=== PATIENT | male | born 1955 | race Caucasian/White ===

== ENCOUNTER 2016-07-27 08:20 | Inpatient (IN) | payer SELFPAY ==
[2016-07-27] MEDS ORDERED: ONDANSETRON HCL INJ/PF 4 MG/2 ML SDV IV ONE (08:57)
--- NOTE | 2016-07-27 08:57 | ER Document Report ---
ED Dizziness/Weakness - General Mode of Arrival: Medic Information source: Patient TRAVEL OUTSIDE OF THE [place] IN LAST 30 DAYS: No - HPI Patient complains to provider of: Dizziness Associated symptoms: Other - See above <KAMRON ROSSI - Last Filed: 07/27/16 10:46> <ANGELA BECKWITH - Last Filed: 07/27/16 12:46> - General Chief Complaint: Dizziness Stated Complaint: Dizziness Notes: Patient is a 61 year old male, with a past medical history including diabetes and CHF, who presents to the emergency department complaining of dizziness onset this morning. Patient reports the dizziness is exacerbated by turning his head to the side quickly. Patient also complains of blurred vision, nausea, and vomiting. Patient was seen at this facility last October for similar complaints and was diagnosed with vertigo which was successfully treated. PCP: [facility] (KAMRON ROSSI) This 61-year-old male patient comes emergent room complaining of onset this morning of dizziness and blurred vision. He reports it is similar to his previous episodes of vertigo. He is some nauseousness. The symptoms are made worse with head movement. On exam, he is an ill looking obese male. His heart rate is in the 140 range and irregular. His pulse is thready at the wrist. He doesn't appear to be a little tachypneic. His lungs sound reasonably clear. He was diagnosed with new -onset atrial fibrillation on 05/12/2016 on an admission here for a CHF exacerbation and uncontrolled high blood pressure. At this time his blood pressure is in the 110 systolic range. The patient had been here admitted here on 05/12/2016 with new onset A. fib with RVR, and was actually here for cellulitis of the time. He was post to be discharged on lisinopril, metformin, furosemide, hydralazine, metoprolol among others. He does not recall ever taking metoprolol. He states he ran out of his Lasix a week or more ago, and doesn't remember when he ran out of his hydralazine. He was seen here on 07/13/2016 on 2 separate occasions with some fluid overload, was treated but was not discharged with any prescriptions for Lasix at that time. He has had vertigo several times in the past and this is not a new or different problem. (ANGELA BECKWITH) - Related Data Allergies/Adverse Reactions: diltiazem [From Cardizem] Allergy (Verified 05/31/16 08:20) Past Medical History - General Information source: Patient - Social History Smoking Status: Unknown if Ever Smoked Family History: Reviewed & Not Pertinent - Past Medical History Cardiac Medical History: Reports: Hx Atrial Fibrillation, Hx Congestive Heart Failure, Hx Coronary Artery Disease, Hx Heart Attack - pt unsure of this, Hx Hypertension Pulmonary Medical History: Reports: Hx Asthma - childhood Endocrine Medical History: Reports: Hx Diabetes Mellitus Type 2 Musculoskeltal Medical History: Reports Hx Arthritis - RA, Reports Hx Fibromyalgia Psychiatric Medical History: Reports: Hx Anxiety Infectious Medical History: Reports: Hx C-Diff Past Surgical History: Reports: Hx Appendectomy, Hx Orthopedic Surgery - L hand , Hx Tonsillectomy - Immunizations Hx Diphtheria, Pertussis, Tetanus Vaccination: Yes <KAMRON ROSSI - Last Filed: 07/27/16 10:46> Review of Systems - Review of Systems Constitutional: No symptoms reported EENT: See HPI, Blurred vision Cardiovascular: See HPI, Dizziness Respiratory: No symptoms reported Gastrointestinal: No symptoms reported Genitourinary: No symptoms reported Male Genitourinary: No symptoms reported Musculoskeletal: No symptoms reported Skin: No symptoms reported Hematologic/Lymphatic: No symptoms reported Neurological/Psychological: No symptoms reported -: Yes All other systems reviewed and negative <KAMRON ROSSI - Last Filed: 07/27/16 10:46> Physical Exam - Vital signs Interpretation: Tachycardic, Tachypneic - mild - General General appearance: Alert - HEENT Head: Normocephalic, Atraumatic Eyes: Other - Some lateral gaze stagnation Neck: No: Carotid bruit - Respiratory Respiratory status: No respiratory distress, Tachypnea - mild Chest status: Nontender Breath sounds: Normal Chest palpation: Normal - Cardiovascular Rhythm: Tachycardia Heart sounds: Normal auscultation Murmur: No Pulses: Decreased: Radial - Abdominal Inspection: Obese - Extremities General upper extremity: Normal inspection General lower extremity: Edema - mild - Neurological Neuro grossly intact: Yes Cognition: Normal Orientation: AAOx4 [place] Coma Scale Eye Opening: Spontaneous [place] Coma Scale Verbal: Oriented Joan Coma Scale Motor: Obeys Commands Joan Coma Scale Total: 15 Speech: Normal - Psychological Associated symptoms: Normal affect, Normal mood - Skin Skin Temperature: Warm Skin Moisture: Dry Skin Color: Normal <KAMRON ROSSI - Last Filed: 07/27/16 10:46> Course - Laboratory Result Diagrams: 07/27/16 09:49 07/27/16 09:49 <KAMRON ROSSI - Last Filed: 07/27/16 10:46> - Laboratory Result Diagrams: 07/27/16 09:49 07/27/16 09:49 - Diagnostic Test Radiology reviewed: Image reviewed, Reports reviewed - Chest x-ray does not show any acute process, specifically no congestive heart failure. - EKG Interpretation by Me EKG shows normal: Curlew, QRS Complexes, ST-T Waves. abnormal: Intervals - Prolonged QT interval Rate: Tachycardia - 149 Rhythm: A.Fib [place]/QRS: LAHB/LAFB When compared to previous EKG there are: Changes noted - Only significant change since 07/13/2016 is the tachycardia. - Consults Dr. Monet Time consulted: 12:40 Consulted provider: will come to ER <ANGELA BECKWITH - Last Filed: 07/27/16 12:46> - Re-evaluation Re-evalutation: 07/27/16 12:11 After 1 L of IV fluid, metoprolol, Ativan and Antivert the patient is feeling much better. His room air pulse ox is 97%. His atrial fibrillation RVR is slowed to the 1:15 range. His blood pressure has gone up to the 135 range. He is able to turn his head from side to side with only minimal dizzy sensation at this time. He is actually smiling and states he feels considerably better. 07/27/16 12:13 The patient's hemoglobin A1c was only 5.2, when asked about all the sores on his extremities and the prior cellulitis, he states he picks at his skin. It is obviously not due to diabetes. When asked why he does that he states "just stupid I guess". (ANGELA BECKWITH) - Vital Signs Vital signs: Temp Pulse Resp BP Pulse Ox 15 102/59 L 97 07/27/16 09:01 07/27/16 09:01 07/27/16 09:01 (ANGELA BECKWITH) - Laboratory Laboratory results interpreted by me: 07/27/16 07/27/16 07/27/16 09:49 09:49 09:49 WBC 3.7 L RBC 2.87 L Hgb 9.5 L Hct 27.8 L RDW 17.1 H Plt Count 88 L Sodium 145.9 H Chloride 110 H Carbon Dioxide 19 L BUN 26 H Creatinine 1.48 H Est GFR ( Amer) 58 L Est GFR (Non-Af Amer) 48 L AST 72 H Creatine Kinase 535 H NT-Pro-B Natriuret Pep 1590 H Albumin 2.7 L Critical Care Note - Critical Care Note Total time excluding time spent on procedures (mins): 35 <ANGELA BECKWITH - Last Filed: 07/27/16 12:46> Discharge <KAMRON ROSSI - Last Filed: 07/27/16 10:46> - Discharge Admitting Provider: Hospitalist Unit Admitted: Telemetry <ANGELA BECKWITH - Last Filed: 07/27/16 12:46> - Discharge Clinical Impression: Atrial fibrillation with rapid ventricular response, Vertigo Hypotension Qualifiers: Hypotension type: unspecified hypotension type Qualified Code(s): I95.9 - Hypotension, unspecified Condition: Stable Disposition: ADMITTED INPATIENT Scribe Attestation: 07/27/16 12:46 I personally performed the services described in the documentation, reviewed and edited the documentation which was dictated to the scribe in my presence, and it accurately records my words and actions. (ANGELA BECKWITH) Scribe Documentation <KAMRON ROSSI - Last Filed: 07/27/16 10:46> <ANGELA BECKWITH - Last Filed: 07/27/16 12:46> - Scribe Written by Scribe:: ANGELA BECKWITH MD, SCRIBE 07/27/16 0939 Acting as scribe for: Dr. Beckwith (KAMRON ROSSI) (ANGELA BECKWITH)
[2016-07-27] MEDS ORDERED: MECLIZINE HCL 25 MG TABLET PO ONE (08:58)
[2016-07-27] MEDS ORDERED: NORMAL SALINE 1000 ML 1,000 ML IV ONE (09:19)
[2016-07-27] MEDS ORDERED: LORAZEPAM INJ 2 MG/1 ML VIAL IV ONE (10:16)
[2016-07-27] MEDS ORDERED: METOPROLOL TARTRATE PF/INJ 5 MG/5 ML SDV IV ONE ×2 (10:16→22:48)
[2016-07-27 10:28] LABS: ABSOLUTE BASOPHILS # (AUTO) 0.1 10^3/uL (0.0-0.2); ABSOLUTE LYMPHOCYTES (AUTO) 0.7 10^3/uL (0.5-4.7); ABSOLUTE MONOCYTES (AUTO) 0.3 10^3/uL (0.1-1.4); ABSOLUTE NEUT (AUTO) 2.6 10^3/uL (1.7-8.2); BASOPHILS % (AUTO) 1.5 % (0-2); EOSINOPHILS % (AUTO) 0.9 % (0-6); HEMATOCRIT 27.8 % (37.9-51.0); HEMOGLOBIN 9.5 g/dL (13.5-17.0); HGB HCT DIFFERENCE 0.7; LYMPHOCYTES % (AUTO) 18.5 % (13-45); MEAN CORPUSCULAR HEMOGLOBIN 33.1 pg (27.0-33.4); MEAN CORPUSCULAR HGB CONC 34.1 g/dL (32.0-36.0); MEAN CORPUSCULAR VOLUME 97 fl (80-97); RED BLOOD COUNT 2.87 10^6/uL (4.35-5.55); RED CELL DISTRIBUTION WIDTH 17.1 % (11.5-14.0); SEGMENTED NEUTROPHILS % (AUTO) 70.1 % (42-78); WHITE BLOOD COUNT 3.7 10^3/uL (4.0-10.5)
[2016-07-27 10:42] LABS: ALANINE AMINOTRANSFERASE 25 U/L (21-72); ALBUMIN 2.7 g/dL (3.5-5.0); ALKALINE PHOSPHATASE 105 U/L (38-126); ANION GAP 17 (5-19); ASPARTATE AMINO TRANSFERASE 72 U/L (17-59); BLOOD UREA NITROGEN 26 mg/dL (7-20); CALCIUM 8.5 mg/dL (8.4-10.2); CARBON DIOXIDE 19 mmol/L (22-30); CHLORIDE 110 mmol/L (98-107); CREATINE KINASE 535 U/L (55-170); CREATININE RESULT 1.48 mg/dL (0.52-1.25); GLUCOSE 86 mg/dL (75-110); POTASSIUM 4.6 mmol/L (3.6-5.0); SODIUM 145.9 mmol/L (137-145)
[2016-07-27 10:53] LABS: CREATINE KINASE MB 4.03 ng/mL (<4.55); TROPONIN I 0.017 ng/mL
[2016-07-27 13:07] LABS: APPEARANCE,URINE SLIGHTLY-CLOUDY; BILIRUBIN,URINE NEGATIVE (NEGATIVE); GLUCOSE, URINE NEGATIVE (NEGATIVE); KETONES,URINE NEGATIVE (NEGATIVE); LEUKOCYTE ESTERASE,URINE NEGATIVE (NEGATIVE); NITRITE,URINE NEGATIVE (NEGATIVE); PROTEIN,URINE 100 mg/dL (NEGATIVE); URINE SPECIFIC GRAVITY 1.018; UROBILINOGEN,URINE NEGATIVE mg/dL (<2.0)
[2016-07-27] MEDS ORDERED: ONDANSETRON HCL INJ/PF 4 MG/2 ML SDV IV PRN (14:13)
[2016-07-27] MEDS ORDERED: ACETAMINOPHEN 325 MG TABLET PO PRN (14:13)
[2016-07-27] MEDS ORDERED: INSULIN LISPRO 100 UNIT/ML 3 ML VIAL SUBCUT PRN (14:17)
[2016-07-27] MEDS ORDERED: DEXTROSE 40% GEL 15 GM TUBE PO PRN ×2 (14:17)
[2016-07-27] MEDS ORDERED: DEXTROSE 50%-WATER 25 GM/50 ML DISP.SYRIN IV PRN ×2 (14:17)
[2016-07-27] MEDS ORDERED: GLUCAGON,HUMAN RECOMB 1 MG INJ IM PRN (14:17)
[2016-07-27] MEDS ORDERED: DIGOXIN INJ 0.5 MG/2 ML AMPULE IV ONE (14:20)
--- NOTE | 2016-07-27 15:07 | EKG REPORT ---
SEVERITY:- ABNORMAL ECG - ATRIAL FIBRILLATION, V-RATE 109-179 LEFT ANTERIOR FASCICULAR BLOCK PROLONGED QT INTERVAL : Confirmed by: Magen Dubose 27-Jul-2016 15:06:04
--- NOTE | 2016-07-27 17:07 | PDOC H&P ---
History of Present Illness Admission Date/PCP: 07/27/16 14:13 [facility] Patient complains of: Shortness of breath History of Present Illness: DEBORAH WHARTON is a 61 year old male with fairly sudden onset this morning at 6 AM of heart racing, shortness of breath, generalized weakness. Patient has a history of congestive heart failure secondary to diastolic dysfunction and admits to being off of his Lasix for the past week. In review of pharmacy records it doesn't look like patient has picked up his prescriptions in the past couple months. Patient is also noted bilateral lower extremity edema, dyspnea on exertion, orthopnea. He states that he can no longer walk short distances without becoming excessively short of breath. He denies chest pain. He does have a history of chronic atrial fibrillation and has declined Coumadin therapy in the past. Past Medical History Cardiac Medical History: Reports: Atrial Fibrillation, Congestive Heart Failure - Left ventricular diastolic dysfunction, Coronary Artery Disease, Myocardial Infarction - pt unsure of this, Hypertension Pulmonary Medical History: Reports: Asthma - childhood Endocrine Medical History: Reports: Diabetes Mellitus Type 2 Musculoskeltal Medical History: Reports: Arthritis - RA, Fibromyalgia Hematology: Reports: Anemia Infectious Medical History: Reports: Clostridium Difficile Past Surgical History Past Surgical History: Reports: Appendectomy, Orthopedic Surgery - L hand, Tonsillectomy Social History Information Source: Patient Occupation: Works in [employer] service. Smoking Status: Former Smoker Frequency of Alcohol Use: Occasional Hx Recreational Drug Use: No Drugs: None Hx Prescription Drug Abuse: No - Advance Directive Resuscitation Status: Full Code Family History Family History: Reviewed & Not Pertinent - Adopted Parental Family History Reviewed: Yes Children Family History Reviewed: Yes Sibling(s) Family History Reviewed.: Yes Medication/Allergy Home Medications: Lisinopril 20 mg PO BID 09/07/14 Metformin HCl [Glucophage] 500 mg PO BID #0 tablet 09/10/14 Aspirin [Ecotrin 81 mg EC Tablet] 81 mg PO DAILY tabec 05/13/16 Metoprolol Succinate [Toprol Xl 50 mg Tab.sr] 100 mg PO DAILY #30 tab.sr.24h Furosemide [Lasix 40 mg Tablet] 40 mg PO BID 05/31/16 Hydralazine HCl 50 mg PO DAILY 05/31/16 Magnesium Oxide 400 mg PO DAILY 05/31/16 Allergies/Adverse Reactions: diltiazem [From Cardizem] Allergy (Verified 05/31/16 08:20) Review of Systems Constitutional: ABSENT: chills, fever(s), headache(s), weight gain, weight loss Eyes: ABSENT: visual disturbances Ears: ABSENT: hearing changes Cardiovascular: PRESENT: chest pain, dyspnea on exertion, edema, orthropnea, palpitations Respiratory: ABSENT: cough, hemoptysis Gastrointestinal: ABSENT: abdominal pain, constipation, diarrhea, hematemesis, hematochezia, nausea, vomiting Genitourinary: ABSENT: dysuria, hematuria Musculoskeletal: ABSENT: joint swelling Integumentary: ABSENT: rash, wounds Neurological: ABSENT: abnormal gait, abnormal speech, confusion, dizziness, focal weakness, syncope Psychiatric: ABSENT: anxiety, depression, homidical ideation, suicidal ideation Endocrine: ABSENT: cold intolerance, heat intolerance, polydipsia, polyuria Hematologic/Lymphatic: ABSENT: easy bleeding, easy bruising Physical Exam Vital Signs: Temp Pulse Resp BP Pulse Ox 98.4 F 19 166/112 H 95 07/27/16 16:01 07/27/16 16:01 07/27/16 16:01 07/27/16 13:01 PHYSICAL EXAM: GENERAL: Appears well, no acute distress, obese HEENT: Normocephalic, no scleral icterus, conjunctiva clear, EOEM intact, PERRLA , moist mucous membranes NECK: trachea midline, no thyromegally RESPIRATORY: Clear to auscultation, no wheezes/rhonchi CARDIAC: Irregularly irregular ABDOMEN: Soft, no distension, no tenderness, no guarding, normal bowel sounds, negative Dumont sign RECTAL: deferred : deferred EXTREMITIES: BLE edema, cyanosis, clubbing MUSCULOSKELETAL: No joint swelling or deformity VASCULAR: normal peripheral pulses NEUROLOGIC: Alert, oriented to person/place/time, normal speech, cranial nerves grossly intact, 5/5 strength in all extremities, tactile sensation intact in all extremities SKIN: No rash, no wounds, no worrisome skin lesions PSYCHIATRIC: Normal mood, normal affect Results Laboratory Results: Labs- All tests 24 hr 07/27/16 07/27/16 07/27/16 09:49 09:49 09:49 WBC 3.7 L RBC 2.87 L Hgb 9.5 L Hct 27.8 L MCV 97 MCH 33.1 MCHC 34.1 RDW 17.1 H Plt Count 88 L Seg Neutrophils % 70.1 Lymphocytes % 18.5 Monocytes % 9.0 Eosinophils % 0.9 Basophils % 1.5 Absolute Neutrophils 2.6 Absolute Lymphocytes 0.7 Absolute Monocytes 0.3 Absolute Eosinophils 0.0 Absolute Basophils 0.1 D-Dimer Sodium 145.9 H Potassium 4.6 Chloride 110 H Carbon Dioxide 19 L Anion Gap 17 BUN 26 H Creatinine 1.48 H Est GFR ( Amer) 58 L Est GFR (Non-Af Amer) 48 L Glucose 86 Hemoglobin A1c % 5.2 Calcium 8.5 Total Bilirubin 1.0 Direct Bilirubin 0.0 AST 72 H ALT 25 Alkaline Phosphatase 105 Creatine Kinase 535 H CK-MB (CK-2) Troponin I NT-Pro-B Natriuret Pep Total Protein 7.0 Albumin 2.7 L Urine Color Urine Appearance Urine pH Ur Specific [place] Urine Protein Urine Glucose (UA) Urine Ketones Urine Blood Urine Nitrite Urine Bilirubin Urine Urobilinogen Ur Leukocyte Esterase Urine WBC (Auto) Urine RBC (Auto) U Hyaline Cast (Auto) Squamous Epi Cells Auto Granular Casts (Auto) Urine Mucus (Auto) Urine Ascorbic Acid 07/27/16 07/27/16 07/27/16 09:49 09:49 12:40 WBC RBC Hgb Hct MCV MCH MCHC RDW Plt Count Seg Neutrophils % Lymphocytes % Monocytes % Eosinophils % Basophils % Absolute Neutrophils Absolute Lymphocytes Absolute Monocytes Absolute Eosinophils Absolute Basophils D-Dimer 5.99 H Sodium Potassium Chloride Carbon Dioxide Anion Gap BUN Creatinine Est GFR ( Amer) Est GFR (Non-Af Amer) Glucose Hemoglobin A1c % Calcium Total Bilirubin Direct Bilirubin AST ALT Alkaline Phosphatase Creatine Kinase CK-MB (CK-2) 4.03 Troponin I 0.017 NT-Pro-B Natriuret Pep 1590 H Total Protein Albumin Urine Color YELLOW Urine Appearance SLIGHTLY-CLOUDY Urine pH 5.0 Ur Specific [place] 1.018 Urine Protein 100 H Urine Glucose (UA) NEGATIVE Urine Ketones NEGATIVE Urine Blood MODERATE H Urine Nitrite NEGATIVE Urine Bilirubin NEGATIVE Urine Urobilinogen NEGATIVE Ur Leukocyte Esterase NEGATIVE Urine WBC (Auto) 3 Urine RBC (Auto) 12 U Hyaline Cast (Auto) 11 Squamous Epi Cells Auto <1 Granular Casts (Auto) 2 Urine Mucus (Auto) RARE Urine Ascorbic Acid NEGATIVE Impressions: Lung Scan-VQ NM 07/27/16 00:00 IMPRESSION: Low probability for pulmonary embolus. Chest X-Ray 07/27/16 09:19 IMPRESSION: NO ACUTE RADIOGRAPHIC FINDING IN THE CHEST. Assessment & Plan - Diagnosis (1) Atrial fibrillation with rapid ventricular response Is this a current diagnosis for this admission?: YesPlan: Patient will be started on Toprol-XL 50 mg twice daily. I will order when necessary IV Lopressor for heart rate greater than 120. Monitor on telemetry. VQ scan negative for pulmonary embolism. Check thyroid function studies. Check serial cardiac enzymes. Hemoccults stool and if Hemoccult is negative I will readdress anticoagulation with patient. He has historically declined anticoagulation. Consult Dr. Dubose of cardiology. (2) Acute diastolic CHF (congestive heart failure) Is this a current diagnosis for this admission?: YesPlan: Start IV Lasix 20 mg every 12 hours. Patient has been noncompliant with outpatient medications to include Lasix, and lisinopril. I will start Toprol- XL. Monitor I/O, daily weight. Cardiac diet. Check echocardiogram. (3) Anemia Is this a current diagnosis for this admission?: YesPlan: Check iron, B-12, folic acid, TIBC, ferritin. Check Hemoccult of stool. (4) Thrombocytopenia Is this a current diagnosis for this admission?: YesPlan: Avoid heparin products. (5) Chronic kidney disease, stage III (moderate) Is this a current diagnosis for this admission?: YesPlan: Monitor renal function with diuresis. (6) Diabetes Qualifiers: Diabetes mellitus type: type 2 Diabetes mellitus complication status: with kidney complications Diabetes mellitus complication detail: with chronic kidney disease Diabetes mellitus intermediate teacher insulin use: without intermediate teacher use Chronic kidney disease stage: stage 3 (moderate) Qualified Code(s): E11.22 - Type 2 diabetes mellitus with diabetic chronic kidney disease; N18.3 - Chronic kidney disease, stage 3 (moderate) Is this a current diagnosis for this admission?: YesPlan: SSI (7) CAD (coronary artery disease) Qualifiers: Coronary Disease-Associated Artery/Lesion type: [place] artery [place] vs. transplanted heart: [place] heart Associated angina: without angina Qualified Code(s): I25.10 - Atherosclerotic heart disease of [place] coronary artery without angina pectoris Is this a current diagnosis for this admission?: YesPlan: Start ASA and Toprol XL. Check lipids. (8) Hypertension Qualifiers: Hypertension type: essential hypertension Qualified Code(s): I10 - Essential (primary) hypertension Is this a current diagnosis for this admission?: Yes (9) Noncompliance with medication regimen Is this a current diagnosis for this admission?: Yes - Time Time Spent: Greater than 70 Minutes
[2016-07-27] MEDS: METOPROLOL SUCCINATE 50 MG TAB.SR.24H PO SCH (18:05)
[2016-07-27] MEDS: METOPROLOL TARTRATE PF/INJ 5 MG/5 ML SDV IV PRN (18:21)
[2016-07-27 19:52] LABS: CREATINE KINASE MB 4.35 ng/mL (<4.55)
--- NOTE | 2016-07-27 19:55 | XCELERA REPORT ---
[address] [address] Transthoracic Echocardiogram Report Name: DEBORAH WHARTON Age: 61 yrs Gender: Male : 1955 Patient Status: Emergency Patient Location: \S\ED16\S\A Study Date: 07/27/2016 03:36 PM Height: 74 in Weight: 250 lb BSA: 2.4 m2 Procedure: A complete two-dimensional transthoracic echocardiogram was performed (2D, M-mode, spectral and color flow Doppler). The study was technically difficult with many images being suboptimal in quality. Reason For Study: afib, dyspnea Ordering Physician: CLAUDETTE FULLER Performed By: Patito Hernandez Interpretation Summary The study was technically difficult with many images being suboptimal in quality. The left ventricular ejection fraction is normal. There is mild concentric left ventricular hypertrophy. The left ventricle is grossly normal size. Doppler measurements suggest pseudonormalized left ventricular relaxation, which is associated with grade II/IV or mild to moderate diastolic dysfunction Wall motion cannot be accurately commented on, but no definite regional wall motion abnormalities noted. The right ventricle is mild to moderately dilated. Interarterial septum not well visualized and not well dopplered. Cannot comment on ASD/PFO presence. The right atrium is mildly dilated. There is a mild amount of mitral regurgitation There is no mitral valve stenosis. There is a trace to mild amount of aortic regurgitation There is no aortic valve stenosis There is a mild amount of tricuspid regurgitation Right ventricular systolic pressure is estimated to be elevated at 50- 60mmHg. There is moderate pulmonary hypertension by echo There is no pericardial effusion. MMode/2D Measurements \T\ Calculations RVDd: 3.9 cm LVIDd: 5.6 cm FS: 36.3 % Ao root diam: 4.3 cm IVSd: 1.4 cm LVIDs: 3.6 cm EDV(Teich): 152.1 ml LVPWd: 1.2 cm ESV(Teich): 52.7 ml Ao root area: 14.3 cm2 EF(Teich): 65.4 % LA dimension: 5.1 cm Doppler Measurements \T\ Calculations MV E max manpreet: MV P1/2t max manpreet: Ao V2 max: AI max manpreet: 116.5 cm/sec 116.0 cm/sec 162.9 cm/sec 376.4 cm/sec MV A max manpreet: MV P1/2t: 51.4 msec Ao max PG: AI max P.5 cm/sec 10.6 mmHg 56.7 mmHg MV E/A: 2.8 MVA(P1/2t): 4.3 cm2 AI dec slope: MV dec slope: 660.9 cm/sec2 210.3 cm/sec2 MV dec time: AI P1/2t: 0.18 sec 524.4 msec LV V1 max PG: PI end-d manpreet: TR max manpreet: 6.2 mmHg 100.7 cm/sec 339.3 cm/sec LV V1 max: TR max P.4 cm/sec 46.1 mmHg Left Ventricle The left ventricle is grossly normal size. There is mild concentric left ventricular hypertrophy. The left ventricular ejection fraction is normal. Doppler measurements suggest pseudonormalized left ventricular relaxation, which is associated with grade II/IV or mild to moderate diastolic dysfunction. Wall motion cannot be accurately commented on, but no definite regional wall motion abnormalities noted. Right Ventricle The right ventricle is mild to moderately dilated. The right ventricle appears to be hypertrophied. The right ventricular systolic function is normal. Atria The right atrium is mildly dilated. The left atrium is severely dilated. Interarterial septum not well visualized and not well dopplered. Cannot comment on ASD/PFO presence. Mitral Valve There is mild mitral leaflet calcification. There is no mitral valve stenosis. There is a mild amount of mitral regurgitation. Aortic Valve The aortic valve is mildly calcified. There is no aortic valve stenosis. There is a trace to mild amount of aortic regurgitation. Tricuspid Valve The tricuspid valve is not well visualized, but is grossly normal. There is no tricuspid stenosis. There is a mild amount of tricuspid regurgitation. Right ventricular systolic pressure is estimated to be elevated at 50- 60mmHg. There is moderate pulmonary hypertension by echo. Pulmonic Valve The pulmonic valve is not well visualized. Great Vessels The aortic root is not well visualized but is probably normal size. The inferior vena cava was not well visualized. Effusions There is no pericardial effusion. : CLAUDETTE FULLER Shyamal
[2016-07-27 19:58] LABS: TROPONIN I 0.046 ng/mL
--- NOTE | 2016-07-27 20:31 | PDOC CONSULTATION ---
Consultation Consult Date: 07/27/16 Attending physician:: Dr. Torres Consult reason:: Atrial fibrillation and respiratory distress History of Present Illness Admission Date/PCP: 07/27/16 14:13 Patient complains of: Shortness of breath and palpitations History of Present Illness: DEBORAH WHARTON is a 61 year old male with fairly sudden onset this morning at 6 AM of heart racing, shortness of breath, generalized weakness. Patient has a history of congestive heart failure secondary to diastolic dysfunction and admits to being off of his Lasix for the past week. In review of pharmacy records it doesn't look like patient has picked up his prescriptions in the past couple months. Patient is also noted bilateral lower extremity edema, dyspnea on exertion, orthopnea. He states that he can no longer walk short distances without becoming excessively short of breath. He denies chest pain. He does have a history of chronic atrial fibrillation and has declined Coumadin therapy in the past. Patient claims he is followed at the [facility]. He denied any recent syncope, near syncope. He has noted increasing pedal edema, abdominal bloating and distention as well as significant weight gain. Past Medical History Cardiac Medical History: Reports: Atrial Fibrillation, Congestive Heart Failure , Coronary Artery Disease, Myocardial Infarction - pt unsure of this, Hypertension Pulmonary Medical History: Reports: Asthma - childhood Endocrine Medical History: Reports: Diabetes Mellitus Type 2 Musculoskeltal Medical History: Reports: Arthritis - RA, Fibromyalgia Infectious Medical History: Reports: Clostridium Difficile Past Surgical History Past Surgical History: Reports: Appendectomy, Orthopedic Surgery - L hand, Tonsillectomy Social History Information Source: Patient Smoking Status: Unknown if Ever Smoked Frequency of Alcohol Use: Occasional Hx Recreational Drug Use: No Drugs: None Hx Prescription Drug Abuse: No Family History Family History: Reviewed & Not Pertinent Parental Family History Reviewed: Yes Children Family History Reviewed: Yes Sibling(s) Family History Reviewed.: Yes - Negative for premature coronary artery disease or sudden cardiac in the family amongst first degree relatives. Medication/Allergy Home Medications: Furosemide [Lasix 40 mg Tablet] 40 mg PO BID 07/27/16 Hydralazine HCl 50 mg PO BID 07/27/16 Lisinopril [Prinivil] 20 mg PO BID 07/27/16 Magnesium Oxide [Mag-Ox 400 mg Tablet] 400 mg PO BID 07/27/16 Metoprolol Succinate [Toprol Xl 50 mg Tab.sr] 100 mg PO DAILY 07/27/16 Allergies/Adverse Reactions: diltiazem [From Cardizem] Allergy (Verified 05/31/16 08:20) Review of Systems Review of Systems: Please see history of present illness and past medical history as wall. Constitutional: No fever or chills reported. Head : No recent chronic headaches, recent head injury. Eyes: No recent eye pain, diplopia, redness, discharge, acute visual changes. Ears: No recent chronic ear pain, acute hearing loss, ear discharge. Oral cavity: No recent ulcerations, bleeding, oral cavity discomfort. Neck: No recent acute neck pain reported. Hematologic: No recent easy bruising or bleeding or hematologic malignancy reported. Lymphatic: No recent lymphatic malignancy, chronic lymphadenopathy reported yet Cardiovascular system review: See history of present illness. Respiratory system review: No recent chronic cough, hemoptysis, blood clots in the lungs reported. Mild Shortness of breath on exertion Gastrointestinal system review: Negative for any recent acute or chronic abdominal pain, hematemesis, melena, recent change in bowel habits. Patient has noted abdominal bloating. Genitourinary system review: No recent acute or chronic hematuria, flank pain, UTI etc. reported. Skin system review: Negative for any recent abnormal bruising, no rash, no pruritus reported. Neurologic: No prior history of strokes, mini strokes, seizure disorder. Psychologic: No history of major psychosis or depression reported. Musculoskeletal: Minor aches and pains reported. No acute joint swelling reported. Endocrine: No recent polyuria, polydipsia, recent heat or cold intolerance. Physical Exam Vital Signs: Temp Pulse Resp BP Pulse Ox 99.4 F 19 154/102 H 95 07/27/16 12:00 07/27/16 14:01 07/27/16 14:01 07/27/16 13:01 Exam: GENERAL: well-nourished and in no acute distress. Alert and oriented x3 HEAD: Atraumatic, normocephalic. EYES: Pupils equal round and reactive to light, extraocular movements intact, sclera anicteric, conjunctiva are normal. ENT: TMs normal, nares patent, oropharynx clear without exudates. Moist mucous membranes. No oral ulcerations or bleeding gums noted NECK: supple without lymphadenopathy. Trachea is central. No cervical or axillary lymphadenopathy noted. Carotids are 2+, JVD 10-12 CM LUNGS: Respiration seems nonlabored, no significant accessory muscle action noted. Bilateral fine crackles noted. No wheezes rales or rhonchi. No significant dullness noted on percussion. CHEST: Palpation of the chest wall shows no significant chest wall tenderness or abnormalities. 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 ABDOMEN: Soft, no significant tenderness appreciated, normoactive bowel sounds. No guarding, no rebound. No rigidity noted . No masses appreciated. EXTREMITIES: Pedal pulses are 1-2+, no calf tenderness noted. No clubbing or cyanosis.2 + pedal edema noted NEUROLOGICAL: Focused neurological exam showed no significant neurologic deficit. Normal speech, no focal weakness appreciated. PSYCH: Normal mood, normal affect. Judgment and insight within normal limits. SKIN: No significant ecchymosis, rash, ulcerations or signs of pruritus noted. MUSCULOSKELETAL EXAM: No significant joint swelling noted. Results EKG Comments: Atrial fibrillation with rapid ventricular response. Minor nonspecific ST segment changes are noted. Impressions: Lung Scan-VQ NM 07/27/16 00:00 IMPRESSION: Low probability for pulmonary embolus. Chest X-Ray 07/27/16 09:19 IMPRESSION: NO ACUTE RADIOGRAPHIC FINDING IN THE CHEST. Assessment & Plan - Diagnosis (2) Acute diastolic CHF (congestive heart failure) Is this a current diagnosis for this admission?: Yes (3) Atrial fibrillation with rapid ventricular response Is this a current diagnosis for this admission?: Yes (4) CAD (coronary artery disease) Qualifiers: Coronary Disease-Associated Artery/Lesion type: [place] artery [place] vs. transplanted heart: [place] heart Associated angina: without angina Qualified Code(s): I25.10 - Atherosclerotic heart disease of [place] coronary artery without angina pectoris Is this a current diagnosis for this admission?: Yes (5) Chronic kidney disease, stage III (moderate) Is this a current diagnosis for this admission?: Yes (6) Diabetes Qualifiers: Diabetes mellitus type: type 2 Diabetes mellitus complication status: with kidney complications Diabetes mellitus complication detail: with chronic kidney disease Diabetes mellitus intermediate insulin use: without long lines operator use Chronic kidney disease stage: stage 3 (moderate) Qualified Code(s): E11.22 - Type 2 diabetes mellitus with diabetic chronic kidney disease; N18.1 - Chronic kidney disease, stage 1; Z79.4 - halfway ( current) use of insulin Is this a current diagnosis for this admission?: Yes (7) Hypertension Qualifiers: Hypertension type: essential hypertension Qualified Code(s): I10 - Essential (primary) hypertension Is this a current diagnosis for this admission?: Yes - Notes Notes: Atrial fibrillation with rapid ventricular response: Recommend rate control with Cardizem drip, IV beta viv etc. as needed. It seems atrial fibrillation is chronic. 2-D echo shows significantly enlarged left atrium. Right ventricle is also enlarged. Would recommend aggressive diuresis. Congestive heart failure: This is predominantly from diastolic heart failure with contribution from right heart failure. Continue IV diuretics. May consider digoxin. Recommend rate control, salt and fluid restriction. Coronary artery disease: Currently symptomatically stable. Recommend statins. Recommend beta viv. Consider glenda inhibitors/ARB. Diabetes: Currently stable being managed by hospitalist. Hypertension: Severe, recommend aggressive control of blood pressure. - Time Time Spent: 30 to 50 Minutes - CODE STATUS was discussed, patient remains full code. Surrogate decision-maker patient's son by the LALA Burgess. Multiple medical problems were addressed.More than 50% of the time spent coordinating care, discussing management plans with involved caregivers. Management plans discussed with involved personnels. Medical decision making was of moderate complexity. Medications reviewed and adjusted accordingly: Yes
[2016-07-27 20:46] LABS: FOLATE 6.21 ng/mL (>2.76)
[2016-07-27] MEDS: FUROSEMIDE INJ/PF 20 MG/2 ML SDV IV SCH (21:06)
[2016-07-27] MEDS ORDERED: HEPARIN SOD (PORCINE) 5,000 UNIT/ML 1 ML SYRINGE SUBCUT SCH (22:00)
[2016-07-27 23:11] LABS: URINE BARBITURATES SCREEN NEGATIVE; URINE METHADONE SCREEN NEGATIVE; URINE PHENCYCLIDINE SCREEN NEGATIVE
[2016-07-27] MEDS ORDERED: NITROGLYCERIN 2% OINTMENT 1 GM PACKET TP ONE (23:14)
[2016-07-28 01:50] LABS: CREATINE KINASE MB 4.46 ng/mL (<4.55); TROPONIN I 0.042 ng/mL
[2016-07-28] MEDS: METOPROLOL TARTRATE PF/INJ 5 MG/5 ML SDV IV PRN ×2 (02:50→13:10)
[2016-07-28] MEDS: METOPROLOL SUCCINATE 50 MG TAB.SR.24H PO SCH ×2 (05:27→18:09)
[2016-07-28 07:27] LABS: ANION GAP 9 (5-19); BLOOD UREA NITROGEN 30 mg/dL (7-20); CALCIUM 8.8 mg/dL (8.4-10.2); CARBON DIOXIDE 25 mmol/L (22-30); CHLORIDE 109 mmol/L (98-107); CHOLESTEROL 199.72 mg/dL (0-200); CREATINE KINASE 929 U/L (55-170); CREATININE RESULT 1.55 mg/dL (0.52-1.25); Direct HDL 66 mg/dL (>40); GLUCOSE 108 mg/dL (75-110); POTASSIUM 4.9 mmol/L (3.6-5.0); SODIUM 143.2 mmol/L (137-145); TRIGLYCERIDES 136 mg/dL (<150)
[2016-07-28 07:28] LABS: ABSOLUTE LYMPHOCYTES (AUTO) 0.9 10^3/uL (0.5-4.7); ABSOLUTE MONOCYTES (AUTO) 0.4 10^3/uL (0.1-1.4); ABSOLUTE NEUT (AUTO) 3.2 10^3/uL (1.7-8.2); BASOPHILS % (AUTO) 0.5 % (0-2); EOSINOPHILS % (AUTO) 0.6 % (0-6); HEMATOCRIT 26.6 % (37.9-51.0); HEMOGLOBIN 8.7 g/dL (13.5-17.0); HGB HCT DIFFERENCE -0.5; LYMPHOCYTES % (AUTO) 20.5 % (13-45); MEAN CORPUSCULAR HEMOGLOBIN 32.8 pg (27.0-33.4); MEAN CORPUSCULAR HGB CONC 32.7 g/dL (32.0-36.0); MEAN CORPUSCULAR VOLUME 100 fl (80-97); MONOCYTES % (AUTO) 8.3 % (3-13); RED BLOOD COUNT 2.65 10^6/uL (4.35-5.55); RED CELL DISTRIBUTION WIDTH 16.9 % (11.5-14.0); SEGMENTED NEUTROPHILS % (AUTO) 70.1 % (42-78); WHITE BLOOD COUNT 4.6 10^3/uL (4.0-10.5)
[2016-07-28 07:37] LABS: DIRECT LDL 70 mg/dL (<100)
[2016-07-28 07:38] LABS: CREATINE KINASE MB 4.79 ng/mL (<4.55); TROPONIN I 0.037 ng/mL
[2016-07-28] MEDS ORDERED: FONDAPARINUX SODIUM INJ 2.5 MG/0.5 ML DISP.SYRIN SUBCUT SCH (08:00)
--- NOTE | 2016-07-28 11:22 | PDOC PROGRESS REPORT ---
Subjective Progress Note for:: 07/28/16 Subjective:: Patient seems to be doing better with gradual improvement. Pt is denying any chest arm or neck discomfort. Patient denying any PND, orthopnea. Patient denied any sustained palpitations, dizziness, syncope, near syncope. Patient denying any fever chills. Patient denying any other significant discomfort. Patient is maintaining atrial fibrillation but rate better controlled. Review of systems: Rest review of systems negative. Medications: Medications have been reviewed. Physical Exam Vital Signs: Temp Pulse Resp BP Pulse Ox 97.2 F 91 20 180/118 H 100 07/28/16 08:37 07/28/16 08:37 07/28/16 08:37 07/28/16 10:24 07/28/16 08:37 Intake & Output 07/27/16 07/28/16 07/29/16 06:59 06:59 06:59 Intake Total 240 Output Total 400 Balance -160 Weight 113 kg Exam: GENERAL: well-nourished and in no acute distress. Alert and oriented x3 HEAD: Atraumatic, normocephalic. EYES: Pupils equal round and reactive to light, extraocular movements intact, sclera anicteric, conjunctiva are normal. ENT: TMs normal, nares patent, oropharynx clear without exudates. Moist mucous membranes. No oral ulcerations or bleeding gums noted NECK: supple without lymphadenopathy. Trachea is central. No cervical or axillary lymphadenopathy noted. Carotids are 2+, JVD 8-10 CM LUNGS: Respiration seems nonlabored, no significant accessory muscle action noted. Breath sounds clear to auscultation bilaterally and equal. No wheezes rales or rhonchi. No significant dullness noted on percussion. CHEST: Palpation of the chest wall shows no significant chest wall tenderness or abnormalities. 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 ABDOMEN: Soft, no significant tenderness appreciated, normoactive bowel sounds. No guarding, no rebound. No rigidity noted . No masses appreciated. EXTREMITIES: Pedal pulses are 1-2+, no calf tenderness noted. No clubbing or cyanosis.2 + pedal edema noted with minor superficial healing ulcerations. NEUROLOGICAL: Focused neurological exam showed no significant neurologic deficit. Normal speech, no focal weakness appreciated. PSYCH: Normal mood, normal affect. Judgment and insight within normal limits. SKIN: No significant ecchymosis, rash, signs of pruritus noted. MUSCULOSKELETAL EXAM: No significant joint swelling noted. Results Laboratory Results: 07/28/16 06:17 07/28/16 06:17 07/27/16 07/27/16 07/28/16 18:30 18:30 06:17 WBC 4.6 RBC 2.65 L Hgb 8.7 L Hct 26.6 L MCV 100 H MCH 32.8 MCHC 32.7 RDW 16.9 H Plt Count 84 L Seg Neutrophils % 70.1 Lymphocytes % 20.5 Monocytes % 8.3 Eosinophils % 0.6 Basophils % 0.5 Absolute Neutrophils 3.2 Absolute Lymphocytes 0.9 Absolute Monocytes 0.4 Absolute Eosinophils 0.0 Absolute Basophils 0.0 Retic Count (auto) 2.42 Absolute Retic 0.069 Sodium Potassium Chloride Carbon Dioxide Anion Gap BUN Creatinine Est GFR ( Amer) Est GFR (Non-Af Amer) Glucose Calcium Iron 112 TIBC 248 L % Saturation 45 Ferritin 83.50 Triglycerides Cholesterol LDL Cholesterol Direct VLDL Cholesterol HDL Cholesterol Vitamin B12 744.0 Folate 6.21 TSH 07/28/16 07/28/16 06:17 06:17 WBC RBC Hgb Hct MCV MCH MCHC RDW Plt Count Seg Neutrophils % Lymphocytes % Monocytes % Eosinophils % Basophils % Absolute Neutrophils Absolute Lymphocytes Absolute Monocytes Absolute Eosinophils Absolute Basophils Retic Count (auto) Absolute Retic Sodium 143.2 Potassium 4.9 Chloride 109 H Carbon Dioxide 25 Anion Gap 9 BUN 30 H Creatinine 1.55 H Est GFR ( Amer) 55 L Est GFR (Non-Af Amer) 46 L Glucose 108 Calcium 8.8 Iron TIBC % Saturation Ferritin Triglycerides 136 Cholesterol 199.72 LDL Cholesterol Direct 70 VLDL Cholesterol 27.0 HDL Cholesterol 66 Vitamin B12 Folate TSH 1.37 07/27/16 07/27/16 07/28/16 18:30 18:30 00:59 Creatine Kinase 584 H 740 H CK-MB (CK-2) 4.35 Troponin I 0.046 07/28/16 07/28/16 07/28/16 00:59 06:17 06:17 Creatine Kinase 929 H CK-MB (CK-2) 4.46 4.79 H Troponin I 0.042 0.037 Impressions: Lung Scan-VQ NM 07/27/16 00:00 IMPRESSION: Low probability for pulmonary embolus. Chest X-Ray 07/27/16 09:19 IMPRESSION: NO ACUTE RADIOGRAPHIC FINDING IN THE CHEST. Assessment & Plan - Diagnosis (2) Acute diastolic CHF (congestive heart failure) Is this a current diagnosis for this admission?: Yes (3) Atrial fibrillation with rapid ventricular response Is this a current diagnosis for this admission?: Yes (4) CAD (coronary artery disease) Qualifiers: Coronary Disease-Associated Artery/Lesion type: [place] artery [place] vs. transplanted heart: [place] heart Associated angina: without angina Qualified Code(s): I25.10 - Atherosclerotic heart disease of [place] coronary artery without angina pectoris Is this a current diagnosis for this admission?: Yes (5) Chronic kidney disease, stage III (moderate) Is this a current diagnosis for this admission?: Yes (6) Diabetes Qualifiers: Diabetes mellitus type: type 2 Diabetes mellitus complication status: with kidney complications Diabetes mellitus complication detail: with chronic kidney disease Diabetes mellitus senior living insulin use: without senior living use Chronic kidney disease stage: stage 3 (moderate) Qualified Code(s): E11.22 - Type 2 diabetes mellitus with diabetic chronic kidney disease; N18.1 - Chronic kidney disease, stage 1; Z79.4 - emt intermediate ( current) use of insulin Is this a current diagnosis for this admission?: Yes (7) Hypertension Qualifiers: Hypertension type: essential hypertension Qualified Code(s): I10 - Essential (primary) hypertension Is this a current diagnosis for this admission?: Yes - Notes Notes: Atrial fibrillation with rapid ventricular response: Heart rate is under better control. It seems atrial fibrillation is chronic. 2-D echo shows significantly enlarged left atrium. Recommend rate control and chronic anticoagulation. Congestive heart failure: This is predominantly from diastolic heart failure with contribution from right heart failure. Right ventricle is also enlarged. Would recommend aggressive diuresis. Continue IV diuretics. May consider digoxin. Recommend rate control, salt and fluid restriction. Coronary artery disease: Currently symptomatically stable. Recommend statins. Recommend beta viv. Consider prasanth inhibitors/ARB. Diabetes: Currently stable being managed by hospitalist. Hypertension: This is coming under better control, recommend aggressive control of blood pressure. Blood pressure goal in this patient is 135/85 or less. This was discussed with the patient. Currently blood pressure under reasonable control. Better medication for this patient are PRASANTH inhibitor/ARB/beta viv etc. discussed side effects of uncontrolled hypertension and also severe hypotension. - Time Time with patient: 15-25 minutes - CODE STATUS was discussed, patient remains full code. Surrogate decision-maker patient's son. Multiple medical problems were addressed.More than 50% of the time spent coordinating care, discussing management plans with involved caregivers. Management plans discussed with involved personnels. Medical decision making was of moderate complexity.
[2016-07-28] MEDS: FUROSEMIDE INJ/PF 20 MG/2 ML SDV IV SCH (13:00)
[2016-07-28] MEDS: ASPIRIN 81 MG TABLET, ENT COATED PO SCH (13:00)
[2016-07-28] MEDS ORDERED: HYDRALAZINE HCL INJ/PF 20 MG/1 ML SDV IV PRN (13:58)
[2016-07-28] MEDS: HYDRALAZINE HCL 50 MG TABLET PO SCH ×2 (14:32→21:36)
[2016-07-28] MEDS ORDERED: LORAZEPAM 1 MG TABLET PO PRN (16:31)
--- NOTE | 2016-07-28 16:32 | PDOC PROGRESS REPORT ---
Subjective Progress Note for:: 07/28/16 Subjective:: Patient has been hypertensive today. He states that he feels generally better today and much less short of breath. He has been up to ambulate to the bathroom and had very little dyspnea on exertion. Patient denies fever, chills , headache, new focal weakness, chest pain, abdominal pain, nausea, vomiting, diarrhea, constipation. Physical Exam Vital Signs: Temp Pulse Resp BP Pulse Ox 97.5 F 96 16 183/112 H 100 07/28/16 12:51 07/28/16 12:51 07/28/16 12:51 07/28/16 12:51 07/28/16 12:51 Intake & Output 07/27/16 07/28/16 07/29/16 06:59 06:59 06:59 Intake Total 240 Output Total 400 Balance -160 Weight 113 kg GENERAL: No acute distress HEENT: Conjunctiva clear, nonicteric, moist mucous membranes, no JVD, midline trachea RESPIRATORY: Clear to auscultation bilaterally, no wheezes, no rhonchi CARDIAC: Irregularly irregular ABDOMEN: Soft, nondistended, nontender, positive bowel sounds, no rebound, no guarding EXTREMETIES: 1+ Bilateral lower extremity edema NEUROLOGIC: Alert, oriented to person/place/time, CN's grossly intact, no focal deficits SKIN: No rash, wounds PSYCH: Normal mood, normal affect Results Laboratory Results: 07/28/16 06:17 07/28/16 06:17 07/27/16 07/27/16 07/28/16 18:30 18:30 06:17 WBC 4.6 RBC 2.65 L Hgb 8.7 L Hct 26.6 L MCV 100 H MCH 32.8 MCHC 32.7 RDW 16.9 H Plt Count 84 L Seg Neutrophils % 70.1 Lymphocytes % 20.5 Monocytes % 8.3 Eosinophils % 0.6 Basophils % 0.5 Absolute Neutrophils 3.2 Absolute Lymphocytes 0.9 Absolute Monocytes 0.4 Absolute Eosinophils 0.0 Absolute Basophils 0.0 Retic Count (auto) 2.42 Absolute Retic 0.069 Sodium Potassium Chloride Carbon Dioxide Anion Gap BUN Creatinine Est GFR ( Amer) Est GFR (Non-Af Amer) Glucose Calcium Iron 112 TIBC 248 L % Saturation 45 Ferritin 83.50 Triglycerides Cholesterol LDL Cholesterol Direct VLDL Cholesterol HDL Cholesterol Vitamin B12 744.0 Folate 6.21 TSH 07/28/16 07/28/16 06:17 06:17 WBC RBC Hgb Hct MCV MCH MCHC RDW Plt Count Seg Neutrophils % Lymphocytes % Monocytes % Eosinophils % Basophils % Absolute Neutrophils Absolute Lymphocytes Absolute Monocytes Absolute Eosinophils Absolute Basophils Retic Count (auto) Absolute Retic Sodium 143.2 Potassium 4.9 Chloride 109 H Carbon Dioxide 25 Anion Gap 9 BUN 30 H Creatinine 1.55 H Est GFR ( Amer) 55 L Est GFR (Non-Af Amer) 46 L Glucose 108 Calcium 8.8 Iron TIBC % Saturation Ferritin Triglycerides 136 Cholesterol 199.72 LDL Cholesterol Direct 70 VLDL Cholesterol 27.0 HDL Cholesterol 66 Vitamin B12 Folate TSH 1.37 07/27/16 07/27/16 07/28/16 18:30 18:30 00:59 Creatine Kinase 584 H 740 H CK-MB (CK-2) 4.35 Troponin I 0.046 07/28/16 07/28/16 07/28/16 00:59 06:17 06:17 Creatine Kinase 929 H CK-MB (CK-2) 4.46 4.79 H Troponin I 0.042 0.037 Impressions: Lung Scan-VQ NM 07/27/16 00:00 IMPRESSION: Low probability for pulmonary embolus. Chest X-Ray 07/27/16 09:19 IMPRESSION: NO ACUTE RADIOGRAPHIC FINDING IN THE CHEST. Assessment & Plan - Diagnosis (1) Atrial fibrillation with rapid ventricular response Is this a current diagnosis for this admission?: YesPlan: Heart rate has been stable over the past 24 hours. Continue Toprol-XL 50 mg twice daily. I will order when necessary IV Lopressor for heart rate greater than 120. Monitor on telemetry. VQ scan negative for pulmonary embolism. Thyroid function studies normal. Serial cardiac enzymes negative for GA. Hemoccults stool and if Hemoccult is negative I will readdress anticoagulation with patient. He has historically declined anticoagulation. Continue aspirin for now. I'm reluctant to start full anticoagulation given significant anemia. Consult Dr. Dubose of cardiology. (2) Acute diastolic CHF (congestive heart failure) Is this a current diagnosis for this admission?: YesPlan: Discontinue IV Lasix. Start Lasix 20 mg by mouth every 12 hours. Patient has been noncompliant with outpatient medications to include Lasix, and lisinopril. Continue Toprol-XL. Monitor I/O, daily weight. Cardiac diet. Echocardiogram with normal EF, grade 2/4 diastolic dysfunction, moderate pulmonary hypertension. Patient is being followed by Dr. Dubose of cardiology. (3) Anemia Qualifiers: Anemia type: other cause Other causes of anemia: chronic disease, other Qualified Code(s): D63.8 - Anemia in other chronic diseases classified elsewhere Is this a current diagnosis for this admission?: YesPlan: Patient has anemia of chronic disease. Possibly related to history of rheumatoid arthritis. He has had a precipitous drop in hemoglobin. Iron level is normal, B-12 level is normal, folic acid levels normal. Hemoccult of the stool is pending. Discontinue Arixtra. Monitor H&H for stability. (4) Thrombocytopenia Is this a current diagnosis for this admission?: YesPlan: Avoid heparin products. Platelet count is low but stable. Discontinue Arixtra. (5) Chronic kidney disease, stage III (moderate) Is this a current diagnosis for this admission?: YesPlan: Monitor renal function with diuresis. 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 (7) CAD (coronary artery disease) Qualifiers: Coronary Disease-Associated Artery/Lesion type: [place] artery [place] vs. transplanted heart: [place] heart Associated angina: without angina Qualified Code(s): I25.10 - Atherosclerotic heart disease of [place] coronary artery without angina pectoris Is this a current diagnosis for this admission?: YesPlan: Continue ASA and Toprol XL. Lipid panel does not warrant statin therapy. (8) Hypertension Qualifiers: Hypertension type: essential hypertension Qualified Code(s): I10 - Essential (primary) hypertension Is this a current diagnosis for this admission?: YesPlan: Continue metoprolol. Start hydralazine 50 mg every 8 hours. Continue when necessary IV hydralazine and when necessary IV Lopressor. (9) Noncompliance with medication regimen Is this a current diagnosis for this admission?: Yes - Time Time Spent with patient: 35 or more minutes
[2016-07-28] MEDS ORDERED: MAGNESIUM OXIDE 400 MG TABLET PO SCH (18:00)
[2016-07-28] MEDS: FUROSEMIDE 40 MG TABLET PO SCH (18:10)
[2016-07-29 00:26] LABS: ABSOLUTE BASOPHILS # (AUTO) 0.1 10^3/uL (0.0-0.2); ABSOLUTE EOSINOPHILS # (AUTO) 0.1 10^3/uL (0.0-0.6); ABSOLUTE LYMPHOCYTES (AUTO) 1.2 10^3/uL (0.5-4.7); ABSOLUTE MONOCYTES (AUTO) 0.5 10^3/uL (0.1-1.4); ABSOLUTE NEUT (AUTO) 2.9 10^3/uL (1.7-8.2); BASOPHILS % (AUTO) 1.1 % (0-2); EOSINOPHILS % (AUTO) 2.3 % (0-6); HEMATOCRIT 26.2 % (37.9-51.0); HEMOGLOBIN 8.6 g/dL (13.5-17.0); HGB HCT DIFFERENCE -0.4; LYMPHOCYTES % (AUTO) 25.2 % (13-45); MEAN CORPUSCULAR HEMOGLOBIN 32.3 pg (27.0-33.4); MEAN CORPUSCULAR HGB CONC 32.7 g/dL (32.0-36.0); MEAN CORPUSCULAR VOLUME 99 fl (80-97); MONOCYTES % (AUTO) 10.1 % (3-13); RED BLOOD COUNT 2.66 10^6/uL (4.35-5.55); RED CELL DISTRIBUTION WIDTH 16.8 % (11.5-14.0); SEGMENTED NEUTROPHILS % (AUTO) 61.3 % (42-78); WHITE BLOOD COUNT 4.8 10^3/uL (4.0-10.5)
[2016-07-29 00:44] LABS: ANION GAP 12 (5-19); BLOOD UREA NITROGEN 33 mg/dL (7-20); CALCIUM 8.7 mg/dL (8.4-10.2); CARBON DIOXIDE 23 mmol/L (22-30); CHLORIDE 106 mmol/L (98-107); CREATINE KINASE 900 U/L (55-170); GLUCOSE 113 mg/dL (75-110); POTASSIUM 4.4 mmol/L (3.6-5.0); SODIUM 140.6 mmol/L (137-145)
[2016-07-29 00:56] LABS: CREATINE KINASE MB 4.77 ng/mL (<4.55); TROPONIN I 0.029 ng/mL
[2016-07-29 02:59] LABS: ADD ON TESTING BLD IN LAB ACKNOWLEDGE
[2016-07-29 03:18] LABS: MAGNESIUM 1.1 mg/dL (1.6-2.3)
[2016-07-29] MEDS: MAGNESIUM SULFATE/D5W 100 ML IV SCH ×3 (04:07→06:14)
[2016-07-29] MEDS: HYDRALAZINE HCL 50 MG TABLET PO SCH ×3 (05:12→22:28)
[2016-07-29] MEDS: METOPROLOL SUCCINATE 50 MG TAB.SR.24H PO SCH ×2 (05:12→17:35)
[2016-07-29 07:15] LABS: ABSOLUTE BASOPHILS # (AUTO) 0.1 10^3/uL (0.0-0.2); ABSOLUTE EOSINOPHILS # (AUTO) 0.1 10^3/uL (0.0-0.6); ABSOLUTE LYMPHOCYTES (AUTO) 1.2 10^3/uL (0.5-4.7); ABSOLUTE MONOCYTES (AUTO) 0.5 10^3/uL (0.1-1.4); ABSOLUTE NEUT (AUTO) 2.7 10^3/uL (1.7-8.2); BASOPHILS % (AUTO) 1.3 % (0-2); EOSINOPHILS % (AUTO) 2.9 % (0-6); HEMATOCRIT 26.9 % (37.9-51.0); HEMOGLOBIN 8.8 g/dL (13.5-17.0); HGB HCT DIFFERENCE -0.5; LYMPHOCYTES % (AUTO) 26.1 % (13-45); MEAN CORPUSCULAR HEMOGLOBIN 32.6 pg (27.0-33.4); MEAN CORPUSCULAR HGB CONC 32.6 g/dL (32.0-36.0); MEAN CORPUSCULAR VOLUME 100 fl (80-97); MONOCYTES % (AUTO) 10.3 % (3-13); RED BLOOD COUNT 2.69 10^6/uL (4.35-5.55); RED CELL DISTRIBUTION WIDTH 17.1 % (11.5-14.0); SEGMENTED NEUTROPHILS % (AUTO) 59.4 % (42-78); WHITE BLOOD COUNT 4.5 10^3/uL (4.0-10.5)
[2016-07-29 07:16] LABS: ANION GAP 9 (5-19); BLOOD UREA NITROGEN 37 mg/dL (7-20); CALCIUM 8.6 mg/dL (8.4-10.2); CARBON DIOXIDE 25 mmol/L (22-30); CHLORIDE 106 mmol/L (98-107); CREATININE RESULT 1.65 mg/dL (0.52-1.25); GLUCOSE 127 mg/dL (75-110); POTASSIUM 4.4 mmol/L (3.6-5.0); SODIUM 140.4 mmol/L (137-145)
--- NOTE | 2016-07-29 10:16 | EKG REPORT ---
SEVERITY:- ABNORMAL ECG - ATRIAL FIBRILLATION LEFT ANTERIOR FASCICULAR BLOCK PROLONGED QT INTERVAL : Confirmed by: Kami Cabello MD 29-Jul-2016 10:15:43
[2016-07-29] MEDS: FUROSEMIDE 40 MG TABLET PO SCH ×2 (10:23→17:35)
[2016-07-29] MEDS: ASPIRIN 81 MG TABLET, ENT COATED PO SCH (10:24)
--- NOTE | 2016-07-29 10:32 | PDOC PROGRESS REPORT ---
Subjective Progress Note for:: 07/29/16 Subjective:: Patient with continued swelling. He also has multiple symptoms of obstructive sleep apnea but has never been tested. Overnight physician reports the patient had brief run of nonsustained ventricular tachycardia overnight. Patient denies fever, chills, headache, new focal weakness, chest pain, abdominal pain, nausea , vomiting, diarrhea, constipation. Physical Exam Vital Signs: Temp Pulse Resp BP Pulse Ox 97.4 F 90 22 H 170/91 H 97 07/29/16 03:26 07/29/16 03:26 07/29/16 03:26 07/29/16 03:26 07/29/16 03:26 Intake & Output 07/28/16 07/29/16 07/30/16 06:59 06:59 06:59 Intake Total 240 1667 Output Total 400 Balance -160 1667 Weight 113 kg 130.9 kg GENERAL: No acute distress HEENT: Conjunctiva clear, nonicteric, moist mucous membranes, no JVD, midline trachea RESPIRATORY: Clear to auscultation bilaterally, no wheezes, no rhonchi CARDIAC: Irregularly irregular ABDOMEN: Soft, nondistended, nontender, positive bowel sounds, no rebound, no guarding EXTREMETIES: 1+ Bilateral lower extremity edema NEUROLOGIC: Alert, oriented to person/place/time, CN's grossly intact, no focal deficits SKIN: Multiple picked skin lesions on her lower extremities PSYCH: Normal mood, normal affect Results Laboratory Results: 07/29/16 06:41 07/29/16 06:41 07/29/16 07/29/16 07/29/16 00:14 00:14 00:14 WBC 4.8 RBC 2.66 L Hgb 8.6 L Hct 26.2 L MCV 99 H MCH 32.3 MCHC 32.7 RDW 16.8 H Plt Count 84 L Seg Neutrophils % 61.3 Lymphocytes % 25.2 Monocytes % 10.1 Eosinophils % 2.3 Basophils % 1.1 Absolute Neutrophils 2.9 Absolute Lymphocytes 1.2 Absolute Monocytes 0.5 Absolute Eosinophils 0.1 Absolute Basophils 0.1 Sodium 140.6 Potassium 4.4 Chloride 106 Carbon Dioxide 23 Anion Gap 12 BUN 33 H Creatinine 1.50 H Est GFR ( Amer) 58 L Est GFR (Non-Af Amer) 48 L Glucose 113 H Calcium 8.7 Magnesium 1.1 L* 07/29/16 07/29/16 06:41 06:41 WBC 4.5 RBC 2.69 L Hgb 8.8 L Hct 26.9 L MCV 100 H MCH 32.6 MCHC 32.6 RDW 17.1 H Plt Count 82 L Seg Neutrophils % 59.4 Lymphocytes % 26.1 Monocytes % 10.3 Eosinophils % 2.9 Basophils % 1.3 Absolute Neutrophils 2.7 Absolute Lymphocytes 1.2 Absolute Monocytes 0.5 Absolute Eosinophils 0.1 Absolute Basophils 0.1 Sodium 140.4 Potassium 4.4 Chloride 106 Carbon Dioxide 25 Anion Gap 9 BUN 37 H Creatinine 1.65 H Est GFR ( Amer) 52 L Est GFR (Non-Af Amer) 43 L Glucose 127 H Calcium 8.6 Magnesium 07/27/16 07/27/16 07/28/16 18:30 18:30 00:59 Creatine Kinase 584 H 740 H CK-MB (CK-2) 4.35 Troponin I 0.046 07/28/16 07/28/16 07/28/16 00:59 06:17 06:17 Creatine Kinase 929 H CK-MB (CK-2) 4.46 4.79 H Troponin I 0.042 0.037 07/29/16 07/29/16 00:14 00:14 Creatine Kinase 900 H CK-MB (CK-2) 4.77 H Troponin I 0.029 Impressions: Lung Scan-VQ NM 07/27/16 00:00 IMPRESSION: Low probability for pulmonary embolus. Chest X-Ray 07/27/16 09:19 IMPRESSION: NO ACUTE RADIOGRAPHIC FINDING IN THE CHEST. Assessment & Plan - Diagnosis (1) NSVT (nonsustained ventricular tachycardia) Is this a current diagnosis for this admission?: YesPlan: Increase Toprol-XL to [address] Dubose of cardiology following. Incidentally patient likely has obstructive sleep apnea and will need to have sleep study after discharge as this can contribute to dysrhythmia/CHF issues. (2) Atrial fibrillation with rapid ventricular response Is this a current diagnosis for this admission?: YesPlan: Increase Toprol-XL to 75 mg twice daily. Monitor on telemetry. VQ scan negative for pulmonary embolism. Thyroid function studies normal. Serial cardiac enzymes negative for [place]. Hemoccults stool and if Hemoccult is negative I will readdress anticoagulation with patient. He has historically declined anticoagulation. Continue aspirin for now. I'm reluctant to start full anticoagulation given significant anemia. Consult Dr. Dubose of cardiology. (3) Acute diastolic CHF (congestive heart failure) Is this a current diagnosis for this admission?: YesPlan: Acutely decompensated and secondary to diastolic dysfunction. Continue Lasix 40 mg by mouth every 12 hours. Patient has been noncompliant with outpatient medications to include Lasix, and lisinopril. Continue Toprol-XL. Continue to hold Lasix secondary to chronic kidney disease. Monitor I/O, daily weight. Cardiac diet. Echocardiogram with normal EF, grade 2/4 diastolic dysfunction, moderate pulmonary hypertension. Patient is being followed by Dr. Dubose of cardiology. (4) Anemia Qualifiers: Anemia type: other cause Other causes of anemia: chronic disease, other Qualified Code(s): D63.8 - Anemia in other chronic diseases classified elsewhere Is this a current diagnosis for this admission?: YesPlan: Patient has anemia of chronic disease. Possibly related to history of rheumatoid arthritis. He has had a precipitous drop in hemoglobin. Iron level is normal, B-12 level is normal, folic acid levels normal. Hemoccult of the stool is pending. H&H low but stable. Alcohol abuse likely contributing. Discontinued Arixtra. Monitor H&H for stability. (5) Thrombocytopenia Is this a current diagnosis for this admission?: YesPlan: Avoid heparin products. Platelet count is low but stable. Discontinued Arixtra. Alcohol use likely contributing. (6) Chronic kidney disease, stage III (moderate) Is this a current diagnosis for this admission?: YesPlan: Monitor renal function with diuresis. 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 Blood glucose is stable throughout hospitalization. Continue sliding scale insulin coverage as needed. (8) CAD (coronary artery disease) Qualifiers: Coronary Disease-Associated Artery/Lesion type: [place] artery [place] vs. transplanted heart: [place] heart Associated angina: without angina Qualified Code(s): I25.10 - Atherosclerotic heart disease of [place] coronary artery without angina pectoris Is this a current diagnosis for this admission?: YesPlan: Continue ASA and Toprol XL. Lipid panel does not warrant statin therapy. (9) Hypertension Qualifiers: Hypertension type: essential hypertension Qualified Code(s): I10 - Essential (primary) hypertension Is this a current diagnosis for this admission?: YesPlan: Increase Toprol-XL to 75 mg twice daily. Continue hydralazine 50 mg every 8 hours. Continue when necessary IV hydralazine and when necessary IV Lopressor. (10) Noncompliance with medication regimen Is this a current diagnosis for this admission?: Yes (11) Alcohol use Is this a current diagnosis for this admission?: YesPlan: Patient counseled on alcohol cessation given CHF and atrial fibrillation. - Time Time Spent with patient: 35 or more minutes Anticipated discharge: Home Within: within 72 hours
[2016-07-29] MEDS: MAGNESIUM SULFATE/D5W 1 GM/100 ML RTUPB IV SCH ×2 (11:36→12:55)
[2016-07-29] MEDS ORDERED: MAGNESIUM OXIDE 400 MG TABLET PO ONE (12:00)
[2016-07-29] MEDS ORDERED: METOPROLOL SUCCINATE 50 MG TAB.SR.24H PO ONE (12:00)
--- NOTE | 2016-07-29 15:19 | PDOC PROGRESS REPORT ---
Subjective Progress Note for:: 07/29/16 Subjective:: Patient seems to be doing better with gradual improvement. Pt is denying any chest arm or neck discomfort. Patient denying any PND, orthopnea. Patient denied any sustained palpitations, dizziness, syncope, near syncope. Patient denying any fever chills. Patient denying any other significant discomfort. Patient has noted some nausea today. Patient is maintaining atrial fibrillation but rate better controlled. Rhythm strips reviewed. Strips level as nonsustained ventricular tachycardia is felt to be actually artifactual. Review of systems: Rest review of systems negative. Medications: Medications have been reviewed. Physical Exam Vital Signs: Temp Pulse Resp BP Pulse Ox 97.5 F 84 20 154/89 H 100 07/29/16 11:50 07/29/16 14:00 07/29/16 11:50 07/29/16 11:50 07/29/16 11:50 Intake & Output 07/28/16 07/29/16 07/30/16 06:59 06:59 06:59 Intake Total 240 1667 Output Total 400 Balance -160 1667 Weight 113 kg 130.9 kg Exam: GENERAL: well-nourished and in no acute distress. Alert and oriented x3 HEAD: Atraumatic, normocephalic. EYES: Pupils equal round and reactive to light, extraocular movements intact, sclera anicteric, conjunctiva are normal. ENT: TMs normal, nares patent, oropharynx clear without exudates. Moist mucous membranes. No oral ulcerations or bleeding gums noted NECK: supple without lymphadenopathy. Trachea is central. No cervical or axillary lymphadenopathy noted. Carotids are 2+, JVD WNL LUNGS: Respiration seems nonlabored, no significant accessory muscle action noted. Breath sounds clear to auscultation bilaterally and equal. No wheezes rales or rhonchi. No significant dullness noted on percussion. CHEST: Palpation of the chest wall shows no significant chest wall tenderness or abnormalities. 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 ABDOMEN: Soft, no significant tenderness appreciated, normoactive bowel sounds. No guarding, no rebound. No rigidity noted . No masses appreciated. EXTREMITIES: Pedal pulses are 1-2+, no calf tenderness noted. No clubbing or cyanosis.2 + pedal edema noted. NEUROLOGICAL: Focused neurological exam showed no significant neurologic deficit. Normal speech, no focal weakness appreciated. PSYCH: Normal mood, normal affect. Judgment and insight within normal limits. SKIN: No significant ecchymosis, rash, ulcerations or signs of pruritus noted. MUSCULOSKELETAL EXAM: No significant joint swelling noted. Results Laboratory Results: 07/29/16 06:41 07/29/16 06:41 07/29/16 07/29/16 07/29/16 00:14 00:14 00:14 WBC 4.8 RBC 2.66 L Hgb 8.6 L Hct 26.2 L MCV 99 H MCH 32.3 MCHC 32.7 RDW 16.8 H Plt Count 84 L Seg Neutrophils % 61.3 Lymphocytes % 25.2 Monocytes % 10.1 Eosinophils % 2.3 Basophils % 1.1 Absolute Neutrophils 2.9 Absolute Lymphocytes 1.2 Absolute Monocytes 0.5 Absolute Eosinophils 0.1 Absolute Basophils 0.1 Sodium 140.6 Potassium 4.4 Chloride 106 Carbon Dioxide 23 Anion Gap 12 BUN 33 H Creatinine 1.50 H Est GFR ( Amer) 58 L Est GFR (Non-Af Amer) 48 L Glucose 113 H Calcium 8.7 Magnesium 1.1 L* 07/29/16 07/29/16 06:41 06:41 WBC 4.5 RBC 2.69 L Hgb 8.8 L Hct 26.9 L MCV 100 H MCH 32.6 MCHC 32.6 RDW 17.1 H Plt Count 82 L Seg Neutrophils % 59.4 Lymphocytes % 26.1 Monocytes % 10.3 Eosinophils % 2.9 Basophils % 1.3 Absolute Neutrophils 2.7 Absolute Lymphocytes 1.2 Absolute Monocytes 0.5 Absolute Eosinophils 0.1 Absolute Basophils 0.1 Sodium 140.4 Potassium 4.4 Chloride 106 Carbon Dioxide 25 Anion Gap 9 BUN 37 H Creatinine 1.65 H Est GFR ( Amer) 52 L Est GFR (Non-Af Amer) 43 L Glucose 127 H Calcium 8.6 Magnesium 07/27/16 07/27/16 07/28/16 18:30 18:30 00:59 Creatine Kinase 584 H 740 H CK-MB (CK-2) 4.35 Troponin I 0.046 07/28/16 07/28/16 07/28/16 00:59 06:17 06:17 Creatine Kinase 929 H CK-MB (CK-2) 4.46 4.79 H Troponin I 0.042 0.037 07/29/16 07/29/16 00:14 00:14 Creatine Kinase 900 H CK-MB (CK-2) 4.77 H Troponin I 0.029 Impressions: Lung Scan-VQ NM 07/27/16 00:00 IMPRESSION: Low probability for pulmonary embolus. Chest X-Ray 07/27/16 09:19 IMPRESSION: NO ACUTE RADIOGRAPHIC FINDING IN THE CHEST. Assessment & Plan - Diagnosis (2) Acute diastolic CHF (congestive heart failure) Is this a current diagnosis for this admission?: Yes (3) Atrial fibrillation with rapid ventricular response Is this a current diagnosis for this admission?: Yes (4) CAD (coronary artery disease) Qualifiers: Coronary Disease-Associated Artery/Lesion type: [place] artery [place] vs. transplanted heart: [place] heart Associated angina: without angina Qualified Code(s): I25.10 - Atherosclerotic heart disease of [place] coronary artery without angina pectoris Is this a current diagnosis for this admission?: Yes (5) Chronic kidney disease, stage III (moderate) Is this a current diagnosis for this admission?: Yes (6) Diabetes Qualifiers: Diabetes mellitus type: type 2 Diabetes mellitus complication status: with kidney complications Diabetes mellitus complication detail: with chronic kidney disease Diabetes mellitus group home insulin use: without group home use Chronic kidney disease stage: stage 3 (moderate) Qualified Code(s): E11.22 - Type 2 diabetes mellitus with diabetic chronic kidney disease; N18.1 - Chronic kidney disease, stage 1; 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 Acute diastolic CHF: Currently improving. Atrial fibrillation with rapid ventricular response: Heart rate coming under control. Will discuss anticoagulation issue with hospitalist. Patient is somewhat reluctant to pursue this. Discussed increased risk of stroke in view of elevated chads score Coronary artery disease: Currently stable. Chronic kidney failure, stage III: Continue to monitor. Diabetes: Currently stable. Patient to be scheduled for a nuclear stress test for risk stratification. Hypomagnesemia: Have ordered one dose of IV magnesium. - Time Time with patient: Greater than 35 minutes - CODE STATUS was discussed, patient remains full code. Surrogate decision-maker unchanged. Multiple medical problems were addressed.More than 50% of the time spent coordinating care, discussing management plans with involved caregivers. Management plans discussed with involved personnels. Medical decision making was of moderate complexity.
[2016-07-29] MEDS ORDERED: MAGNESIUM SULFATE/D5W 1 GM/100 ML RTUPB IV ONE (16:30)
[2016-07-29] MEDS: MAGNESIUM OXIDE 400 MG TABLET PO SCH (17:34)
[2016-07-30 05:14] LABS: ABSOLUTE BASOPHILS # (AUTO) 0.1 10^3/uL (0.0-0.2); ABSOLUTE EOSINOPHILS # (AUTO) 0.2 10^3/uL (0.0-0.6); ABSOLUTE LYMPHOCYTES (AUTO) 1.2 10^3/uL (0.5-4.7); ABSOLUTE MONOCYTES (AUTO) 0.5 10^3/uL (0.1-1.4); ABSOLUTE NEUT (AUTO) 2.5 10^3/uL (1.7-8.2); BASOPHILS % (AUTO) 1.6 % (0-2); EOSINOPHILS % (AUTO) 3.5 % (0-6); HEMATOCRIT 26.6 % (37.9-51.0); HEMOGLOBIN 8.5 g/dL (13.5-17.0); HGB HCT DIFFERENCE -1.1; MEAN CORPUSCULAR HEMOGLOBIN 31.9 pg (27.0-33.4); MEAN CORPUSCULAR HGB CONC 31.9 g/dL (32.0-36.0); MEAN CORPUSCULAR VOLUME 100 fl (80-97); RED BLOOD COUNT 2.66 10^6/uL (4.35-5.55); RED CELL DISTRIBUTION WIDTH 16.8 % (11.5-14.0); SEGMENTED NEUTROPHILS % (AUTO) 56.9 % (42-78); WHITE BLOOD COUNT 4.5 10^3/uL (4.0-10.5)
[2016-07-30 05:35] LABS: ANION GAP 9 (5-19); BLOOD UREA NITROGEN 41 mg/dL (7-20); CALCIUM 8.6 mg/dL (8.4-10.2); CARBON DIOXIDE 25 mmol/L (22-30); CHLORIDE 104 mmol/L (98-107); CREATININE RESULT 1.72 mg/dL (0.52-1.25); GLUCOSE 101 mg/dL (75-110); MAGNESIUM 1.8 mg/dL (1.6-2.3); POTASSIUM 4.5 mmol/L (3.6-5.0); SODIUM 138.4 mmol/L (137-145)
[2016-07-30] MEDS: METOPROLOL SUCCINATE 50 MG TAB.SR.24H PO SCH (05:39)
[2016-07-30] MEDS: HYDRALAZINE HCL 50 MG TABLET PO SCH (05:40)
[2016-07-30] MEDS ORDERED: FERUMOXYTOL (NON-ESRD) 510 MG/NS 100 ML IV ONE ×2 (11:00)
[2016-07-30] MEDS: ASPIRIN 81 MG TABLET, ENT COATED PO SCH (12:18)
[2016-07-30] MEDS: MAGNESIUM OXIDE 400 MG TABLET PO SCH (12:18)
[2016-07-30] MEDS: FUROSEMIDE 40 MG TABLET PO SCH (12:19)
--- NOTE | 2016-07-30 13:47 | DRAGON STRESS TEST REPORT ---
INTRAVENOUS LEXISCAN CARDIOLITE STRESS TEST USING SINGLE PHOTON EMMISION COMPUTERIZED TOMOGRAPHIC. DATE OF PROCEDURE: 07/30/2016 INDICATION : Atrial fibrillation, dyspnea CARDIAC RISK FACTORS: Diabetes, hypertension RESTING EKG: Atrial fibrillation, no Baseline ST segment changes noted. STRESS EKG: No significant changes noted with LexiScan bolus REASON FOR TERMINATION: Protocol. PROCEDURE REPORT: Baseline heart rate 69 beats per minute with blood pressure of 137/73. Patient had no significant complaints. Heart rate at 2 minutes post bolus 84 with a blood pressure of 128/67. 3 minutes post bolus heart rate 76 with blood pressure of 128/67. No significant EKG changes were noted. Patient had no significant complaints during the procedure or postprocedure. CONCLUSIONS: Normal EKG and hemodynamic response to IV LexiScan. NUCLEAR DATA: At rest the patient was given 15.44 millicuries of technetium 99 sestamibi injected intravenously. As per protocol rest gated SPECT images were obtained. Subsequently the patient was given intravenous LexiScan at a dose of 0.4 mg in 5 mL intravenously, followed by flush with normal saline. Subsequently the stress dose of 37.6 millicuries of technetium 99 sestamibi was injected intravenously. As per protocol stress gated images were obtained. NUCLEAR INTERPRETATION: Both raw and processed data were used for interpretation. Visual, qualitative, computer-generated quantitative data was used. There was good myocardial uptake of technetium compound. Motion artifact and soft tissue attenuations were noted. Increased visceral uptake was noted. No definitive areas of transient perfusion defect noted. No definitive areas of fixed perfusion defect or scars noted. EKG gated imaging showed LV EF at 51 %, rest and stress gated EF similar visually. T. I D. ratio was 1.20. Lung heart ratio noted to be within normal limits 0.34. No significant extracardiac and abnormal radiotracer activities were noted. RV free wall uptake was noted to be WNL. IMPRESSION: Also refer to comments under nuclear interpretation. Also test results needs to be interpreted in the context of pretest probability. 1. There is no definitive scintigraphic evidence of LexiScan induced myocardial ischemia. 2. There is no definitive scintigraphic evidence of myocardial infarction/scar. 3. EKG gated imaging shows left ejection fraction of approximately 51 %. 4. Clinical correlation requested as occasionally single vessel disease or balanced ischemia could be missed. In approximately 10% of the cases Lexiscan may not cause adequate vasodilatory stress. RECOMMENDATIONS: Aggressive risk factor modification, medical therapy. Clinical correlation with echocardiogram derived ejection fraction. Inability to exercise by itself can lead to increased cardiovascular event risks. Consider cardiology consultation if clinically indicated. I AM AVAILABLE FOR CARDIOLOGY CONSULTATION AND FOLLOWUP IF REQUESTED BY PMD Magen Dubose M.D., MRCP [employer] water pollution control inspector, Board certified in cardiovascular diseases, Nuclear cardiology, Echocardiography Cardiac CT and cardiac MRI Ph. [phone] [facility]
[2016-07-30] MEDS ORDERED: AMINOPHYLLINE INJ/PF 250 MG/10 ML SDV IV ONE (14:25)
[2016-07-30] MEDS ORDERED: REGADENOSON INJ 0.4 MG/5 ML DISP.SYRIN IV ONE (14:25)
[2016-07-30 15:54] VITALS: BP 180/118
--- NOTE | 2016-07-30 17:02 | PDOC DISCHARGE SUMMARY ---
General - Admit/Disc Date/PCP Admission Date/Primary Care Provider: 07/27/16 14:[address] [facility] Discharge Date: 07/30/16 - Discharge Diagnosis (1) Atrial fibrillation with rapid ventricular response Is this a current diagnosis for this admission?: Yes (2) Acute diastolic CHF (congestive heart failure) Is this a current diagnosis for this admission?: Yes (3) NSVT (nonsustained ventricular tachycardia) Is this a current diagnosis for this admission?: Yes (4) Anemia Is this a current diagnosis for this admission?: Yes (5) Thrombocytopenia Is this a current diagnosis for this admission?: Yes (6) Chronic kidney disease, stage III (moderate) Is this a current diagnosis for this admission?: Yes (7) Diabetes Is this a current diagnosis for this admission?: Yes (8) CAD (coronary artery disease) Is this a current diagnosis for this admission?: Yes (9) Hypertension Is this a current diagnosis for this admission?: Yes (10) Noncompliance with medication regimen Is this a current diagnosis for this admission?: Yes (11) Alcohol use Is this a current diagnosis for this admission?: Yes - Additional Information Resuscitation Status: Full Code Discharge Diet: Cardiac, Diabetic Discharge Activity: Activity As Tolerated, Balance Activity w/Rest Home Medications: Aspirin [Ecotrin 81 mg EC Tablet] 81 mg PO DAILY #30 tabec 07/30/16 Furosemide [Lasix 40 mg Tablet] 40 mg PO DAILY #30 tablet 07/30/16 Hydralazine HCl [Apresoline 50 mg Tablet] 50 mg PO Q8 #90 tablet 07/30/16 Magnesium Oxide [Mag-Ox 400 mg Tablet] 400 mg PO BID #60 tablet 07/30/16 Metoprolol Succinate [Toprol Xl 50 mg Tab.sr] 75 mg PO Q12A #90 tab.sr.24h 07/30 History of Present Illness Patient complains of: Shortness of breath History of Present Illness: DEBORAH WHARTON is a 61 year old male with fairly sudden onset this morning at 6 AM of heart racing, shortness of breath, generalized weakness. Patient has a history of congestive heart failure secondary to diastolic dysfunction and admits to being off of his Lasix for the past week. In review of pharmacy records it doesn't look like patient has picked up his prescriptions in the past couple months. Patient is also noted bilateral lower extremity edema, dyspnea on exertion, orthopnea. He states that he can no longer walk short distances without becoming excessively short of breath. He denies chest pain. He does have a history of chronic atrial fibrillation and has declined Coumadin therapy in the past. Hospital Course Hospital Course: Patient was admitted for atrial fibrillation with rapid ventricular response and acutely decompensated congestive heart failure secondary to left ventricular diastolic dysfunction. He admits to not taking his routine cardiac medications for 12 days prior to presentation. He also admits to heavy alcohol intake prior to presentation. He states that he was not able to afford his cardiac medications, but I reminded him that he was spending enough money on alcohol to pay for his prescriptions. He was diuresed with IV Lasix and eventually converted to oral regimen. Echocardiogram showed left ventricular diastolic dysfunction. Dr. Dubose of cardiology was consulted. Patient had negative Cardiolite stress test. VQ scan showed low probability for pulmonary embolism. Patient is discharged home in stable condition and advised to take all medications as prescribed and discontinue drinking alcohol. Patient was noted to have anemia and thrombocytopenia likely related to alcohol abuse. Case was discussed with hematology and they recommended iron infusion and discontinuation of alcohol. Patient will need to have follow-up blood work done at primary care provider office. Patient had brief run of nonsustained V. tach during hospitalization. He was profoundly hypomagnesemic at that time. Hypomagnesemia was corrected and patient's Toprol-XL was increased. Physical Exam Vital Signs: Temp Pulse Resp BP Pulse Ox 97.8 F 80 15 180/118 H 100 07/30/16 15:49 07/30/16 15:49 07/30/16 15:49 07/30/16 15:49 07/30/16 15:49 Intake & Output 07/29/16 07/30/16 07/31/16 06:59 06:59 06:59 Intake Total 1667 870 560 Balance 1667 870 560 Weight 130.9 kg 130.9 kg GENERAL: No acute distress HEENT: Conjunctiva clear, nonicteric, moist mucous membranes, no JVD, midline trachea RESPIRATORY: Clear to auscultation bilaterally, no wheezes, no rhonchi CARDIAC: Irregularly irregular, no murmurs/gallops/rubs ABDOMEN: Soft, nondistended, nontender, positive bowel sounds, no rebound, no guarding EXTREMETIES: Trace bilateral lower extremity edema NEUROLOGIC: Alert, oriented to person/place/time, CN's grossly intact, no focal deficits SKIN: Multiple excoriated skin lesions on legs PSYCH: Normal mood, normal affect Results Laboratory Results: 07/30/16 04:30 07/30/16 04:30 07/27/16 07/30/16 07/30/16 18:30 04:30 04:30 WBC 4.5 RBC 2.66 L Hgb 8.5 L Hct 26.6 L MCV 100 H MCH 31.9 MCHC 31.9 L RDW 16.8 H Plt Count 81 L Seg Neutrophils % 56.9 Lymphocytes % 26.0 Monocytes % 12.0 Eosinophils % 3.5 Basophils % 1.6 Absolute Neutrophils 2.5 Absolute Lymphocytes 1.2 Absolute Monocytes 0.5 Absolute Eosinophils 0.2 Absolute Basophils 0.1 Sodium 138.4 Potassium 4.5 Chloride 104 Carbon Dioxide 25 Anion Gap 9 BUN 41 H Creatinine 1.72 H Est GFR ( Amer) 49 L Est GFR (Non-Af Amer) 41 L Glucose 101 Calcium 8.6 Magnesium 1.8 Transferrin 179 L 07/27/16 07/27/16 07/28/16 18:30 18:30 00:59 Creatine Kinase 584 H 740 H CK-MB (CK-2) 4.35 Troponin I 0.046 07/28/16 07/28/16 07/28/16 00:59 06:17 06:17 Creatine Kinase 929 H CK-MB (CK-2) 4.46 4.79 H Troponin I 0.042 0.037 07/29/16 07/29/16 00:14 00:14 Creatine Kinase 900 H CK-MB (CK-2) 4.77 H Troponin I 0.029 Impressions: Lung Scan-VQ NM 07/27/16 00:00 IMPRESSION: Low probability for pulmonary embolus. Chest X-Ray 07/27/16 09:19 IMPRESSION: NO ACUTE RADIOGRAPHIC FINDING IN THE CHEST. Cardiolite stress test: No evidence of ischemia. Normal EF. Echocardiogram: Normal EF, grade 2/4 diastolic dysfunction Qualifiers PATEINT BEING DISCHARGED WITH ANY OF THE FOLLOWING DIAGNOSIS?: No Plan Time Spent: Less than 30 Minutes
--- NOTE | 2016-07-30 19:39 | PDOC PROGRESS REPORT ---
Subjective Progress Note for:: 07/30/16 Subjective:: Patient seems to be doing better with gradual improvement. Pt is denying any chest arm or neck discomfort. Patient denying any PND, orthopnea. Patient denied any sustained palpitations, dizziness, syncope, near syncope. Patient denying any fever chills. Patient denying any other significant discomfort. Patient has noted some nausea today. Patient did complete nuclear stress test. These results were reviewed with the patient. Patient is maintaining atrial fibrillation but rate better controlled. Rhythm strips reviewed. Strips level as nonsustained ventricular tachycardia is felt to be actually artifactual. Review of systems: Rest review of systems negative. Medications: Medications have been reviewed. Nuclear stress test procedure was explained to the patient in detail. Risks benefits were discussed and informed consent was obtained. Alternatives were discussed. Patient informed that based on risk factors, physical exam, lab data findings and symptoms there is at least intermediate probability of underlying CAD. Nuclear stress test procedure was therefore scheduled. Physical Exam Vital Signs: Temp Pulse Resp BP Pulse Ox 97.8 F 80 15 180/118 H 100 07/30/16 15:49 07/30/16 15:49 07/30/16 15:49 07/30/16 15:49 07/30/16 15:49 Intake & Output 07/29/16 07/30/16 07/31/16 06:59 06:59 06:59 Intake Total 1667 870 560 Balance 1667 870 560 Weight 130.9 kg 130.9 kg Exam: GENERAL: well-nourished and in no acute distress. Alert and oriented x3 HEAD: Atraumatic, normocephalic. EYES: Pupils equal round and reactive to light, extraocular movements intact, sclera anicteric, conjunctiva are normal. ENT: TMs normal, nares patent, oropharynx clear without exudates. Moist mucous membranes. No oral ulcerations or bleeding gums noted NECK: supple without lymphadenopathy. Trachea is central. No cervical or axillary lymphadenopathy noted. Carotids are 2+, JVD WNL LUNGS: Respiration seems nonlabored, no significant accessory muscle action noted. Breath sounds clear to auscultation bilaterally and equal. No wheezes rales or rhonchi. No significant dullness noted on percussion. CHEST: Palpation of the chest wall shows no significant chest wall tenderness or abnormalities. HEART: Cost KLYSTROM TUBE TESTER, No PSH, 1/6 JEREMY aortic area, 1/6 llanos systolic murmur mitral area, no rubs, no gallops. ABDOMEN: Soft, no significant tenderness appreciated, normoactive bowel sounds. No guarding, no rebound. No rigidity noted . No masses appreciated. EXTREMITIES: Pedal pulses are 1-2+, no calf tenderness noted. No clubbing or cyanosis.1-2 + pedal edema noted, minor superficial healed excoriation noted. NEUROLOGICAL: Focused neurological exam showed no significant neurologic deficit. Normal speech, no focal weakness appreciated. PSYCH: Normal mood, normal affect. Judgment and insight within normal limits. SKIN: No significant ecchymosis, rash, ulcerations or signs of pruritus noted. MUSCULOSKELETAL EXAM: No significant joint swelling noted. Results Laboratory Results: 07/30/16 04:30 07/30/16 04:30 07/27/16 07/30/16 07/30/16 18:30 04:30 04:30 WBC 4.5 RBC 2.66 L Hgb 8.5 L Hct 26.6 L MCV 100 H MCH 31.9 MCHC 31.9 L RDW 16.8 H Plt Count 81 L Seg Neutrophils % 56.9 Lymphocytes % 26.0 Monocytes % 12.0 Eosinophils % 3.5 Basophils % 1.6 Absolute Neutrophils 2.5 Absolute Lymphocytes 1.2 Absolute Monocytes 0.5 Absolute Eosinophils 0.2 Absolute Basophils 0.1 Sodium 138.4 Potassium 4.5 Chloride 104 Carbon Dioxide 25 Anion Gap 9 BUN 41 H Creatinine 1.72 H Est GFR ( Amer) 49 L Est GFR (Non-Af Amer) 41 L Glucose 101 Calcium 8.6 Magnesium 1.8 Transferrin 179 L 07/27/16 07/27/16 07/28/16 18:30 18:30 00:59 Creatine Kinase 584 H 740 H CK-MB (CK-2) 4.35 Troponin I 0.046 07/28/16 07/28/16 07/28/16 00:59 06:17 06:17 Creatine Kinase 929 H CK-MB (CK-2) 4.46 4.79 H Troponin I 0.042 0.037 07/29/16 07/29/16 00:14 00:14 Creatine Kinase 900 H CK-MB (CK-2) 4.77 H Troponin I 0.029 Impressions: Lung Scan-VQ NM 07/27/16 00:00 IMPRESSION: Low probability for pulmonary embolus. Chest X-Ray 07/27/16 09:19 IMPRESSION: NO ACUTE RADIOGRAPHIC FINDING IN THE CHEST. Assessment & Plan - Diagnosis (2) Acute diastolic CHF (congestive heart failure) Is this a current diagnosis for this admission?: Yes (3) Atrial fibrillation with rapid ventricular response Is this a current diagnosis for this admission?: Yes (4) CAD (coronary artery disease) Qualifiers: Coronary Disease-Associated Artery/Lesion type: enterprise artery [place] vs. transplanted heart: enterprise heart Associated angina: without angina Qualified Code(s): I25.10 - Atherosclerotic heart disease of enterprise coronary artery without angina pectoris Is this a current diagnosis for this admission?: Yes (5) Chronic kidney disease, stage III (moderate) Is this a current diagnosis for this admission?: Yes (6) Diabetes Qualifiers: Diabetes mellitus type: type 2 Diabetes mellitus complication status: with kidney complications Diabetes mellitus complication detail: with chronic kidney disease Diabetes mellitus fci insulin use: without termination clerk use Chronic kidney disease stage: stage 3 (moderate) Qualified Code(s): E11.22 - Type 2 diabetes mellitus with diabetic chronic kidney disease; N18.1 - Chronic kidney disease, stage 1; Z79.4 - custodial ( current) use of insulin Is this a current diagnosis for this admission?: Yes (7) Hypertension Qualifiers: Hypertension type: essential hypertension Qualified Code(s): I10 - Essential (primary) hypertension Is this a current diagnosis for this admission?: Yes - Notes Notes: Hypertension: Currently coming under better control. Acute diastolic CHF: Currently improving. Atrial fibrillation with rapid ventricular response: Heart rate coming under control. Patient is somewhat reluctant to pursue this. Discussed increased risk of stroke in view of elevated chads score. Anticoagulation issue was discussed with patient and hospitalist. Patient has history of alcoholism, noncompliance with medication, low thrombocyte count, also has significant anemia. May have chronic GI bleed which may need to be evaluated for. After discussion, a shared decision was made to hold off on chronic anticoagulation and revisit it at a later date. Patient was explained increased risk of stroke. He was told to follow-up with primary care Criselda. Coronary artery disease: Currently stable. Nuclear stress test results were discussed. No significant areas of ischemia noted. Chronic kidney failure, stage III: Continue to monitor. Diabetes: Currently stable. - Time Time with patient: Greater than 35 minutes - Patient was seen multiple times. Total time exceeds 40 minutes. In the morning nuclear stress test procedure, risks benefits, alternatives were discussed. Patient seen during the stress test. Patient also seen after stress test when results were discussed with the patient in detail. Patient's questions were answered. Nuclear stress test results were discussed with the patient. Patient was informed that no definitive evidence of pharmacologic stress-induced ischemia noted. No definite fixed defects were noted. Patient informed that occasionally significant single vessel disease or balanced ischemia could be missed. However based on the current study results, would recommend aggressive risk factor modification and medical therapy. It may also be worthwhile to consider evaluation or empiric management of other causes of chest pain. Should no other cause be found and if persistent in having chest pain, then cardiac catheterization should be considered. Right now, recommendations are for aggressive risk factor modification and medical management. Significant time was also spent discussing anticoagulation issue and increased risk of stroke with atrial fibrillation. Medications reviewed and adjusted accordingly: Yes
[2016-07-31] MEDS ORDERED: FUROSEMIDE 40 MG TABLET PO SCH (10:00)
== END 2016-07-30 17:30 | disposition home or self-care (01) | DRG 308 ==
LOC: ER 08:20 → OBSVTOIN 14:13 → EH 14:13 → UNDOADMOB 14:38 → EH 14:38 → 4N 17:39
DX: I48.2 Chronic atrial fibrillation (principal); I50.31 Acute diastolic (congestive) heart failure; I13.0 Hypertensive heart and chronic kidney disease with heart failure and stage 1 through stage 4 chronic kidney disease, or unspecified chronic kidney disease; I47.2 Ventricular tachycardia; E11.22 Type 2 diabetes mellitus with diabetic chronic kidney disease; N18.3 Chronic kidney disease, stage 3 (moderate); D63.1 Anemia in chronic kidney disease; I25.10 Atherosclerotic heart disease of native coronary artery without angina pectoris; E83.42 Hypomagnesemia; D69.6 Thrombocytopenia, unspecified; M06.9 Rheumatoid arthritis, unspecified; J45.909 Unspecified asthma, uncomplicated; M79.7 Fibromyalgia; F41.9 Anxiety disorder, unspecified; G47.33 Obstructive sleep apnea (adult) (pediatric); I25.2 Old myocardial infarction; Z91.14 Patient's other noncompliance with medication regimen; Z72.89 Other problems related to lifestyle; Z88.8 Allergy status to other drugs, medicaments and biological substances; Z79.899 Other long term (current) drug therapy
CPT/HCPCS: 36415; 71010; 78452; 78582; 80048; 80053; 80061; 80307; 81001; 82550; 82553; 82607; 82728; 82746; 82962; 83036; 83540; 83550; 83735; 83880; 84443; 84466; 84484; 85025; 85045; 85379; 87040; 93005; 93010; 93017; 93306; 96361; 96374; 96375; 99291; A9500; A9540; A9567; J0280; J1160; J1652; J1940; J2060; J2405; J2785; J3475; J3490; J7030; Q0138; Q9969

== ENCOUNTER 2016-07-31 21:47 | Emergency (ER) | payer SELFPAY ==
--- NOTE | 2016-07-31 22:06 | ER Document Report ---
ED Medical Screen (RME) - General Chief Complaint: Breathing Difficulty Stated Complaint: BREATHING PROBLEMS Mode of Arrival: Wheelchair Information source: Patient Notes: 61 y/o M presents to ED c/o shortness of breath with exertion and increased bilateral lower extremity swelling over the last day. States was recently discharged home after inpatient admission. TRAVEL OUTSIDE OF THE [place] IN LAST 30 DAYS: No - Related Data Allergies/Adverse Reactions: diltiazem [From Cardizem] Allergy (Verified 07/31/16 22:01) Past Medical History - Social History Chew tobacco use (# tins/day): No Frequency of alcohol use: None Drug Abuse: None - Past Medical History Cardiac Medical History: Reports: Hx Atrial Fibrillation, Hx Congestive Heart Failure, Hx Coronary Artery Disease, Hx Heart Attack - pt unsure of this, Hx Hypertension Pulmonary Medical History: Reports: Hx Asthma - childhood Endocrine Medical History: Reports: Hx Diabetes Mellitus Type 2 Renal/ Medical History: Denies: Hx Peritoneal Dialysis Musculoskeltal Medical History: Reports Hx Arthritis - RA, Reports Hx Fibromyalgia Psychiatric Medical History: Reports: Hx Anxiety Infectious Medical History: Reports: Hx C-Diff Past Surgical History: Reports: Hx Appendectomy, Hx Orthopedic Surgery - L hand , Hx Tonsillectomy - Immunizations Hx Diphtheria, Pertussis, Tetanus Vaccination: Yes Physical Exam - Vital signs Vitals: Temp Pulse Resp BP Pulse Ox 97.8 F 67 20 129/84 H 96 07/31/16 21:54 07/31/16 21:54 07/31/16 21:54 07/31/16 21:54 07/31/16 21:54 - General General appearance: Alert In distress: None - Respiratory Respiratory status: No respiratory distress Breath sounds: Normal Course - Vital Signs Vital signs: Temp Pulse Resp BP Pulse Ox 97.8 F 67 20 129/84 H 96 07/31/16 21:54 07/31/16 21:54 07/31/16 21:54 07/31/16 21:54 07/31/16 21:54
[2016-08-01 00:23] LABS: APPEARANCE,URINE CLEAR; BILIRUBIN,URINE NEGATIVE (NEGATIVE); GLUCOSE, URINE NEGATIVE (NEGATIVE); KETONES,URINE NEGATIVE (NEGATIVE); LEUKOCYTE ESTERASE,URINE NEGATIVE (NEGATIVE); NITRITE,URINE NEGATIVE (NEGATIVE); PROTEIN,URINE 30 mg/dL (NEGATIVE); URINE SPECIFIC GRAVITY 1.015; UROBILINOGEN,URINE NEGATIVE mg/dL (<2.0)
[2016-08-01 00:35] LABS: ABSOLUTE BASOPHILS # (AUTO) 0.1 10^3/uL (0.0-0.2); ABSOLUTE EOSINOPHILS # (AUTO) 0.2 10^3/uL (0.0-0.6); ABSOLUTE LYMPHOCYTES (AUTO) 1.1 10^3/uL (0.5-4.7); ABSOLUTE MONOCYTES (AUTO) 0.9 10^3/uL (0.1-1.4); ABSOLUTE NEUT (AUTO) 2.8 10^3/uL (1.7-8.2); BASOPHILS % (AUTO) 1.1 % (0-2); EOSINOPHILS % (AUTO) 3.2 % (0-6); HEMATOCRIT 28.1 % (37.9-51.0); HEMOGLOBIN 9.1 g/dL (13.5-17.0); HGB HCT DIFFERENCE -0.8; LYMPHOCYTES % (AUTO) 22.5 % (13-45); MEAN CORPUSCULAR HEMOGLOBIN 32.2 pg (27.0-33.4); MEAN CORPUSCULAR HGB CONC 32.5 g/dL (32.0-36.0); MEAN CORPUSCULAR VOLUME 99 fl (80-97); MONOCYTES % (AUTO) 17.3 % (3-13); RED BLOOD COUNT 2.83 10^6/uL (4.35-5.55); RED CELL DISTRIBUTION WIDTH 17.2 % (11.5-14.0); SEGMENTED NEUTROPHILS % (AUTO) 55.9 % (42-78); WHITE BLOOD COUNT 4.9 10^3/uL (4.0-10.5)
[2016-08-01 00:49] LABS: ALANINE AMINOTRANSFERASE 32 U/L (21-72); ALBUMIN 3.2 g/dL (3.5-5.0); ALKALINE PHOSPHATASE 128 U/L (38-126); ANION GAP 10 (5-19); ASPARTATE AMINO TRANSFERASE 72 U/L (17-59); BILIRUBIN,TOTAL 1.1 mg/dL (0.2-1.3); BLOOD UREA NITROGEN 49 mg/dL (7-20); CALCIUM 9.1 mg/dL (8.4-10.2); CARBON DIOXIDE 24 mmol/L (22-30); CHLORIDE 105 mmol/L (98-107); CREATINE KINASE 614 U/L (55-170); CREATININE RESULT 1.83 mg/dL (0.52-1.25); GLUCOSE 106 mg/dL (75-110); POTASSIUM 4.5 mmol/L (3.6-5.0); SODIUM 138.6 mmol/L (137-145); TOTAL PROTEIN 7.5 g/dL (6.3-8.2)
[2016-08-01 01:02] LABS: CREATINE KINASE MB 2.98 ng/mL (<4.55)
[2016-08-01 01:03] LABS: TROPONIN I < 0.012 ng/mL
[2016-08-01] MEDS ORDERED: FUROSEMIDE 40 MG TABLET PO ONE (01:42)
--- NOTE | 2016-08-01 01:46 | ER Document Report ---
[id number] BREATHING PROBLEMS Mode of Arrival: Wheelchair Notes: Patient is 61-year-old male who presents for complaint of leg swelling. Patient was just discharged today from the hospital after being admitted for CHF and medical noncompliance. Asked patient if he had taken his Lasix since being discharge, patient says "I think I did". Patient also had atrial flutter with RVR at time of admission. Patient also had a new car stress test which was negative. Patient says he briefly had little bit of shortness of breath but that has since gone. He otherwise feels well. He says he feels that his leg swelling is actually improving since she's been here and had his legs elevated. He denies fevers. Has no other complaints this time. No chest pain. Patient says he thinks he specifically take Lasix once a day. I did review the records and it appears while in hospital he was receiving it twice a day. TRAVEL OUTSIDE OF THE [place] IN LAST 30 DAYS: No - Related Data Allergies/Adverse Reactions: diltiazem [From [facility]] Allergy (Verified 07/31/16 22:01) Past Medical History - General Information source: Patient - Social History Smoking Status: Never Smoker Chew tobacco use (# tins/day): No Frequency of alcohol use: None Drug Abuse: None Family History: Reviewed & Not Pertinent Patient has suicidal ideation: No Patient has homicidal ideation: No - Past Medical History Cardiac Medical History: Reports: Hx Atrial Fibrillation, Hx Congestive Heart Failure, Hx Coronary Artery Disease, Hx Heart Attack - pt unsure of this, Hx Hypertension Pulmonary Medical History: Reports: Hx Asthma - childhood Endocrine Medical History: Reports: Hx Diabetes Mellitus Type 2 Renal/ Medical History: Denies: Hx Peritoneal Dialysis Musculoskeltal Medical History: Reports Hx Arthritis - RA, Reports Hx Fibromyalgia Psychiatric Medical History: Reports: Hx Anxiety Infectious Medical History: Reports: Hx C-Diff Past Surgical History: Reports: Hx Appendectomy, Hx Orthopedic Surgery - L hand , Hx Tonsillectomy - Immunizations Hx Diphtheria, Pertussis, Tetanus Vaccination: Yes Review of Systems - Review of Systems Notes: My Normal Review Basic REVIEW OF SYSTEMS: CONSTITUTIONAL : Denies fever, chills, or sweats. Denies recent illness. EENT: Denies eye, ear, throat, or mouth pain or symptoms. Denies nasal or sinus congestion. CARDIOVASCULAR: Denies chest pain. RESPIRATORY: Mild shortness of breath which has since resolved. GASTROINTESTINAL: Denies abdominal pain. Denies nausea, vomiting, or diarrhea. Denies constipation. Last BM: GENITOURINARY: Denies difficulty urinating, painful urination, burning, frequency, or blood in urine. MUSCULOSKELETAL: Leg edema. SKIN: Denies rash or skin lesions. NEUROLOGICAL: Denies altered mental status or loss of consciousness. Denies headache. Denies weakness or paralysis or loss of use of either side. Denies problems with gait or speech. Denies sensory or motor loss. ALL OTHER SYSTEMS REVIEWED AND NEGATIVE. Physical Exam - Vital signs Vitals: Temp Pulse Resp BP Pulse Ox 97.8 F 67 20 129/84 H 96 07/31/16 21:54 07/31/16 21:54 07/31/16 21:54 07/31/16 21:54 07/31/16 21:54 - Notes Notes: General Appearance: Well nourished, alert, cooperative, no acute distress, no obvious discomfort. Well-appearing. Vitals: reviewed, See vital signs table. Head: no swelling or tenderness to the head Eyes: PERRL, EOMI, Conjuctiva clear Mouth: No decreasd moisture Neck: Supple, no neck tenderness, No thyromegaly Lungs: No wheezing, No rales, No rhonci, No accessory muscle use, good air exchange bilaterally. Heart: Normal rate, Regular rythm, No murmur, no rub Abdomen: Normal BS, soft, No rigidity, No abdominal tenderness, No guarding, no rebound, no abdominal masses, no organomegaly Extremities: strength 5/5 in all extremities, good pulses in all extremities, no swelling or tenderness in the extremities, 2+ bilateral lower extremity edema. Skin: Mild erythema and skin breakdown to both legs consistent with changes from chronic edema Neuro: speech clear, oriented x 3, normal affect, responds appropriately to questions. Course - Vital Signs Vital signs: Temp Pulse Resp BP Pulse Ox 97.8 F 67 16 160/89 H 96 07/31/16 21:54 07/31/16 21:54 08/01/16 02:50 08/01/16 02:51 08/01/16 02:50 - Laboratory Result Diagrams: 08/01/16 00:23 08/01/16 00:23 Laboratory results interpreted by me: 07/31/16 08/01/16 08/01/16 23:40 00:23 00:23 RBC 2.83 L Hgb 9.1 L Hct 28.1 L MCV 99 H RDW 17.2 H Plt Count 100 L Monocytes % 17.3 H BUN 49 H Creatinine 1.83 H Est GFR ( Amer) 46 L Est GFR (Non-Af Amer) 38 L AST 72 H Alkaline Phosphatase 128 H Creatine Kinase 614 H NT-Pro-B Natriuret Pep Albumin 3.2 L Urine Protein 30 H Urine Blood MODERATE H 08/01/16 00:23 RBC Hgb Hct MCV RDW Plt Count Monocytes % BUN Creatinine Est GFR ( Amer) Est GFR (Non-Af Amer) AST Alkaline Phosphatase Creatine Kinase NT-Pro-B Natriuret Pep 4800 H Albumin Urine Protein Urine Blood - EKG Interpretation by Me Additional EKG results interpreted by me: 08/01/16 01:46 EKG is reviewed and interpreted by me. EKG shows A. fib with rate of [address] segment elevation or depression. No ischemic T wave inversions. QRS duration QTC intervals are within normal range. Old EKG for comparison is from July 29 2016. - Transfer of Care Notes: 08/01/16 05:41 Patient continues to say that he feels improved and looks well. When he was in the hospital appears that he was given Lasix twice a day. He was discharged on only once a day. Since predischarge said some increase in edema in his lower extremities. This improved with elevation of his legs. His chest x-rays clear. He has no abnormal breath sounds on auscultation. He is breathing normally without any distress or tachypnea. Very safe to be discharged home. I gave him an extra dose of Lasix tonight. I will have him take his Lasix at least twice a day instead of once a day. I encourage him to return to ER follow -up with his doctor in 2 days to have his potassium rechecked to make sure it is staying stable. I encouraged return to ER immediately if has difficulty breathing, increased edema, or feels unwell. Patient agrees with plan and will be discharged home. Dictation of this chart was performed using voice recognition software; therefore, there may be some unintended grammatical errors. Discharge - Discharge Clinical Impression: CHF (congestive heart failure) Qualifiers: Congestive heart failure type: unspecified congestive heart failure type Congestive heart failure chronicity: chronic Qualified Code(s): I50.9 - Heart failure, unspecified Condition: Good Disposition: HOME, SELF-CARE Additional Instructions: Congestive Heart Failure You have been diagnosed as having congestive heart failure (CHF). CHF occurs when the heart is unable to pump blood efficiently, leading to fluid buildup in the veins and lungs. Typical symptoms are swelling of the legs, shortness of breath on minor exertion, and fatigue. CHF is treated with salt restriction, medicine to eliminate excess water and salt from the body, and medication to help the heart contract more efficiently. Eliminate added salt and salty foods in your diet. Decrease your activity until excess fluid has been eliminated. It will also be helpful to raise the head of your bed so you can sleep more easily. Keep a daily record of your weight. This will help your physician monitor your progress. Once extra water has been eliminated, light aerobic exercise daily -- such as walking -- will be helpful (unless your physician has told you to restrict activity for other reasons). Be sure to follow up with the physician as instructed. Contact the doctor at once if you worsen in any way. Please increase your Lasix to twice a day. Please return to ER immediately if you have difficulty breathing, increased leg swelling, or feel that your symptoms are worsening. Please follow-up with your doctor on Saturday or return to ER to have your potassium rechecked to make sure it is staying stable since we did increase your Lasix. Prescriptions: Furosemide [Lasix 40 mg Tablet] 40 mg PO BID #30 tablet [facility] - 08/03/16
[2016-08-01 02:56] VITALS: BP 160/89
--- NOTE | 2016-08-01 08:21 | EKG REPORT ---
SEVERITY:- ABNORMAL ECG - ATRIAL FIBRILLATION BORDERLINE LEFT AXIS DEVIATION : Confirmed by: Tiago Day MD 01-Aug-2016 08:21:00
== END 2016-08-01 02:55 | disposition home or self-care (01) ==
LOC: ER 21:47
DX: I11.0 Hypertensive heart disease with heart failure (principal); I50.9 Heart failure, unspecified; I48.91 Unspecified atrial fibrillation; I25.10 Atherosclerotic heart disease of native coronary artery without angina pectoris; Z79.899 Other long term (current) drug therapy; E11.9 Type 2 diabetes mellitus without complications
CPT/HCPCS: 36415; 71020; 80053; 81001; 82550; 82553; 83735; 83880; 84484; 85025; 93005; 93010; 99285

== ENCOUNTER 2016-08-06 15:40 | Emergency (ER) | payer SELFPAY ==
--- NOTE | 2016-08-06 16:09 | ER Document Report ---
ED Medical Screen (RME) - General Chief Complaint: Back Pain Stated Complaint: BACK PAIN, WEAKNESS Time seen by provider: 16:06 Mode of Arrival: Wheelchair Information source: Patient Notes: 61-year-old male presents to ED for lower back pain and weakness about 5 days. States now it's affecting his breathing and he can't sleep. Has a history of CHF elevated blood pressure. Denies any history of asthma bronchitis or COPD. I have greeted and performed a rapid initial assessment of this patient. A comprehensive ED assessment and evaluation of the patient, analysis of test results and completion of medical decision making process will be conducted by an additional ED providers. TRAVEL OUTSIDE OF THE [place] IN LAST 30 DAYS: No - Related Data Allergies/Adverse Reactions: diltiazem [From Cardizem] Allergy (Verified 07/31/16 22:01) Past Medical History - Past Medical History Cardiac Medical History: Reports: Hx Atrial Fibrillation, Hx Congestive Heart Failure, Hx Coronary Artery Disease, Hx Heart Attack - pt unsure of this, Hx Hypertension Pulmonary Medical History: Reports: Hx Asthma - childhood Endocrine Medical History: Reports: Hx Diabetes Mellitus Type 2 Renal/ Medical History: Denies: Hx Peritoneal Dialysis Musculoskeltal Medical History: Reports Hx Arthritis - RA, Reports Hx Fibromyalgia Psychiatric Medical History: Reports: Hx Anxiety Infectious Medical History: Reports: Hx C-Diff Past Surgical History: Reports: Hx Appendectomy, Hx Orthopedic Surgery - L hand , Hx Tonsillectomy - Immunizations Hx Diphtheria, Pertussis, Tetanus Vaccination: Yes
[2016-08-06 16:58] LABS: ABSOLUTE BASOPHILS # (AUTO) 0.1 10^3/uL (0.0-0.2); ABSOLUTE EOSINOPHILS # (AUTO) 0.1 10^3/uL (0.0-0.6); ABSOLUTE LYMPHOCYTES (AUTO) 1.2 10^3/uL (0.5-4.7); ABSOLUTE MONOCYTES (AUTO) 0.8 10^3/uL (0.1-1.4); BASOPHILS % (AUTO) 1.8 % (0-2); EOSINOPHILS % (AUTO) 2.8 % (0-6); HEMATOCRIT 28.1 % (37.9-51.0); HEMOGLOBIN 8.9 g/dL (13.5-17.0); HGB HCT DIFFERENCE -1.4; LYMPHOCYTES % (AUTO) 28.9 % (13-45); MEAN CORPUSCULAR HEMOGLOBIN 31.9 pg (27.0-33.4); MEAN CORPUSCULAR HGB CONC 31.9 g/dL (32.0-36.0); MEAN CORPUSCULAR VOLUME 100 fl (80-97); MONOCYTES % (AUTO) 18.4 % (3-13); RED CELL DISTRIBUTION WIDTH 17.7 % (11.5-14.0); SEGMENTED NEUTROPHILS % (AUTO) 48.1 % (42-78); WHITE BLOOD COUNT 4.1 10^3/uL (4.0-10.5)
[2016-08-06 17:12] LABS: ALANINE AMINOTRANSFERASE 28 U/L (21-72); ALBUMIN 3.1 g/dL (3.5-5.0); ALKALINE PHOSPHATASE 93 U/L (38-126); ANION GAP 11 (5-19); ASPARTATE AMINO TRANSFERASE 59 U/L (17-59); BILIRUBIN,TOTAL 0.9 mg/dL (0.2-1.3); BLOOD UREA NITROGEN 48 mg/dL (7-20); CALCIUM 8.7 mg/dL (8.4-10.2); CARBON DIOXIDE 26 mmol/L (22-30); CHLORIDE 104 mmol/L (98-107); CREATINE KINASE 312 U/L (55-170); CREATININE RESULT 1.87 mg/dL (0.52-1.25); GLUCOSE 178 mg/dL (75-110); POTASSIUM 4.5 mmol/L (3.6-5.0); SODIUM 141.2 mmol/L (137-145); TOTAL PROTEIN 7.1 g/dL (6.3-8.2)
[2016-08-06 17:23] LABS: CREATINE KINASE MB 2.12 ng/mL (<4.55); TROPONIN I 0.016 ng/mL
--- NOTE | 2016-08-06 19:02 | EKG REPORT ---
SEVERITY:- ABNORMAL ECG - ATRIAL FIBRILLATION, V-RATE 68-109 LEFT AXIS DEVIATION BORDERLINE PROLONGED QT INTERVAL : Confirmed by: Magen Dubose 06-Aug-2016 19:01:13
[2016-08-06 20:18] LABS: APPEARANCE,URINE CLEAR; BILIRUBIN,URINE NEGATIVE (NEGATIVE); GLUCOSE, URINE NEGATIVE (NEGATIVE); KETONES,URINE NEGATIVE (NEGATIVE); LEUKOCYTE ESTERASE,URINE NEGATIVE (NEGATIVE); NITRITE,URINE NEGATIVE (NEGATIVE); PROTEIN,URINE 30 mg/dL (NEGATIVE); URINE SPECIFIC GRAVITY 1.011; UROBILINOGEN,URINE NEGATIVE mg/dL (<2.0)
[2016-08-06] MEDS ORDERED: HYDROCODONE/ACETAMINOPHEN 5-325 MG 6 TAB/DSPK PO PRN (22:32)
--- NOTE | 2016-08-06 22:32 | ER Document Report ---
ED Neck/Back Problem - General Chief Complaint: Back Pain Stated Complaint: BACK PAIN, WEAKNESS Time seen by provider: 22:30 Mode of Arrival: Wheelchair Information source: Patient TRAVEL OUTSIDE OF THE [place] IN LAST 30 DAYS: No - HPI Patient complains to provider of: Pain, Lower back Onset: Last week Onset: Gradual Timing: Constant Quality of pain: Achy Severity: Moderate Recent injury: No Associated symptoms: None Exacerbated by: Movement of trunk Relieved by: Nothing Similar symptoms previously: Yes Recently seen / treated by doctor: Yes Notes: Patient is a 61-year-old male presenting to the emergency room complaining of low back pain that's been going on for at least the last week, states he was recently admitted to this facility for congestive heart failure, while he was in the hospital sleeping in the hospital bed he developed some back pain, he reports it is worsen when he is standing or ambulating or there is movement of his trunk, he denies a history of back pain, however a review of previous visit shows he is been here for or back pain multiple times in the past, he denies any numbness or tingling, no bowel or bladder dysfunction, no recent injury - Related Data Allergies/Adverse Reactions: diltiazem [From Cardizem] Allergy (Verified 07/31/16 22:01) Past Medical History - General Information source: Patient - Social History Smoking Status: Former Smoker Family History: Reviewed & Not Pertinent Patient has suicidal ideation: No Patient has homicidal ideation: No - Past Medical History Cardiac Medical History: Reports: Hx Atrial Fibrillation, Hx Congestive Heart Failure, Hx Coronary Artery Disease, Hx Heart Attack - pt unsure of this, Hx Hypertension Pulmonary Medical History: Reports: Hx Asthma - childhood Endocrine Medical History: Reports: Hx Diabetes Mellitus Type 2 Renal/ Medical History: Denies: Hx Peritoneal Dialysis Musculoskeltal Medical History: Reports Hx Arthritis - RA, Reports Hx Fibromyalgia Psychiatric Medical History: Reports: Hx Anxiety Infectious Medical History: Reports: Hx C-Diff Past Surgical History: Reports: Hx Appendectomy, Hx Orthopedic Surgery - L hand , Hx Tonsillectomy - Immunizations Hx Diphtheria, Pertussis, Tetanus Vaccination: Yes Review of Systems - Review of Systems Constitutional: No symptoms reported EENT: No symptoms reported Cardiovascular: No symptoms reported Respiratory: No symptoms reported Gastrointestinal: No symptoms reported Genitourinary: No symptoms reported Male Genitourinary: No symptoms reported Musculoskeletal: See HPI Skin: No symptoms reported Hematologic/Lymphatic: No symptoms reported Neurological/Psychological: No symptoms reported -: Yes All other systems reviewed and negative Physical Exam - Vital signs Vitals: Temp Pulse Resp BP Pulse Ox 98.5 F 86 22 H 143/77 H 96 08/06/16 16:00 08/06/16 16:00 08/06/16 16:00 08/06/16 16:00 08/06/16 16:00 Interpretation: Normal - General General appearance: Appears well, Alert - HEENT Head: Normocephalic, Atraumatic Eyes: Normal Pupils: PERRL - Respiratory Respiratory status: No respiratory distress Chest status: Nontender Breath sounds: Normal Chest palpation: Normal - Cardiovascular Rhythm: Regular Heart sounds: Normal auscultation Murmur: No - Abdominal Inspection: Morbidly Obese Distension: No distension Bowel sounds: Normal Tenderness: Nontender Organomegaly: No organomegaly - Back Back: Normal, Tender - Tenderness to palpate in the left lower lumbar paraspinal musculature radiating, distal sensation and motor is intact, 2+ DP pulses - Extremities General upper extremity: Normal inspection, Nontender, Normal color, Normal ROM , Normal temperature General lower extremity: Normal inspection, Nontender, Normal color, Normal ROM , Normal temperature, Normal weight bearing. No: Aurora's sign - Neurological Neuro grossly intact: Yes Cognition: Normal Orientation: AAOx4 [place] Coma Scale Eye Opening: Spontaneous [place] Coma Scale Verbal: Oriented [place] Coma Scale Motor: Obeys Commands [place] Coma Scale Total: 15 Speech: Normal Motor strength normal: LUE, RUE, LLE, RLE Sensory: Normal - Psychological Associated symptoms: Normal affect, Normal mood - Skin Skin Temperature: Warm Skin Moisture: Dry Skin Color: Normal Course - Re-evaluation Re-evalutation: 08/07/16 00:55 Laboratory evaluation is relatively normal in comparison to previous labs on this patient, no evidence of any infection on physical exam, he is moving all extremities without difficulty, symptoms are consistent with muscular strain, he was given a small amount of pain medication and advised to follow-up with his primary care provider or return if symptoms worsen, patient acknowledges understanding and agreement with this plan - Vital Signs Vital signs: Temp Pulse Resp BP Pulse Ox 98.5 F 83 20 149/90 H 96 08/06/16 16:08 08/06/16 22:41 08/06/16 22:41 08/06/16 22:41 08/06/16 22:41 - Laboratory Result Diagrams: 08/06/16 16:20 08/06/16 16:20 Laboratory results interpreted by me: 08/06/16 08/06/16 08/06/16 16:20 16:20 19:25 RBC 2.80 L Hgb 8.9 L Hct 28.1 L MCV 100 H MCHC 31.9 L RDW 17.7 H Plt Count 100 L Monocytes % 18.4 H BUN 48 H Creatinine 1.87 H Est GFR ( Amer) 45 L Est GFR (Non-Af Amer) 37 L Glucose 178 H Creatine Kinase 312 H Albumin 3.1 L Urine Protein 30 H Urine Blood SMALL H - Diagnostic Test Radiology reviewed: Image reviewed, Reports reviewed - EKG Interpretation by Me Rate: Normal Rhythm: A.Fib Discharge - Discharge Clinical Impression: Low back pain Qualifiers: Chronicity: acute Back pain laterality: left Sciatica presence: with sciatica Sciatica laterality: sciatica of left side Qualified Code(s): M54.42 - Lumbago with sciatica, left side Condition: Stable Disposition: HOME, SELF-CARE Instructions: Ice Packs ([facility]), Low Back Pain ([facility]), Muscle Strain ([facility]), Oral Narcotic Medication ([facility]) Additional Instructions: Follow up with your primary care provider in one to 2 days. Return to the emergency room immediately if symptoms worsen or any additional concerns. Prescriptions: Hydrocodone/Acetaminophen [Hydrocodon-Acetaminophen 5-325] 1 each PO Q6 #14 tablet
[2016-08-06 23:21] VITALS: BP 149/90
== END 2016-08-06 22:40 | disposition home or self-care (01) ==
LOC: ER 15:40
DX: M54.42 Lumbago with sciatica, left side (principal); E66.01 Morbid (severe) obesity due to excess calories; I48.91 Unspecified atrial fibrillation; I50.9 Heart failure, unspecified; E11.9 Type 2 diabetes mellitus without complications; I10 Essential (primary) hypertension
CPT/HCPCS: 36415; 71020; 80053; 81001; 82550; 82553; 84484; 85025; 93005; 93010; 99284

== ENCOUNTER 2016-08-20 17:47 | Inpatient (IN) | payer SELFPAY ==
--- NOTE | 2016-08-20 18:22 | ER Document Report ---
ED Medical Screen (RME) - General Stated Complaint: DIFFICULTY BREATHING Mode of Arrival: Wheelchair Information source: Patient Notes: Patient complains of low back pain for the past few weeks. Patient reports nausea and vomiting off and on for the past several weeks. Patient complains of generalized weakness and dizziness. Patient complains of difficulty breathing. Patient has presented multiple times to the emergency department over the past 2 months with similar symptoms. Patient states that he feels he is not getting any better. hx: Congestive heart failure, diabetes I have greeted and performed a rapid initial assessment of this patient. A comprehensive ED assessment and evaluation of the patient, analysis of test results and completion of the medical decision making process will be conducted by additional ED providers. TRAVEL OUTSIDE OF THE [place] IN LAST 30 DAYS: No - Related Data Allergies/Adverse Reactions: diltiazem [From Cardizem] Allergy (Verified 07/31/16 22:01) Past Medical History - Past Medical History Cardiac Medical History: Reports: Hx Atrial Fibrillation, Hx Congestive Heart Failure, Hx Coronary Artery Disease, Hx Heart Attack - pt unsure of this, Hx Hypertension Pulmonary Medical History: Reports: Hx Asthma - childhood Endocrine Medical History: Reports: Hx Diabetes Mellitus Type 2 Renal/ Medical History: Denies: Hx Peritoneal Dialysis Musculoskeltal Medical History: Reports Hx Arthritis - RA, Reports Hx Fibromyalgia Psychiatric Medical History: Reports: Hx Anxiety Infectious Medical History: Reports: Hx C-Diff Past Surgical History: Reports: Hx Appendectomy, Hx Orthopedic Surgery - L hand , Hx Tonsillectomy - Immunizations Hx Diphtheria, Pertussis, Tetanus Vaccination: Yes Physical Exam - Vital signs Vitals: Temp Pulse Resp BP Pulse Ox 98.3 F 78 20 144/79 H 97 08/20/16 18:15 08/20/16 18:15 08/20/16 18:15 08/20/16 18:15 08/20/16 18:15 - Respiratory Respiratory status: No respiratory distress Breath sounds: Nonproductive cough Course - Vital Signs Vital signs: Temp Pulse Resp BP Pulse Ox 98.3 F 78 20 144/79 H 97 08/20/16 18:15 08/20/16 18:15 08/20/16 18:15 08/20/16 18:15 08/20/16 18:15
[2016-08-20 19:22] LABS: ALANINE AMINOTRANSFERASE 33 U/L (21-72); ALBUMIN 2.8 g/dL (3.5-5.0); ALKALINE PHOSPHATASE 120 U/L (38-126); ANION GAP 9 (5-19); ASPARTATE AMINO TRANSFERASE 65 U/L (17-59); BILIRUBIN,TOTAL 1.1 mg/dL (0.2-1.3); BLOOD UREA NITROGEN 49 mg/dL (7-20); CALCIUM 9.1 mg/dL (8.4-10.2); CARBON DIOXIDE 29 mmol/L (22-30); CHLORIDE 101 mmol/L (98-107); CREATINE KINASE 299 U/L (55-170); CREATININE RESULT 2.07 mg/dL (0.52-1.25); GLUCOSE 116 mg/dL (75-110); MAGNESIUM 1.8 mg/dL (1.6-2.3); POTASSIUM 4.5 mmol/L (3.6-5.0); SODIUM 138.9 mmol/L (137-145); TOTAL PROTEIN 7.5 g/dL (6.3-8.2)
[2016-08-20 19:34] LABS: CREATINE KINASE MB 2.56 ng/mL (<4.55); TROPONIN I 0.013 ng/mL
[2016-08-20 20:50] LABS: ABSOLUTE BASOPHILS # (AUTO) 0.1 10^3/uL (0.0-0.2); ABSOLUTE EOSINOPHILS # (AUTO) 0.2 10^3/uL (0.0-0.6); ABSOLUTE LYMPHOCYTES (AUTO) 1.1 10^3/uL (0.5-4.7); ABSOLUTE MONOCYTES (AUTO) 0.6 10^3/uL (0.1-1.4); ABSOLUTE NEUT (AUTO) 2.5 10^3/uL (1.7-8.2); BASOPHILS % (AUTO) 1.6 % (0-2); EOSINOPHILS % (AUTO) 4.4 % (0-6); HEMATOCRIT 27.4 % (37.9-51.0); HEMOGLOBIN 9.2 g/dL (13.5-17.0); HGB HCT DIFFERENCE 0.2; LYMPHOCYTES % (AUTO) 25.3 % (13-45); MEAN CORPUSCULAR HEMOGLOBIN 32.6 pg (27.0-33.4); MEAN CORPUSCULAR HGB CONC 33.5 g/dL (32.0-36.0); MEAN CORPUSCULAR VOLUME 97 fl (80-97); MONOCYTES % (AUTO) 12.9 % (3-13); RED BLOOD COUNT 2.81 10^6/uL (4.35-5.55); RED CELL DISTRIBUTION WIDTH 16.4 % (11.5-14.0); SEGMENTED NEUTROPHILS % (AUTO) 55.8 % (42-78); WHITE BLOOD COUNT 4.5 10^3/uL (4.0-10.5)
[2016-08-20] MEDS ORDERED: ENALAPRILAT DIHYDRATE INJ/PF 1.25 MG/1 ML SDV IV PRN (21:44)
[2016-08-20] MEDS ORDERED: MAG HYDROX/AL HYDROX/SIMETH SUSP 30 ML UDCUP PO PRN (21:44)
[2016-08-20] MEDS ORDERED: MAGNESIUM HYDROXIDE SUSP 30 ML UDCUP PO PRN (21:44)
[2016-08-20] MEDS ORDERED: ACETAMINOPHEN 325 MG TABLET PO PRN (21:44)
[2016-08-20] MEDS ORDERED: METOPROLOL SUCCINATE 50 MG TAB.SR.24H PO SCH (21:45)
--- NOTE | 2016-08-20 21:49 | ER Document Report ---
ED Dizziness/Weakness - General Chief Complaint: General Weakness Stated Complaint: DIFFICULTY BREATHING Mode of Arrival: Wheelchair Notes: Patient is a 61-year-old male who presents to the emergency department complaining of multiple symptoms. Patient states that the main reason he came in today was shortness of breath and labored breathing. Past month he has felt like he has had lethargy and shortness of breath and occasional difficulty eating. Most notably his splint were told him to come to the emergency department because he was labored breathing at rest. Patient states that he didn't really notice it but that he feels like he is breathing this way for about 4 weeks. PMH: a fib rate controlled on BB, DM on metformin, HTN, diastolic CHF, kidney disease but unaware of severity Past surgical history significant for appendectomy and previous hand procedure Social history significant for a 5 pack years and history of alcohol abuse recently quit about 2 months ago. PCP is [facility] TRAVEL OUTSIDE OF THE [place] IN LAST 30 DAYS: No - Related Data Allergies/Adverse Reactions: diltiazem [From Cardizem] Allergy (Verified 07/31/16 22:01) Past Medical History - General Information source: Patient - Social History Smoking Status: Unknown if Ever Smoked Family History: Reviewed & Not Pertinent Patient has suicidal ideation: No Patient has homicidal ideation: No - Past Medical History Cardiac Medical History: Reports: Hx Atrial Fibrillation, Hx Congestive Heart Failure, Hx Coronary Artery Disease, Hx Heart Attack - pt unsure of this, Hx Hypertension Pulmonary Medical History: Reports: Hx Asthma - childhood Endocrine Medical History: Reports: Hx Diabetes Mellitus Type 2 Renal/ Medical History: Denies: Hx Peritoneal Dialysis Musculoskeltal Medical History: Reports Hx Arthritis - RA, Reports Hx Fibromyalgia Psychiatric Medical History: Reports: Hx Anxiety Infectious Medical History: Reports: Hx C-Diff Past Surgical History: Reports: Hx Appendectomy, Hx Orthopedic Surgery - L hand , Hx Tonsillectomy - Immunizations Hx Diphtheria, Pertussis, Tetanus Vaccination: Yes Review of Systems - Review of Systems Constitutional: Malaise EENT: No symptoms reported Cardiovascular: Orthopnea Respiratory: Short of breath Gastrointestinal: No symptoms reported Genitourinary: No symptoms reported Male Genitourinary: No symptoms reported Musculoskeletal: Leg swelling Skin: No symptoms reported Hematologic/Lymphatic: No symptoms reported Neurological/Psychological: No symptoms reported Physical Exam - Vital signs Vitals: Temp Pulse Resp BP Pulse Ox 98.3 F 78 20 144/79 H 97 08/20/16 18:15 08/20/16 18:15 08/20/16 18:15 08/20/16 18:15 08/20/16 18:15 - Notes Notes: PHYSICAL EXAM GENERAL: Alert, interacts well. HEAD: Normocephalic, atraumatic. EYES: Pupils equal, round, and reactive to light. Extraocular movements intact. ENT: Oral mucosa moist, tongue midline. NECK: Full range of motion. Supple. Trachea midline. LUNGS: Clear to auscultation bilaterally, no wheezes, rales, or rhonchi. Visible labored breathing and keeps holding his breath HEART: Regular rate and rhythm. No murmurs, gallops, or rubs. ABDOMEN: Soft, obese, nondistended, nontender. Edematous along his pannus. No guarding, rebound, or rigidity.. Bowel sounds present in all 4 quadrants. EXTREMITIES: Moves all 4 extremities spontaneously. 2 pitting edema, radial and dorsalis pedis pulses 2/4 bilaterally. No cyanosis. NEUROLOGICAL: Alert and oriented x3. Normal speech. PSYCH: Normal affect, normal mood. SKIN: Warm, dry, normal turgor. No rashes or lesions noted. Course - Re-evaluation Re-evalutation: 08/20/16 21:45 Patient is a 61 year old male who presents today c/o lethargy and SOB and MDARIGAL. Patients history, physical exam and lab findings reveal acute on chonic heart failure. He also has a trending increase in his BUN in Creatinine. I feel this patient warrants admission for CHF and EARLE given he is not succeeding with outpatient management. case d/w Dr. Pradeep Marshall and will be admitted to telemetry - Vital Signs Vital signs: Temp Pulse Resp BP Pulse Ox 98.3 F 78 20 144/79 H 97 08/20/16 18:15 08/20/16 18:15 08/20/16 18:15 08/20/16 18:15 08/20/16 18:15 - Laboratory Result Diagrams: 08/20/16 19:45 08/20/16 18:50 Laboratory results interpreted by me: 08/20/16 08/20/16 08/20/16 18:50 18:50 19:45 RBC 2.81 L Hgb 9.2 L Hct 27.4 L RDW 16.4 H Plt Count 115 L BUN 49 H Creatinine 2.07 H Est GFR ( Amer) 40 L Est GFR (Non-Af Amer) 33 L Glucose 116 H AST 65 H Creatine Kinase 299 H NT-Pro-B Natriuret Pep 5120 H Albumin 2.8 L - Diagnostic Test Radiology reviewed: Image reviewed, Reports reviewed - EKG Interpretation by Me Rate: Normal Rhythm: A.Fib When compared to previous EKG there are: No significant change - Consults Pradeep Marshall Reason for consultation: 08/20/16 21:49 hospital admission Consulted provider: will come to ER Discharge - Discharge Clinical Impression: Acute kidney injury CHF (congestive heart failure) Qualifiers: Congestive heart failure type: unspecified congestive heart failure type Congestive heart failure chronicity: chronic Qualified Code(s): I50.9 - Heart failure, unspecified Condition: Stable Disposition: ADMITTED INPATIENT Admitting Provider: Hospitalist - Dr. pradeep marshall Unit Admitted: Telemetry
[2016-08-20] MEDS ORDERED: FUROSEMIDE INJ/PF 40 MG/4 ML SDV IV SCH (22:00)
[2016-08-20 22:11] LABS: APPEARANCE,URINE CLEAR; BILIRUBIN,URINE NEGATIVE (NEGATIVE); GLUCOSE, URINE NEGATIVE (NEGATIVE); KETONES,URINE NEGATIVE (NEGATIVE); LEUKOCYTE ESTERASE,URINE NEGATIVE (NEGATIVE); NITRITE,URINE NEGATIVE (NEGATIVE); PROTEIN,URINE 30 mg/dL (NEGATIVE); URINE SPECIFIC GRAVITY 1.013; UROBILINOGEN,URINE NEGATIVE mg/dL (<2.0)
[2016-08-20] MEDS: POTASSIUM CHLORIDE 10 MEQ TABLET.SA PO SCH (23:49)
[2016-08-20] MEDS: HYDRALAZINE HCL 50 MG TABLET PO SCH (23:51)
[2016-08-20] MEDS: HEPARIN SOD (PORCINE) 5,000 UNIT/ML 1 ML SYRINGE SUBCUT SCH (23:52)
[2016-08-21] MEDS ORDERED: LORAZEPAM 0.5 MG TABLET PO PRN (00:03)
[2016-08-21] MEDS ORDERED: THIAMINE HCL 100 MG, FOLIC ACID 1 MG in NORMAL SALINE 50 ML IV ONE ×2 (00:03→05:00)
[2016-08-21 00:10] LABS: CREATINE KINASE MB 2.24 ng/mL (<4.55)
[2016-08-21 00:16] LABS: TROPONIN I < 0.012 ng/mL
[2016-08-21] MEDS ORDERED: INFLUENZA ADLT QUAD (36MOS+) 2016-17 VAC 0.5 ML SYR IM PRN (01:20)
[2016-08-21] MEDS ORDERED: FOLIC ACID INJ 5 MG/1 ML 10 ML VIAL ONE (03:31)
[2016-08-21] MEDS ORDERED: THIAMINE HCL INJ 200 MG/2 ML VIAL ONE (03:32)
[2016-08-21] MEDS: HYDRALAZINE HCL 50 MG TABLET PO SCH ×3 (06:00→21:40)
[2016-08-21] MEDS: HEPARIN SOD (PORCINE) 5,000 UNIT/ML 1 ML SYRINGE SUBCUT SCH ×3 (06:00→21:40)
[2016-08-21 06:18] LABS: ABSOLUTE BASOPHILS # (AUTO) 0.1 10^3/uL (0.0-0.2); ABSOLUTE EOSINOPHILS # (AUTO) 0.2 10^3/uL (0.0-0.6); ABSOLUTE LYMPHOCYTES (AUTO) 1.2 10^3/uL (0.5-4.7); ABSOLUTE MONOCYTES (AUTO) 0.6 10^3/uL (0.1-1.4); ABSOLUTE NEUT (AUTO) 2.6 10^3/uL (1.7-8.2); ANION GAP 8 (5-19); BASOPHILS % (AUTO) 1.4 % (0-2); BLOOD UREA NITROGEN 44 mg/dL (7-20); CARBON DIOXIDE 27 mmol/L (22-30); CHLORIDE 105 mmol/L (98-107); CHOLESTEROL 174.83 mg/dL (0-200); CREATINE KINASE 259 U/L (55-170); CREATININE RESULT 1.96 mg/dL (0.52-1.25); Direct HDL 55 mg/dL (>40); EOSINOPHILS % (AUTO) 4.2 % (0-6); GLUCOSE 94 mg/dL (75-110); HEMATOCRIT 25.9 % (37.9-51.0); HEMOGLOBIN 8.7 g/dL (13.5-17.0); HGB HCT DIFFERENCE 0.2; LYMPHOCYTES % (AUTO) 25.5 % (13-45); MEAN CORPUSCULAR HEMOGLOBIN 32.5 pg (27.0-33.4); MEAN CORPUSCULAR HGB CONC 33.6 g/dL (32.0-36.0); MEAN CORPUSCULAR VOLUME 97 fl (80-97); MONOCYTES % (AUTO) 13.1 % (3-13); POTASSIUM 4.4 mmol/L (3.6-5.0); RED BLOOD COUNT 2.68 10^6/uL (4.35-5.55); RED CELL DISTRIBUTION WIDTH 16.5 % (11.5-14.0); SEGMENTED NEUTROPHILS % (AUTO) 55.8 % (42-78); SODIUM 140.3 mmol/L (137-145); TRIGLYCERIDES 122 mg/dL (<150); WHITE BLOOD COUNT 4.6 10^3/uL (4.0-10.5)
[2016-08-21 06:29] LABS: CREATINE KINASE MB 1.82 ng/mL (<4.55); DIRECT LDL 41 mg/dL (<100); TROPONIN I 0.023 ng/mL
--- NOTE | 2016-08-21 08:11 | EKG REPORT ---
SEVERITY:- ABNORMAL ECG - ATRIAL FIBRILLATION, V-RATE 69-95 BORDERLINE LEFT AXIS DEVIATION BORDERLINE PROLONGED QT INTERVAL : Confirmed by: Tiago Day MD 21-Aug-2016 08:10:36
[2016-08-21] MEDS ORDERED: FUROSEMIDE INJ/PF 40 MG/4 ML SDV IV ONE (08:30)
[2016-08-21] MEDS ORDERED: METOPROLOL SUCCINATE 50 MG TAB.SR.24H PO SCH (08:45)
--- NOTE | 2016-08-21 08:48 | PDOC PROGRESS REPORT ---
Subjective Progress Note for:: 08/21/16 Subjective:: Patient admits to acute on chronic back pain. Shortness of breath does continue. Denies any nausea, vomiting, diarrhea, dizziness, or chest pain. Main concern is back pain and the bedding not dyspnea. Patient admits to not understanding his medications nor dietary discretion. Physical Exam Vital Signs: Temp Pulse Resp BP Pulse Ox 98.6 F 95 20 121/68 100 08/21/16 04:42 08/21/16 04:42 08/21/16 04:42 08/21/16 04:42 08/21/16 04:42 Intake & Output 08/19/16 08/20/16 08/21/16 23:59 23:59 23:59 Intake Total 120 Balance 120 Weight 127.3 kg General appearance: PRESENT: no acute distress, cooperative, well-developed, well-nourished Head exam: PRESENT: atraumatic, normocephalic Eye exam: PRESENT: conjunctiva pink, EOMI, PERRLA. ABSENT: scleral icterus Ear exam: PRESENT: normal external ear exam Mouth exam: PRESENT: moist, tongue midline Neck exam: ABSENT: carotid bruit, JVD, lymphadenopathy, thyromegaly Respiratory exam: PRESENT: clear to auscultation aba. ABSENT: rales, rhonchi, wheezes Cardiovascular exam: PRESENT: irregular rhythm. ABSENT: diastolic murmur, rubs , systolic murmur Pulses: PRESENT: +1 pedal pulses bilateral Vascular exam: PRESENT: normal capillary refill GI/Abdominal exam: PRESENT: normal bowel sounds, soft. ABSENT: distended, guarding, mass, organolmegaly, rebound, tenderness Rectal exam: PRESENT: deferred Extremities exam: PRESENT: full ROM, pedal edema, +1 edema. ABSENT: calf tenderness, clubbing Neurological exam: PRESENT: alert, awake, oriented to person, oriented to place , oriented to time, oriented to situation, CN II-XII grossly intact. ABSENT: motor sensory deficit Psychiatric exam: PRESENT: agitated, anxious. ABSENT: homicidal ideation, suicidal ideation Skin exam: PRESENT: dry, intact, warm. ABSENT: cyanosis, rash Results Laboratory Results: 08/21/16 05:16 08/21/16 05:16 08/21/16 08/21/16 05:16 05:16 WBC 4.6 RBC 2.68 L Hgb 8.7 L Hct 25.9 L MCV 97 MCH 32.5 MCHC 33.6 RDW 16.5 H Plt Count 101 L Seg Neutrophils % 55.8 Lymphocytes % 25.5 Monocytes % 13.1 H Eosinophils % 4.2 Basophils % 1.4 Absolute Neutrophils 2.6 Absolute Lymphocytes 1.2 Absolute Monocytes 0.6 Absolute Eosinophils 0.2 Absolute Basophils 0.1 Sodium 140.3 Potassium 4.4 Chloride 105 Carbon Dioxide 27 Anion Gap 8 BUN 44 H Creatinine 1.96 H Est GFR ( Amer) 42 L Est GFR (Non-Af Amer) 35 L Glucose 94 Calcium 9.0 Triglycerides 122 Cholesterol 174.83 LDL Cholesterol Direct 41 VLDL Cholesterol 24.0 HDL Cholesterol 55 08/20/16 08/20/16 08/21/16 23:25 23:25 05:16 Creatine Kinase 279 H 259 H CK-MB (CK-2) 2.24 Troponin I < 0.012 08/21/16 05:16 Creatine Kinase CK-MB (CK-2) 1.82 Troponin I 0.023 Impressions: Chest X-Ray 08/20/16 18:25 IMPRESSION: Pulmonary vascular congestion. Assessment & Plan - Diagnosis (1) EARLE (acute kidney injury) Is this a current diagnosis for this admission?: YesPlan: Multifocal and due to Metformin, PRASANTH, chronic afib, heart failure. Most likely congestion. Will hold nephrotoxic medication and repeat Cr. Will hopefully improve with diuresis. (2) Accelerated hypertension Is this a current diagnosis for this admission?: YesPlan: BP is a good range at this time. (3) Hypomagnesemia Is this a current diagnosis for this admission?: YesPlan: Chronic. Will continue to supplement and repeat in the am. (5) A-fib Qualifiers: Atrial fibrillation type: chronic Qualified Code(s): I48.2 - Chronic atrial fibrillation Is this a current diagnosis for this admission?: YesPlan: Will continue Metoprolol. Currently rate controlled/. Has declined chronic anticoagulation. (6) Acute diastolic CHF (congestive heart failure) Is this a current diagnosis for this admission?: YesPlan: Will diurese. (8) CAD (coronary artery disease) Qualifiers: Coronary Disease-Associated Artery/Lesion type: [place] artery [place] vs. transplanted heart: [place] heart Associated angina: without angina Qualified Code(s): I25.10 - Atherosclerotic heart disease of [place] coronary artery without angina pectoris Is this a current diagnosis for this admission?: Yes (9) Chronic kidney disease, stage III (moderate) Is this a current diagnosis for this admission?: YesPlan: Uncertain of exact baseline. Cr has been on an upward trend over the psat 3 months. Will refer to outpatient Nephrology. (10) Hypertension Qualifiers: Hypertension type: essential hypertension Qualified Code(s): I10 - Essential (primary) hypertension (11) NSVT (nonsustained ventricular tachycardia) Is this a current diagnosis for this admission?: No (12) Noncompliance with medication regimen Is this a current diagnosis for this admission?: Yes (13) Anemia of chronic disease Is this a current diagnosis for this admission?: YesPlan: Hgb will improve with diuresis. Will repeat in the am. (14) Diabetes mellitus type 2 in obese Is this a current diagnosis for this admission?: YesPlan: Will add SSC since metformin is on hold. (15) Thrombocytopenia Is this a current diagnosis for this admission?: Yes - Time Time Spent with patient: 35 or more minutes Medications reviewed and adjusted accordingly: Yes Anticipated discharge: Home Within: within 48 hours - Inpatient Certification Based on my medical assessment, after consideration of the patient's comorbidities, presenting symptoms, or acuity I expect that the services needed warrant INPATIENT care.: Yes I certify that my determination is in accordance with my understanding of Medicare's requirements for reasonable and necessary INPATIENT services [42 CFR 412.3e].: Yes Medical Necessity: Failure to Improve With Outpatient Therapy, Need Close Monitoring Due to Risk of Patient Decompensation, Need For Continuous Telemetry Monitoring, Risk of Complication if Not Cared For in Hospital Post Hospital Care: D/C or Transfer Summary
--- NOTE | 2016-08-21 09:23 | PDOC H&P ---
History of Present Illness Admission Date/PCP: 08/20/16 22:41 Patient complains of: Shortness of breath and leg swelling History of Present Illness: DEBORAH WHARTON is a 61 year old male with a past medical history of alcoholism , noncompliance, diabetes, diastolic heart failure, pulmonary hypertension, hypertension, obesity and a fibrillation. States he been in his usual state of health approximately a month ago developing worsening shortness of breath with minimal exertion associated with leg swelling and orthopnea denying chest pain nausea vomiting diaphoresis. In the emergency room his found to have decompensated heart failure and acute renal failure with a creatinine of 2. Patient is unclear of dietary and lifestyle limitations of his diagnosis. Past Medical History Cardiac Medical History: Reports: Atrial Fibrillation, Congestive Heart Failure , Coronary Artery Disease, Myocardial Infarction - pt unsure of this, Hypertension Pulmonary Medical History: Reports: Asthma - childhood Endocrine Medical History: Reports: Diabetes Mellitus Type 2 Musculoskeltal Medical History: Reports: Arthritis - RA, Fibromyalgia Psychiatric Medical History: Reports: Alcohol Dependency, Depression, Tobacco Dependency Hematology: Reports: Anemia Infectious Medical History: Reports: Clostridium Difficile Past Surgical History Past Surgical History: Reports: Appendectomy, Orthopedic Surgery - L hand, Tonsillectomy Social History Information Source: Patient, [facility] Records Smoking Status: Former Smoker Number of Years Smokin Last Time Smoked: 2011 Frequency of Alcohol Use: Occasional Hx Recreational Drug Use: Yes Drugs: Marijuana Hx Prescription Drug Abuse: No - Advance Directive Resuscitation Status: Full Code Family History Family History: CAD, Other Parental Family History Reviewed: Yes Children Family History Reviewed: Yes Sibling(s) Family History Reviewed.: Yes Medication/Allergy Home Medications: Furosemide [Lasix 40 mg Tablet] 40 mg PO BID 08/20/16 Hydralazine HCl 50 mg PO Q8H 08/20/16 Hydrocodone/Acetaminophen [[place] 5-325 mg Tablet] 1 tab PO Q6H 08/20/16 Magnesium Oxide [Mag-Ox 400 mg Tablet] 400 mg PO BID 08/20/16 Metformin HCl 500 mg PO BID 08/20/16 Metoprolol Succinate 150 mg PO Q12H 08/20/16 Allergies/Adverse Reactions: diltiazem [From Cardizem] Allergy (Verified 07/31/16 22:01) Review of Systems Constitutional: PRESENT: as per HPI, fatigue, weakness, weight gain Eyes: ABSENT: visual disturbances Ears: ABSENT: hearing changes Cardiovascular: PRESENT: dyspnea on exertion, edema, orthropnea, palpitations. ABSENT: chest pain Respiratory: PRESENT: dyspnea. ABSENT: cough, hemoptysis, sputum Gastrointestinal: ABSENT: abdominal pain, constipation, diarrhea, hematemesis, hematochezia, nausea, vomiting Genitourinary: ABSENT: dysuria, hematuria Musculoskeletal: ABSENT: joint swelling Integumentary: ABSENT: rash, wounds Neurological: ABSENT: abnormal gait, abnormal speech, confusion, dizziness, focal weakness, syncope Psychiatric: PRESENT: depression Endocrine: ABSENT: cold intolerance, heat intolerance, polydipsia, polyuria Hematologic/Lymphatic: ABSENT: easy bleeding, easy bruising Physical Exam Vital Signs: Temp Pulse Resp BP Pulse Ox 97.9 F 88 19 118/71 97 08/21/16 07:24 08/21/16 07:24 08/21/16 07:24 08/21/16 07:24 08/21/16 07:24 Intake & Output 08/19/16 08/20/16 08/21/16 11:59 11:59 11:59 Intake Total 120 Balance 120 Weight 127.3 kg General appearance: PRESENT: cooperative, mild distress, obese Head exam: PRESENT: atraumatic, normocephalic Eye exam: PRESENT: conjunctiva pink, EOMI, PERRLA. ABSENT: scleral icterus Ear exam: PRESENT: normal external ear exam Mouth exam: PRESENT: moist, tongue midline Neck exam: ABSENT: carotid bruit, JVD, lymphadenopathy, thyromegaly Respiratory exam: PRESENT: crackles, symmetrical, tachypnea. ABSENT: accessory muscle use, chest wall tenderness, decreased breath sounds, prolonged expiratory phas Cardiovascular exam: PRESENT: gallop, irregular rhythm, RRR, +S1, +S2. ABSENT: bradycardia, diastolic murmur Pulses: PRESENT: normal dorsalis pedis pul GI/Abdominal exam: PRESENT: normal bowel sounds, soft. ABSENT: distended, guarding, mass, organolmegaly, rebound, tenderness Rectal exam: PRESENT: deferred Extremities exam: PRESENT: pedal edema, tenderness, +1 edema Neurological exam: PRESENT: alert, awake, oriented to person, oriented to place , oriented to time, oriented to situation, CN II-XII grossly intact. ABSENT: motor sensory deficit Psychiatric exam: PRESENT: anxious, depressed Skin exam: PRESENT: dry, intact, warm. ABSENT: cyanosis, rash Results Laboratory Results: 08/21/16 05:16 08/21/16 05:16 08/21/16 08/21/16 05:16 05:16 WBC 4.6 RBC 2.68 L Hgb 8.7 L Hct 25.9 L MCV 97 MCH 32.5 MCHC 33.6 RDW 16.5 H Plt Count 101 L Seg Neutrophils % 55.8 Lymphocytes % 25.5 Monocytes % 13.1 H Eosinophils % 4.2 Basophils % 1.4 Absolute Neutrophils 2.6 Absolute Lymphocytes 1.2 Absolute Monocytes 0.6 Absolute Eosinophils 0.2 Absolute Basophils 0.1 Sodium 140.3 Potassium 4.4 Chloride 105 Carbon Dioxide 27 Anion Gap 8 BUN 44 H Creatinine 1.96 H Est GFR ( Amer) 42 L Est GFR (Non-Af Amer) 35 L Glucose 94 Calcium 9.0 Triglycerides 122 Cholesterol 174.83 LDL Cholesterol Direct 41 VLDL Cholesterol 24.0 HDL Cholesterol 55 08/20/16 08/20/16 08/21/16 23:25 23:25 05:16 Creatine Kinase 279 H 259 H CK-MB (CK-2) 2.24 Troponin I < 0.012 08/21/16 05:16 Creatine Kinase CK-MB (CK-2) 1.82 Troponin I 0.023 Impressions: Chest X-Ray 08/20/16 18:25 IMPRESSION: Pulmonary vascular congestion. Assessment & Plan - Diagnosis (1) Pulmonary hypertension Is this a current diagnosis for this admission?: YesPlan: Reduction of hypertension, Oxygen and consideration of sleep study (2) EALRE (acute kidney injury) Is this a current diagnosis for this admission?: YesPlan: Somewhat prerenal avoid nephrotoxic meds discontinue metformin evaluate UA, reevaluation of chemistry (3) Diabetes mellitus type 2 in obese Is this a current diagnosis for this admission?: YesPlan: Use of metformin though A1c is 5 will discontinue (4) A-fib Qualifiers: Atrial fibrillation type: chronic Qualified Code(s): I48.2 - Chronic atrial fibrillation Is this a current diagnosis for this admission?: YesPlan: Currently Rate controlled though history of nonsustained V. tach will monitor for uncontrolled rate. no anticoagulation secondary to alcohol abuse (5) Acute diastolic CHF (congestive heart failure) Is this a current diagnosis for this admission?: YesPlan: Optimize blood pressure, oxygen and education - Time Time Spent: 50 to 70 Minutes
[2016-08-21] MEDS ORDERED: MAGNESIUM OXIDE 400 MG TABLET PO SCH (10:00)
[2016-08-21] MEDS ORDERED: INSULIN LISPRO 100 UNIT/ML 3 ML VIAL SUBCUT PRN (10:05)
[2016-08-21] MEDS ORDERED: DEXTROSE 50%-WATER 25 GM/50 ML DISP.SYRIN IV PRN ×2 (10:05)
[2016-08-21] MEDS ORDERED: GLUCAGON,HUMAN RECOMB 1 MG INJ IM PRN (10:05)
[2016-08-21] MEDS ORDERED: DEXTROSE 40% GEL 15 GM TUBE PO PRN ×2 (10:05)
[2016-08-21] MEDS: POTASSIUM CHLORIDE 10 MEQ TABLET.SA PO SCH (10:23)
[2016-08-21] MEDS: MAGNESIUM OXIDE 400 MG TABLET PO SCH ×2 (10:24→19:03)
[2016-08-21] MEDS: DOCUSATE SODIUM 100 MG CAPSULE PO SCH (10:24)
[2016-08-21] MEDS: FLUOXETINE HCL 20 MG CAPSULE PO SCH (10:24)
[2016-08-21] MEDS: FOLIC ACID 1 MG TABLET PO SCH (10:24)
[2016-08-21] MEDS: METOPROLOL SUCCINATE 50 MG TAB.SR.24H PO SCH ×2 (10:25→21:40)
[2016-08-21] MEDS: THIAMINE HCL 100 MG TABLET PO SCH (10:26)
[2016-08-21] MEDS: ASPIRIN 81 MG TABLET, ENT COATED PO SCH (10:47)
[2016-08-21 12:51] LABS: CREATINE KINASE MB 1.47 ng/mL (<4.55); TROPONIN I 0.016 ng/mL
[2016-08-21] MEDS: FUROSEMIDE INJ/PF 40 MG/4 ML SDV IV SCH (19:02)
[2016-08-21] MEDS: HYDROCODONE/ACETAMINOPHEN 5-325 MG TABLET PO PRN (23:43)
[2016-08-22] MEDS: FUROSEMIDE INJ/PF 40 MG/4 ML SDV IV SCH ×2 (05:18→17:25)
[2016-08-22] MEDS: HEPARIN SOD (PORCINE) 5,000 UNIT/ML 1 ML SYRINGE SUBCUT SCH ×3 (05:18→21:49)
[2016-08-22] MEDS: HYDRALAZINE HCL 50 MG TABLET PO SCH ×3 (05:18→21:52)
[2016-08-22 05:31] LABS: HEMATOCRIT 26.2 % (37.9-51.0); HEMOGLOBIN 8.8 g/dL (13.5-17.0); HGB HCT DIFFERENCE 0.2; MEAN CORPUSCULAR HEMOGLOBIN 32.4 pg (27.0-33.4); MEAN CORPUSCULAR HGB CONC 33.6 g/dL (32.0-36.0); MEAN CORPUSCULAR VOLUME 96 fl (80-97); RED BLOOD COUNT 2.72 10^6/uL (4.35-5.55)
[2016-08-22 05:59] LABS: ANION GAP 8 (5-19); BLOOD UREA NITROGEN 42 mg/dL (7-20); CALCIUM 9.1 mg/dL (8.4-10.2); CARBON DIOXIDE 27 mmol/L (22-30); CHLORIDE 104 mmol/L (98-107); CREATININE RESULT 2.02 mg/dL (0.52-1.25); GLUCOSE 95 mg/dL (75-110); MAGNESIUM 1.8 mg/dL (1.6-2.3); POTASSIUM 4.9 mmol/L (3.6-5.0); SODIUM 138.5 mmol/L (137-145)
[2016-08-22] MEDS: MAGNESIUM OXIDE 400 MG TABLET PO SCH ×2 (10:40→17:25)
[2016-08-22] MEDS: FLUOXETINE HCL 20 MG CAPSULE PO SCH (10:41)
[2016-08-22] MEDS: METOPROLOL SUCCINATE 50 MG TAB.SR.24H PO SCH ×2 (10:41→21:52)
[2016-08-22] MEDS: DOCUSATE SODIUM 100 MG CAPSULE PO SCH (10:42)
[2016-08-22] MEDS: THIAMINE HCL 100 MG TABLET PO SCH (10:42)
[2016-08-22] MEDS: FOLIC ACID 1 MG TABLET PO SCH (10:42)
[2016-08-22] MEDS: ASPIRIN 81 MG TABLET, ENT COATED PO SCH (10:42)
--- NOTE | 2016-08-22 14:22 | PDOC PROGRESS REPORT ---
Subjective Progress Note for:: 08/22/16 Subjective:: Patient is seen on morning rounds. He is resting in bed. He awakens easily. He is laying flat in bed. He denies dyspnea or cough. He denies any chest pain or dizziness He denies any nausea or vomiting. He states his lower extremities are still somewhat swollen. He states he is tired. He verbalizes no other complaints. Physical Exam Vital Signs: Temp Pulse Resp BP Pulse Ox 97.8 F 62 16 117/78 98 08/22/16 07:57 08/22/16 07:57 08/22/16 07:57 08/22/16 07:57 08/22/16 07:57 Intake & Output 08/21/16 08/22/16 08/23/16 06:59 06:59 06:59 Intake Total 870 Output Total 1080 Balance -210 Weight 128.3 kg Results Laboratory Results: 08/22/16 04:36 08/22/16 04:36 08/22/16 08/22/16 04:36 04:36 WBC 4.0 RBC 2.72 L Hgb 8.8 L Hct 26.2 L MCV 96 MCH 32.4 MCHC 33.6 RDW 16.0 H Plt Count 107 L Sodium 138.5 Potassium 4.9 Chloride 104 Carbon Dioxide 27 Anion Gap 8 BUN 42 H Creatinine 2.02 H Est GFR ( Amer) 41 L Est GFR (Non-Af Amer) 34 L Glucose 95 Calcium 9.1 Magnesium 1.8 08/21/16 08/21/16 11:28 11:28 Creatine Kinase 247 H CK-MB (CK-2) 1.47 Troponin I 0.016 Impressions: Chest X-Ray 08/20/16 18:25 IMPRESSION: Pulmonary vascular congestion. Assessment & Plan - Diagnosis (1) Acute diastolic CHF (congestive heart failure) Is this a current diagnosis for this admission?: YesPlan: Patient presented with shortness of breath and lower extremity edema. Respondind to diuresis. Admits to not be compliant with diet and medications. (2) EARLE (acute kidney injury) Is this a current diagnosis for this admission?: YesPlan: Patient's creatinine is still in the 2's. Responding to diuresis (3) Diabetes mellitus type 2 in obese Is this a current diagnosis for this admission?: YesPlan: Continue current medications and sliding scale (4) Anemia of chronic disease Is this a current diagnosis for this admission?: YesPlan: Currently stable (5) Pulmonary hypertension Is this a current diagnosis for this admission?: YesPlan: Chronic from untreated HAKAN (6) Noncompliance with medication regimen Is this a current diagnosis for this admission?: YesPlan: Counseled (7) Depression Qualifiers: Depression Type: major depressive disorder Major depression recurrence : recurrent Major depression episode severity: moderate Is this a current diagnosis for this admission?: YesPlan: Continue current medications (8) Hypomagnesemia Is this a current diagnosis for this admission?: YesPlan: Continue to replete as needed - Time Time Spent with patient: 25-34 minutes Critical Time spent with patient: 15-24 minutes Medications reviewed and adjusted accordingly: Yes
[2016-08-23] MEDS: FUROSEMIDE INJ/PF 40 MG/4 ML SDV IV SCH ×2 (05:38→19:45)
[2016-08-23] MEDS: HEPARIN SOD (PORCINE) 5,000 UNIT/ML 1 ML SYRINGE SUBCUT SCH ×3 (05:38→22:15)
[2016-08-23] MEDS: HYDRALAZINE HCL 50 MG TABLET PO SCH ×3 (05:38→22:15)
--- NOTE | 2016-08-23 08:51 | PDOC PROGRESS REPORT ---
Subjective Progress Note for:: 08/23/16 Subjective:: Patient admits to feeling overall better. Shortness of breath has improved but does continue with exertion. Denies any nausea, vomiting, diarrhea, dizziness, or chest pain. Patient continuously defers to "you guys know better than me". Encouraged the patient to take ownership in this disease management but patient abrupt to state that he has "been through all the education and it does not work". Physical Exam Vital Signs: Temp Pulse Resp BP Pulse Ox 98.5 F 70 16 122/73 97 08/23/16 07:21 08/23/16 07:21 08/23/16 07:21 08/23/16 07:21 08/23/16 07:21 Intake & Output 08/21/16 08/22/16 08/23/16 23:59 23:59 23:59 Intake Total 860 1310 5 Output Total 600 1580 Balance 260 -270 5 Weight 128.3 kg 128.3 kg General appearance: PRESENT: no acute distress, cooperative, well-developed, well-nourished Head exam: PRESENT: atraumatic, normocephalic Eye exam: PRESENT: conjunctiva pink, EOMI, PERRLA. ABSENT: scleral icterus Ear exam: PRESENT: normal external ear exam Mouth exam: PRESENT: moist, tongue midline Neck exam: ABSENT: carotid bruit, JVD, lymphadenopathy, thyromegaly Respiratory exam: PRESENT: clear to auscultation aba. ABSENT: rales, rhonchi, wheezes Cardiovascular exam: PRESENT: irregular rhythm. ABSENT: diastolic murmur, rubs , systolic murmur Pulses: PRESENT: +1 pedal pulses bilateral Vascular exam: PRESENT: normal capillary refill GI/Abdominal exam: PRESENT: normal bowel sounds, soft. ABSENT: distended, guarding, mass, organolmegaly, rebound, tenderness Rectal exam: PRESENT: deferred Extremities exam: PRESENT: full ROM, pedal edema, trace edema. ABSENT: calf tenderness, clubbing Neurological exam: PRESENT: alert, awake, oriented to person, oriented to place , oriented to time, oriented to situation, CN II-XII grossly intact. ABSENT: motor sensory deficit Psychiatric exam: PRESENT: agitated, anxious. ABSENT: homicidal ideation, suicidal ideation Skin exam: PRESENT: dry, intact, warm. ABSENT: cyanosis, rash Results Laboratory Results: 08/22/16 04:36 08/22/16 04:36 08/21/16 08/21/16 11:28 11:28 Creatine Kinase 247 H CK-MB (CK-2) 1.47 Troponin I 0.016 Impressions: Chest X-Ray 08/20/16 18:25 IMPRESSION: Pulmonary vascular congestion. Assessment & Plan - Diagnosis (1) EARLE (acute kidney injury) Is this a current diagnosis for this admission?: YesPlan: Multifocal and due to Metformin, PRASANTH, chronic afib, heart failure. Most likely congestion. Will hold nephrotoxic medication and repeat Cr. Will hopefully improve with diuresis. (2) Accelerated hypertension Is this a current diagnosis for this admission?: YesPlan: BP is a good range at this time. (3) Hypomagnesemia Is this a current diagnosis for this admission?: YesPlan: Chronic. Will continue to supplement and repeat in the am. (4) A-fib Qualifiers: Atrial fibrillation type: chronic Qualified Code(s): I48.2 - Chronic atrial fibrillation Is this a current diagnosis for this admission?: YesPlan: Will continue Metoprolol. Currently rate controlled. Has declined chronic anticoagulation. (5) Acute diastolic CHF (congestive heart failure) Is this a current diagnosis for this admission?: YesPlan: Will continue to diurese. (6) CAD (coronary artery disease) Qualifiers: Coronary Disease-Associated Artery/Lesion type: [place] artery [place] vs. transplanted heart: [place] heart Associated angina: without angina Qualified Code(s): I25.10 - Atherosclerotic heart disease of [place] coronary artery without angina pectoris Is this a current diagnosis for this admission?: Yes (7) Chronic kidney disease, stage III (moderate) Is this a current diagnosis for this admission?: YesPlan: Uncertain of exact baseline. Cr has been on an upward trend over the psat 3 months. Will refer to outpatient Nephrology. (8) Hypertension Qualifiers: Hypertension type: essential hypertension Qualified Code(s): I10 - Essential (primary) hypertension Is this a current diagnosis for this admission?: YesPlan: BP currently in a good range (9) NSVT (nonsustained ventricular tachycardia) Is this a current diagnosis for this admission?: No (10) Noncompliance with medication regimen Is this a current diagnosis for this admission?: Yes (11) Anemia of chronic disease Is this a current diagnosis for this admission?: YesPlan: Hgb will improve with diuresis. Will repeat in the am. (12) Diabetes mellitus type 2 in obese Is this a current diagnosis for this admission?: YesPlan: Will add SSC since metformin is on hold. Will change oral to amaryl given kidney disease. (13) Thrombocytopenia Is this a current diagnosis for this admission?: Yes - Time Time Spent with patient: 25-34 minutes Medications reviewed and adjusted accordingly: Yes Anticipated discharge: Home Within: within 24 hours, within 48 hours
[2016-08-23] MEDS ORDERED: LORAZEPAM 0.5 MG TABLET PO PRN (09:03)
[2016-08-23] MEDS ORDERED: GLIMEPIRIDE 1 MG TABLET PO ONE (09:15)
[2016-08-23] MEDS: FLUOXETINE HCL 20 MG CAPSULE PO SCH (11:06)
[2016-08-23] MEDS: DOCUSATE SODIUM 100 MG CAPSULE PO SCH (11:06)
[2016-08-23] MEDS: ASPIRIN 81 MG TABLET, ENT COATED PO SCH (11:06)
[2016-08-23] MEDS: FOLIC ACID 1 MG TABLET PO SCH (11:06)
[2016-08-23] MEDS: THIAMINE HCL 100 MG TABLET PO SCH (11:07)
[2016-08-23] MEDS: MAGNESIUM OXIDE 400 MG TABLET PO SCH ×2 (11:07→19:45)
[2016-08-23] MEDS: METOPROLOL SUCCINATE 50 MG TAB.SR.24H PO SCH ×2 (11:07→22:14)
[2016-08-23] MEDS: HYDROCODONE/ACETAMINOPHEN 5-325 MG TABLET PO PRN (11:19)
--- NOTE | 2016-08-23 14:48 | Physician Advisory Note ---
Physician Advisor ProgressNote .: Pursuant to the plan for [facility], I have reviewed the medical record for this patient. Physician Advisor Statement: Possible documentation opportunities if attending agrees: 1. "EARLE - suspect ___ type" [ATN, Acute cortical necrosis, medullary necrosis , post-procedural, post-traumatic, SPECIFY other type ] 2. "Anemia of chronic kidney dz" - ACD needs to have specific cause listed - most commonly this is CKD or hypothyroidism or type of onc dz. 3. Accel'd HTN is no longer a term that means anything more than "benign HTN". In this case, that appears appropriate to this reviewer, since VS section doesn't list any BP's >180 syst / 120 diast. However, if VS did include BPs in this range that required NOW or STAT txs, even po, then approp dx choices would be "HTN-tammie urgency", "Htn-tammie emergency" , or "HTN-tammie crisis", depending on presence or absence of sx or end-organ effects. Thanks for your help with documentation accuracy/specificity improvement! Nadira Stanford MD [facility] Physician Advisor, Fellow of Hospital Medicine
[2016-08-24 04:47] LABS: ANION GAP 9 (5-19); BLOOD UREA NITROGEN 48 mg/dL (7-20); CALCIUM 8.8 mg/dL (8.4-10.2); CARBON DIOXIDE 28 mmol/L (22-30); CHLORIDE 100 mmol/L (98-107); CREATININE RESULT 2.15 mg/dL (0.52-1.25); GLUCOSE 111 mg/dL (75-110); MAGNESIUM 1.8 mg/dL (1.6-2.3); POTASSIUM 5.1 mmol/L (3.6-5.0); SODIUM 136.6 mmol/L (137-145)
[2016-08-24] MEDS: HYDRALAZINE HCL 50 MG TABLET PO SCH (05:34)
[2016-08-24] MEDS: FUROSEMIDE INJ/PF 40 MG/4 ML SDV IV SCH (05:34)
[2016-08-24] MEDS: HEPARIN SOD (PORCINE) 5,000 UNIT/ML 1 ML SYRINGE SUBCUT SCH (05:34)
[2016-08-24] MEDS ORDERED: GLIMEPIRIDE 1 MG TABLET PO SCH (08:00)
[2016-08-24 08:35] VITALS: BP 122/68
[2016-08-24] MEDS: ASPIRIN 81 MG TABLET, ENT COATED PO SCH (09:18)
[2016-08-24] MEDS: FOLIC ACID 1 MG TABLET PO SCH (09:19)
[2016-08-24] MEDS: METOPROLOL SUCCINATE 50 MG TAB.SR.24H PO SCH (09:19)
[2016-08-24] MEDS: MAGNESIUM OXIDE 400 MG TABLET PO SCH (09:19)
[2016-08-24] MEDS: FLUOXETINE HCL 20 MG CAPSULE PO SCH (09:19)
[2016-08-24] MEDS: DOCUSATE SODIUM 100 MG CAPSULE PO SCH (09:19)
[2016-08-24] MEDS: THIAMINE HCL 100 MG TABLET PO SCH (09:19)
[2016-08-24] MEDS ORDERED: HYDRALAZINE HCL 50 MG TABLET PO SCH (14:00)
--- NOTE | 2016-08-25 07:45 | PDOC DISCHARGE SUMMARY ---
General - Admit/Disc Date/PCP Admission Date/Primary Care Provider: 08/21/16 08:31 [facility] Discharge Date: 08/24/16 - Discharge Diagnosis (1) EARLE (acute kidney injury) Is this a current diagnosis for this admission?: Yes (2) Accelerated hypertension Is this a current diagnosis for this admission?: Yes (3) Hypomagnesemia Is this a current diagnosis for this admission?: Yes (4) A-fib Is this a current diagnosis for this admission?: Yes (5) Acute diastolic CHF (congestive heart failure) Is this a current diagnosis for this admission?: Yes (6) CAD (coronary artery disease) Is this a current diagnosis for this admission?: Yes (7) Chronic kidney disease, stage III (moderate) Is this a current diagnosis for this admission?: Yes (8) Hypertension Is this a current diagnosis for this admission?: Yes (9) Noncompliance with medication regimen Is this a current diagnosis for this admission?: Yes (10) Anemia of chronic disease Is this a current diagnosis for this admission?: Yes (11) Diabetes mellitus type 2 in obese Is this a current diagnosis for this admission?: Yes (12) Thrombocytopenia Is this a current diagnosis for this admission?: Yes (13) NSVT (nonsustained ventricular tachycardia) Is this a current diagnosis for this admission?: No - Additional Information Resuscitation Status: Full Code Discharge Diet: Cardiac, Diabetic Discharge Activity: Activity As Tolerated, Balance Activity w/Rest, Weigh Daily Home Medications: Furosemide [Lasix 40 mg Tablet] 40 mg PO BID 08/20/16 Hydrocodone/Acetaminophen [[place] 5-325 mg Tablet] 1 tab PO Q6H 08/20/16 Magnesium Oxide [Mag-Ox 400 mg Tablet] 400 mg PO BID 08/20/16 Fluoxetine HCl [Prozac 20 mg Capsule] 20 mg PO DAILY #30 capsule 08/24/16 Glimepiride [Amaryl 1 mg Tablet] 1 mg PO QAM #30 tablet 08/24/16 Hydralazine HCl 50 mg PO Q12H #0 08/24/16 Metoprolol Succinate 100 mg PO Q12H #0 08/24/16 History of Present Illness Patient complains of: Shortness of breath and leg swelling History of Present Illness: DEBORAH WHARTON is a 61 year old male with a past medical history of alcoholism , noncompliance, diabetes, diastolic heart failure, pulmonary hypertension, hypertension, obesity and a fibrillation. States he been in his usual state of health approximately a month ago developing worsening shortness of breath with minimal exertion associated with leg swelling and orthopnea denying chest pain nausea vomiting diaphoresis. In the emergency room his found to have decompensated heart failure and acute renal failure with a creatinine of 2. Hospital Course Hospital Course: The patient was admitted to continuous telemetry unit. The patient was found to be in volume overload including lower extremity edema and mild crackles. The patient was aggressively hydrated and the patient's dyspnea did improve. The patient did admit to noncompliance with medications or diet stating being overwhelmed. The patient had been enrolled in to the transitions program. Given the patient's kidney function his metformin was stopped and replaced with Amaryl. The patient was noted to have tachycardia and hypertension and therefore the patient's beta brent was maximized. The patient has refused anticoagulation given his history of alcohol and his concern for bleeding. The patient has been counseled about this each admission and he has refused anticoagulation. The patient's symptoms overall improved and he is ready for discharge. Physical Exam Vital Signs: Temp Pulse Resp BP Pulse Ox 97.7 F 73 18 122/68 98 08/24/16 10:25 08/24/16 10:25 08/24/16 10:25 08/24/16 10:25 08/24/16 10:25 Intake & Output 08/23/16 08/24/16 08/25/16 23:59 23:59 23:59 Intake Total 1055 809 Output Total 825 950 Balance 230 -141 Weight 128.3 kg 125.8 kg General appearance: PRESENT: no acute distress, cooperative, well-developed, well-nourished Head exam: PRESENT: atraumatic, normocephalic Eye exam: PRESENT: conjunctiva pink, EOMI, PERRLA. ABSENT: scleral icterus Ear exam: PRESENT: normal external ear exam Mouth exam: PRESENT: moist, tongue midline Neck exam: ABSENT: carotid bruit, JVD, lymphadenopathy, thyromegaly Respiratory exam: PRESENT: clear to auscultation aba. ABSENT: rales, rhonchi, wheezes Cardiovascular exam: PRESENT: irregular rhythm. ABSENT: diastolic murmur, rubs , systolic murmur Pulses: PRESENT: +1 pedal pulses bilateral Vascular exam: PRESENT: normal capillary refill GI/Abdominal exam: PRESENT: normal bowel sounds, soft. ABSENT: distended, guarding, mass, organolmegaly, rebound, tenderness Rectal exam: PRESENT: deferred Extremities exam: PRESENT: full ROM, pedal edema, trace edema. ABSENT: calf tenderness, clubbing Neurological exam: PRESENT: alert, awake, oriented to person, oriented to place , oriented to time, oriented to situation, CN II-XII grossly intact. ABSENT: motor sensory deficit Psychiatric exam: PRESENT: agitated, anxious. ABSENT: homicidal ideation, suicidal ideation Skin exam: PRESENT: dry, intact, warm. ABSENT: cyanosis, rash Results Laboratory Results: Labs- Last Values WBC 4.0 10^3/uL (4.0-10.5) 08/22/16 04:36 RBC 2.72 10^6/uL (4.35-5.55) L 08/22/16 04:36 Hgb 8.8 g/dL (13.5-17.0) L 08/22/16 04:36 Hct 26.2 % (37.9-51.0) L 08/22/16 04:36 MCV 96 fl (80-97) 08/22/16 04:36 MCH 32.4 pg (27.0-33.4) 08/22/16 04:36 MCHC 33.6 g/dL (32.0-36.0) 08/22/16 04:36 RDW 16.0 % (11.5-14.0) H 08/22/16 04:36 Plt Count 107 10^3/uL (150-450) L 08/22/16 04:36 Seg Neutrophils % 55.8 % (42-78) 08/21/16 05:16 Lymphocytes % 25.5 % (13-45) 08/21/16 05:16 Monocytes % 13.1 % (3-13) H 08/21/16 05:16 Eosinophils % 4.2 % (0-6) 08/21/16 05:16 Basophils % 1.4 % (0-2) 08/21/16 05:16 Absolute Neutrophils 2.6 10^3/uL (1.7-8.2) 08/21/16 05:16 Absolute Lymphocytes 1.2 10^3/uL (0.5-4.7) 08/21/16 05:16 Absolute Monocytes 0.6 10^3/uL (0.1-1.4) 08/21/16 05:16 Absolute Eosinophils 0.2 10^3/uL (0.0-0.6) 08/21/16 05:16 Absolute Basophils 0.1 10^3/uL (0.0-0.2) 08/21/16 05:16 Platelet Estimate Cancelled 08/20/16 18:50 Sodium 136.6 mmol/L (137-145) L 08/24/16 03:38 Potassium 5.1 mmol/L (3.6-5.0) H 08/24/16 03:38 Chloride 100 mmol/L (98-107) 08/24/16 03:38 Carbon Dioxide 28 mmol/L (22-30) 08/24/16 03:38 Anion Gap 9 (5-19) 08/24/16 03:38 BUN 48 mg/dL (7-20) H 08/24/16 03:38 Creatinine 2.15 mg/dL (0.52-1.25) H 08/24/16 03:38 Est GFR ( Amer) 38 (>60) L 08/24/16 03:38 Est GFR (Non-Af Amer) 31 (>60) L 08/24/16 03:38 Glucose 111 mg/dL (75-110) H 08/24/16 03:38 POC Glucose 98 mg/dL (70-110) 08/24/16 06:15 Calcium 8.8 mg/dL (8.4-10.2) 08/24/16 03:38 Magnesium 1.8 mg/dL (1.6-2.3) 08/24/16 03:38 Total Bilirubin 1.1 mg/dL (0.2-1.3) 08/20/16 18:50 Direct Bilirubin 0.0 mg/dL (0.0-0.3) 08/20/16 18:50 AST 65 U/L (17-59) H 08/20/16 18:50 ALT 33 U/L (21-72) 08/20/16 18:50 Alkaline Phosphatase 120 U/L (38-126) 08/20/16 18:50 Creatine Kinase 247 U/L (55-170) H 08/21/16 11:28 CK-MB (CK-2) 1.47 ng/mL (<4.55) 08/21/16 11:28 Troponin I 0.016 ng/mL 08/21/16 11:28 NT-Pro-B Natriuret Pep 5120 pg/mL (5-900) H 08/20/16 18:50 Total Protein 7.5 g/dL (6.3-8.2) 08/20/16 18:50 Albumin 2.8 g/dL (3.5-5.0) L 08/20/16 18:50 Triglycerides 122 mg/dL (<150) 08/21/16 05:16 Cholesterol 174.83 mg/dL (0-200) 08/21/16 05:16 LDL Cholesterol Direct 41 mg/dL (<100) 08/21/16 05:16 VLDL Cholesterol 24.0 mg/dL (10-31) 08/21/16 05:16 HDL Cholesterol 55 mg/dL (>40) 08/21/16 05:16 TSH 1.11 uIU/mL (0.47-4.68) 08/20/16 18:50 Urine Color YELLOW 08/20/16 21:03 Urine Appearance CLEAR 08/20/16 21:03 Urine pH 5.0 (5.0-9.0) 08/20/16 21:03 Ur Specific [place] 1.013 08/20/16 21:03 Urine Protein 30 mg/dL (NEGATIVE) H 08/20/16 21:03 Urine Glucose (UA) NEGATIVE mg/dL (NEGATIVE) 08/20/16 21:03 Urine Ketones NEGATIVE mg/dL (NEGATIVE) 08/20/16 21:03 Urine Blood MODERATE (NEGATIVE) H 08/20/16 21:03 Urine Nitrite NEGATIVE (NEGATIVE) 08/20/16 21:03 Urine Bilirubin NEGATIVE (NEGATIVE) 08/20/16 21:03 Urine Urobilinogen NEGATIVE mg/dL (<2.0) 08/20/16 21:03 Ur Leukocyte Esterase NEGATIVE (NEGATIVE) 08/20/16 21:03 Urine WBC (Auto) 2 /HPF 08/20/16 21:03 Urine RBC (Auto) 19 /HPF 08/20/16 21:03 U Hyaline Cast (Auto) 4 /LPF 08/20/16 21:03 Urine Ascorbic Acid NEGATIVE (NEGATIVE) 08/20/16 21:03 Slides for Path Review Cancelled 08/20/16 18:50 Impressions: Chest X-Ray 08/20/16 18:25 IMPRESSION: Pulmonary vascular congestion. Qualifiers PATEINT BEING DISCHARGED WITH ANY OF THE FOLLOWING DIAGNOSIS?: Heart Failure GA Pt discharged ACEI/ARBS?: No Reason(s) for not prescribing ACEI/ARBS:: Medical Contraindication - Hyperkalemia HF Pt being discharged on ACEI for LVEF less than 40%?: No Reason(s) for not prescribing ACEI:: Medical Contraindication - Hyperkalemia Reason(s) for not prescribing ARBS:: Medical Contraindication - Hyperkalemia HF Pt with Afib discharged with Warfarin?: No Reason(s) for not prescribing Warfarin:: Drug declined by patient HF Pt discharged on evidence-based Beta Brent?: Yes Plan Discharge Plan: The patient is a follow with primary care provider within one week for hospital follow-up. Time Spent: Less than 30 Minutes
== END 2016-08-24 11:38 | disposition home or self-care (01) | DRG 291 ==
LOC: ER 17:47 → EH 22:41 → 5 08-21 00:49 → OBSVTOIN 08-21 08:31
PROVIDERS: ADMIT Internal Medicine; ATTEND Internal Medicine
DX: I13.0 Hypertensive heart and chronic kidney disease with heart failure and stage 1 through stage 4 chronic kidney disease, or unspecified chronic kidney disease (principal); I50.33 Acute on chronic diastolic (congestive) heart failure; N17.9 Acute kidney failure, unspecified; E11.22 Type 2 diabetes mellitus with diabetic chronic kidney disease; N18.3 Chronic kidney disease, stage 3 (moderate); F10.20 Alcohol dependence, uncomplicated; Z91.19 Patient's noncompliance with other medical treatment and regimen; I27.2 Other secondary pulmonary hypertension; E66.9 Obesity, unspecified; I25.10 Atherosclerotic heart disease of native coronary artery without angina pectoris; M06.9 Rheumatoid arthritis, unspecified; E11.9 Type 2 diabetes mellitus without complications; I48.2 Chronic atrial fibrillation; M54.9 Dorsalgia, unspecified; E83.42 Hypomagnesemia; D63.8 Anemia in other chronic diseases classified elsewhere; Z87.891 Personal history of nicotine dependence; Z90.49 Acquired absence of other specified parts of digestive tract; Z82.49 Family history of ischemic heart disease and other diseases of the circulatory system; Z88.8 Allergy status to other drugs, medicaments and biological substances; Z53.20 Procedure and treatment not carried out because of patient's decision for unspecified reasons
CPT/HCPCS: 36415; 71020; 80048; 80053; 80061; 81001; 82550; 82553; 82962; 83735; 83880; 84443; 84484; 85025; 85027; 87040; 90686; 93005; 93010; 99285; G0378; J1644; J1815; J1940; J3411; J3490

== ENCOUNTER 2016-08-26 12:26 | Inpatient (IN) | payer SELFPAY ==
--- NOTE | 2016-08-26 12:53 | ER Document Report ---
ED Medical Screen (RME) - General Stated Complaint: DIFFICULTY BREATHING Time seen by provider: 12:53 Mode of Arrival: Wheelchair Information source: Patient Notes: 61-year-old male discharged from [facility] yesterday morning with CHF exacerbation is complaining of fatigue, shortness of breath, not being able to eat or sleep. TRAVEL OUTSIDE OF THE [place] IN LAST 30 DAYS: No - Related Data Allergies/Adverse Reactions: diltiazem [From Cardizem] Allergy (Verified 08/26/16 12:51) Past Medical History - Past Medical History Cardiac Medical History: Reports: Hx Atrial Fibrillation, Hx Congestive Heart Failure, Hx Coronary Artery Disease, Hx Heart Attack - pt unsure of this, Hx Hypertension Pulmonary Medical History: Reports: Hx Asthma - childhood Endocrine Medical History: Reports: Hx Diabetes Mellitus Type 2 Renal/ Medical History: Denies: Hx Peritoneal Dialysis Musculoskeltal Medical History: Reports Hx Arthritis - RA, Reports Hx Fibromyalgia Psychiatric Medical History: Reports: Hx Anxiety, Hx Depression Infectious Medical History: Reports: Hx C-Diff Past Surgical History: Reports: Hx Appendectomy, Hx Orthopedic Surgery - L hand , Hx Tonsillectomy - Immunizations Hx Diphtheria, Pertussis, Tetanus Vaccination: Yes Physical Exam - Vital signs Vitals: Temp Pulse Resp BP Pulse Ox 97.8 F 68 20 152/89 H 96 08/26/16 12:47 08/26/16 12:47 08/26/16 12:47 08/26/16 12:47 08/26/16 12:47 Course - Vital Signs Vital signs: Temp Pulse Resp BP Pulse Ox 97.8 F 68 20 152/89 H 96 08/26/16 12:47 08/26/16 12:47 08/26/16 12:47 08/26/16 12:47 08/26/16 12:47
[2016-08-26] MEDS ORDERED: ASPIRIN 81 MG TABLET, CHEWABLE PO ONE (12:54)
[2016-08-26 14:07] LABS: ABSOLUTE EOSINOPHILS # (AUTO) 0.1 10^3/uL (0.0-0.6); ABSOLUTE LYMPHOCYTES (AUTO) 0.9 10^3/uL (0.5-4.7); ABSOLUTE MONOCYTES (AUTO) 0.7 10^3/uL (0.1-1.4); ABSOLUTE NEUT (AUTO) 2.3 10^3/uL (1.7-8.2); EOSINOPHILS % (AUTO) 3.3 % (0-6); HEMATOCRIT 27.4 % (37.9-51.0); HEMOGLOBIN 9.2 g/dL (13.5-17.0); HGB HCT DIFFERENCE 0.2; LYMPHOCYTES % (AUTO) 22.2 % (13-45); MEAN CORPUSCULAR HEMOGLOBIN 32.3 pg (27.0-33.4); MEAN CORPUSCULAR HGB CONC 33.5 g/dL (32.0-36.0); MEAN CORPUSCULAR VOLUME 97 fl (80-97); MONOCYTES % (AUTO) 17.6 % (3-13); RED BLOOD COUNT 2.84 10^6/uL (4.35-5.55); RED CELL DISTRIBUTION WIDTH 16.1 % (11.5-14.0); SEGMENTED NEUTROPHILS % (AUTO) 55.9 % (42-78); WHITE BLOOD COUNT 4.1 10^3/uL (4.0-10.5)
[2016-08-26 14:10] LABS: ALANINE AMINOTRANSFERASE 27 U/L (21-72); ALBUMIN 3.4 g/dL (3.5-5.0); ALKALINE PHOSPHATASE 112 U/L (38-126); ANION GAP 9 (5-19); ASPARTATE AMINO TRANSFERASE 58 U/L (17-59); BILIRUBIN,TOTAL 1.4 mg/dL (0.2-1.3); BLOOD UREA NITROGEN 49 mg/dL (7-20); CALCIUM 9.3 mg/dL (8.4-10.2); CARBON DIOXIDE 29 mmol/L (22-30); CHLORIDE 101 mmol/L (98-107); CREATINE KINASE 194 U/L (55-170); CREATININE RESULT 2.03 mg/dL (0.52-1.25); GLUCOSE 72 mg/dL (75-110); POTASSIUM 4.8 mmol/L (3.6-5.0); SODIUM 139.1 mmol/L (137-145); TOTAL PROTEIN 8.1 g/dL (6.3-8.2)
[2016-08-26 14:21] LABS: CREATINE KINASE MB 2.51 ng/mL (<4.55)
[2016-08-26 14:22] LABS: TROPONIN I < 0.012 ng/mL
[2016-08-26] MEDS ORDERED: FUROSEMIDE INJ/PF 40 MG/4 ML SDV IV ONE (15:26)
--- NOTE | 2016-08-26 17:06 | ER Document Report ---
ED Respiratory Problem - General Chief Complaint: Breathing Difficulty Stated Complaint: DIFFICULTY BREATHING Time seen by provider: 17:05 Mode of Arrival: Wheelchair Information source: Patient Notes: [id number] man with a history of CHF who presents with, shortness of breath, dyspnea on exertion, PND and orthopnea. Patient states that his symptoms are progressive and he just TRAVEL OUTSIDE OF THE [place] IN LAST 30 DAYS: No - HPI Patient complains to provider of: CHF Onset: Just prior to arrival Duration: Continuous Initiating Event: No: Allergy, Aspiration/Choking, Exertion, Exposure to chemicals, Exposure to dust, Exposure to fumes, Exposure to mold, Exposure to smoke, Out of meds, Sports/exercise, URI, Other Quality of pain: No pain Severity: None Pain Level: Denies Context: Hx CHF Short of Breath: Moderate Chest pain/discomfort: Center Cough: Nonproductive Sputum amount: None Sputum color: denies: Brown, Clear, Creamy, [place], Green, [place] tinged, Red (blood ), Red Specks, Rust, Small Clots, Nguyen, White, Yellow Sputum consistency: denies: Frothy, Mucoid, Mucoid Plug, Tenacious, Thick, Thin At home treatment: Diuretics EMS treatments: No: Bronchodilators, CPAP, Diuretics, Epinephrine, Nitrates, Oxygen, Solumedrol Associated symptoms: Orthopnea, PND, Short of breath Similar symptoms previously: Yes Recently seen / treated by doctor: Yes - Related Data Allergies/Adverse Reactions: diltiazem [From Cardizem] Allergy (Verified 08/26/16 12:51) Home Medications: Current Home Medications Metoprolol Succinate 75 mg PO Q12H 08/26/16 [History] Past Medical History - General Information source: Patient - Social History Smoking Status: Former Smoker Cigarette use (# per day): No Chew tobacco use (# tins/day): No Smoking Education Provided: No Frequency of alcohol use: None Drug Abuse: None Lives with: Family Family History: Reviewed & Not Pertinent Patient has suicidal ideation: No Patient has homicidal ideation: No - Past Medical History Cardiac Medical History: Reports: Hx Atrial Fibrillation, Hx Congestive Heart Failure, Hx Coronary Artery Disease, Hx Heart Attack - pt unsure of this, Hx Hypertension Pulmonary Medical History: Reports: Hx Asthma - childhood Endocrine Medical History: Reports: Hx Diabetes Mellitus Type 2 Renal/ Medical History: Denies: Hx Peritoneal Dialysis Musculoskeltal Medical History: Reports Hx Arthritis - RA, Reports Hx Fibromyalgia Psychiatric Medical History: Reports: Hx Anxiety, Hx Depression Infectious Medical History: Reports: Hx C-Diff Past Surgical History: Reports: Hx Appendectomy, Hx Orthopedic Surgery - L hand , Hx Tonsillectomy - Immunizations Hx Diphtheria, Pertussis, Tetanus Vaccination: Yes Review of Systems - Review of Systems Constitutional: denies: Chills, Fever EENT: No symptoms reported Cardiovascular: See HPI Respiratory: See HPI Gastrointestinal: No symptoms reported Genitourinary: No symptoms reported Male Genitourinary: No symptoms reported Musculoskeletal: No symptoms reported Skin: No symptoms reported Hematologic/Lymphatic: No symptoms reported Neurological/Psychological: No symptoms reported Physical Exam - Vital signs Vitals: Temp Pulse Resp BP Pulse Ox 97.8 F 68 20 152/89 H 96 08/26/16 12:47 08/26/16 12:47 08/26/16 12:47 08/26/16 12:47 08/26/16 12:47 Notes: Physical exam: GENERAL: 61-year-old man, alert and oriented 3, dyspneic HEAD: Atraumatic, normocephalic. EYES: Pupils equal round and reactive to light, extraocular movements intact, sclera anicteric, conjunctiva are normal. ENT: TMs normal, nares patent, oropharynx clear without exudates. Moist mucous membranes. NECK: Normal range of motion, supple with JVD. LUNGS: Bilateral rales at the bases HEART: Regular rate and rhythm without murmurs, rubs or gallops. ABDOMEN: Soft, normoactive bowel sounds. No tenderness to palpation. No guarding, no rebound. No masses appreciated. EXTREMITIES: 3+ edema NEUROLOGICAL: Cranial nerves II through XII grossly intact. Normal speech, normal gait. PSYCH: Normal mood, normal affect. SKIN: Warm, Dry, normal turgor, no rashes or lesions noted. Course - Vital Signs Vital signs: Temp Pulse Resp BP Pulse Ox 97.8 F 71 14 162/95 H 98 08/26/16 12:47 08/26/16 18:38 08/26/16 17:34 08/26/16 17:34 08/26/16 17:34 - Laboratory Result Diagrams: 08/26/16 13:24 02/12/17 13:24 Laboratory results interpreted by me: 08/26/16 08/26/16 08/26/16 13:24 13:24 13:24 RBC 2.84 L Hgb 9.2 L Hct 27.4 L RDW 16.1 H Plt Count 101 L Monocytes % 17.6 H BUN 49 H Creatinine 2.03 H Est GFR ( Amer) 41 L Est GFR (Non-Af Amer) 34 L Glucose 72 L Total Bilirubin 1.4 H Creatine Kinase 194 H NT-Pro-B Natriuret Pep 7710 H Albumin 3.4 L - Diagnostic Test Radiology reviewed: Image reviewed, Reports reviewed - Chest x-ray shows cardiomegaly - EKG Interpretation by Me Rate: Normal Rhythm: NSR - EKG shows sinus rhythm with a ventricular rate of 63, left axis deviation, no acute ST-T wave changes Discharge - Discharge Clinical Impression: CHF Condition: Stable Disposition: HOME, SELF-CARE Admitting Provider: Hospitalist - Dr. Monet Unit Admitted: Telemetry
--- NOTE | 2016-08-26 17:45 | EKG REPORT ---
SEVERITY:- OTHERWISE NORMAL ECG - SINUS RHYTHM ATRIAL PREMATURE COMPLEX LEFT AXIS DEVIATION : Confirmed by: Tiago Day MD 26-Aug-2016 17:44:34
[2016-08-26] MEDS ORDERED: ACETAMINOPHEN 325 MG TABLET PO PRN (18:01)
[2016-08-26] MEDS ORDERED: ONDANSETRON HCL INJ/PF 4 MG/2 ML SDV IV PRN (18:01)
[2016-08-26] MEDS ORDERED: DEXTROSE 40% GEL 15 GM TUBE PO PRN ×2 (18:17)
[2016-08-26] MEDS ORDERED: DEXTROSE 50%-WATER 25 GM/50 ML DISP.SYRIN IV PRN ×2 (18:17)
[2016-08-26] MEDS ORDERED: GLUCAGON,HUMAN RECOMB 1 MG INJ IM PRN (18:17)
[2016-08-26] MEDS ORDERED: INSULIN LISPRO 100 UNIT/ML 3 ML VIAL SUBCUT PRN (18:17)
--- NOTE | 2016-08-26 18:23 | PDOC H&P ---
History of Present Illness Admission Date/PCP: 08/26/16 17:38 [facility] Patient complains of: Shortness of breath History of Present Illness: DEBORAH WHARTON is a 61 year old male with past medical history of CHF secondary to left ventricular diastolic dysfunction, chronic kidney disease, paroxysmal atrial fibrillation, anemia, diabetes, coronary artery disease, hypertension, thrombocytopenia that presents to the emergency department after being discharged from the hospital yesterday with ongoing shortness of breath, nausea. He denies chest pain. Review of records indicate that he was admitted in July 2016 for CHF exacerbation and at that time had a VQ scan that was negative for PE on 2016. Cardiolite stress test on 07/31/2016 was negative for ischemia or scar. Echocardiogram done 07/27/2016 showed normal EF, grade 2/4 diastolic dysfunction , moderate pulmonary hypertension. He was subsequently admitted from 08/21/2016 to 08/25/2016 for CHF and atrial fibrillation. He was discharged home yesterday and states that since returning home has become more short of breath and having nausea. Review of pharmacy records indicate that he has had his medications filled after discharge. He claims to be compliant with medications since being discharged from the hospital in July of this year. He has a history of alcohol abuse and tobacco abuse. He claims that he no longer drinks or smokes since being discharge from the hospital in July of this year. Past Medical History Cardiac Medical History: Reports: Atrial Fibrillation, Congestive Heart Failure , Coronary Artery Disease, Myocardial Infarction - pt unsure of this, Hypertension Pulmonary Medical History: Reports: Asthma - childhood Endocrine Medical History: Reports: Diabetes Mellitus Type 2 Musculoskeltal Medical History: Reports: Arthritis - RA, Fibromyalgia Psychiatric Medical History: Reports: Depression Hematology: Reports: Anemia Infectious Medical History: Reports: Clostridium Difficile Past Surgical History Past Surgical History: Reports: Appendectomy, Orthopedic Surgery - L hand, Tonsillectomy Social History Information Source: Patient Lives with: Family Smoking Status: Unknown if Ever Smoked Frequency of Alcohol Use: Occasional Hx Recreational Drug Use: Yes Drugs: Marijuana Hx Prescription Drug Abuse: No - Advance Directive Resuscitation Status: Full Code Family History Family History: CAD Parental Family History Reviewed: Yes Children Family History Reviewed: Yes Sibling(s) Family History Reviewed.: Yes Medication/Allergy Home Medications: Furosemide [Lasix 40 mg Tablet] 40 mg PO BID 08/20/16 Magnesium Oxide [Mag-Ox 400 mg Tablet] 400 mg PO BID 08/20/16 Fluoxetine HCl [Prozac 20 mg Capsule] 20 mg PO DAILY #30 capsule 08/24/16 Glimepiride [Amaryl 1 mg Tablet] 1 mg PO QAM #30 tablet 08/24/16 Hydralazine HCl 50 mg PO Q12H #0 08/24/16 Metoprolol Succinate 75 mg PO Q12H 08/26/16 Allergies/Adverse Reactions: diltiazem [From Cardizem] Allergy (Verified 08/26/16 12:51) Review of Systems Constitutional: ABSENT: chills, fever(s), headache(s), weight gain, weight loss Eyes: ABSENT: visual disturbances Ears: ABSENT: hearing changes Cardiovascular: PRESENT: edema. ABSENT: chest pain, dyspnea on exertion, orthropnea, palpitations Respiratory: PRESENT: dyspnea. ABSENT: cough, hemoptysis Gastrointestinal: PRESENT: nausea. ABSENT: abdominal pain, constipation, diarrhea, hematemesis, hematochezia, vomiting Genitourinary: ABSENT: dysuria, hematuria Musculoskeletal: ABSENT: joint swelling Integumentary: ABSENT: rash, wounds Neurological: ABSENT: abnormal gait, abnormal speech, confusion, dizziness, focal weakness, syncope Psychiatric: ABSENT: anxiety, depression, homidical ideation, suicidal ideation Endocrine: ABSENT: cold intolerance, heat intolerance, polydipsia, polyuria Hematologic/Lymphatic: ABSENT: easy bleeding, easy bruising Physical Exam Vital Signs: Temp Pulse Resp BP Pulse Ox 97.8 F 68 14 162/95 H 98 08/26/16 12:47 08/26/16 12:47 08/26/16 17:34 08/26/16 17:34 08/26/16 17:34 PHYSICAL EXAM: GENERAL: Appears well, no acute distress HEENT: Normocephalic, no scleral icterus, conjunctiva clear, EOEM intact, PERRLA , moist mucous membranes NECK: trachea midline, no thyromegally RESPIRATORY: Clear to auscultation, no wheezes/rhonchi CARDIAC: Regular rate and rhythm, no murmur/yareli/rub ABDOMEN: Soft, distended, possible ascites, no tenderness, no guarding, normal bowel sounds, negative Dumont sign RECTAL: deferred : deferred EXTREMITIES: 2+ edema in bilateral lower extremity MUSCULOSKELETAL: No joint swelling or deformity VASCULAR: normal peripheral pulses NEUROLOGIC: Alert, oriented to person/place/time, normal speech, cranial nerves grossly intact, 5/5 strength in all extremities, tactile sensation intact in all extremities SKIN: No rash, no wounds, no worrisome skin lesions PSYCHIATRIC: Normal mood, normal affect Results Impressions: Chest X-Ray 08/26/16 12:54 IMPRESSION: HEART ENLARGED WITHOUT FAILURE. NO OTHER SIGNIFICANT RADIOGRAPHIC FINDING IN THE CHEST. Assessment & Plan - Diagnosis (1) Acute diastolic CHF (congestive heart failure) Is this a current diagnosis for this admission?: YesPlan: Patient will be admitted to a telemetry floor. Serial cardiac enzymes to rule out MS. Patient has had negative Cardiolite stress test on 07/31/2016. Given symptoms of shortness of breath, nausea, vomiting and the fact that there is no definite pulmonary edema on chest x-ray would like to consult cardiology for further recommendations. Discontinue oral Lasix. Start Lasix 40 mg IV every 12 hours. Continue metoprolol. (2) Anemia of chronic disease Is this a current diagnosis for this admission?: YesPlan: Likely secondary to chronic disease, alcohol abuse, possibly cirrhosis. (3) CAD (coronary artery disease) Qualifiers: Coronary Disease-Associated Artery/Lesion type: [place] artery [place] vs. transplanted heart: [place] heart Associated angina: without angina Qualified Code(s): I25.10 - Atherosclerotic heart disease of [place] coronary artery without angina pectoris Is this a current diagnosis for this admission?: YesPlan: Aspirin 81 mg daily. Beta viv. Recent cholesterol panel does not warrant statin therapy and given likely alcohol-related liver disease I probably would not want to initiate statin therapy anyway. (4) Chronic kidney disease, stage III (moderate) Is this a current diagnosis for this admission?: YesPlan: Kidney function is around baseline as compared to old labs. Monitor closely with aggressive diuresis. (5) Depression Qualifiers: Depression Type: major depressive disorder Major depression recurrence : recurrent Major depression episode severity: moderate Is this a current diagnosis for this admission?: Yes (6) Diabetes mellitus type 2 in obese Is this a current diagnosis for this admission?: YesPlan: Continue home dose of Amaryl. Sliding scale insulin. (7) Pulmonary hypertension Is this a current diagnosis for this admission?: Yes (8) Thrombocytopenia Is this a current diagnosis for this admission?: YesPlan: I suspect patient probably have some cirrhosis given his long history of heavy alcohol abuse and I will evaluate this with abdominal ultrasound. Avoid heparin products. (9) Ambulatory dysfunction Is this a current diagnosis for this admission?: YesPlan: Physical therapy to evaluate. Patient currently resides with his son, but his son will be transferred to [place] for training. (10) DVT prophylaxis Is this a current diagnosis for this admission?: YesPlan: Avoid pharmacologic prophylaxis secondary to thrombocytopenia and chronic kidney disease. (11) A-fib Qualifiers: Atrial fibrillation type: paroxysmal Qualified Code(s): I48.0 - Paroxysmal atrial fibrillation Is this a current diagnosis for this admission?: YesPlan: Patient with PACs all atrial fibrillation. Currently in sinus rhythm. Continue metoprolol. Continue aspirin therapy. Patient has declined anticoagulation on last admission secondary to history of alcohol abuse, risk of bleeding. (12) Abnormal liver function test Is this a current diagnosis for this admission?: YesPlan: Given patient's long history of heavy alcohol abuse and possible ascites on exam I'm concerned he may have cirrhosis. I will check abdominal ultrasound. - Time Time Spent: Greater than 70 Minutes Anticipated discharge: Home Within: within 72 hours
[2016-08-26 19:16] LABS: CREATINE KINASE MB 2.38 ng/mL (<4.55)
[2016-08-26 19:27] LABS: TROPONIN I < 0.012 ng/mL
[2016-08-26] MEDS ORDERED: HEPARIN SOD (PORCINE) 5,000 UNIT/ML 1 ML SYRINGE SUBCUT SCH (22:00)
[2016-08-26] MEDS: METOPROLOL SUCCINATE 50 MG TAB.SR.24H PO SCH (22:58)
[2016-08-26] MEDS: HYDRALAZINE HCL 50 MG TABLET PO SCH (22:58)
[2016-08-26] MEDS: FUROSEMIDE INJ/PF 40 MG/4 ML SDV IV SCH (22:59)
[2016-08-27 01:24] LABS: CREATINE KINASE MB 2.13 ng/mL (<4.55)
[2016-08-27 01:30] LABS: TROPONIN I < 0.012 ng/mL
[2016-08-27 07:41] LABS: ABSOLUTE BASOPHILS # (AUTO) 0.1 10^3/uL (0.0-0.2); ABSOLUTE EOSINOPHILS # (AUTO) 0.1 10^3/uL (0.0-0.6); ABSOLUTE LYMPHOCYTES (AUTO) 1.1 10^3/uL (0.5-4.7); ABSOLUTE MONOCYTES (AUTO) 0.6 10^3/uL (0.1-1.4); BASOPHILS % (AUTO) 1.4 % (0-2); EOSINOPHILS % (AUTO) 3.6 % (0-6); HEMATOCRIT 25.8 % (37.9-51.0); HEMOGLOBIN 8.7 g/dL (13.5-17.0); HGB HCT DIFFERENCE 0.3; LYMPHOCYTES % (AUTO) 28.1 % (13-45); MEAN CORPUSCULAR HEMOGLOBIN 32.5 pg (27.0-33.4); MEAN CORPUSCULAR HGB CONC 33.6 g/dL (32.0-36.0); MEAN CORPUSCULAR VOLUME 97 fl (80-97); MONOCYTES % (AUTO) 14.8 % (3-13); RED BLOOD COUNT 2.67 10^6/uL (4.35-5.55); RED CELL DISTRIBUTION WIDTH 15.8 % (11.5-14.0); SEGMENTED NEUTROPHILS % (AUTO) 52.1 % (42-78); WHITE BLOOD COUNT 3.8 10^3/uL (4.0-10.5)
[2016-08-27 07:58] LABS: MAGNESIUM 1.8 mg/dL (1.6-2.3)
[2016-08-27 08:08] LABS: CREATINE KINASE MB 1.74 ng/mL (<4.55)
[2016-08-27 08:13] LABS: TROPONIN I < 0.012 ng/mL
--- NOTE | 2016-08-27 08:28 | EKG REPORT ---
SEVERITY:- ABNORMAL ECG - ATRIAL FIBRILLATION LEFT AXIS DEVIATION BORDERLINE PROLONGED QT INTERVAL : Confirmed by: Magen Dubose 27-Aug-2016 08:28:21
[2016-08-27] MEDS: FUROSEMIDE INJ/PF 40 MG/4 ML SDV IV SCH ×2 (10:39→21:18)
[2016-08-27] MEDS: ASPIRIN 81 MG TABLET, ENT COATED PO SCH (10:39)
[2016-08-27] MEDS: HYDRALAZINE HCL 50 MG TABLET PO SCH ×2 (10:39→21:18)
[2016-08-27] MEDS: MAGNESIUM OXIDE 400 MG TABLET PO SCH ×2 (10:39→18:46)
[2016-08-27] MEDS: FLUOXETINE HCL 20 MG CAPSULE PO SCH (10:39)
[2016-08-27] MEDS: METOPROLOL SUCCINATE 50 MG TAB.SR.24H PO SCH ×2 (10:39→21:18)
[2016-08-27] MEDS: GLIMEPIRIDE 1 MG TABLET PO SCH (10:40)
--- NOTE | 2016-08-27 14:25 | PDOC PROGRESS REPORT ---
Subjective Progress Note for:: 08/27/16 Subjective:: Patient states that his dyspnea has improved since admission. He was readmitted with hours of being discharged from the hospital recently. Dr. Dubose of cardiology states the patient told him that he had his medications filled the pharmacy but did not take them. Patient denies fever, chills, headache, new focal weakness, chest pain, abdominal pain, nausea, vomiting, diarrhea, constipation. Physical Exam Vital Signs: Temp Pulse Resp BP Pulse Ox 97.8 F 69 16 135/79 H 97 08/27/16 11:52 08/27/16 11:52 08/27/16 11:52 08/27/16 11:52 08/27/16 11:52 Intake & Output 08/26/16 08/27/16 08/28/16 06:59 06:59 06:59 Intake Total 650 600 Output Total 900 500 Balance -250 100 Weight 106.1 kg Results Laboratory Results: 08/27/16 07:16 08/27/16 08/27/16 07:16 07:16 WBC 3.8 L RBC 2.67 L Hgb 8.7 L Hct 25.8 L MCV 97 MCH 32.5 MCHC 33.6 RDW 15.8 H Plt Count 93 L Seg Neutrophils % 52.1 Lymphocytes % 28.1 Monocytes % 14.8 H Eosinophils % 3.6 Basophils % 1.4 Absolute Neutrophils 2.0 Absolute Lymphocytes 1.1 Absolute Monocytes 0.6 Absolute Eosinophils 0.1 Absolute Basophils 0.1 Magnesium 1.8 08/26/16 08/26/16 08/27/16 18:40 18:40 00:41 Creatine Kinase 172 H 178 H CK-MB (CK-2) 2.38 Troponin I < 0.012 08/27/16 08/27/16 08/27/16 00:41 07:16 07:16 Creatine Kinase 155 CK-MB (CK-2) 2.13 1.74 Troponin I < 0.012 < 0.012 Impressions: Lung Scan-VQ NM 08/26/16 00:00 IMPRESSION: NORMAL VENTILATION-PERFUSION LUNG SCAN. NEGATIVE FOR PULMONARY EMBOLI. Venous Doppler Study 08/26/16 00:00 IMPRESSION: NO EVIDENCE DVT OR SVT IN EITHER LEG. Chest X-Ray 08/26/16 12:54 IMPRESSION: HEART ENLARGED WITHOUT FAILURE. NO OTHER SIGNIFICANT RADIOGRAPHIC FINDING IN THE CHEST. Abdomen Ultrasound 08/26/16 18:12 IMPRESSION: LIMITED STUDY. HETEROGENOUS NODULAR APPEARANCE OF THE LIVER CONSISTENT WITH CIRRHOSIS. ASCITES IS PRESENT. LIMITED VISUALIZATION OF THE GALLBLADDER WITH GALLBLADDER WALL THICKENING LIKELY DUE TO CHRONIC LIVER DISEASE. NO DEFINITE STONES VISUALIZED. Assessment & Plan - Diagnosis (1) Acute diastolic CHF (congestive heart failure) Is this a current diagnosis for this admission?: YesPlan: Patient has had negative Cardiolite stress test on 07/31/2016. Dr. Dubose of cardiology following. Continue Lasix 40 mg IV every 12 hours. Continue metoprolol. VQ scan negative. Bilateral lower extremity Dopplers negative. (2) Anemia of chronic disease Is this a current diagnosis for this admission?: YesPlan: Likely secondary to chronic disease, alcohol abuse, and cirrhosis. (3) CAD (coronary artery disease) Qualifiers: Coronary Disease-Associated Artery/Lesion type: [place] artery [place] vs. transplanted heart: [place] heart Associated angina: without angina Qualified Code(s): I25.10 - Atherosclerotic heart disease of [place] coronary artery without angina pectoris Is this a current diagnosis for this admission?: YesPlan: Aspirin 81 mg daily, Toprol XL. Recent cholesterol panel does not warrant statin therapy and given likely alcohol-related liver disease I probably would not want to initiate statin therapy anyway. (4) Chronic kidney disease, stage III (moderate) Is this a current diagnosis for this admission?: YesPlan: Kidney function is around baseline as compared to old labs. Monitor closely with aggressive diuresis. (5) Depression Qualifiers: Depression Type: major depressive disorder Major depression recurrence : recurrent Major depression episode severity: moderate Is this a current diagnosis for this admission?: Yes (6) Diabetes mellitus type 2 in obese Is this a current diagnosis for this admission?: YesPlan: Continue home dose of Amaryl. Sliding scale insulin. (7) Pulmonary hypertension Is this a current diagnosis for this admission?: Yes (8) Thrombocytopenia Is this a current diagnosis for this admission?: YesPlan: Secondary to cirrhosis. Avoid heparin products. (9) Ambulatory dysfunction Is this a current diagnosis for this admission?: YesPlan: Physical therapy to evaluate. Patient currently resides with his son, but his son will be transferred to [place] for training. (10) A-fib Qualifiers: Atrial fibrillation type: paroxysmal Qualified Code(s): I48.0 - Paroxysmal atrial fibrillation Is this a current diagnosis for this admission?: YesPlan: Patient with paroxysmal atrial fibrillation. Currently in sinus rhythm. Continue metoprolol. Continue aspirin therapy. Patient has declined anticoagulation on last admission secondary to history of alcohol abuse, risk of bleeding. (11) Cirrhosis Qualifiers: Hepatic cirrhosis type: alcoholic cirrhosis Ascites presence: with ascites Qualified Code(s): K70.31 - Alcoholic cirrhosis of liver with ascites Is this a current diagnosis for this admission?: YesPlan: Continue beta viv. I probably will not use spironolactone given renal impairment and baseline high normal potassium level. Patient states he has been abstinent from alcohol for the past month. (12) DVT prophylaxis Is this a current diagnosis for this admission?: YesPlan: Avoid pharmacologic prophylaxis secondary to thrombocytopenia and chronic kidney disease. - Time Time Spent with patient: 35 or more minutes Anticipated discharge: Home Within: within 24 hours
--- NOTE | 2016-08-27 20:26 | PDOC CONSULTATION ---
Consultation Consult Date: 08/26/16 Attending physician:: CLAUDETTE FULLER Consult reason:: Congestive heart failure, shortness of breath History of Present Illness Admission Date/PCP: 08/26/16 18:01 [facility] Patient complains of: Shortness of breath, fatigue and tiredness History of Present Illness: DEBORAH WHARTON is a 61 year old male with past medical history of CHF secondary to left ventricular diastolic dysfunction, chronic kidney disease, paroxysmal atrial fibrillation, anemia, diabetes, coronary artery disease, hypertension, thrombocytopenia that presents to the emergency department after being discharged from the hospital yesterday with ongoing shortness of breath, nausea. He denies chest pain. Review of records indicate that he was admitted in July 2016 for CHF exacerbation and at that time had a VQ scan that was negative for PE on 2016. Cardiolite stress test on 07/31/2016 was negative for ischemia or scar. Echocardiogram done 07/27/2016 showed normal EF, grade 2/4 diastolic dysfunction , moderate pulmonary hypertension. He was subsequently admitted from 08/21/2016 to 08/25/2016 for CHF and atrial fibrillation. He was discharged home yesterday and states that since returning home has become more short of breath and having nausea. Review of pharmacy records indicate that he has had his medications filled after discharge. He claims to be compliant with medications since being discharged from the hospital in July of this year. He has a history of alcohol abuse and tobacco abuse. He claims that he no longer drinks or smokes since being discharge from the hospital in July of this year. On direct questioning, it seems that patient has been out of medication for just one day. He didn't fill his prescription today but did not really start taking it.The above history was reviewed, supplemented and confirmed by me. Past Medical History Cardiac Medical History: Reports: Atrial Fibrillation, Congestive Heart Failure , Coronary Artery Disease, Myocardial Infarction - pt unsure of this, Hypertension Pulmonary Medical History: Reports: Asthma - childhood Endocrine Medical History: Reports: Diabetes Mellitus Type 2 Musculoskeltal Medical History: Reports: Arthritis - RA, Fibromyalgia Psychiatric Medical History: Reports: Depression Hematology: Reports: Anemia Infectious Medical History: Reports: Clostridium Difficile Past Surgical History Past Surgical History: Reports: Appendectomy, Orthopedic Surgery - L hand, Tonsillectomy Social History Lives with: Family Smoking Status: Former Smoker Frequency of Alcohol Use: Occasional Hx Recreational Drug Use: Yes Drugs: Marijuana Hx Prescription Drug Abuse: No - Advance Directive Resuscitation Status: Full Code Family History Family History: Reviewed & Not Pertinent Parental Family History Reviewed: Yes Children Family History Reviewed: Yes Sibling(s) Family History Reviewed.: Yes - Negative for premature coronary artery disease or sudden cardiac in the family amongst first degree relatives. Medication/Allergy Home Medications: Aspirin [Ecotrin 81 mg EC Tablet] 81 mg PO DAILY tabec 08/30/16 Fluoxetine HCl [Prozac 20 mg Capsule] 20 mg PO DAILY #30 capsule 08/30/16 Furosemide [Lasix] 40 mg PO BID #60 tablet 08/30/16 Glimepiride [Amaryl 1 mg Tablet] 1 mg PO QAM #30 tablet 08/30/16 Haloperidol [Haldol 5 mg Tablet] 5 mg PO Q8HP PRN #30 tablet 08/30/16 Hydralazine HCl 50 mg PO Q12H #60 tablet 08/30/16 Magnesium Oxide [Mag-Ox 400 mg Tablet] 400 mg PO BID #60 tablet 08/30/16 Metoprolol Succinate 75 mg PO Q12H #90 tab.er.24h 08/30/16 Allergies/Adverse Reactions: diltiazem [From Cardizem] Allergy (Verified 08/26/16 12:51) Review of Systems Review of Systems: General: Patient denied any recent fevers or chills. Head: No recent chronic or acute headache. No recent head injury. No chronic or acute dizziness. Eyes: Negative for any recent eye pain, eye discharge, acute vision loss, diplopia. Ears: Negative for any recent ear pain, ear discharge. Nose: Negative for any recent sinus problems, nasal polyps or nasal bleed. Oral: Negative for recent oral pain, oral ulcerations, oral bleeding. Hematologic: Negative for recent abnormal bleeding, bruising, blood clot formation. Lymphatic: Negative for any recent lymphadenopathy, lymphatic malignancy, lymphedema. Endocrine: Negative for any recent polyuria, polydipsia, heat or cold intolerance. Cardiac: Negative for any recent chest pains, patient has shortness of breathon exertion but no PND, orthopnea, palpitations, sustained syncope, near syncope. Respiratory: Negative for any recent episodes of asthma, wheezing, blood clots in the lungs, hemoptysis. Abdominal: Negative for any recent episode of abdominal pain, recent hematemesis melena, or recent changes in bowel habits. Urogenital: Negative for any recent hematuria, pyuria, renal colic. Musculoskeletal: Negative for any significant acute arthritis or mobility issues. URINALYSIS TECHNICIAN: Negative forrecent symptoms of strokes, mini strokes or seizure disorder. Psychiatric: Negative for recent symptoms of major psychosis, depression or suicidal ideation. Skin: Negative for any significant recent ecchymosis, recent pruritus and small scabs. Physical Exam Vital Signs: Temp Pulse Resp BP Pulse Ox 97.8 F 71 14 162/95 H 98 08/26/16 12:47 08/26/16 18:38 08/26/16 17:34 08/26/16 17:34 08/26/16 17:34 Exam: GEN: NAD, cooperative with exam, well groomed, well developed HEENT: head normocephalic, atraumatic, EOMI, PERRLA, (-)scleral icterus, (-) hearing grossly intact, mucous membranes moist. NECK: soft, nontender, no increased JVP visible, (-)hepatojugular reflex elicited, no significant cervical lymphadenopathy, (-)thyromegaly, Other findings: no lymphadenopathy, trachea is central RESP: no respiratory distress, clear to auscultation bilaterally, no wheezes/ rales/rhonchi, clear to percussion bilaterally CV: NL S1, NL S2, (-)S3 gallop, (-)S4 gallop, regular rate and rhythm, 1/6 murmur is systolic, best heard at L sternal border, 1/6 pansystolic murmur noted in the mitral area, 8-10 cm increased JVP visible, (-)heave, (-) parasternal lift, (-)thrill , normal peripheral pulses GI: (-)decreased bowel sounds, soft, nontender to palpation, no rebound/guarding /rigidity, (-)hepatomegaly, (-)splenomegaly, (-)masses DERM: no significant rash, ecchymosis, mild pruritus signs noted. Mild dermatitis changes noted. EXT: (-)cyanosis, (-)clubbing, (2+)edema, no acute joint swelling noted MUSC/SKEL: NL upper extremity exam BL, NL lower extremity exam BL NEURO: sensation grossly intact, CN II-XII intact and nonfocal, normal gait PSYCH: alert and oriented to time, place, and person, normal mood, normal affect , Other findings: no depression noted. Judgment and insight within normal limits Results Laboratory Results: 08/26/16 08/26/16 18:40 18:40 Creatine Kinase 172 H CK-MB (CK-2) 2.38 Troponin I < 0.012 EKG Comments: Atrial fibrillation with controlled ventricular response. No acute ST-T wave changes noted Impressions: Chest X-Ray 08/26/16 12:54 IMPRESSION: HEART ENLARGED WITHOUT FAILURE. NO OTHER SIGNIFICANT RADIOGRAPHIC FINDING IN THE CHEST. Assessment & Plan - Diagnosis (1) CHF (congestive heart failure) Qualifiers: Congestive heart failure type: diastolic Congestive heart failure chronicity: acute on chronic Qualified Code(s): I50.33 - Acute on chronic diastolic (congestive) heart failure Is this a current diagnosis for this admission?: Yes (2) Anemia of chronic disease Is this a current diagnosis for this admission?: Yes (3) Cirrhosis Qualifiers: Hepatic cirrhosis type: alcoholic cirrhosis Ascites presence: with ascites Qualified Code(s): K70.31 - Alcoholic cirrhosis of liver with ascites Is this a current diagnosis for this admission?: Yes (4) A-fib Qualifiers: Atrial fibrillation type: persistent Qualified Code(s): I48.1 - Persistent atrial fibrillation Is this a current diagnosis for this admission?: Yes (5) Chronic kidney disease, stage III (moderate) Is this a current diagnosis for this admission?: Yes (6) Hypertension Qualifiers: Hypertension type: essential hypertension Qualified Code(s): I10 - Essential (primary) hypertension - Notes Notes: Congestive heart failure: Acute on chronic CHF diastolic. Precipitated by noncompliance and volume overload. Resume diuretic therapy. Anemia of chronic disease: Try maintain hemoglobin above 8-9 g percent. Cirrhosis of liver: This was diagnosed based on ultrasound. Could be complications of obesity. Preferred diuretics will be torsemide and spironolactone. Atrial fibrillation: Currently well controlled with rate. Continue chronic anticoagulation. Chronic kidney disease: Currently stable. Monitor closely. Hypertension: Currently blood pressure is satisfactorily controlled. Reasonably well controlled. Blood pressure goal in this patient is 135/85 or less. This was discussed with the patient. Currently blood pressure under reasonable control. Better medication for this patient are PRASANTH inhibitor/ARB/ beta viv etc. discussed side effects of uncontrolled hypertension and also severe hypotension. Patient may have underlying sleep apnea. Would benefit from such an evaluation as an outpatient. - Time Time Spent: 30 to 50 Minutes - CODE STATUS was discussed, patient remains full code. Surrogate decision-maker patient's son. Multiple medical problems were addressed.More than 50% of the time spent coordinating care, discussing management plans with involved caregivers. Management plans discussed with involved personnels. Medical decision making was of moderate complexity.
[2016-08-28 06:10] LABS: ANION GAP 8 (5-19); BLOOD UREA NITROGEN 53 mg/dL (7-20); CARBON DIOXIDE 29 mmol/L (22-30); CHLORIDE 101 mmol/L (98-107); CREATININE RESULT 1.99 mg/dL (0.52-1.25); GLUCOSE 75 mg/dL (75-110); POTASSIUM 4.7 mmol/L (3.6-5.0); SODIUM 138.2 mmol/L (137-145)
[2016-08-28 06:26] LABS: ABSOLUTE BASOPHILS # (AUTO) 0.1 10^3/uL (0.0-0.2); ABSOLUTE EOSINOPHILS # (AUTO) 0.2 10^3/uL (0.0-0.6); ABSOLUTE LYMPHOCYTES (AUTO) 1.1 10^3/uL (0.5-4.7); ABSOLUTE MONOCYTES (AUTO) 0.6 10^3/uL (0.1-1.4); BASOPHILS % (AUTO) 1.8 % (0-2); EOSINOPHILS % (AUTO) 4.1 % (0-6); HEMATOCRIT 26.6 % (37.9-51.0); HGB HCT DIFFERENCE 0.4; MEAN CORPUSCULAR HEMOGLOBIN 32.2 pg (27.0-33.4); MEAN CORPUSCULAR HGB CONC 33.7 g/dL (32.0-36.0); MEAN CORPUSCULAR VOLUME 96 fl (80-97); MONOCYTES % (AUTO) 15.2 % (3-13); RED BLOOD COUNT 2.78 10^6/uL (4.35-5.55); RED CELL DISTRIBUTION WIDTH 15.6 % (11.5-14.0); SEGMENTED NEUTROPHILS % (AUTO) 51.9 % (42-78); WHITE BLOOD COUNT 3.9 10^3/uL (4.0-10.5)
[2016-08-28] MEDS: ASPIRIN 81 MG TABLET, ENT COATED PO SCH (09:45)
[2016-08-28] MEDS: FUROSEMIDE INJ/PF 40 MG/4 ML SDV IV SCH ×2 (09:45→21:12)
[2016-08-28] MEDS: MAGNESIUM OXIDE 400 MG TABLET PO SCH ×2 (09:45→17:42)
[2016-08-28] MEDS: HYDRALAZINE HCL 50 MG TABLET PO SCH ×2 (09:45→21:12)
[2016-08-28] MEDS: FLUOXETINE HCL 20 MG CAPSULE PO SCH (09:45)
[2016-08-28] MEDS: GLIMEPIRIDE 1 MG TABLET PO SCH (09:45)
[2016-08-28] MEDS: METOPROLOL SUCCINATE 50 MG TAB.SR.24H PO SCH ×2 (09:45→21:12)
--- NOTE | 2016-08-28 11:06 | PDOC PROGRESS REPORT ---
Subjective Progress Note for:: 08/28/16 Subjective:: Reports the shortness of breath has improved. Physical Exam Vital Signs: Temp Pulse Resp BP Pulse Ox 98.5 F 69 18 156/93 H 99 08/28/16 09:22 08/28/16 09:22 08/28/16 09:22 08/28/16 09:22 08/28/16 09:22 Intake & Output 08/27/16 08/28/16 08/29/16 06:59 06:59 06:59 Intake Total 650 1440 Output Total 900 2900 Balance -250 -1460 Weight 106.1 kg 12.1 kg General appearance: PRESENT: no acute distress, morbidly obese Eye exam: PRESENT: conjunctiva pink. ABSENT: scleral icterus Mouth exam: PRESENT: moist, tongue midline Neck exam: ABSENT: JVD Respiratory exam: PRESENT: crackles - Few crackles in the base bilaterally. ABSENT: rales, rhonchi, wheezes Cardiovascular exam: PRESENT: RRR. ABSENT: diastolic murmur, rubs, systolic murmur GI/Abdominal exam: PRESENT: normal bowel sounds, soft. ABSENT: distended, guarding, mass, organolmegaly, rebound, tenderness Extremities exam: PRESENT: pedal edema - Trace pedal edema. ABSENT: calf tenderness, clubbing Neurological exam: PRESENT: alert, awake, oriented to person, oriented to place , oriented to time, oriented to situation Psychiatric exam: PRESENT: appropriate affect Skin exam: PRESENT: dry, intact, warm. ABSENT: cyanosis, rash Results Laboratory Results: 08/28/16 05:06 08/28/16 05:06 08/28/16 08/28/16 05:06 05:06 WBC 3.9 L RBC 2.78 L Hgb 9.0 L Hct 26.6 L MCV 96 MCH 32.2 MCHC 33.7 RDW 15.6 H Plt Count 96 L Seg Neutrophils % 51.9 Lymphocytes % 27.0 Monocytes % 15.2 H Eosinophils % 4.1 Basophils % 1.8 Absolute Neutrophils 2.0 Absolute Lymphocytes 1.1 Absolute Monocytes 0.6 Absolute Eosinophils 0.2 Absolute Basophils 0.1 Sodium 138.2 Potassium 4.7 Chloride 101 Carbon Dioxide 29 Anion Gap 8 BUN 53 H Creatinine 1.99 H Est GFR ( Amer) 42 L Est GFR (Non-Af Amer) 34 L Glucose 75 Calcium 9.0 08/26/16 08/26/16 08/27/16 18:40 18:40 00:41 Creatine Kinase 172 H 178 H CK-MB (CK-2) 2.38 Troponin I < 0.012 08/27/16 08/27/16 08/27/16 00:41 07:16 07:16 Creatine Kinase 155 CK-MB (CK-2) 2.13 1.74 Troponin I < 0.012 < 0.012 Impressions: Lung Scan-VQ NM 08/26/16 00:00 IMPRESSION: NORMAL VENTILATION-PERFUSION LUNG SCAN. NEGATIVE FOR PULMONARY EMBOLI. Venous Doppler Study 08/26/16 00:00 IMPRESSION: NO EVIDENCE DVT OR SVT IN EITHER LEG. Chest X-Ray 08/26/16 12:54 IMPRESSION: HEART ENLARGED WITHOUT FAILURE. NO OTHER SIGNIFICANT RADIOGRAPHIC FINDING IN THE CHEST. Abdomen Ultrasound 08/26/16 18:12 IMPRESSION: LIMITED STUDY. HETEROGENOUS NODULAR APPEARANCE OF THE LIVER CONSISTENT WITH CIRRHOSIS. ASCITES IS PRESENT. LIMITED VISUALIZATION OF THE GALLBLADDER WITH GALLBLADDER WALL THICKENING LIKELY DUE TO CHRONIC LIVER DISEASE. NO DEFINITE STONES VISUALIZED. Assessment & Plan - Diagnosis (1) Acute diastolic CHF (congestive heart failure) Is this a current diagnosis for this admission?: YesPlan: Patient is slowly improving and we will continue the IV Lasix. (2) Chronic kidney disease, stage III (moderate) Is this a current diagnosis for this admission?: YesPlan: Creatinine has remained stable. (3) Diabetes mellitus type 2 in obese Is this a current diagnosis for this admission?: YesPlan: Patient's blood sugars ranged from 69-118. Continue with sliding scale insulin and Amaryl. (4) Accelerated hypertension Is this a current diagnosis for this admission?: YesPlan: Blood pressure has improved with diuresis. (5) Cirrhosis Qualifiers: Hepatic cirrhosis type: alcoholic cirrhosis Ascites presence: with ascites Qualified Code(s): K70.31 - Alcoholic cirrhosis of liver with ascites Is this a current diagnosis for this admission?: Yes (6) Depression Qualifiers: Depression Type: major depressive disorder Major depression recurrence : recurrent Major depression episode severity: moderate Is this a current diagnosis for this admission?: YesPlan: Stable. (7) Pulmonary hypertension Is this a current diagnosis for this admission?: Yes (8) A-fib Qualifiers: Atrial fibrillation type: paroxysmal Qualified Code(s): I48.0 - Paroxysmal atrial fibrillation Is this a current diagnosis for this admission?: YesPlan: Patient is in a regular rhythm today. (9) CAD (coronary artery disease) Qualifiers: Coronary Disease-Associated Artery/Lesion type: [place] artery [place] vs. transplanted heart: [place] heart Associated angina: without angina Qualified Code(s): I25.10 - Atherosclerotic heart disease of [place] coronary artery without angina pectoris Is this a current diagnosis for this admission?: YesPlan: Denies any chest pain. - Time Time Spent with patient: 25-34 minutes - Inpatient Certification Medical Necessity: Need Close Monitoring Due to Risk of Patient Decompensation - Plan Summary Plan Summary: Continue with IV Lasix for diuresis.
--- NOTE | 2016-08-28 13:21 | PDOC PROGRESS REPORT ---
Subjective Progress Note for:: 08/28/16 Subjective:: Patient seems to be doing better with gradual improvement. Dyspnea has improved. Pt is denying any chest arm or neck discomfort. Patient denying any PND, orthopnea. Patient denied any sustained palpitations, dizziness, syncope, near syncope. Patient denying any fever chills. Patient denying any other significant discomfort. Patient is maintaining atrial fibrillation with controlled heart rate response. Review of systems: Rest review of systems negative. Medications: Medications have been reviewed. Physical Exam Vital Signs: Temp Pulse Resp BP Pulse Ox 98.0 F 96 18 124/79 97 08/28/16 12:50 08/28/16 12:50 08/28/16 12:50 08/28/16 12:50 08/28/16 12:50 Intake & Output 08/27/16 08/28/16 08/29/16 06:59 06:59 06:59 Intake Total 650 1440 600 Output Total 900 2900 500 Balance -250 -1460 100 Weight 106.1 kg 12.1 kg Exam: GEN: NAD, cooperative with exam, well groomed, well developed HEENT: head normocephalic, atraumatic, EOMI, PERRLA, (-)scleral icterus, (-) hearing grossly intact, mucous membranes moist. NECK: soft, nontender, no increased JVP visible, (-)hepatojugular reflex elicited, no significant cervical lymphadenopathy, (-)thyromegaly, Other findings: no lymphadenopathy, trachea is central RESP: no respiratory distress, clear to auscultation bilaterally, no wheezes/ rales/rhonchi, clear to percussion bilaterally CV: NL S1, NL S2, (-)S3 gallop, (-)S4 gallop, regular rate and rhythm, 1/6 murmur is systolic, best heard at L sternal border, 1/6 pansystolic murmur noted in the mitral area, 8 cm increased JVP visible, (-)heave, (-)parasternal lift, (-)thrill , normal peripheral pulses GI: (-)decreased bowel sounds, soft, nontender to palpation, no rebound/guarding /rigidity, (-)hepatomegaly, (-)splenomegaly, (-)masses DERM: no significant rash, ecchymosis, mild pruritus signs noted. Mild dermatitis changes noted. EXT: (-)cyanosis, (-)clubbing, (1 +)edema, no acute joint swelling noted MUSC/SKEL: NL upper extremity exam BL, NL lower extremity exam BL NEURO: sensation grossly intact, CN II-XII intact and nonfocal, normal gait PSYCH: alert and oriented to time, place, and person, normal mood, normal affect , Other findings: no depression noted. Judgment and insight within normal limits Results Laboratory Results: 08/28/16 05:06 08/28/16 05:06 08/28/16 08/28/16 05:06 05:06 WBC 3.9 L RBC 2.78 L Hgb 9.0 L Hct 26.6 L MCV 96 MCH 32.2 MCHC 33.7 RDW 15.6 H Plt Count 96 L Seg Neutrophils % 51.9 Lymphocytes % 27.0 Monocytes % 15.2 H Eosinophils % 4.1 Basophils % 1.8 Absolute Neutrophils 2.0 Absolute Lymphocytes 1.1 Absolute Monocytes 0.6 Absolute Eosinophils 0.2 Absolute Basophils 0.1 Sodium 138.2 Potassium 4.7 Chloride 101 Carbon Dioxide 29 Anion Gap 8 BUN 53 H Creatinine 1.99 H Est GFR ( Amer) 42 L Est GFR (Non-Af Amer) 34 L Glucose 75 Calcium 9.0 08/26/16 08/26/16 08/27/16 18:40 18:40 00:41 Creatine Kinase 172 H 178 H CK-MB (CK-2) 2.38 Troponin I < 0.012 08/27/16 08/27/16 08/27/16 00:41 07:16 07:16 Creatine Kinase 155 CK-MB (CK-2) 2.13 1.74 Troponin I < 0.012 < 0.012 Impressions: Lung Scan-VQ NM 08/26/16 00:00 IMPRESSION: NORMAL VENTILATION-PERFUSION LUNG SCAN. NEGATIVE FOR PULMONARY EMBOLI. Venous Doppler Study 08/26/16 00:00 IMPRESSION: NO EVIDENCE DVT OR SVT IN EITHER LEG. Chest X-Ray 08/26/16 12:54 IMPRESSION: HEART ENLARGED WITHOUT FAILURE. NO OTHER SIGNIFICANT RADIOGRAPHIC FINDING IN THE CHEST. Abdomen Ultrasound 08/26/16 18:12 IMPRESSION: LIMITED STUDY. HETEROGENOUS NODULAR APPEARANCE OF THE LIVER CONSISTENT WITH CIRRHOSIS. ASCITES IS PRESENT. LIMITED VISUALIZATION OF THE GALLBLADDER WITH GALLBLADDER WALL THICKENING LIKELY DUE TO CHRONIC LIVER DISEASE. NO DEFINITE STONES VISUALIZED. Assessment & Plan - Diagnosis (1) CHF (congestive heart failure) Qualifiers: Congestive heart failure type: diastolic Congestive heart failure chronicity: acute on chronic Qualified Code(s): I50.33 - Acute on chronic diastolic (congestive) heart failure Is this a current diagnosis for this admission?: Yes (2) Anemia of chronic disease Is this a current diagnosis for this admission?: Yes (3) Cirrhosis Qualifiers: Hepatic cirrhosis type: alcoholic cirrhosis Ascites presence: with ascites Qualified Code(s): K70.31 - Alcoholic cirrhosis of liver with ascites Is this a current diagnosis for this admission?: Yes (4) A-fib Qualifiers: Atrial fibrillation type: paroxysmal Qualified Code(s): I48.0 - Paroxysmal atrial fibrillation Is this a current diagnosis for this admission?: Yes (5) Chronic kidney disease, stage III (moderate) Is this a current diagnosis for this admission?: Yes (6) Hypertension Qualifiers: Hypertension type: essential hypertension Qualified Code(s): I10 - Essential (primary) hypertension - Notes Notes: Congestive heart failure: Acute on chronic CHF diastolic. Precipitated by noncompliance and volume overload. Consider switching to Demadex at 20 mg daily on discharge. Anemia of chronic disease: Try maintain hemoglobin above 8-9 g percent. Cirrhosis of liver: This was diagnosed based on ultrasound. Could be complications of obesity. Preferred diuretics will be torsemide and spironolactone. Atrial fibrillation: Currently well controlled with rate. Continue chronic anticoagulation. Chronic kidney disease: Currently stable. Monitor closely. Hypertension: Currently blood pressure is satisfactorily controlled. Reasonably well controlled. Blood pressure goal in this patient is 135/85 or less. This was discussed with the patient. Currently blood pressure under reasonable control. Better medication for this patient are PRASANTH inhibitor/ARB/ beta viv etc. discussed side effects of uncontrolled hypertension and also severe hypotension. Patient may have underlying sleep apnea. Would benefit from such an evaluation as an outpatient. - Time Time with patient: 15-25 minutes - CODE STATUS was discussed, patient remains full code. Surrogate decision-maker unchanged. Multiple medical problems were addressed.More than 50% of the time spent coordinating care, discussing management plans with involved caregivers. Management plans discussed with involved personnels. Medical decision making was of moderate complexity.
[2016-08-29 05:42] LABS: ANION GAP 8 (5-19); BLOOD UREA NITROGEN 49 mg/dL (7-20); CALCIUM 8.9 mg/dL (8.4-10.2); CARBON DIOXIDE 29 mmol/L (22-30); CHLORIDE 100 mmol/L (98-107); GLUCOSE 72 mg/dL (75-110); POTASSIUM 4.9 mmol/L (3.6-5.0); SODIUM 136.7 mmol/L (137-145)
[2016-08-29] MEDS: GLIMEPIRIDE 1 MG TABLET PO SCH (08:09)
[2016-08-29] MEDS: METOPROLOL SUCCINATE 50 MG TAB.SR.24H PO SCH ×2 (10:45→21:16)
[2016-08-29] MEDS: FLUOXETINE HCL 20 MG CAPSULE PO SCH (10:46)
[2016-08-29] MEDS: MAGNESIUM OXIDE 400 MG TABLET PO SCH ×2 (10:46→17:22)
[2016-08-29] MEDS: FUROSEMIDE INJ/PF 40 MG/4 ML SDV IV SCH ×2 (10:46→21:16)
[2016-08-29] MEDS: ASPIRIN 81 MG TABLET, ENT COATED PO SCH (10:46)
[2016-08-29] MEDS: HYDRALAZINE HCL 50 MG TABLET PO SCH ×2 (10:46→21:16)
--- NOTE | 2016-08-29 13:34 | PDOC PROGRESS REPORT ---
Subjective Progress Note for:: 08/29/16 Subjective:: Patient reports his breathing continues to improve. Physical Exam Vital Signs: Temp Pulse Resp BP Pulse Ox 98.5 F 74 22 H 144/79 H 98 08/29/16 07:24 08/29/16 07:24 08/29/16 07:24 08/29/16 07:24 08/29/16 07:24 Intake & Output 08/28/16 08/29/16 08/30/16 06:59 06:59 06:59 Intake Total 1440 1280 Output Total 2900 1800 Balance -1460 -520 Weight 12.1 kg 127.3 kg General appearance: PRESENT: no acute distress, morbidly obese Eye exam: PRESENT: conjunctiva pink. ABSENT: scleral icterus Mouth exam: PRESENT: moist, tongue midline Neck exam: ABSENT: JVD Respiratory exam: PRESENT: clear to auscultation aba. ABSENT: rales, rhonchi, wheezes Cardiovascular exam: PRESENT: RRR. ABSENT: diastolic murmur, rubs, systolic murmur GI/Abdominal exam: PRESENT: normal bowel sounds, soft. ABSENT: distended, guarding, mass, organolmegaly, rebound, tenderness Extremities exam: ABSENT: calf tenderness, clubbing, pedal edema Neurological exam: PRESENT: alert, awake, oriented to person, oriented to place , oriented to time, oriented to situation Psychiatric exam: PRESENT: appropriate affect Skin exam: PRESENT: dry, intact, warm. ABSENT: cyanosis, rash Results Laboratory Results: 08/28/16 05:06 08/29/16 04:48 08/29/16 04:48 Sodium 136.7 L Potassium 4.9 Chloride 100 Carbon Dioxide 29 Anion Gap 8 BUN 49 H Creatinine 1.90 H Est GFR ( Amer) 44 L Est GFR (Non-Af Amer) 36 L Glucose 72 L Calcium 8.9 08/26/16 08/26/16 08/27/16 18:40 18:40 00:41 Creatine Kinase 172 H 178 H CK-MB (CK-2) 2.38 Troponin I < 0.012 08/27/16 08/27/16 08/27/16 00:41 07:16 07:16 Creatine Kinase 155 CK-MB (CK-2) 2.13 1.74 Troponin I < 0.012 < 0.012 Impressions: Lung Scan-VQ NM 08/26/16 00:00 IMPRESSION: NORMAL VENTILATION-PERFUSION LUNG SCAN. NEGATIVE FOR PULMONARY EMBOLI. Venous Doppler Study 08/26/16 00:00 IMPRESSION: NO EVIDENCE DVT OR SVT IN EITHER LEG. Chest X-Ray 08/26/16 12:54 IMPRESSION: HEART ENLARGED WITHOUT FAILURE. NO OTHER SIGNIFICANT RADIOGRAPHIC FINDING IN THE CHEST. Abdomen Ultrasound 08/26/16 18:12 IMPRESSION: LIMITED STUDY. HETEROGENOUS NODULAR APPEARANCE OF THE LIVER CONSISTENT WITH CIRRHOSIS. ASCITES IS PRESENT. LIMITED VISUALIZATION OF THE GALLBLADDER WITH GALLBLADDER WALL THICKENING LIKELY DUE TO CHRONIC LIVER DISEASE. NO DEFINITE STONES VISUALIZED. Assessment & Plan - Diagnosis (1) Acute diastolic CHF (congestive heart failure) Is this a current diagnosis for this admission?: YesPlan: Patient is slowly improving and we will continue the IV Lasix. (2) Chronic kidney disease, stage III (moderate) Is this a current diagnosis for this admission?: YesPlan: Creatinine has remained stable. (3) Diabetes mellitus type 2 in obese Is this a current diagnosis for this admission?: YesPlan: Patient's blood sugars ranged from 84-129. Continue with sliding scale insulin and Amaryl. (4) Accelerated hypertension Is this a current diagnosis for this admission?: YesPlan: Blood pressure has improved with diuresis. (5) Cirrhosis Qualifiers: Hepatic cirrhosis type: alcoholic cirrhosis Ascites presence: with ascites Qualified Code(s): K70.31 - Alcoholic cirrhosis of liver with ascites Is this a current diagnosis for this admission?: Yes (6) Depression Qualifiers: Depression Type: major depressive disorder Major depression recurrence : recurrent Major depression episode severity: moderate Is this a current diagnosis for this admission?: YesPlan: Stable. (7) Pulmonary hypertension Is this a current diagnosis for this admission?: Yes (8) A-fib Qualifiers: Atrial fibrillation type: persistent Qualified Code(s): I48.1 - Persistent atrial fibrillation Is this a current diagnosis for this admission?: YesPlan: Patient is in a regular rhythm today. (9) CAD (coronary artery disease) Qualifiers: Coronary Disease-Associated Artery/Lesion type: [place] artery [place] vs. transplanted heart: [place] heart Associated angina: without angina Qualified Code(s): I25.10 - Atherosclerotic heart disease of [place] coronary artery without angina pectoris Is this a current diagnosis for this admission?: YesPlan: Denies any chest pain. - Time Time Spent with patient: 25-34 minutes - Inpatient Certification Medical Necessity: Need Close Monitoring Due to Risk of Patient Decompensation - Plan Summary Plan Summary: If The patient continues to improve we will plan on discharging home tomorrow.
[2016-08-29] MEDS ORDERED: HALOPERIDOL 5 MG TABLET PO PRN (16:23)
[2016-08-30 05:50] LABS: ANION GAP 7 (5-19); BLOOD UREA NITROGEN 51 mg/dL (7-20); CARBON DIOXIDE 28 mmol/L (22-30); CHLORIDE 100 mmol/L (98-107); CREATININE RESULT 1.83 mg/dL (0.52-1.25); GLUCOSE 88 mg/dL (75-110); POTASSIUM 4.8 mmol/L (3.6-5.0); SODIUM 135.3 mmol/L (137-145)
--- NOTE | 2016-08-30 07:59 | PDOC PROGRESS REPORT ---
Subjective Progress Note for:: 08/29/16 Subjective:: The patient remains in atrial fibrillation with controlled ventricular response. He states he has no shortness of breath at rest and no PND orthopnea. He states if he starts moving around the room he feels short of breath his leg edema is almost resolved, there being only trace pedal edema. The patient denies any chest pain or discomfort. There is no palpitations there is no TIA or CVA symptoms. There is no ventricular arrhythmias seen. The patient's medications were reviewed. Physical Exam Vital Signs: Temp Pulse Resp BP Pulse Ox 98.5 F 74 22 H 144/79 H 98 08/29/16 07:24 08/29/16 07:24 08/29/16 07:24 08/29/16 07:24 08/29/16 07:24 Intake & Output 08/28/16 08/29/16 08/30/16 06:59 06:59 06:59 Intake Total 1440 1280 Output Total 2900 1800 Balance -1460 -520 Weight 12.1 kg 127.3 kg General appearance: PRESENT: no acute distress - The patient in no acute distress and is moderately obese, but well groomed. Head exam: PRESENT: atraumatic - Head is atraumatic normocephalic. Eye exam: PRESENT: conjunctival injection - Conjunctivae are pink pupils are equal and regular reactive to light and accommodation. Extraocular movements are normal there is no scleral icterus. Nose [place] of the nose are not inflamed there is no deviated nasal septum. Ear exam: PRESENT: TM's normal bilaterally - Tympanic membranes are normal bilaterally. Normal external ear exam. Mouth exam: PRESENT: dry mucosa - Mucous membranes of the mouth are moist. There is no ulcers in the tongue. Tongue is moist, and midline., moist, tongue midline Throat exam: PRESENT: post pharyngeal erythema - Throat there is no erythema in the throat there is no tonsillar swelling or exudates. Neck exam: PRESENT: carotid bruit - Neck neck is supple. There is no JVD carotids are equal there is no bruits. There is no lymphadenopathy there is no thyromegaly. Trachea is central. Respiratory exam: PRESENT: accessory muscle use - There is no accessory muscles of respiration in use there is no chest wall tenderness. Lungs are clear to auscultation and percussion. Cardiovascular exam: PRESENT: irregular rhythm - S1 and S2 is heard. S1 is of variable intensity. There is no S3 gallop there is no S4 gallop. There is no rub. Systolic murmur in the left sternal border and apex. Pulses: PRESENT: normal carotid pulses, normal radial pulses, normal femoral pulses - Femorals are deep and diminished there is no femoral bruits leg pulses are mildly reduced. There is trace pedal edema. There is normal capillary refill. There is no cyanosis or clubbing GI/Abdominal exam: PRESENT: ascites - Abdomen is soft obese there is no history of splenomegaly there is mild ascites present bowel sounds are normal there are no tender areas or masses. Rectal exam: PRESENT: deferred - Rectal exam deferred Neurological exam: PRESENT: alert - The patient is conscious and awake alert oriented 3 with no focal deficits Psychiatric exam: PRESENT: agitated - The patient judgment and insight are intact. His affect is appropriate. Results Laboratory Results: 08/28/16 05:06 08/29/16 04:48 08/29/16 04:48 Sodium 136.7 L Potassium 4.9 Chloride 100 Carbon Dioxide 29 Anion Gap 8 BUN 49 H Creatinine 1.90 H Est GFR ( Amer) 44 L Est GFR (Non-Af Amer) 36 L Glucose 72 L Calcium 8.9 08/26/16 08/26/16 08/27/16 18:40 18:40 00:41 Creatine Kinase 172 H 178 H CK-MB (CK-2) 2.38 Troponin I < 0.012 08/27/16 08/27/16 08/27/16 00:41 07:16 07:16 Creatine Kinase 155 CK-MB (CK-2) 2.13 1.74 Troponin I < 0.012 < 0.012 Impressions: Lung Scan-VQ NM 08/26/16 00:00 IMPRESSION: NORMAL VENTILATION-PERFUSION LUNG SCAN. NEGATIVE FOR PULMONARY EMBOLI. Venous Doppler Study 08/26/16 00:00 IMPRESSION: NO EVIDENCE DVT OR SVT IN EITHER LEG. Chest X-Ray 08/26/16 12:54 IMPRESSION: HEART ENLARGED WITHOUT FAILURE. NO OTHER SIGNIFICANT RADIOGRAPHIC FINDING IN THE CHEST. Abdomen Ultrasound 08/26/16 18:12 IMPRESSION: LIMITED STUDY. HETEROGENOUS NODULAR APPEARANCE OF THE LIVER CONSISTENT WITH CIRRHOSIS. ASCITES IS PRESENT. LIMITED VISUALIZATION OF THE GALLBLADDER WITH GALLBLADDER WALL THICKENING LIKELY DUE TO CHRONIC LIVER DISEASE. NO DEFINITE STONES VISUALIZED. Assessment & Plan - Diagnosis (1) A-fib Qualifiers: Atrial fibrillation type: persistent Qualified Code(s): I48.1 - Persistent atrial fibrillation Is this a current diagnosis for this admission?: YesPlan: The patient's heart rate is controlled. He has persistent atrial fibrillation in view of his thrombocytopenia cirrhosis of the liver and ambulatory dysfunction making the patient high risk for falls, hence patient not a candidate for chronic anti-coagulation. (2) Depression Qualifiers: Depression Type: major depressive disorder Major depression recurrence : recurrent Major depression episode severity: moderate Is this a current diagnosis for this admission?: Yes (3) DVT prophylaxis Is this a current diagnosis for this admission?: Yes (4) Anemia of chronic disease Is this a current diagnosis for this admission?: YesPlan: The patient's hemoglobin is 9. He may be a candidate for Procrit injections. (5) Diabetes mellitus type 2 in obese Is this a current diagnosis for this admission?: YesPlan: The patient's blood sugar is well-controlled on current medical regimin. He has diabetes mellitus type II [id number].. (6) Chronic kidney disease, stage III (moderate) Plan: The patient has acute on chronic kidney disease at present most likely back to baseline of CK D stage III. (7) NSVT (nonsustained ventricular tachycardia) Is this a current diagnosis for this admission?: YesPlan: There is no recurrence of nonsustained ventricular tachycardia rate (8) Thrombocytopenia Is this a current diagnosis for this admission?: YesPlan: The patient does not have any ecchymosis or petechiae (9) CHF (congestive heart failure) Qualifiers: Congestive heart failure type: diastolic Congestive heart failure chronicity: acute on chronic Qualified Code(s): I50.33 - Acute on chronic diastolic (congestive) heart failure Is this a current diagnosis for this admission?: YesPlan: Continue diuretics and blood pressure medication. The patient's heart rate is well controlled, and the patient has stable chronic diastolic heart failure but well compensated. Clinically there are no signs of heart failure present (10) Cirrhosis Qualifiers: Hepatic cirrhosis type: alcoholic cirrhosis Ascites presence: with ascites Qualified Code(s): K70.31 - Alcoholic cirrhosis of liver with ascites Is this a current diagnosis for this admission?: YesPlan: This seems to be stable. The patient does have situs. Most likely this is alcohol related. Patient counseled to stop drinking. (11) CAD (coronary artery disease) Qualifiers: Coronary Disease-Associated Artery/Lesion type: [place] artery [place] vs. transplanted heart: [place] heart Associated angina: without angina Qualified Code(s): I25.10 - Atherosclerotic heart disease of [place] coronary artery without angina pectoris Is this a current diagnosis for this admission?: YesPlan: The patient has no chest pain or discomfort. He is stable from his cardiac B point (12) Hypertension Qualifiers: Hypertension type: essential hypertension Qualified Code(s): I10 - Essential (primary) hypertension Plan: His blood pressure is fairly well controlled (13) Noncompliance with medication regimen Plan: The patient is a consult to adhere to medical regimen and fluid restriction. - Notes Notes: Note 30 minutes spent on this patient with more than 50% of the time spent on direct patient care. Medications reviewed patient counseled to stop/abstain from alcohol. - Time Disposition: The patient's a full code at his daughter's his surrogate healthcare decision- maker.
[2016-08-30] MEDS: FUROSEMIDE INJ/PF 40 MG/4 ML SDV IV SCH (09:11)
[2016-08-30] MEDS: MAGNESIUM OXIDE 400 MG TABLET PO SCH (09:12)
[2016-08-30] MEDS: FLUOXETINE HCL 20 MG CAPSULE PO SCH (09:13)
[2016-08-30] MEDS: HYDRALAZINE HCL 50 MG TABLET PO SCH (09:13)
[2016-08-30] MEDS: ASPIRIN 81 MG TABLET, ENT COATED PO SCH (09:13)
[2016-08-30] MEDS: METOPROLOL SUCCINATE 50 MG TAB.SR.24H PO SCH (09:13)
[2016-08-30] MEDS: GLIMEPIRIDE 1 MG TABLET PO SCH (09:13)
[2016-08-30 09:35] VITALS: BP 148/88
--- NOTE | 2016-08-30 11:55 | PDOC DISCHARGE SUMMARY ---
General - Admit/Disc Date/PCP Admission Date/Primary Care Provider: 08/26/16 18:01 [facility] Discharge Date: 08/30/16 - Discharge Diagnosis (1) Acute diastolic CHF (congestive heart failure) Is this a current diagnosis for this admission?: Yes (2) Chronic kidney disease, stage III (moderate) Is this a current diagnosis for this admission?: Yes (3) Diabetes mellitus type 2 in obese Is this a current diagnosis for this admission?: Yes (4) Accelerated hypertension Is this a current diagnosis for this admission?: Yes (5) Cirrhosis Is this a current diagnosis for this admission?: Yes (6) Depression Is this a current diagnosis for this admission?: Yes (7) Pulmonary hypertension Is this a current diagnosis for this admission?: Yes (8) A-fib Is this a current diagnosis for this admission?: Yes (9) CAD (coronary artery disease) Is this a current diagnosis for this admission?: Yes - Additional Information Resuscitation Status: Full Code Discharge Diet: Cardiac, Diabetic Discharge Activity: Activity As Tolerated, Balance Activity w/Rest, Weigh Daily Home Medications: Aspirin [Ecotrin 81 mg EC Tablet] 81 mg PO DAILY tabec 08/30/16 Fluoxetine HCl [Prozac 20 mg Capsule] 20 mg PO DAILY #30 capsule 08/30/16 Furosemide [Lasix] 40 mg PO BID #60 tablet 08/30/16 Glimepiride [Amaryl 1 mg Tablet] 1 mg PO QAM #30 tablet 08/30/16 Haloperidol [Haldol 5 mg Tablet] 5 mg PO Q8HP PRN #30 tablet 08/30/16 Hydralazine HCl 50 mg PO Q12H #60 tablet 08/30/16 Magnesium Oxide [Mag-Ox 400 mg Tablet] 400 mg PO BID #60 tablet 08/30/16 Metoprolol Succinate 75 mg PO Q12H #90 tab.er.24h 08/30/16 History of Present Illness History of Present Illness: DEBORAH WHARTON is a 61 year old male Physical Exam Vital Signs: Temp Pulse Resp BP Pulse Ox 97.7 F 70 16 148/88 H 95 08/30/16 09:31 08/30/16 09:31 08/30/16 09:31 08/30/16 09:31 08/30/16 09:31 Intake & Output 08/29/16 08/30/16 08/31/16 06:59 06:59 06:59 Intake Total 1280 670 Output Total 1800 1290 Balance -520 -620 Weight 127.3 kg 126.6 kg General appearance: PRESENT: no acute distress Eye exam: PRESENT: conjunctiva pink. ABSENT: scleral icterus Mouth exam: PRESENT: moist, tongue midline Neck exam: ABSENT: carotid bruit, JVD, lymphadenopathy, thyromegaly Respiratory exam: PRESENT: clear to auscultation aba. ABSENT: rales, rhonchi, wheezes Cardiovascular exam: PRESENT: RRR. ABSENT: diastolic murmur, rubs, systolic murmur Pulses: PRESENT: normal dorsalis pedis pul GI/Abdominal exam: PRESENT: normal bowel sounds, soft. ABSENT: distended, guarding, mass, organolmegaly, rebound, tenderness Extremities exam: ABSENT: calf tenderness, clubbing, pedal edema Neurological exam: PRESENT: alert, awake, oriented to person, oriented to place , oriented to time, oriented to situation Psychiatric exam: PRESENT: appropriate affect Skin exam: PRESENT: other - Area on the right forearm that have been picked at and are slightly erythematous but no pus present. Results Laboratory Results: 08/28/16 05:06 08/30/16 04:45 08/30/16 04:45 Sodium 135.3 L Potassium 4.8 Chloride 100 Carbon Dioxide 28 Anion Gap 7 BUN 51 H Creatinine 1.83 H Est GFR ( Amer) 46 L Est GFR (Non-Af Amer) 38 L Glucose 88 Calcium 9.0 08/26/16 08/26/16 08/27/16 18:40 18:40 00:41 Creatine Kinase 172 H 178 H CK-MB (CK-2) 2.38 Troponin I < 0.012 08/27/16 08/27/16 08/27/16 00:41 07:16 07:16 Creatine Kinase 155 CK-MB (CK-2) 2.13 1.74 Troponin I < 0.012 < 0.012 Impressions: Lung Scan-VQ NM 08/26/16 00:00 IMPRESSION: NORMAL VENTILATION-PERFUSION LUNG SCAN. NEGATIVE FOR PULMONARY EMBOLI. Venous Doppler Study 08/26/16 00:00 IMPRESSION: NO EVIDENCE DVT OR SVT IN EITHER LEG. Chest X-Ray 08/26/16 12:54 IMPRESSION: HEART ENLARGED WITHOUT FAILURE. NO OTHER SIGNIFICANT RADIOGRAPHIC FINDING IN THE CHEST. Abdomen Ultrasound 08/26/16 18:12 IMPRESSION: LIMITED STUDY. HETEROGENOUS NODULAR APPEARANCE OF THE LIVER CONSISTENT WITH CIRRHOSIS. ASCITES IS PRESENT. LIMITED VISUALIZATION OF THE GALLBLADDER WITH GALLBLADDER WALL THICKENING LIKELY DUE TO CHRONIC LIVER DISEASE. NO DEFINITE STONES VISUALIZED. Qualifiers PATEINT BEING DISCHARGED WITH ANY OF THE FOLLOWING DIAGNOSIS?: Heart Failure HF Pt discharged on evidence-based Beta Brent?: No Plan Discharge Plan: Patient is discharged home in stable condition. Time Spent: Greater than 30 Minutes
--- NOTE | 2016-08-30 21:48 | PROGRESS NOTE E ---
Progress Note NAME: DEBORAH WHARTON : 1955 AGE: 61Y DATE: 08/30/2016 ROOM: 425 SUBJECTIVE: The patient remains in atrial fibrillation with controlled ventricular response. He states his shortness of breath is much improved and he wants to go home. He denies any shortness of breath at rest and no PND or orthopnea. Moving around the room, he does not feel short of breath and there is no pedal edema. There is no recurrence of ventricular arrhythmia. The patient denies any chest pain or discomfort. There are no palpitations. There are no TIA or CVA symptoms. OBJECTIVE: GENERAL: On examination, the patient is moderately obese in no acute distress. VITAL SIGNS: He is afebrile with a temperature of 97.7 degrees Fahrenheit. Pulse is 70 beats per minute. Blood pressure is 148/88, respirations are 16 per minute and O2 saturations are 95% on room air. HEENT: Head is atraumatic, normocephalic. Eyes: Pupils are equal, round, regular and reactive to light and accommodation. Extraocular movements are normal. There is no conjunctival pallor. There is no scleral icterus. ENT is negative. NECK: Supple. There is JVD. Carotids are equal. There is no bruit. There is no goiter. There is no lymphadenopathy. Trachea is central. LUNGS: Show no accessory muscles of respirations in use. There is no chest wall tenderness. Lungs are clear to auscultation and percussion. HEART: S1 and S2 are heard. S1 is of variable intensity. There is no S3 gallop. There is no S4 gallop. There is a systolic murmur in the left sternal border and the apex. There is no rub. ABDOMEN: Soft, nontender. There is ascites present. There is no hepatosplenomegaly. Bowel sounds are well heard. EXTREMITIES: Femorals are deep. Femorals are diminished. There are no femoral bruits. There is no pedal edema. There is no cyanosis or clubbing. There is normal capillary refill. Leg pulses are mildly reduced. There is no cellulitis. There is no calf tenderness. CENTRAL NERVOUS SYSTEM: The patient is awake, alert and oriented x3 with no focal deficits. PSYCHIATRIC: The patient's judgment and insight are intact. His affect is normal. The patient is not agitated. DIAGNOSTIC DATA: The patient's 24-hr intake is 670 mL and output is 1290 mL. The patient's sodium is 135.3, potassium is 4.8, chloride is 100, CO2 28, the patient's BUN is 41, creatinine is 1.83, GFR is reduced at 38 mL, which is chronic kidney disease stage 3, glucose is 91, and his calcium is 9.0. IMPRESSION: 1. Atrial fibrillation with controlled ventricular response, and the patient is not a candidate for anticoagulation as mentioned earlier in the progress notes of yesterday. 2. Impression. Appears to be improved. 3. Anemia of chronic disease. 4. Diabetes mellitus type 2 in an obese person with diabetic nephropathy. 5. Chronic kidney disease stage 3, moderate. 6. Nonsustained ventricular tachycardia, no recurrence. 7. Thrombocytopenia. 8. Congestive heart failure. He has [id number] diastolic heart failure. 9. Cirrhosis of the liver with ascites. 10. Coronary artery disease. The patient has no anginal syndrome. 11. Hypertension. Seems to be well controlled. RECOMMENDATIONS: I would recommend to continue current medication regimen and the patient advised fluid restriction. I have counseled the patient to find a soil engineer to follow along. Continue all current medications. Will sign off the case. TIME SPENT: Note that 30 minutes were spent on this patient with more than 50% of the time spent on direct patient care and also coordinating care with the other physicians and also reviewing the patient's medications. I have discussed with the patient that he is not a candidate for chronic anticoagulation therapy because of his thrombocytopenia, cirrhosis and frequent fall risk. NOTE: The patient states that his surrogate healthcare decision maker is his son, not his daughter. Thanking you. DICTATING PHYSICIAN: SAMUEL GARZA M.D. [id number] PHY#: [id number] ID: [id number] JOB#: [id number] ACCT: [id number] cc: >
== END 2016-08-30 09:55 | disposition home or self-care (01) | DRG 291 ==
LOC: ER 12:26 → UNDOADMIN 17:38 → EH 17:38 → 4S 18:12
PROVIDERS: ADMIT Family Medicine; ATTEND Family Medicine
DX: I13.0 Hypertensive heart and chronic kidney disease with heart failure and stage 1 through stage 4 chronic kidney disease, or unspecified chronic kidney disease (principal); I50.33 Acute on chronic diastolic (congestive) heart failure; I47.1 Supraventricular tachycardia; E11.22 Type 2 diabetes mellitus with diabetic chronic kidney disease; N18.3 Chronic kidney disease, stage 3 (moderate); I25.10 Atherosclerotic heart disease of native coronary artery without angina pectoris; F41.8 Other specified anxiety disorders; I48.0 Paroxysmal atrial fibrillation; I27.2 Other secondary pulmonary hypertension; R26.9 Unspecified abnormalities of gait and mobility; D63.8 Anemia in other chronic diseases classified elsewhere; F10.10 Alcohol abuse, uncomplicated; K70.31 Alcoholic cirrhosis of liver with ascites; Y90.9 Presence of alcohol in blood, level not specified; M19.90 Unspecified osteoarthritis, unspecified site; Z87.891 Personal history of nicotine dependence; Z79.4 Long term (current) use of insulin; Z91.19 Patient's noncompliance with other medical treatment and regimen
CPT/HCPCS: 36415; 71010; 76705; 78582; 80048; 80053; 82550; 82553; 82962; 83735; 83880; 84484; 85025; 93005; 93010; 93970; 93976; 96374; 99285; A9540; A9567; J1940; J3490; Q9969

== ENCOUNTER 2016-09-02 10:50 | Emergency (ER) | payer SELFPAY ==
[2016-09-02] MEDS ORDERED: METOPROLOL SUCCINATE 50 MG TAB.SR.24H PO ONE (11:35)
[2016-09-02 11:39] LABS: ABSOLUTE BASOPHILS # (AUTO) 0.1 10^3/uL (0.0-0.2); ABSOLUTE EOSINOPHILS # (AUTO) 0.2 10^3/uL (0.0-0.6); ABSOLUTE MONOCYTES (AUTO) 0.6 10^3/uL (0.1-1.4); BASOPHILS % (AUTO) 1.4 % (0-2); EOSINOPHILS % (AUTO) 3.5 % (0-6); HEMATOCRIT 26.3 % (37.9-51.0); HEMOGLOBIN 8.8 g/dL (13.5-17.0); HGB HCT DIFFERENCE 0.1; LYMPHOCYTES % (AUTO) 21.2 % (13-45); MEAN CORPUSCULAR HGB CONC 33.3 g/dL (32.0-36.0); MEAN CORPUSCULAR VOLUME 96 fl (80-97); MONOCYTES % (AUTO) 12.3 % (3-13); RED BLOOD COUNT 2.73 10^6/uL (4.35-5.55); RED CELL DISTRIBUTION WIDTH 15.8 % (11.5-14.0); SEGMENTED NEUTROPHILS % (AUTO) 61.6 % (42-78); WHITE BLOOD COUNT 4.9 10^3/uL (4.0-10.5)
[2016-09-02 11:56] LABS: ALANINE AMINOTRANSFERASE 30 U/L (21-72); ALBUMIN 2.7 g/dL (3.5-5.0); ALKALINE PHOSPHATASE 99 U/L (38-126); ANION GAP 8 (5-19); ASPARTATE AMINO TRANSFERASE 63 U/L (17-59); BILIRUBIN,TOTAL 1.1 mg/dL (0.2-1.3); BLOOD UREA NITROGEN 43 mg/dL (7-20); CALCIUM 9.5 mg/dL (8.4-10.2); CARBON DIOXIDE 28 mmol/L (22-30); CHLORIDE 104 mmol/L (98-107); CREATINE KINASE 396 U/L (55-170); CREATININE RESULT 1.73 mg/dL (0.52-1.25); GLUCOSE 86 mg/dL (75-110); SODIUM 139.6 mmol/L (137-145); TOTAL PROTEIN 7.8 g/dL (6.3-8.2)
[2016-09-02 12:10] LABS: CREATINE KINASE MB 2.19 ng/mL (<4.55)
[2016-09-02 12:13] LABS: TROPONIN I < 0.012 ng/mL
[2016-09-02] MEDS ORDERED: FUROSEMIDE INJ/PF 40 MG/4 ML SDV IV ONE (12:44)
--- NOTE | 2016-09-02 13:50 | ER Document Report ---
ED General - General Chief Complaint: Shortness Of Breath Stated Complaint: SHORTNESS OF BREATH TRAVEL OUTSIDE OF THE [place] IN LAST 30 DAYS: No - HPI Patient complains to provider of: shortness of breath Notes: Patient coming in for shortness of breath. Patient with a recent admission for congestive heart failure. Patient states now laboratory having dyspnea on exertion. Patient states he is compliant with his medications however blister packets next the patient's bed with multiple dates with the blisters not open with a medication inside Patient denies chest pain denies fevers chills nausea vomiting. Patient states cough with some mild production. - Related Data Allergies/Adverse Reactions: diltiazem [From Cardizem] Allergy (Verified 08/26/16 12:51) Past Medical History - Social History Smoking Status: Unknown if Ever Smoked Family History: Reviewed & Not Pertinent - Past Medical History Cardiac Medical History: Reports: Hx Atrial Fibrillation, Hx Congestive Heart Failure, Hx Coronary Artery Disease, Hx Heart Attack - pt unsure of this, Hx Hypertension Pulmonary Medical History: Reports: Hx Asthma - childhood Endocrine Medical History: Reports: Hx Diabetes Mellitus Type 2 Renal/ Medical History: Denies: Hx Peritoneal Dialysis Musculoskeltal Medical History: Reports Hx Arthritis - RA, Reports Hx Fibromyalgia Psychiatric Medical History: Reports: Hx Anxiety, Hx Depression Infectious Medical History: Reports: Hx C-Diff Past Surgical History: Reports: Hx Appendectomy, Hx Orthopedic Surgery - L hand , Hx Tonsillectomy - Immunizations Hx Diphtheria, Pertussis, Tetanus Vaccination: Yes Review of Systems - Review of Systems Constitutional: No symptoms reported EENT: No symptoms reported Cardiovascular: No symptoms reported Respiratory: Short of breath, Wheezing Gastrointestinal: No symptoms reported Genitourinary: No symptoms reported Male Genitourinary: No symptoms reported Musculoskeletal: No symptoms reported Skin: No symptoms reported Hematologic/Lymphatic: No symptoms reported Neurological/Psychological: No symptoms reported -: Yes All other systems reviewed and negative Physical Exam - Vital signs Vitals: Resp BP Pulse Ox 18 165/99 H 99 09/02/16 10:59 09/02/16 10:59 09/02/16 10:59 Interpretation: Normal - General General appearance: Appears well, Alert - HEENT Head: Normocephalic, Atraumatic Eyes: Normal Pupils: PERRL - Respiratory Respiratory status: No respiratory distress Chest status: Nontender Breath sounds: Rhonchi Chest palpation: Normal - Cardiovascular Rhythm: Regular Heart sounds: Normal auscultation Murmur: No - Abdominal Inspection: Normal Distension: No distension Bowel sounds: Normal Tenderness: Nontender Organomegaly: No organomegaly - Back Back: Normal, Nontender - Extremities General upper extremity: Normal inspection, Nontender, Normal color, Normal ROM , Normal temperature General lower extremity: Normal inspection, Nontender, Normal color, Normal ROM , Normal temperature, Normal weight bearing. No: Aurora's sign - Neurological Neuro grossly intact: Yes Cognition: Normal Orientation: AAOx4 Joan Coma Scale Eye Opening: Spontaneous Joan Coma Scale Verbal: Oriented Joan Coma Scale Motor: Obeys Commands Joan Coma Scale Total: 15 Speech: Normal Motor strength normal: LUE, RUE, LLE, RLE Sensory: Normal - Psychological Associated symptoms: Normal affect, Normal mood - Skin Skin Temperature: Warm Skin Moisture: Dry Skin Color: Normal Course - Re-evaluation Re-evalutation: 09/02/16 14:52 Patient's lab work shows no acute pathology this time. Troponin negative EKG negative. Patient's BNP is lower than his BMP upon admission. Some mild cardiomegaly with basilar congestion. Patient was given a dose of Lasix here patient showed no signs of hypoxia. Patient is refusing to ambulate however I still think the patient can be discharged home patient is noncompliant with medication would be given medications here explained to patient that he would need to take his medications at home see no need for admission at this time patient was discharged - Vital Signs Vital signs: Temp Pulse Resp BP Pulse Ox 97.1 F 17 150/95 H 98 09/02/16 14:05 09/02/16 14:01 09/02/16 14:01 09/02/16 14:01 - Laboratory Result Diagrams: 09/02/16 11:10 09/02/16 11:10 Laboratory results interpreted by me: 09/02/16 09/02/16 09/02/16 11:10 11:10 11:10 RBC 2.73 L Hgb 8.8 L Hct 26.3 L RDW 15.8 H Plt Count 108 L BUN 43 H Creatinine 1.73 H Est GFR ( Amer) 49 L Est GFR (Non-Af Amer) 40 L AST 63 H Creatine Kinase 396 H NT-Pro-B Natriuret Pep 6750 H Albumin 2.7 L Discharge - Discharge Clinical Impression: Noncompliance with medication regimen CHF (congestive heart failure) Qualifiers: Congestive heart failure type: unspecified congestive heart failure type Congestive heart failure chronicity: acute Qualified Code(s): I50.9 - Heart failure, unspecified Dyspnea Qualifiers: Dyspnea type: unspecified Qualified Code(s): R06.00 - Dyspnea, unspecified Condition: Good Disposition: HOME, SELF-CARE Instructions: Dyspnea, Nonspecific ([facility]), Congestive Heart Failure ([facility]) Additional Instructions: Please take your medications as prescribed. Your chest x-ray and lab work showed no signs of overt heart failure or likely her dyspnea is due to noncompliance of your medications. Follow-up with your primary care physician
[2016-09-02 14:08] VITALS: BP 150/95
--- NOTE | 2016-09-02 22:02 | EKG REPORT ---
SEVERITY:- ABNORMAL ECG - ATRIAL FIBRILLATION LEFT AXIS DEVIATION BORDERLINE PROLONGED QT INTERVAL : Confirmed by: Magen Dubose 02-Sep-2016 22:01:13
== END 2016-09-02 14:05 | disposition home or self-care (01) ==
LOC: ER 10:50
DX: I50.9 Heart failure, unspecified (principal); R06.00 Dyspnea, unspecified; R06.02 Shortness of breath; Z91.14 Patient's other noncompliance with medication regimen
CPT/HCPCS: 93005; 99285; 96374; 36415; 82553; 82550; 85025; 80053; 84484; 83880; 71020; 93010; J1940

== ENCOUNTER 2016-09-12 17:47 | Emergency (ER) | payer SELFPAY ==
[2016-09-12 20:16] LABS: ABSOLUTE BASOPHILS # (AUTO) 0.1 10^3/uL (0.0-0.2); ABSOLUTE EOSINOPHILS # (AUTO) 0.1 10^3/uL (0.0-0.6); ABSOLUTE LYMPHOCYTES (AUTO) 1.3 10^3/uL (0.5-4.7); ABSOLUTE MONOCYTES (AUTO) 0.6 10^3/uL (0.1-1.4); ABSOLUTE NEUT (AUTO) 2.5 10^3/uL (1.7-8.2); BASOPHILS % (AUTO) 1.2 % (0-2); EOSINOPHILS % (AUTO) 2.6 % (0-6); HEMATOCRIT 26.5 % (37.9-51.0); HEMOGLOBIN 8.8 g/dL (13.5-17.0); HGB HCT DIFFERENCE -0.1; LYMPHOCYTES % (AUTO) 28.9 % (13-45); MEAN CORPUSCULAR HEMOGLOBIN 31.8 pg (27.0-33.4); MEAN CORPUSCULAR HGB CONC 33.3 g/dL (32.0-36.0); MEAN CORPUSCULAR VOLUME 95 fl (80-97); MONOCYTES % (AUTO) 12.5 % (3-13); RED BLOOD COUNT 2.78 10^6/uL (4.35-5.55); RED CELL DISTRIBUTION WIDTH 15.2 % (11.5-14.0); SEGMENTED NEUTROPHILS % (AUTO) 54.8 % (42-78); WHITE BLOOD COUNT 4.5 10^3/uL (4.0-10.5)
[2016-09-12 20:29] LABS: ALANINE AMINOTRANSFERASE 30 U/L (21-72); ALKALINE PHOSPHATASE 88 U/L (38-126); ANION GAP 9 (5-19); ASPARTATE AMINO TRANSFERASE 47 U/L (17-59); BILIRUBIN,TOTAL 1.6 mg/dL (0.2-1.3); BLOOD UREA NITROGEN 63 mg/dL (7-20); CALCIUM 9.4 mg/dL (8.4-10.2); CARBON DIOXIDE 26 mmol/L (22-30); CHLORIDE 106 mmol/L (98-107); CREATININE RESULT 2.12 mg/dL (0.52-1.25); GLUCOSE 70 mg/dL (75-110); POTASSIUM 5.5 mmol/L (3.6-5.0); SODIUM 141.2 mmol/L (137-145); TOTAL PROTEIN 7.6 g/dL (6.3-8.2)
--- NOTE | 2016-09-12 21:39 | ER Document Report ---
ED General - General Chief Complaint: Fall Stated Complaint: POSSIBLE SYNCOPAL EPISODE Notes: Patient is a 61-year-old male with past medical history of CHF, morbid obesity, multiple recent assessments in the emergency department on a prior admission for shortness of breath in which he had a normal VQ scan as well as a normal stress echo presents today with an episode in which he became lightheaded when he went from a sitting to standing position abruptly. States that he sat back down couch and the symptoms resolved but he wanted to be assessed. He denies any chest pain, shortness of breath, weakness, numbness, headache, or altered mental status. At time of my evaluation he denies any acute complaints. He has not seen his primary care doctor regarding today's concerns. Admits that he spends the vast majority of his day sitting on his couch and has not ate or drank much today. He denies anything improved or worsened his symptoms. He has had similar symptoms in the past. TRAVEL OUTSIDE OF THE [place] IN LAST 30 DAYS: No - Related Data Allergies/Adverse Reactions: diltiazem [From [facility]] Allergy (Verified 08/26/16 12:51) Past Medical History - General Information source: Patient - Social History Smoking Status: Unknown if Ever Smoked Frequency of alcohol use: sober x2 months Drug Abuse: None Lives with: Alone Family History: Reviewed & Not Pertinent - Past Medical History Cardiac Medical History: Reports: Hx Atrial Fibrillation, Hx Congestive Heart Failure, Hx Coronary Artery Disease, Hx Heart Attack - pt unsure of this, Hx Hypertension Pulmonary Medical History: Reports: Hx Asthma - childhood Endocrine Medical History: Reports: Hx Diabetes Mellitus Type 2 Renal/ Medical History: Denies: Hx Peritoneal Dialysis Musculoskeltal Medical History: Reports Hx Arthritis - RA, Reports Hx Fibromyalgia Psychiatric Medical History: Reports: Hx Anxiety, Hx Depression Infectious Medical History: Reports: Hx C-Diff Past Surgical History: Reports: Hx Appendectomy, Hx Orthopedic Surgery - L hand , Hx Tonsillectomy - Immunizations Hx Diphtheria, Pertussis, Tetanus Vaccination: Yes Review of Systems - Review of Systems Notes: Constitutional: Negative for fever. HENT: Negative for sore throat. Eyes: Negative for visual changes. Cardiovascular: Negative for chest pain. Respiratory: Negative for shortness of breath. Gastrointestinal: Negative for abdominal pain, vomiting or diarrhea. Genitourinary: Negative for dysuria. Musculoskeletal: Negative for back pain. Skin: Negative for rash. Neurological: Negative for headaches, weakness or numbness. 10 point ROS negative except as marked above and in HPI. Physical Exam - Vital signs Vitals: Pulse Resp BP Pulse Ox 72 16 123/77 95 09/12/16 18:10 09/12/16 18:10 09/12/16 18:10 09/12/16 18:10 Interpretation: Normal Notes: PHYSICAL EXAMINATION: GENERAL: Well-appearing, well-nourished and in no acute distress. HEAD: Atraumatic, normocephalic. EYES: Pupils equal round and reactive to light, extraocular movements intact, sclera anicteric, conjunctiva are normal. ENT: nares patent, oropharynx clear without exudates. Moist mucous membranes. NECK: Normal range of motion, supple without lymphadenopathy LUNGS: Breath sounds clear to auscultation bilaterally and equal. No wheezes rales or rhonchi. HEART: Regular rate and rhythm without murmurs ABDOMEN: Soft, nontender, normoactive bowel sounds. No guarding, no rebound. No masses appreciated. EXTREMITIES: Normal range of motion, no pitting or edema. No cyanosis. NEUROLOGICAL: No focal neurological deficits. Moves all extremities spontaneously and on command. PSYCH: Normal mood, normal affect. SKIN: Warm, Dry, normal turgor, no rashes or lesions noted. Course - Re-evaluation Re-evalutation: 09/12/16 21:47 Presentation of near syncope after going from a sitting to standing position consistent with orthostatic hypotension. Patient normotensive, alert, without focal neurologic deficits at time of arrival. Patient denies any symptoms at time of arrival. He states he has not ate or drank anything all day and I suspect this is related to his presentation. Patient asymptomatic at time of arrival. EKG is without evidence of HCOM, right heart strain, ST changes to suggest ischemia, prolong QTc, delta wave, epsilon wave, or Brugada syndrome. Patient's A. fib is again present today. Patient denies any family history of sudden cardiac , personal history of of structural heart disease. Patient denies any symptoms to suggest an acute PE, MO, TAD, SAH, seizure, or acute GI bleed as the etiology of their syncope today. Moreover, his labs are unchanged from baseline as is his EKG. On exam, no murmurs to suggest critical aortic stenosis as possible etiology. Based on overall clinical history, exam findings , vitals, and patients appearance, I feel it is safe for patient to be discharged home at this time with close outpatient follow-up and strict return precautions. Patient is in agreement with this plan, has verbalized indications for return to ED, and questions have been answered. - Vital Signs Vital signs: Temp Pulse Resp BP Pulse Ox 98.2 F 54 L 17 133/89 H 95 09/12/16 22:49 09/12/16 22:49 09/12/16 22:49 09/12/16 22:49 09/12/16 22:49 - Laboratory Result Diagrams: 09/12/16 19:03 09/12/16 19:03 Laboratory results interpreted by me: 09/12/16 09/12/16 19:03 19:03 RBC 2.78 L Hgb 8.8 L Hct 26.5 L RDW 15.2 H Plt Count 119 L Potassium 5.5 H BUN 63 H Creatinine 2.12 H Est GFR ( Amer) 39 L Est GFR (Non-Af Amer) 32 L Glucose 70 L Total Bilirubin 1.6 H Albumin 3.0 L - EKG Interpretation by Me Additional EKG results interpreted by me: 09/12/16 21:49 Atrial fibrillation. Rate 58. No ST elevations or depressions. QTC is 464. Discharge - Discharge Clinical Impression: Near syncope Condition: Good Disposition: HOME, SELF-CARE Additional Instructions: You were seen today after an episode of almost passing out. Your EKG here is normal. At this time, we do not feel that your episode of passing out was from any life-threatening cause. Please drink plenty of fluids over the next several days. Return to emergency department if you have any further episodes of syncope, headache, weakness, numbness, chest pain, or shortness of breath. Please follow up closely with your primary care physician.
[2016-09-12 23:09] VITALS: BP 133/89
--- NOTE | 2016-09-13 08:33 | EKG REPORT ---
SEVERITY:- ABNORMAL ECG - ATRIAL FIBRILLATION NONSPECIFIC IVCD WITH LAD PROBABLE ANTEROSEPTAL INFARCT, OLD : Confirmed by: Tiago Day MD 13-Sep-2016 08:32:09
== END 2016-09-12 23:00 | disposition home or self-care (01) ==
LOC: ER 17:47
DX: R55 Syncope and collapse (principal); W19.XXXA Unspecified fall, initial encounter; I50.9 Heart failure, unspecified
CPT/HCPCS: 36415; 80053; 85025; 93005; 93010; 99284

== ENCOUNTER 2016-09-26 13:40 | Inpatient (IN) | payer SELFPAY ==
[2016-09-26] MEDS ORDERED: GLUCAGON,HUMAN RECOMB 1 MG INJ IM PRN (16:40)
[2016-09-26] MEDS ORDERED: DEXTROSE 40% GEL 15 GM TUBE PO PRN ×2 (16:40)
[2016-09-26] MEDS ORDERED: INSULIN REG, HUMAN 100 UNIT/ML 3 ML VIAL (PYX) SUBCUT PRN (16:40)
[2016-09-26] MEDS ORDERED: DEXTROSE 50%-WATER 25 GM/50 ML DISP.SYRIN IV PRN ×2 (16:40)
[2016-09-26 17:09] LABS: PROTHROMBIN TIME 17.9 SEC (11.4-15.4)
[2016-09-26 17:12] LABS: ABSOLUTE EOSINOPHILS # (AUTO) 0.1 10^3/uL (0.0-0.6); ABSOLUTE LYMPHOCYTES (AUTO) 0.8 10^3/uL (0.5-4.7); ABSOLUTE MONOCYTES (AUTO) 0.5 10^3/uL (0.1-1.4); BASOPHILS % (AUTO) 1.4 % (0-2); EOSINOPHILS % (AUTO) 2.9 % (0-6); HEMATOCRIT 25.9 % (37.9-51.0); HEMOGLOBIN 8.6 g/dL (13.5-17.0); HGB HCT DIFFERENCE -0.1; LYMPHOCYTES % (AUTO) 23.2 % (13-45); MEAN CORPUSCULAR HEMOGLOBIN 31.7 pg (27.0-33.4); MEAN CORPUSCULAR HGB CONC 33.3 g/dL (32.0-36.0); MEAN CORPUSCULAR VOLUME 95 fl (80-97); RED BLOOD COUNT 2.72 10^6/uL (4.35-5.55); RED CELL DISTRIBUTION WIDTH 15.4 % (11.5-14.0); SEGMENTED NEUTROPHILS % (AUTO) 57.5 % (42-78); WHITE BLOOD COUNT 3.5 10^3/uL (4.0-10.5)
[2016-09-26 17:20] LABS: ALANINE AMINOTRANSFERASE 32 U/L (21-72); ALBUMIN 3.1 g/dL (3.5-5.0); ALKALINE PHOSPHATASE 89 U/L (38-126); ANION GAP 9 (5-19); ASPARTATE AMINO TRANSFERASE 51 U/L (17-59); BILIRUBIN,TOTAL 1.2 mg/dL (0.2-1.3); BLOOD UREA NITROGEN 42 mg/dL (7-20); CALCIUM 9.3 mg/dL (8.4-10.2); CARBON DIOXIDE 24 mmol/L (22-30); CHLORIDE 106 mmol/L (98-107); CREATININE RESULT 1.73 mg/dL (0.52-1.25); GLUCOSE 59 mg/dL (75-110); POTASSIUM 4.8 mmol/L (3.6-5.0); SODIUM 139.4 mmol/L (137-145); TOTAL PROTEIN 7.7 g/dL (6.3-8.2)
[2016-09-26] MEDS: MAGNESIUM OXIDE 400 MG TABLET PO SCH (17:43)
[2016-09-26 18:04] LABS: TROPONIN I < 0.012 ng/mL
[2016-09-26] MEDS: FUROSEMIDE INJ/PF 40 MG/4 ML SDV IV SCH (22:11)
[2016-09-26] MEDS: HYDRALAZINE HCL 50 MG TABLET PO SCH (22:12)
[2016-09-27] MEDS: METOPROLOL SUCCINATE 50 MG TAB.SR.24H PO SCH ×3 (01:00→21:27)
[2016-09-27 05:30] LABS: CHOLESTEROL 135.76 mg/dL (0-200); Direct HDL 37 mg/dL (>40); TRIGLYCERIDES 71 mg/dL (<150)
[2016-09-27 05:41] LABS: DIRECT LDL 33 mg/dL (<100)
[2016-09-27] MEDS ORDERED: GLIMEPIRIDE 1 MG TABLET PO SCH (08:00)
[2016-09-27] MEDS: MAGNESIUM OXIDE 400 MG TABLET PO SCH ×2 (09:02→17:21)
[2016-09-27] MEDS: FLUOXETINE HCL 20 MG CAPSULE PO SCH (09:02)
[2016-09-27] MEDS: HYDRALAZINE HCL 50 MG TABLET PO SCH ×2 (09:02→21:27)
[2016-09-27] MEDS: ASPIRIN 81 MG TABLET, ENT COATED PO SCH (09:04)
[2016-09-27] MEDS: FUROSEMIDE INJ/PF 40 MG/4 ML SDV IV SCH ×2 (09:04→21:27)
--- NOTE | 2016-09-27 11:21 | EKG REPORT ---
SEVERITY:- ABNORMAL ECG - ATRIAL FIBRILLATION LEFT ANTERIOR FASCICULAR BLOCK BORDERLINE PROLONGED QT INTERVAL : Confirmed by: Magen Dubose 27-Sep-2016 11:20:54
--- NOTE | 2016-09-27 11:22 | EKG REPORT ---
SEVERITY:- ABNORMAL ECG - A FIB BORDERLINE IVCD WITH LAD PROLONGED QT INTERVAL : Confirmed by: Magen Dubose 27-Sep-2016 11:21:40
--- NOTE | 2016-09-27 14:10 | PDOC H&P ---
History of Present Illness Admission Date/PCP: 09/26/16 13:40 [facility] Patient complains of: Increasing weight about 10-15 pounds in the last 2 weeks. Increase abdominal girth History of Present Illness: DEBORAH WHARTON is a 61 year old male With a known history of chronic alcoholic cirrhosis, chronic diastolic CHF, hypertension CK disease stage 3-4 Was sent for direct admission to a telemetry unit from the [facility] Patient had a history of increasing weight, increased abdominal girth and worsening of his kidney function over the past 3 weeks He denied any chest pain admitted to shortness of breath with exertion He had no fever no chills Denied heavy drinking Initial evaluation showed that indeed he was fluid overloaded with large amount of ascites , peripheral edema Lasix IV was initiated and further test ordered He was admitted as an inpatient , Past Medical History Cardiac Medical History: Reports: Atrial Fibrillation, Congestive Heart Failure , Coronary Artery Disease, Myocardial Infarction - pt unsure of this, Hypertension Pulmonary Medical History: Reports: Asthma - childhood Endocrine Medical History: Reports: Diabetes Mellitus Type 2 Renal/ Medical History: Reports: Chronic Kidney Disease GI Medical History: Reports: Cirrhosis Musculoskeltal Medical History: Reports: Arthritis - RA, Fibromyalgia Psychiatric Medical History: Reports: Depression Hematology: Reports: Anemia Infectious Medical History: Reports: Clostridium Difficile Past Surgical History Past Surgical History: Reports: Appendectomy, Orthopedic Surgery - L hand, Tonsillectomy Social History Information Source: Patient Lives with: Family Smoking Status: Former Smoker Frequency of Alcohol Use: Occasional Hx Recreational Drug Use: Yes Drugs: Marijuana Hx Prescription Drug Abuse: No - Advance Directive Resuscitation Status: Full Code Family History Family History: Reviewed & Not Pertinent Parental Family History Reviewed: Yes Children Family History Reviewed: Yes Sibling(s) Family History Reviewed.: Yes Medication/Allergy Home Medications: Aspirin [Adult Low Dose Aspirin EC] 81 mg PO DAILY 09/26/16 Fluoxetine HCl [Prozac] 20 mg PO QAM 09/26/16 Furosemide [Lasix] 40 mg PO BID 09/26/16 Glimepiride [Amaryl] 1 mg PO QAM 09/26/16 Hydralazine HCl [Apresoline 50 mg Tablet] 50 mg PO Q12 09/26/16 Magnesium Oxide [Mag-Ox 400 mg Tablet] 400 mg PO BID 09/26/16 Metoprolol Succinate [Toprol Xl] 75 mg PO Q12 09/26/16 Allergies/Adverse Reactions: diltiazem [From Cardizem] Allergy (Verified 08/26/16 12:51) Review of Systems Constitutional: PRESENT: weight gain - 15 pounds and couple weeks. ABSENT: chills, fever(s), headache(s), weight loss Eyes: ABSENT: visual disturbances Ears: ABSENT: hearing changes Cardiovascular: ABSENT: chest pain, dyspnea on exertion, edema, orthropnea, palpitations Respiratory: PRESENT: dyspnea. ABSENT: cough, hemoptysis Gastrointestinal: PRESENT: bloating. ABSENT: abdominal pain, constipation, diarrhea, hematemesis, hematochezia, nausea, vomiting Genitourinary: ABSENT: dysuria, hematuria Musculoskeletal: ABSENT: joint swelling Integumentary: PRESENT: other - Edema lower extremities. ABSENT: rash, wounds Neurological: ABSENT: abnormal gait, abnormal speech, confusion, dizziness, focal weakness, syncope Psychiatric: ABSENT: anxiety, depression, homidical ideation, suicidal ideation Endocrine: ABSENT: cold intolerance, heat intolerance, polydipsia, polyuria Hematologic/Lymphatic: ABSENT: easy bleeding, easy bruising Physical Exam Vital Signs: Temp Pulse Resp BP Pulse Ox 98.2 F 61 20 132/81 H 99 09/27/16 11:56 09/27/16 11:56 09/27/16 11:56 09/27/16 11:56 09/27/16 11:56 Intake & Output 09/26/16 09/27/16 09/28/16 00:59 00:59 00:59 Intake Total 310 Output Total 625 Balance -315 Weight 131.9 kg 135.6 kg General appearance: PRESENT: no acute distress, obese Head exam: PRESENT: atraumatic, normocephalic Eye exam: PRESENT: conjunctiva pale Neck exam: ABSENT: carotid bruit, JVD, lymphadenopathy, thyromegaly Respiratory exam: PRESENT: clear to auscultation aba, decreased breath sounds. ABSENT: rales, rhonchi, wheezes Cardiovascular exam: PRESENT: irregular rhythm Pulses: PRESENT: normal dorsalis pedis pul GI/Abdominal exam: PRESENT: ascites, normal bowel sounds, soft. ABSENT: organolmegaly, rebound, rigid, tenderness Rectal exam: PRESENT: deferred Extremities exam: PRESENT: +2 edema Musculoskeletal exam: PRESENT: ambulatory, full ROM. ABSENT: deformity Neurological exam: PRESENT: alert, awake, oriented to person, oriented to place , oriented to time, oriented to situation, CN II-XII grossly intact. ABSENT: motor sensory deficit Skin exam: PRESENT: dry, intact, warm. ABSENT: cyanosis, rash Results Laboratory Results: 09/26/16 16:35 09/26/16 16:35 09/26/16 09/26/16 09/26/16 16:35 16:35 16:35 WBC 3.5 L RBC 2.72 L Hgb 8.6 L Hct 25.9 L MCV 95 MCH 31.7 MCHC 33.3 RDW 15.4 H Plt Count 99 L Seg Neutrophils % 57.5 Lymphocytes % 23.2 Monocytes % 15.0 H Eosinophils % 2.9 Basophils % 1.4 Absolute Neutrophils 2.0 Absolute Lymphocytes 0.8 Absolute Monocytes 0.5 Absolute Eosinophils 0.1 Absolute Basophils 0.0 Sodium 139.4 Potassium 4.8 Chloride 106 Carbon Dioxide 24 Anion Gap 9 BUN 42 H Creatinine 1.73 H Est GFR ( Amer) 49 L Est GFR (Non-Af Amer) 40 L Glucose 59 L Calcium 9.3 Total Bilirubin 1.2 AST 51 ALT 32 Alkaline Phosphatase 89 Total Protein 7.7 Albumin 3.1 L Triglycerides Cholesterol LDL Cholesterol Direct VLDL Cholesterol HDL Cholesterol TSH 1.55 09/27/16 04:39 WBC RBC Hgb Hct MCV MCH MCHC RDW Plt Count Seg Neutrophils % Lymphocytes % Monocytes % Eosinophils % Basophils % Absolute Neutrophils Absolute Lymphocytes Absolute Monocytes Absolute Eosinophils Absolute Basophils Sodium Potassium Chloride Carbon Dioxide Anion Gap BUN Creatinine Est GFR ( Amer) Est GFR (Non-Af Amer) Glucose Calcium Total Bilirubin AST ALT Alkaline Phosphatase Total Protein Albumin Triglycerides 71 Cholesterol 135.76 LDL Cholesterol Direct 33 VLDL Cholesterol 14.0 HDL Cholesterol 37 L TSH 09/26/16 09/26/16 09/27/16 16:35 22:45 04:39 Troponin I < 0.012 < 0.012 < 0.012 NT-Pro-B Natriuret Pep 7640 H EKG Comments: ATRIAL FIBRILLATION [LAFB] . LEFT ANTERIOR FASCICULAR BLOCK [LQTB] . BORDERLINE PROLONGED QT INTERVAL Impressions: Chest X-Ray 09/26/16 16:20 IMPRESSION: NO ACUTE CARDIOPULMONARY PROCESS. NO SIGNIFICANT CHANGE FROM PRIOR STUDY. Abdomen Ultrasound 09/26/16 16:40 IMPRESSION: MODERATE TO LARGE VOLUME ASCITES. CHOLELITHIASIS. Assessment & Plan - Diagnosis (1) Acute on chronic diastolic CHF (congestive heart failure) Is this a current diagnosis for this admission?: YesPlan: Secondary to fluid overload ; we will give the patient Lasix IV and start fluid restriction (2) CKD (chronic kidney disease), stage IV Is this a current diagnosis for this admission?: YesPlan: Follow-up BMP closely (3) Ascites Qualifiers: Ascites type: due to alcoholic cirrhosis Qualified Code(s): K70.31 - Alcoholic cirrhosis of liver with ascites Is this a current diagnosis for this admission?: YesPlan: Patient will be scheduled for an ultrasound of the abdomen to evaluate the amount of ascites And peritoneal tap will be scheduled in IR (4) Anemia of chronic disease Is this a current diagnosis for this admission?: YesPlan: His iron studies and vitamin B-12 were within normal range in July (5) Diabetes mellitus type 2 in obese Is this a current diagnosis for this admission?: YesPlan: Continue prior management We will a also order Accu-Cheks before meals at bedtime (6) A-fib Qualifiers: Atrial fibrillation type: chronic Qualified Code(s): I48.2 - Chronic atrial fibrillation Is this a current diagnosis for this admission?: YesPlan: Chronic A. fib patient was not a candidate for anticoagulation We will monitor (7) Cirrhosis Qualifiers: Hepatic cirrhosis type: alcoholic cirrhosis Ascites presence: with ascites Qualified Code(s): K70.31 - Alcoholic cirrhosis of liver with ascites Is this a current diagnosis for this admission?: YesPlan: We will send the ascitic fluid for culture And infuse albumin after the tap (8) Hypertension Qualifiers: Hypertension type: essential hypertension Qualified Code(s): I10 - Essential (primary) hypertension Is this a current diagnosis for this admission?: YesPlan: Continue prior medications - Time Time Spent with patient: Patient was admitted as an inpatient Time Spent: 50 to 70 Minutes
--- NOTE | 2016-09-27 14:40 | PDOC PROGRESS REPORT ---
Subjective Progress Note for:: 09/27/16 Subjective:: Patient is complaining of thirst ; he has no respiratory distress is laying flat very comfortably He is alert awake Physical Exam Vital Signs: Temp Pulse Resp BP Pulse Ox 98.2 F 61 20 132/81 H 99 09/27/16 11:56 09/27/16 11:56 09/27/16 11:56 09/27/16 11:56 09/27/16 11:56 Intake & Output 09/26/16 09/27/16 09/28/16 00:59 00:59 00:59 Intake Total 310 Output Total 625 Balance -315 Weight 131.9 kg 135.6 kg General appearance: PRESENT: no acute distress, cooperative, obese Eye exam: PRESENT: conjunctiva pale Ear exam: PRESENT: normal external ear exam Mouth exam: PRESENT: moist, tongue midline Neck exam: ABSENT: carotid bruit, JVD, lymphadenopathy, thyromegaly Respiratory exam: PRESENT: clear to auscultation aba, decreased breath sounds. ABSENT: rales, rhonchi, wheezes Cardiovascular exam: PRESENT: irregular rhythm. ABSENT: diastolic murmur, systolic murmur Pulses: PRESENT: normal dorsalis pedis pul GI/Abdominal exam: PRESENT: ascites Rectal exam: PRESENT: deferred Neurological exam: PRESENT: alert, awake, oriented to person, oriented to place , oriented to time, oriented to situation, CN II-XII grossly intact. ABSENT: motor sensory deficit Skin exam: PRESENT: dry, intact, warm. ABSENT: cyanosis, rash Results Laboratory Results: 09/26/16 16:35 09/26/16 16:35 09/26/16 09/26/16 09/26/16 16:35 16:35 16:35 WBC 3.5 L RBC 2.72 L Hgb 8.6 L Hct 25.9 L MCV 95 MCH 31.7 MCHC 33.3 RDW 15.4 H Plt Count 99 L Seg Neutrophils % 57.5 Lymphocytes % 23.2 Monocytes % 15.0 H Eosinophils % 2.9 Basophils % 1.4 Absolute Neutrophils 2.0 Absolute Lymphocytes 0.8 Absolute Monocytes 0.5 Absolute Eosinophils 0.1 Absolute Basophils 0.0 Sodium 139.4 Potassium 4.8 Chloride 106 Carbon Dioxide 24 Anion Gap 9 BUN 42 H Creatinine 1.73 H Est GFR ( Amer) 49 L Est GFR (Non-Af Amer) 40 L Glucose 59 L Calcium 9.3 Total Bilirubin 1.2 AST 51 ALT 32 Alkaline Phosphatase 89 Total Protein 7.7 Albumin 3.1 L Triglycerides Cholesterol LDL Cholesterol Direct VLDL Cholesterol HDL Cholesterol TSH 1.55 09/27/16 04:39 WBC RBC Hgb Hct MCV MCH MCHC RDW Plt Count Seg Neutrophils % Lymphocytes % Monocytes % Eosinophils % Basophils % Absolute Neutrophils Absolute Lymphocytes Absolute Monocytes Absolute Eosinophils Absolute Basophils Sodium Potassium Chloride Carbon Dioxide Anion Gap BUN Creatinine Est GFR ( Amer) Est GFR (Non-Af Amer) Glucose Calcium Total Bilirubin AST ALT Alkaline Phosphatase Total Protein Albumin Triglycerides 71 Cholesterol 135.76 LDL Cholesterol Direct 33 VLDL Cholesterol 14.0 HDL Cholesterol 37 L TSH 09/26/16 09/26/16 09/27/16 16:35 22:45 04:39 Troponin I < 0.012 < 0.012 < 0.012 NT-Pro-B Natriuret Pep 7640 H Impressions: Chest X-Ray 09/26/16 16:20 IMPRESSION: NO ACUTE CARDIOPULMONARY PROCESS. NO SIGNIFICANT CHANGE FROM PRIOR STUDY. Abdomen Ultrasound 09/26/16 16:40 IMPRESSION: MODERATE TO LARGE VOLUME ASCITES. CHOLELITHIASIS. Assessment & Plan - Diagnosis (1) Acute on chronic diastolic CHF (congestive heart failure) Is this a current diagnosis for this admission?: YesPlan: BNP is elevated Patient does have 3 negative troponins There is no evidence of an acute coronary syndrome We will continue Lasix IV (2) CKD (chronic kidney disease), stage IV Is this a current diagnosis for this admission?: YesPlan: Renal function appears stable ; we will repeat BMP in a.m. Patient likely has diabetic nephropathy and he did have proteinuria in the past ; we will try to quantify the excretion of protein with a urine spot protein creatinine Proteinuria and hypoalbuminemia are contributing to the the peripheral edema (3) Ascites Qualifiers: Ascites type: due to alcoholic cirrhosis Qualified Code(s): K70.31 - Alcoholic cirrhosis of liver with ascites Is this a current diagnosis for this admission?: YesPlan: Large ascites We will schedule a paracentesis for tomorrow Albumin infusion will be scheduled after paracentesis (4) Anemia of chronic disease Is this a current diagnosis for this admission?: YesPlan: Iron studies and vitamin B-12 were normal in July We will obtain stools for occult blood H&H is stable Anemia of chronic disease is secondary to chronic liver disease and also CKD stage III We will give the patient Procrit 10,000 units subcutaneous (5) Diabetes mellitus type 2 in obese Is this a current diagnosis for this admission?: YesPlan: Patient's blood sugars are running low We will discontinue Amaryl and liberalize diet (6) A-fib Qualifiers: Atrial fibrillation type: chronic Qualified Code(s): I48.2 - Chronic atrial fibrillation Is this a current diagnosis for this admission?: YesPlan: Chronic A. fib rate controlled ; continue metoprolol Patient is not a candidate for anticoagulation (7) Cirrhosis Qualifiers: Hepatic cirrhosis type: alcoholic cirrhosis Ascites presence: with ascites Qualified Code(s): K70.31 - Alcoholic cirrhosis of liver with ascites Is this a current diagnosis for this admission?: YesPlan: Cirrhosis secondary to alcoholic liver disease Now complicated by the chronic renal failure Continue the present management (8) Hypertension Qualifiers: Hypertension type: essential hypertension Qualified Code(s): I10 - Essential (primary) hypertension Is this a current diagnosis for this admission?: YesPlan: Is controlled Continue the present meds - Time Time Spent with patient: 15-24 minutes
[2016-09-27 17:49] LABS: FLUID TYPE PERITONEAL
[2016-09-27 17:50] LABS: FLUID APPEARANCE CLEAR; FLUID RBC SIDE 1 206
[2016-09-27 17:51] LABS: FLUID RBC DILUENT USED NONE USED; FLUID RBC DILUTION FACTOR 1; FLUID RBC SIDE 2 192; TOTAL RBC SQUARES COUNTED FLD 75
[2016-09-27 18:09] LABS: APPEARANCE,URINE CLEAR; BILIRUBIN,URINE NEGATIVE (NEGATIVE); GLUCOSE, URINE NEGATIVE (NEGATIVE); KETONES,URINE NEGATIVE (NEGATIVE); LEUKOCYTE ESTERASE,URINE TRACE (NEGATIVE); NITRITE,URINE NEGATIVE (NEGATIVE); PROTEIN,URINE NEGATIVE (NEGATIVE); URINE SPECIFIC GRAVITY 1.009; UROBILINOGEN,URINE NEGATIVE mg/dL (<2.0)
[2016-09-28 06:47] LABS: PROTHROMBIN TIME 18.4 SEC (11.4-15.4)
[2016-09-28 06:52] LABS: ANION GAP 9 (5-19); BLOOD UREA NITROGEN 46 mg/dL (7-20); CARBON DIOXIDE 24 mmol/L (22-30); CHLORIDE 105 mmol/L (98-107); CREATININE RESULT 1.66 mg/dL (0.52-1.25); GLUCOSE 46 mg/dL (75-110); SODIUM 137.9 mmol/L (137-145)
[2016-09-28] MEDS: METOPROLOL SUCCINATE 50 MG TAB.SR.24H PO SCH ×2 (09:54→21:49)
[2016-09-28] MEDS: MAGNESIUM OXIDE 400 MG TABLET PO SCH ×2 (09:55→16:51)
[2016-09-28] MEDS: ASPIRIN 81 MG TABLET, ENT COATED PO SCH (09:55)
[2016-09-28] MEDS: FUROSEMIDE INJ/PF 40 MG/4 ML SDV IV SCH ×2 (09:55→21:49)
[2016-09-28] MEDS: HYDRALAZINE HCL 50 MG TABLET PO SCH ×2 (09:55→21:49)
[2016-09-28] MEDS: FLUOXETINE HCL 20 MG CAPSULE PO SCH (09:55)
[2016-09-28] MEDS ORDERED: DEXTROSE 10%-WATER 1,000 ML IV PRN (10:11)
[2016-09-28] MEDS: ALBUMIN HUMAN 50 ML IV SCH ×3 (11:48→14:28)
--- NOTE | 2016-09-28 12:49 | PDOC PROGRESS REPORT ---
Subjective Progress Note for:: 09/28/16 Subjective:: doing well still thursty had paracentesis this am and 6000 mlascites were drained nofever SOB or abdominal pain Physical Exam Vital Signs: Temp Pulse Resp BP Pulse Ox 98.0 F 62 18 114/69 100 09/28/16 07:32 09/28/16 07:32 09/28/16 07:32 09/28/16 07:32 09/28/16 07:32 Intake & Output 09/27/16 09/28/16 09/29/16 00:59 00:59 00:59 Intake Total 310 302 Output Total 625 650 Balance -315 -348 Weight 131.9 kg 135.6 kg 122.8 kg General appearance: PRESENT: no acute distress, morbidly obese Head exam: PRESENT: atraumatic, normocephalic Eye exam: PRESENT: conjunctiva pale Neck exam: ABSENT: carotid bruit, JVD, lymphadenopathy, thyromegaly Respiratory exam: PRESENT: clear to auscultation aba. ABSENT: rales, rhonchi, wheezes Cardiovascular exam: PRESENT: RRR. ABSENT: diastolic murmur, rubs, systolic murmur Pulses: PRESENT: normal dorsalis pedis pul GI/Abdominal exam: PRESENT: ascites, soft. ABSENT: tenderness Neurological exam: PRESENT: alert, awake, oriented to person, oriented to place , oriented to time, oriented to situation, CN II-XII grossly intact. ABSENT: motor sensory deficit Results Laboratory Results: 09/26/16 16:35 09/28/16 05:56 09/27/16 09/27/16 09/27/16 15:27 17:30 19:35 Sodium Potassium Chloride Carbon Dioxide Anion Gap BUN Creatinine Est GFR ( Amer) Est GFR (Non-Af Amer) Glucose Calcium Urine Color YELLOW Urine Appearance CLEAR Urine pH 5.0 Ur Specific [place] 1.009 Urine Protein NEGATIVE Urine Glucose (UA) NEGATIVE Urine Ketones NEGATIVE Urine Blood MODERATE H Urine Nitrite NEGATIVE Ur Leukocyte Esterase TRACE H Urine WBC (Auto) 15 Urine RBC (Auto) 17 Fluid Type PERITONEAL Fluid Source ASCITES Fluid Color YELLOW Fluid Appearance CLEAR Fluid Viscosity LIQUID Fluid WBC 333 Fluid RBC 663 Stool Occult Blood NEGATIVE 09/28/16 05:56 Sodium 137.9 Potassium 5.0 Chloride 105 Carbon Dioxide 24 Anion Gap 9 BUN 46 H Creatinine 1.66 H Est GFR ( Amer) 51 L Est GFR (Non-Af Amer) 42 L Glucose 46 L Calcium 9.0 Urine Color Urine Appearance Urine pH Ur Specific [place] Urine Protein Urine Glucose (UA) Urine Ketones Urine Blood Urine Nitrite Ur Leukocyte Esterase Urine WBC (Auto) Urine RBC (Auto) Fluid Type Fluid Source Fluid Color Fluid Appearance Fluid Viscosity Fluid WBC Fluid RBC Stool Occult Blood 09/26/16 09/26/16 09/27/16 16:35 22:45 04:39 Troponin I < 0.012 < 0.012 < 0.012 NT-Pro-B Natriuret Pep 7640 H Impressions: Chest X-Ray 09/26/16 16:20 IMPRESSION: NO ACUTE CARDIOPULMONARY PROCESS. NO SIGNIFICANT CHANGE FROM PRIOR STUDY. Abdomen Ultrasound 09/26/16 16:40 IMPRESSION: MODERATE TO LARGE VOLUME ASCITES. CHOLELITHIASIS. Paracentesis Ultrasound 09/27/16 14:29 IMPRESSION: Successful ultrasound-guided THERAPEUTIC AND DIAGNOSTIC paracentesis Assessment & Plan - Diagnosis (1) Acute on chronic diastolic CHF (congestive heart failure) Is this a current diagnosis for this admission?: Yes (2) CKD (chronic kidney disease), stage IV Is this a current diagnosis for this admission?: Yes (3) Ascites Qualifiers: Ascites type: due to alcoholic cirrhosis Qualified Code(s): K70.31 - Alcoholic cirrhosis of liver with ascites Is this a current diagnosis for this admission?: Yes (4) Anemia of chronic disease Is this a current diagnosis for this admission?: Yes (5) Diabetes mellitus type 2 in obese Is this a current diagnosis for this admission?: Yes (6) A-fib Qualifiers: Atrial fibrillation type: chronic Qualified Code(s): I48.2 - Chronic atrial fibrillation Is this a current diagnosis for this admission?: Yes (7) Cirrhosis Qualifiers: Hepatic cirrhosis type: alcoholic cirrhosis Ascites presence: with ascites Qualified Code(s): K70.31 - Alcoholic cirrhosis of liver with ascites Is this a current diagnosis for this admission?: Yes (8) Hypertension Qualifiers: Hypertension type: essential hypertension Qualified Code(s): I10 - Essential (primary) hypertension Is this a current diagnosis for this admission?: Yes - Time Time Spent with patient: continue diuresis with lasix renal function is stable albumin infusion patient will likely be discharged in 24-48 hours
[2016-09-29] MEDS: FLUOXETINE HCL 20 MG CAPSULE PO SCH (08:48)
[2016-09-29] MEDS: FUROSEMIDE INJ/PF 40 MG/4 ML SDV IV SCH ×2 (10:17→21:39)
[2016-09-29] MEDS: METOPROLOL SUCCINATE 50 MG TAB.SR.24H PO SCH ×2 (10:18→21:39)
[2016-09-29] MEDS: ASPIRIN 81 MG TABLET, ENT COATED PO SCH (10:18)
[2016-09-29] MEDS: HYDRALAZINE HCL 50 MG TABLET PO SCH ×2 (10:18→21:39)
[2016-09-29] MEDS: MAGNESIUM OXIDE 400 MG TABLET PO SCH ×2 (10:18→17:21)
[2016-09-29] MEDS ORDERED: DEXTROSE 10%-WATER 1,000 ML IV PRN (11:45)
--- NOTE | 2016-09-29 17:03 | PDOC PROGRESS REPORT ---
Subjective Progress Note for:: 09/29/16 Subjective:: Patient is doing very well Is feeling better less shortness of breath no chest pain The edema is improved The renal function is stable He is complaining of being very weak and she evaluation was requested Physical Exam Vital Signs: Temp Pulse Resp BP Pulse Ox 98.1 F 61 18 111/76 98 09/29/16 15:58 09/29/16 15:58 09/29/16 15:58 09/29/16 15:58 09/29/16 15:58 Intake & Output 09/28/16 09/29/16 09/30/16 00:59 00:59 00:59 Intake Total 310 1162 1555 Output Total 625 995 425 Balance -789 906 9716 Weight 135.6 kg 122.8 kg 127.8 kg General appearance: PRESENT: no acute distress, morbidly obese Head exam: PRESENT: atraumatic, normocephalic Eye exam: PRESENT: conjunctiva pink, EOMI, PERRLA. ABSENT: scleral icterus Neck exam: ABSENT: carotid bruit, JVD, lymphadenopathy, thyromegaly Respiratory exam: PRESENT: clear to auscultation aba. ABSENT: rales, rhonchi, wheezes Cardiovascular exam: PRESENT: RRR. ABSENT: diastolic murmur, rubs, systolic murmur GI/Abdominal exam: PRESENT: ascites, distended Neurological exam: PRESENT: alert, awake, oriented to person, oriented to place , oriented to time, oriented to situation, CN II-XII grossly intact. ABSENT: motor sensory deficit Results Laboratory Results: 09/26/16 16:35 09/28/16 05:56 09/26/16 09/26/16 09/27/16 16:35 22:45 04:39 Troponin I < 0.012 < 0.012 < 0.012 NT-Pro-B Natriuret Pep 7640 H Impressions: Chest X-Ray 09/26/16 16:20 IMPRESSION: NO ACUTE CARDIOPULMONARY PROCESS. NO SIGNIFICANT CHANGE FROM PRIOR STUDY. Abdomen Ultrasound 09/26/16 16:40 IMPRESSION: MODERATE TO LARGE VOLUME ASCITES. CHOLELITHIASIS. Paracentesis Ultrasound 09/27/16 14:29 IMPRESSION: Successful ultrasound-guided THERAPEUTIC AND DIAGNOSTIC paracentesis Assessment & Plan - Diagnosis (1) Acute on chronic diastolic CHF (congestive heart failure) Is this a current diagnosis for this admission?: Yes (2) CKD (chronic kidney disease), stage IV Is this a current diagnosis for this admission?: Yes (3) Ascites Qualifiers: Ascites type: due to alcoholic cirrhosis Qualified Code(s): K70.31 - Alcoholic cirrhosis of liver with ascites Is this a current diagnosis for this admission?: Yes (4) Anemia of chronic disease Is this a current diagnosis for this admission?: Yes (5) Diabetes mellitus type 2 in obese Is this a current diagnosis for this admission?: Yes (6) A-fib Qualifiers: Atrial fibrillation type: chronic Qualified Code(s): I48.2 - Chronic atrial fibrillation Is this a current diagnosis for this admission?: Yes (7) Cirrhosis Qualifiers: Hepatic cirrhosis type: alcoholic cirrhosis Ascites presence: with ascites Qualified Code(s): K70.31 - Alcoholic cirrhosis of liver with ascites Is this a current diagnosis for this admission?: Yes (8) Hypertension Qualifiers: Hypertension type: essential hypertension Qualified Code(s): I10 - Essential (primary) hypertension Is this a current diagnosis for this admission?: Yes - Time Time Spent with patient: We'll continue with present management Patient to be evaluated for discharge in a.m. if he can ambulate safely Time Spent with patient: 25-34 minutes
[2016-09-29 18:36] LABS: APPEARANCE,URINE SLIGHTLY-CLOUDY; BILIRUBIN,URINE NEGATIVE (NEGATIVE); GLUCOSE, URINE NEGATIVE (NEGATIVE); KETONES,URINE NEGATIVE (NEGATIVE); LEUKOCYTE ESTERASE,URINE MODERATE (NEGATIVE); NITRITE,URINE NEGATIVE (NEGATIVE); PROTEIN,URINE NEGATIVE (NEGATIVE); URINE SPECIFIC GRAVITY 1.011; UROBILINOGEN,URINE NEGATIVE mg/dL (<2.0)
[2016-09-30 05:08] LABS: ANION GAP 11 (5-19); BLOOD UREA NITROGEN 51 mg/dL (7-20); CALCIUM 8.8 mg/dL (8.4-10.2); CARBON DIOXIDE 25 mmol/L (22-30); CHLORIDE 101 mmol/L (98-107); CREATININE RESULT 1.99 mg/dL (0.52-1.25); GLUCOSE 95 mg/dL (75-110); POTASSIUM 5.3 mmol/L (3.6-5.0); SODIUM 136.8 mmol/L (137-145)
[2016-09-30] MEDS: FLUOXETINE HCL 20 MG CAPSULE PO SCH (07:33)
[2016-09-30] MEDS: HYDRALAZINE HCL 50 MG TABLET PO SCH (09:48)
[2016-09-30] MEDS: METOPROLOL SUCCINATE 50 MG TAB.SR.24H PO SCH ×2 (09:48→21:39)
[2016-09-30] MEDS: FUROSEMIDE INJ/PF 40 MG/4 ML SDV IV SCH (09:48)
[2016-09-30] MEDS: ASPIRIN 81 MG TABLET, ENT COATED PO SCH (09:48)
[2016-09-30] MEDS: MAGNESIUM OXIDE 400 MG TABLET PO SCH ×2 (09:49→17:12)
[2016-09-30] MEDS ORDERED: HYDRALAZINE HCL 50 MG TABLET PO SCH (11:37)
[2016-09-30] MEDS ORDERED: FUROSEMIDE INJ/PF 40 MG/4 ML SDV IV SCH (12:00)
[2016-09-30] MEDS ORDERED: FUROSEMIDE INJ/PF 100 MG/10 ML SDV IV ONE (12:30)
[2016-09-30] MEDS: CEFTRIAXONE 1 GM/D5W RTU 1 GM/50 ML RTUPB IV SCH (13:40)
--- NOTE | 2016-09-30 18:12 | PDOC PROGRESS REPORT ---
Subjective Progress Note for:: 09/30/16 Subjective:: Patient states he feels extremely tired He has no chest pain no shortness of breath No abdominal pain Urine cultures pending Physical Exam Vital Signs: Temp Pulse Resp BP Pulse Ox 98.1 F 67 20 121/74 99 09/30/16 15:53 09/30/16 15:53 09/30/16 15:53 09/30/16 15:53 09/30/16 15:53 Intake & Output 09/29/16 09/30/16 10/01/16 00:59 00:59 00:59 Intake Total 1162 1805 1350 Output Total 995 425 600 Balance 167 1380 750 Weight 122.8 kg 127.8 kg 127.9 kg General appearance: PRESENT: no acute distress, morbidly obese Head exam: PRESENT: atraumatic, normocephalic Eye exam: PRESENT: conjunctiva pale, EOMI, PERRLA. ABSENT: scleral icterus Neck exam: ABSENT: carotid bruit, JVD, lymphadenopathy, thyromegaly Respiratory exam: PRESENT: decreased breath sounds. ABSENT: rales, rhonchi, wheezes Cardiovascular exam: PRESENT: RRR. ABSENT: diastolic murmur, rubs, systolic murmur Pulses: PRESENT: normal dorsalis pedis pul Vascular exam: PRESENT: normal capillary refill GI/Abdominal exam: PRESENT: ascites, distended, normal bowel sounds, soft. ABSENT: guarding, mass, organolmegaly, rebound, tenderness Rectal exam: PRESENT: deferred Extremities exam: PRESENT: full ROM. ABSENT: calf tenderness, clubbing, pedal edema Neurological exam: PRESENT: alert, awake, oriented to person, oriented to place , oriented to time, oriented to situation, CN II-XII grossly intact. ABSENT: motor sensory deficit Psychiatric exam: PRESENT: appropriate affect, normal mood. ABSENT: homicidal ideation, suicidal ideation Skin exam: PRESENT: dry, intact, warm. ABSENT: cyanosis, rash Results Laboratory Results: 09/26/16 16:35 09/30/16 04:27 09/29/16 09/30/16 18:04 04:27 Sodium 136.8 L Potassium 5.3 H Chloride 101 Carbon Dioxide 25 Anion Gap 11 BUN 51 H Creatinine 1.99 H Est GFR ( Amer) 42 L Est GFR (Non-Af Amer) 34 L Glucose 95 Calcium 8.8 Urine Color YELLOW Urine Appearance SLIGHTLY-CLOUDY Urine pH 5.0 Ur Specific [place] 1.011 Urine Protein NEGATIVE Urine Glucose (UA) NEGATIVE Urine Ketones NEGATIVE Urine Blood SMALL H Urine Nitrite NEGATIVE Ur Leukocyte Esterase MODERATE H Urine WBC (Auto) 52 Urine RBC (Auto) 17 09/26/16 09/26/16 09/27/16 16:35 22:45 04:39 Troponin I < 0.012 < 0.012 < 0.012 NT-Pro-B Natriuret Pep 7640 H Impressions: Chest X-Ray 09/26/16 16:20 IMPRESSION: NO ACUTE CARDIOPULMONARY PROCESS. NO SIGNIFICANT CHANGE FROM PRIOR STUDY. Abdomen Ultrasound 09/26/16 16:40 IMPRESSION: MODERATE TO LARGE VOLUME ASCITES. CHOLELITHIASIS. Paracentesis Ultrasound 09/27/16 14:29 IMPRESSION: Successful ultrasound-guided THERAPEUTIC AND DIAGNOSTIC paracentesis Assessment & Plan - Diagnosis (1) Acute on chronic diastolic CHF (congestive heart failure) Is this a current diagnosis for this admission?: Yes (2) CKD (chronic kidney disease), stage IV Is this a current diagnosis for this admission?: Yes (3) Ascites Qualifiers: Ascites type: due to alcoholic cirrhosis Qualified Code(s): K70.31 - Alcoholic cirrhosis of liver with ascites Is this a current diagnosis for this admission?: Yes (4) Anemia of chronic disease Is this a current diagnosis for this admission?: Yes (5) Diabetes mellitus type 2 in obese Is this a current diagnosis for this admission?: Yes (6) A-fib Qualifiers: Atrial fibrillation type: chronic Qualified Code(s): I48.2 - Chronic atrial fibrillation Is this a current diagnosis for this admission?: Yes (7) Cirrhosis Qualifiers: Hepatic cirrhosis type: alcoholic cirrhosis Ascites presence: with ascites Qualified Code(s): K70.31 - Alcoholic cirrhosis of liver with ascites Is this a current diagnosis for this admission?: Yes (8) Hypertension Qualifiers: Hypertension type: essential hypertension Qualified Code(s): I10 - Essential (primary) hypertension Is this a current diagnosis for this admission?: Yes - Time Time Spent with patient: We'll continue Lasix IV Reevaluate patient in a.m. with a BMP and [facility]; patient likely will be discharged home in a.m. Time Spent with patient: 15-24 minutes
[2016-09-30] MEDS: FUROSEMIDE INJ/PF 100 MG/10 ML SDV IV SCH (21:39)
[2016-09-30] MEDS: HYDRALAZINE HCL 25 MG TABLET PO SCH (21:39)
[2016-10-01 05:20] LABS: ANION GAP 6 (5-19); BLOOD UREA NITROGEN 55 mg/dL (7-20); CALCIUM 9.1 mg/dL (8.4-10.2); CARBON DIOXIDE 29 mmol/L (22-30); CHLORIDE 101 mmol/L (98-107); CREATININE RESULT 1.95 mg/dL (0.52-1.25); GLUCOSE 98 mg/dL (75-110); SODIUM 136.4 mmol/L (137-145)
[2016-10-01 05:27] LABS: ABSOLUTE BASOPHILS # (AUTO) 0.1 10^3/uL (0.0-0.2); ABSOLUTE EOSINOPHILS # (AUTO) 0.2 10^3/uL (0.0-0.6); ABSOLUTE MONOCYTES (AUTO) 0.5 10^3/uL (0.1-1.4); ABSOLUTE NEUT (AUTO) 2.3 10^3/uL (1.7-8.2); BASOPHILS % (AUTO) 1.3 % (0-2); EOSINOPHILS % (AUTO) 4.8 % (0-6); HEMATOCRIT 24.2 % (37.9-51.0); HEMOGLOBIN 8.3 g/dL (13.5-17.0); HGB HCT DIFFERENCE 0.7; LYMPHOCYTES % (AUTO) 24.9 % (13-45); MEAN CORPUSCULAR HEMOGLOBIN 32.2 pg (27.0-33.4); MEAN CORPUSCULAR HGB CONC 34.4 g/dL (32.0-36.0); MEAN CORPUSCULAR VOLUME 94 fl (80-97); MONOCYTES % (AUTO) 12.2 % (3-13); RED BLOOD COUNT 2.58 10^6/uL (4.35-5.55); RED CELL DISTRIBUTION WIDTH 15.6 % (11.5-14.0); SEGMENTED NEUTROPHILS % (AUTO) 56.8 % (42-78)
[2016-10-01] MEDS: FLUOXETINE HCL 20 MG CAPSULE PO SCH (07:20)
[2016-10-01] MEDS: METOPROLOL SUCCINATE 50 MG TAB.SR.24H PO SCH ×2 (09:22→21:36)
[2016-10-01] MEDS: MAGNESIUM OXIDE 400 MG TABLET PO SCH ×2 (09:22→17:17)
[2016-10-01] MEDS: HYDRALAZINE HCL 25 MG TABLET PO SCH ×2 (09:23→21:36)
[2016-10-01] MEDS: FUROSEMIDE INJ/PF 100 MG/10 ML SDV IV SCH ×2 (09:23→21:33)
[2016-10-01] MEDS: ASPIRIN 81 MG TABLET, ENT COATED PO SCH (09:23)
[2016-10-01] MEDS ORDERED: NORMAL SALINE 250 ML IV PRN ×2 (11:34)
[2016-10-01] MEDS: CEFTRIAXONE 1 GM/D5W RTU 1 GM/50 ML RTUPB IV SCH (13:00)
[2016-10-01 20:02] LABS: HEMATOCRIT 26.1 % (37.9-51.0); HEMOGLOBIN 8.9 g/dL (13.5-17.0); HGB HCT DIFFERENCE 0.6; MEAN CORPUSCULAR HEMOGLOBIN 31.7 pg (27.0-33.4); MEAN CORPUSCULAR HGB CONC 34.2 g/dL (32.0-36.0); MEAN CORPUSCULAR VOLUME 93 fl (80-97); RED BLOOD COUNT 2.81 10^6/uL (4.35-5.55); RED CELL DISTRIBUTION WIDTH 15.9 % (11.5-14.0); WHITE BLOOD COUNT 3.7 10^3/uL (4.0-10.5)
--- NOTE | 2016-10-01 22:29 | PDOC PROGRESS REPORT ---
Subjective Progress Note for:: 10/01/16 Subjective:: Patient is feeling somewhat better but extremely weak He is ambulating with physical therapy; he has no significant shortness of breath chest pain H&H was low and patient will be transfused a unit of packed cells Physical Exam Vital Signs: Temp Pulse Resp BP Pulse Ox 97.7 F 59 L 21 H 133/95 H 98 10/01/16 19:26 10/01/16 19:26 10/01/16 19:26 10/01/16 19:26 10/01/16 19:26 Intake & Output 09/30/16 10/01/16 10/02/16 00:59 00:59 00:59 Intake Total 1805 1530 1840 Output Total 425 1300 1210 Balance 1380 230 630 Weight 127.8 kg 127.9 kg 129.2 kg General appearance: PRESENT: no acute distress, morbidly obese Head exam: PRESENT: atraumatic, normocephalic Eye exam: PRESENT: conjunctiva pale Neck exam: ABSENT: carotid bruit, JVD, lymphadenopathy, thyromegaly Respiratory exam: PRESENT: decreased breath sounds. ABSENT: rales, rhonchi, wheezes Cardiovascular exam: PRESENT: RRR. ABSENT: diastolic murmur, rubs, systolic murmur Pulses: PRESENT: normal dorsalis pedis pul GI/Abdominal exam: PRESENT: ascites, distended, normal bowel sounds. ABSENT: guarding Extremities exam: PRESENT: full ROM. ABSENT: calf tenderness, clubbing, pedal edema Neurological exam: PRESENT: alert, awake, oriented to person, oriented to place , oriented to time, oriented to situation, CN II-XII grossly intact. ABSENT: motor sensory deficit Results Laboratory Results: 10/01/16 19:30 10/01/16 04:27 10/01/16 10/01/16 10/01/16 04:27 04:27 11:59 WBC 4.0 RBC 2.58 L Hgb 8.3 L Hct 24.2 L MCV 94 MCH 32.2 MCHC 34.4 RDW 15.6 H Plt Count 89 L Seg Neutrophils % 56.8 Lymphocytes % 24.9 Monocytes % 12.2 Eosinophils % 4.8 Basophils % 1.3 Absolute Neutrophils 2.3 Absolute Lymphocytes 1.0 Absolute Monocytes 0.5 Absolute Eosinophils 0.2 Absolute Basophils 0.1 Sodium 136.4 L Potassium 5.0 Chloride 101 Carbon Dioxide 29 Anion Gap 6 BUN 55 H Creatinine 1.95 H Est GFR ( Amer) 43 L Est GFR (Non-Af Amer) 35 L Glucose 98 Calcium 9.1 Blood Type A POSITIVE Antibody Screen NEGATIVE 10/01/16 19:30 WBC 3.7 L RBC 2.81 L Hgb 8.9 L Hct 26.1 L MCV 93 MCH 31.7 MCHC 34.2 RDW 15.9 H Plt Count 83 L Seg Neutrophils % Lymphocytes % Monocytes % Eosinophils % Basophils % Absolute Neutrophils Absolute Lymphocytes Absolute Monocytes Absolute Eosinophils Absolute Basophils Sodium Potassium Chloride Carbon Dioxide Anion Gap BUN Creatinine Est GFR ( Amer) Est GFR (Non-Af Amer) Glucose Calcium Blood Type Antibody Screen 09/29/16 18:04 Clean Catch Midstream Urine Culture - Final Staphylococcus Aureus 09/27/16 15:27 Abdominal Fluid Gram Stain - Final 09/27/16 15:27 Abdominal Fluid Body Fluid Culture - Final NO AEROBIC OR ANAEROBIC ORGANISMS RECOVERED 09/26/16 09/26/16 09/27/16 16:35 22:45 04:39 Troponin I < 0.012 < 0.012 < 0.012 NT-Pro-B Natriuret Pep 7640 H Impressions: Chest X-Ray 09/26/16 16:20 IMPRESSION: NO ACUTE CARDIOPULMONARY PROCESS. NO SIGNIFICANT CHANGE FROM PRIOR STUDY. Abdomen Ultrasound 09/26/16 16:40 IMPRESSION: MODERATE TO LARGE VOLUME ASCITES. CHOLELITHIASIS. Paracentesis Ultrasound 09/27/16 14:29 IMPRESSION: Successful ultrasound-guided THERAPEUTIC AND DIAGNOSTIC paracentesis Assessment & Plan - Diagnosis (1) Acute on chronic diastolic CHF (congestive heart failure) Is this a current diagnosis for this admission?: Yes (2) CKD (chronic kidney disease), stage IV Is this a current diagnosis for this admission?: Yes (3) Ascites Qualifiers: Ascites type: due to alcoholic cirrhosis Qualified Code(s): K70.31 - Alcoholic cirrhosis of liver with ascites Is this a current diagnosis for this admission?: Yes (4) Anemia of chronic disease Is this a current diagnosis for this admission?: YesPlan: Acute on chronic anemia Anemia of chronic disease: chronic renal failure and chronic liver disease Hematocrit is 24 We will transfuse 1 unit packed red cells We will check serum iron and B-12 in a.m. (5) Diabetes mellitus type 2 in obese Is this a current diagnosis for this admission?: Yes (6) A-fib Qualifiers: Atrial fibrillation type: chronic Qualified Code(s): I48.2 - Chronic atrial fibrillation Is this a current diagnosis for this admission?: Yes (7) Cirrhosis Qualifiers: Hepatic cirrhosis type: alcoholic cirrhosis Ascites presence: with ascites Qualified Code(s): K70.31 - Alcoholic cirrhosis of liver with ascites Is this a current diagnosis for this admission?: Yes (8) Hypertension Qualifiers: Hypertension type: essential hypertension Qualified Code(s): I10 - Essential (primary) hypertension Is this a current diagnosis for this admission?: Yes (9) Discharge planning issues Is this a current diagnosis for this admission?: YesPlan: Son states that patient cannot live alone Case was discussed with corporate event planner Her Medicaid application was filled patient to be a good candidate for assisted living - Time Time Spent with patient: 25-34 minutes
[2016-10-02] MEDS ORDERED: FUROSEMIDE INJ/PF 100 MG/10 ML SDV IV SCH (06:00)
[2016-10-02 07:20] LABS: ANION GAP 12 (5-19); BLOOD UREA NITROGEN 52 mg/dL (7-20); CARBON DIOXIDE 27 mmol/L (22-30); CHLORIDE 99 mmol/L (98-107); CREATININE RESULT 1.78 mg/dL (0.52-1.25); GLUCOSE 83 mg/dL (75-110); POTASSIUM 4.7 mmol/L (3.6-5.0); SODIUM 137.7 mmol/L (137-145)
[2016-10-02] MEDS: FLUOXETINE HCL 20 MG CAPSULE PO SCH (07:24)
[2016-10-02 08:26] LABS: FOLATE 8.55 ng/mL (>2.76)
[2016-10-02] MEDS: METOPROLOL SUCCINATE 50 MG TAB.SR.24H PO SCH (09:32)
[2016-10-02] MEDS: HYDRALAZINE HCL 25 MG TABLET PO SCH (09:32)
[2016-10-02] MEDS: ASPIRIN 81 MG TABLET, ENT COATED PO SCH (09:33)
[2016-10-02] MEDS: MAGNESIUM OXIDE 400 MG TABLET PO SCH ×2 (09:33→17:15)
[2016-10-02] MEDS: CEFTRIAXONE 1 GM/D5W RTU 1 GM/50 ML RTUPB IV SCH (13:01)
--- NOTE | 2016-10-02 17:09 | PDOC PROGRESS REPORT ---
Subjective Progress Note for:: 10/02/16 Subjective:: Reason for visit: Follow-up heart failure, ascites, anemia, diabetes Hospital course: Per H&P "DEBORAH WHARTON is a 61 year old male With a known history of chronic alcoholic cirrhosis, chronic diastolic CHF, hypertension CK disease stage 3-4 Was sent for direct admission to a telemetry unit from the [facility] Patient had a history of increasing weight, increased abdominal girth and worsening of his kidney function over the past 3 weeks He denied any chest pain admitted to shortness of breath with exertion He had no fever no chills Denied heavy drinking Initial evaluation showed that indeed he was fluid overloaded with large amount of ascites , peripheral edema Lasix IV was initiated and further test ordered He was admitted as an inpatient " his hemoglobin is low and he received 1U PRBCs without complication including no change in his respiratory status. Subjective: He is back to his baseline regarding his breathing. ROS: per HPI plus a total of 10 systems reviewed, pertinent positives and negatives noted above, remaining systems negative. Physical Exam Vital Signs: Temp Pulse Resp BP Pulse Ox 97.9 F 60 18 128/78 H 96 10/02/16 15:39 10/02/16 15:39 10/02/16 15:39 10/02/16 15:39 10/02/16 15:39 Intake & Output 10/01/16 10/02/16 10/03/16 06:59 06:59 06:59 Intake Total 1999 1450 750 Output Total 1450 1540 600 Balance 550 -90 150 Weight 129.2 kg 129.2 kg EXAM GENERAL: NAD; well developed, well nourished; mod obese; alert and oriented to person, place, time, situation HEENT: normocephalic, atraumatic; no conjunctival injection, no scleral icterus ; oral mucosa moist; RESPIRATORY: no accessory muscle use, no increased WOB, good air entry bilaterally; no wheezes, rales, rhonchi; no inspiratory crackles CARDIO: no JVD; irregularly irregular; no systolic murmur; no tachycardia GI: soft; nondistended; normal bowel sounds; no hepato spleno megaly; no rebound, rigidity, guarding; nontender VASCULAR: no pallor; 2+ radial, DP pulse; normal capillary refill EXTREMITIES: no calf tender; no palpable cords in calf; no clubbing, cyanosis ; trace pedal edema PSYCH: normal affect, normal mood SKIN: warm; moist; no petechiae; no telengectasias; no jaundice; no rash Results Laboratory Results: 10/01/16 19:30 10/02/16 06:38 10/01/16 10/01/16 10/02/16 11:59 19:30 06:38 WBC 3.7 L RBC 2.81 L Hgb 8.9 L Hct 26.1 L MCV 93 MCH 31.7 MCHC 34.2 RDW 15.9 H Plt Count 83 L Sodium 137.7 Potassium 4.7 Chloride 99 Carbon Dioxide 27 Anion Gap 12 BUN 52 H Creatinine 1.78 H Est GFR ( Amer) 47 L Est GFR (Non-Af Amer) 39 L Glucose 83 Calcium 9.0 Iron 81.5 TIBC 239 L % Saturation 34 Ferritin 75.60 Vitamin B12 779.0 Folate 8.55 Blood Type A POSITIVE Antibody Screen NEGATIVE 09/26/16 09/26/16 09/27/16 16:35 22:45 04:39 Troponin I < 0.012 < 0.012 < 0.012 NT-Pro-B Natriuret Pep 7640 H Impressions: Chest X-Ray 09/26/16 16:20 IMPRESSION: NO ACUTE CARDIOPULMONARY PROCESS. NO SIGNIFICANT CHANGE FROM PRIOR STUDY. Abdomen Ultrasound 09/26/16 16:40 IMPRESSION: MODERATE TO LARGE VOLUME ASCITES. CHOLELITHIASIS. Paracentesis Ultrasound 09/27/16 14:29 IMPRESSION: Successful ultrasound-guided THERAPEUTIC AND DIAGNOSTIC paracentesis Status: Imported from PACS Assessment & Plan - Diagnosis (1) Acute on chronic diastolic CHF (congestive heart failure) Is this a current diagnosis for this admission?: YesPlan: Improved. Patient appears to be back to baseline, volume status stable. Change from IV to oral Lasix and continue monitor. (2) Anemia of chronic disease Is this a current diagnosis for this admission?: YesPlan: Anemia workup is unrevealing, serum iron is a little low but his TIBC and ferritin are normal as are his B12 and folate. I suspect this is related to his chronic renal disease. He is status post 1 unit of packed red blood cells, has not shown any overt signs of acute blood loss and I feel like we can continue to monitor this as an outpatient with his PCP. (3) CKD (chronic kidney disease), stage IV Is this a current diagnosis for this admission?: YesPlan: Slightly improved in spite of continued diuresis. (4) Diabetes mellitus type 2 in obese Is this a current diagnosis for this admission?: YesPlan: Continue sliding scale insulin. (5) A-fib Qualifiers: Atrial fibrillation type: chronic Qualified Code(s): I48.2 - Chronic atrial fibrillation Is this a current diagnosis for this admission?: YesPlan: Rate control on current regimen. (6) Cirrhosis Qualifiers: Hepatic cirrhosis type: alcoholic cirrhosis Ascites presence: with ascites Qualified Code(s): K70.31 - Alcoholic cirrhosis of liver with ascites Is this a current diagnosis for this admission?: YesPlan: Status post 6 L paracentesis early in his hospitalization without significant recurrence. Fluid studies were negative. (7) Hypertension Qualifiers: Hypertension type: essential hypertension Qualified Code(s): I10 - Essential (primary) hypertension Is this a current diagnosis for this admission?: YesPlan: Well-controlled on current regimen (8) Cystitis Is this a current diagnosis for this admission?: YesPlan: Secondary to MSSA. Continue Rocephin. Change to oral regimen at discharge. - Time Time Spent with patient: 25-34 minutes Medications reviewed and adjusted accordingly: Yes Anticipated discharge: Home Within: within 24 hours - Plan Summary Plan Summary: Anticipate discharge in the morning. fleet sales manager's note reviewed and he is to go home with home health and care home. Medicaid application is pending, results should be known within the next couple of weeks.
[2016-10-02] MEDS: FUROSEMIDE 40 MG TABLET PO SCH (17:15)
[2016-10-03] MEDS ORDERED: HYDRALAZINE HCL 25 MG TABLET PO SCH (01:41)
[2016-10-03] MEDS ORDERED: METOPROLOL SUCCINATE 50 MG TAB.SR.24H PO SCH (01:41)
[2016-10-03] MEDS ORDERED: HYDRALAZINE HCL 25 MG TABLET PO ONE (02:00)
[2016-10-03] MEDS ORDERED: METOPROLOL SUCCINATE 50 MG TAB.SR.24H PO ONE (03:00)
[2016-10-03] MEDS: FLUOXETINE HCL 20 MG CAPSULE PO SCH (08:02)
[2016-10-03 08:50] VITALS: BP 115/70
[2016-10-03] MEDS: FUROSEMIDE 40 MG TABLET PO SCH (09:31)
[2016-10-03] MEDS: MAGNESIUM OXIDE 400 MG TABLET PO SCH (09:32)
[2016-10-03] MEDS: ASPIRIN 81 MG TABLET, ENT COATED PO SCH (09:32)
--- NOTE | 2016-10-03 17:36 | PDOC DISCHARGE SUMMARY ---
General - Admit/Disc Date/PCP Admission Date/Primary Care Provider: 09/26/16 13:40 Discharge Date: 10/03/16 - Discharge Diagnosis (1) Acute on chronic diastolic CHF (congestive heart failure) Is this a current diagnosis for this admission?: YesSummary: pt improved with diuresis and is back to baseline. (2) Anemia of chronic disease Is this a current diagnosis for this admission?: YesSummary: Anemia workup is unrevealing, serum iron is a little low but his TIBC and ferritin are normal as are his B12 and folate. I suspect this is related to his chronic renal disease. He is status post 1 unit of packed red blood cells, has not shown any overt signs of acute blood loss and I feel like we can continue to monitor this as an outpatient with his PCP. (3) CKD (chronic kidney disease), stage IV Is this a current diagnosis for this admission?: YesSummary: Serum creatinine actually improved with diuresis. (4) Diabetes mellitus type 2 in obese Is this a current diagnosis for this admission?: YesSummary: Resume usual home dose. (5) A-fib Is this a current diagnosis for this admission?: YesSummary: Rate controlled, continue current regimen. (6) Cirrhosis Is this a current diagnosis for this admission?: YesSummary: Status post large-volume paracentesis. Stable at this time. Continue diuretics at home. (7) Hypertension Is this a current diagnosis for this admission?: YesSummary: Much improved. 115/70 at discharge. (8) Cystitis Is this a current diagnosis for this admission?: YesSummary: Urine culture showed a low colony count MSSA patient received antibiotics while hospitalized. He is currently asymptomatic, afebrile. - Additional Information Resuscitation Status: Full Code Discharge Diet: Cardiac, Diabetic Discharge Activity: Activity As Tolerated, Balance Activity w/Rest, Weigh Daily Home Medications: Aspirin [Adult Low Dose Aspirin EC] 81 mg PO DAILY 09/26/16 Fluoxetine HCl [Prozac 20 mg Capsule] 20 mg PO QAM #30 capsule 10/03/16 Furosemide [Lasix] 40 mg PO BID #60 tablet 10/03/16 Glimepiride [Amaryl] 1 mg PO QAM #30 tablet 10/03/16 Hydralazine HCl [Apresoline 25 mg Tablet] 25 mg PO Q12 #60 tablet 10/03/16 Magnesium Oxide [Mag-Ox 400 mg Tablet] 400 mg PO BID #60 tablet 10/03/16 Metoprolol Succinate [Toprol Xl] 75 mg PO Q12 #60 tab.sr.24h 10/03/16 History of Present Illness Patient complains of: Sent in by PCP with increased shortness of breath and weight gain History of Present Illness: DEBORAH WHARTON is a 61 year old maleWith a known history of chronic alcoholic cirrhosis, chronic diastolic CHF, hypertension CK disease stage 3-4 Was sent for direct admission to a telemetry unit from the [facility] Patient had a history of increasing weight, increased abdominal girth and worsening of his kidney function over the past 3 weeks He denied any chest pain admitted to shortness of breath with exertion He had no fever no chills Denied heavy drinking Initial evaluation showed that indeed he was fluid overloaded with large amount of ascites , peripheral edema Lasix IV was initiated and further test ordered He was admitted as an inpatient " Hospital Course Hospital Course: He was treated with diuretic therapy, underwent large-volume paracentesis without complication, and over the course of the next several days showed a marked improvement. His hemoglobin was low without secondary to his liver disease and he was transfused 1 unit of packed blood cells without complication. He quickly returned to his baseline and was stable for discharge. On the day of discharge he is hemodynamically stable and expresses no concerns at this time about going home. He understands the logistical complications related to placement, he wishes for assisted living but does not have appear source at this time. He has applied for Medicaid but that it occasionally is still pending. He should follow-up with his primary care provider who can facilitate placement once appears source is identified. In the meantime his son is available to assist with his care at home and disease case manager have arranged for home health with nursing home to continue monitoring the patient's status. He is to follow-up with his primary care provider in one week, return to the emergency department for any worsening of his condition. Physical Exam Vital Signs: Temp Pulse Resp BP Pulse Ox 98.2 F 72 20 115/70 98 10/03/16 11:02 10/03/16 11:02 10/03/16 11:02 10/03/16 11:02 10/03/16 11:02 Intake & Output 10/02/16 10/03/1617 06:59 06:59 06:59 Intake Total 1450 1095 Output Total 1540 1325 Balance -90 -230 Weight 129.2 kg 128.3 kg EXAM GENERAL: NAD; well developed, well nourished; mod obese; alert and oriented to person, place, time, situation HEENT: normocephalic, atraumatic; no conjunctival injection, no scleral icterus ; oral mucosa moist; RESPIRATORY: no accessory muscle use, no increased WOB, good air entry bilaterally; no wheezes, rales, rhonchi; no inspiratory crackles CARDIO: no JVD; irregularly irregular; no systolic murmur; no tachycardia GI: soft; nondistended; normal bowel sounds; no hepato spleno megaly; no rebound, rigidity, guarding; nontender VASCULAR: no pallor; 2+ radial, DP pulse; normal capillary refill EXTREMITIES: no calf tender; no palpable cords in calf; no clubbing, cyanosis ; trace pedal edema PSYCH: normal affect, normal mood SKIN: warm; moist; no petechiae; no telengectasias; no jaundice; no rash Results Laboratory Results: 10/01/16 19:30 10/02/16 06:38 09/26/16 09/26/16 09/27/16 16:35 22:45 04:39 Troponin I < 0.012 < 0.012 < 0.012 NT-Pro-B Natriuret Pep 7640 H Impressions: Chest X-Ray 09/26/16 16:20 IMPRESSION: NO ACUTE CARDIOPULMONARY PROCESS. NO SIGNIFICANT CHANGE FROM PRIOR STUDY. Abdomen Ultrasound 09/26/16 16:40 IMPRESSION: MODERATE TO LARGE VOLUME ASCITES. CHOLELITHIASIS. Paracentesis Ultrasound 09/27/16 14:29 IMPRESSION: Successful ultrasound-guided THERAPEUTIC AND DIAGNOSTIC paracentesis Qualifiers PATEINT BEING DISCHARGED WITH ANY OF THE FOLLOWING DIAGNOSIS?: Heart Failure VTE patient discharged on overlapping Therapy?: No Reason(s) for not prescribing Overlap Therapy:: Medical Contraindication - Anemia and chronic thrombocytopenia HF Pt being discharged on ACEI for LVEF less than 40%?: No Reason(s) for not prescribing ACEI:: Contraindicated - Due to renal insufficiency HF Pt being discharged on ARBS for LVEF less than 40%?: No Reason(s) for not prescribing ARBS:: Contraindicated - Due to renal insufficiency HF Pt with Afib discharged with Warfarin?: No Reason(s) for not prescribing Warfarin:: Medical Contraindication - Due to anemia and thrombocytopenia HF Pt discharged on evidence-based Beta Brent?: Yes Plan Discharge Plan: Discharged home with home health and nursing home evaluation for daily weights, prescription compliance, monitoring of vital signs including O2 sat rations. Follow-up with PCP in one week Time Spent: Greater than 30 Minutes
== END 2016-10-03 12:12 | disposition home health service (06) | DRG 291 ==
LOC: 4S 13:40
PROVIDERS: ADMIT Emergency Medicine; ATTEND Emergency Medicine
PROC: 0W9G3ZZ Drainage of Peritoneal Cavity, Percutaneous Approach (ICD-10-PCS; principal; 2016-09-26)
PROC: 30233N1 Transfusion of Nonautologous Red Blood Cells into Peripheral Vein, Percutaneous Approach (ICD-10-PCS; 2016-10-01)
DX: I13.0 Hypertensive heart and chronic kidney disease with heart failure and stage 1 through stage 4 chronic kidney disease, or unspecified chronic kidney disease (principal); I50.33 Acute on chronic diastolic (congestive) heart failure; N18.4 Chronic kidney disease, stage 4 (severe); K70.31 Alcoholic cirrhosis of liver with ascites; E66.9 Obesity, unspecified; Z68.36 Body mass index [BMI] 36.0-36.9, adult; E11.22 Type 2 diabetes mellitus with diabetic chronic kidney disease; I25.10 Atherosclerotic heart disease of native coronary artery without angina pectoris; M19.90 Unspecified osteoarthritis, unspecified site; E11.21 Type 2 diabetes mellitus with diabetic nephropathy; N30.90 Cystitis, unspecified without hematuria; B95.61 Methicillin susceptible Staphylococcus aureus infection as the cause of diseases classified elsewhere; M06.9 Rheumatoid arthritis, unspecified; M79.7 Fibromyalgia; F32.9 Major depressive disorder, single episode, unspecified; F12.90 Cannabis use, unspecified, uncomplicated; F10.10 Alcohol abuse, uncomplicated; I48.2 Chronic atrial fibrillation; D63.1 Anemia in chronic kidney disease; Z87.891 Personal history of nicotine dependence; Z79.4 Long term (current) use of insulin; Z79.899 Other long term (current) drug therapy
CPT/HCPCS: 36415; 36430; 49083; 71010; 76705; 80048; 80053; 80061; 81001; 82042; 82272; 82607; 82728; 82746; 82962; 83540; 83550; 83880; 84157; 84443; 84484; 85025; 85027; 85610; 86850; 86900; 86901; 86920; 87070; 87075; 87086; 87088; 87186; 87205; 89050; 93005; 93010; J0696; J1940; P9016; P9047

== ENCOUNTER 2016-10-07 02:22 | Inpatient (IN) | payer SELFPAY ==
[2016-10-07] MEDS ORDERED: DEXTROSE 40% GEL 15 GM TUBE PO ONE (02:28)
[2016-10-07] MEDS ORDERED: DEXTROSE 40% GEL 15 GM TUBE ONE (02:28)
[2016-10-07] MEDS ORDERED: ONDANSETRON 4 MG TAB.RAPDIS PO ONE (02:37)
--- NOTE | 2016-10-07 02:39 | ER Document Report ---
ED Blood Sugar Problem - General Stated Complaint: low blood sugar Time seen by provider: 02:35 Notes: Patient is a 61-year-old male that comes emergency department for chief complaint of low blood sugar. Patient states that his stomach ached all day and he had some nausea so he did not eat anything, he was found initial blood sugar reading of 38, they gave oral glucose and his blood sugar elevated to only 41, he was given an additional 15 g by mouth upon arrival to the emergency department. Patient has a past medical history of diabetes, is uncommon., Also has a history of hypertension, congestive heart failure, cirrhosis of the liver and ascites. Patient told EMS that he did not take his medications today , however he tells me that his son came in and gave them to him this afternoon. At this time patient states that he actually feels better and does not feel abdominal pain but he feels nauseated and a little bit lightheaded. TRAVEL OUTSIDE OF THE [place] IN LAST 30 DAYS: No - Related Data Allergies/Adverse Reactions: diltiazem [From [facility]] Allergy (Verified 08/26/16 12:51) Past Medical History - General Information source: Patient - Social History Smoking Status: Never Smoker Frequency of alcohol use: None Drug Abuse: None Lives with: Family Family History: Reviewed & Not Pertinent - Past Medical History Cardiac Medical History: Reports: Hx Atrial Fibrillation, Hx Congestive Heart Failure, Hx Coronary Artery Disease, Hx Heart Attack - pt unsure of this, Hx Hypertension Pulmonary Medical History: Reports: Hx Asthma - childhood Endocrine Medical History: Reports: Hx Diabetes Mellitus Type 2 Renal/ Medical History: Denies: Hx Peritoneal Dialysis GI Medical History: Reports: Hx Cirrhosis Musculoskeltal Medical History: Reports Hx Arthritis - RA, Reports Hx Fibromyalgia Psychiatric Medical History: Reports: Hx Anxiety, Hx Depression Infectious Medical History: Reports: Hx C-Diff Past Surgical History: Reports: Hx Appendectomy, Hx Orthopedic Surgery - L hand , Hx Tonsillectomy - Immunizations Hx Diphtheria, Pertussis, Tetanus Vaccination: Yes Review of Systems - Review of Systems Constitutional: See HPI EENT: No symptoms reported Cardiovascular: No symptoms reported Respiratory: No symptoms reported Gastrointestinal: See HPI Genitourinary: No symptoms reported Male Genitourinary: No symptoms reported Musculoskeletal: No symptoms reported Skin: No symptoms reported Hematologic/Lymphatic: No symptoms reported Neurological/Psychological: No symptoms reported Physical Exam - Vital signs Vitals: Temp Pulse Resp BP Pulse Ox 97.6 F 73 20 146/96 H 97 10/07/16 02:27 10/07/16 02:27 10/07/16 02:27 10/07/16 02:27 10/07/16 02:27 Interpretation: Normal - General General appearance: Other - Patient is responsive and conversational but he is pale - HEENT Head: Normocephalic, Atraumatic Eyes: Normal Pupils: PERRL - Respiratory Respiratory status: No respiratory distress Chest status: Nontender Breath sounds: Normal Chest palpation: Normal - Cardiovascular Rhythm: Regular Heart sounds: Normal auscultation Murmur: No - Abdominal Inspection: Normal Distension: No distension Bowel sounds: Normal Tenderness: Nontender - Completely nontender abdomen. No: Tender, Guarding Organomegaly: No organomegaly - Back Back: Normal, Nontender - Extremities General upper extremity: Normal inspection, Nontender, Normal color, Normal ROM , Normal temperature General lower extremity: Normal inspection, Nontender, Normal color, Normal ROM , Normal temperature, Normal weight bearing. No: Aurora's sign - Neurological Neuro grossly intact: Yes Cognition: Normal Orientation: AAOx4 [place] Coma Scale Eye Opening: Spontaneous [place] Coma Scale Verbal: Oriented [place] Coma Scale Motor: Obeys Commands [place] Coma Scale Total: 15 Speech: Normal Motor strength normal: LUE, RUE, LLE, RLE Sensory: Normal - Psychological Associated symptoms: Normal affect, Normal mood - Skin Skin Temperature: Warm Skin Color: Pale Course - Re-evaluation Re-evalutation: Patient initially pale, complaining of being lightheaded, abdomen is completely nontender, not tachycardic, no hypotension. Glucose still very low, given dextrose, IV placed immediately by myself using ultrasound, patient was given glucose in the meantime. Patient will be placed on dextrose drip because of sulfonylurea use, I suspect this is the cause of the ongoing hypoglycemia. Confirmed with Dr. Bell. On reexamination patient is no longer pale, he states he feels much better, again denying abdominal pain, he states his abdomen only hurts if he "presses on it". Laboratory workup nonspecific. Discussed with Dr. Ng, internal medicine, patient will be admitted to the hospital. - Vital Signs Vital signs: Temp Pulse Resp BP Pulse Ox 98.3 F 73 14 122/84 99 10/07/16 04:09 10/07/16 02:27 10/07/16 06:04 10/07/16 06:04 10/07/16 06:04 - Laboratory Result Diagrams: 10/07/16 03:31 10/07/16 04:10 Laboratory results interpreted by me: 10/07/16 10/07/16 10/07/16 03:01 03:31 03:31 RBC 3.25 L Hgb 10.3 L Hct 30.2 L RDW 15.6 H Plt Count 149 L Seg Neutrophils % 84.4 H Lymphocytes % 9.5 L Potassium BUN Creatinine Est GFR ( Amer) Est GFR (Non-Af Amer) Glucose POC Glucose 57 L Total Bilirubin AST Albumin Lipase Urine Blood MODERATE H 10/07/16 10/07/16 04:03 04:10 RBC Hgb Hct RDW Plt Count Seg Neutrophils % Lymphocytes % Potassium 5.6 H BUN 71 H Creatinine 1.90 H Est GFR ( Amer) 44 L Est GFR (Non-Af Amer) 36 L Glucose 155 H POC Glucose 181 H Total Bilirubin 1.8 H AST 68 H Albumin 3.0 L Lipase 314.8 H Urine Blood Critical Care Note - Critical Care Note Total time excluding time spent on procedures (mins): 32 - hypoglycemia Comments: Please allow 32 minutes of critical care time for treatment of patient with hypoglycemia requiring dextrose, glucose, D5 drip, multiple re-evaluations, consultation and admission to the hospital. Discharge - Discharge Clinical Impression: Hypoglycemia Condition: Stable Disposition: ADMITTED INPATIENT Admitting Provider: Hospitalist - Dr. Ng Unit Admitted: Telemetry
[2016-10-07] MEDS ORDERED: DEXTROSE 50%-WATER 25 GM/50 ML DISP.SYRIN IV ONE ×5 (03:10→17:45)
[2016-10-07] MEDS ORDERED: DEXTROSE 5%-1/2 NORMAL SALINE 1,000 ML IV PRN (03:10)
[2016-10-07 03:46] LABS: ABSOLUTE LYMPHOCYTES (AUTO) 0.6 10^3/uL (0.5-4.7); ABSOLUTE MONOCYTES (AUTO) 0.4 10^3/uL (0.1-1.4); ABSOLUTE NEUT (AUTO) 5.7 10^3/uL (1.7-8.2); BASOPHILS % (AUTO) 0.2 % (0-2); EOSINOPHILS % (AUTO) 0.1 % (0-6); HEMATOCRIT 30.2 % (37.9-51.0); HEMOGLOBIN 10.3 g/dL (13.5-17.0); HGB HCT DIFFERENCE 0.7; LYMPHOCYTES % (AUTO) 9.5 % (13-45); MEAN CORPUSCULAR HEMOGLOBIN 31.7 pg (27.0-33.4); MEAN CORPUSCULAR HGB CONC 34.1 g/dL (32.0-36.0); MEAN CORPUSCULAR VOLUME 93 fl (80-97); MONOCYTES % (AUTO) 5.8 % (3-13); RED BLOOD COUNT 3.25 10^6/uL (4.35-5.55); RED CELL DISTRIBUTION WIDTH 15.6 % (11.5-14.0); SEGMENTED NEUTROPHILS % (AUTO) 84.4 % (42-78); WHITE BLOOD COUNT 6.7 10^3/uL (4.0-10.5)
[2016-10-07 05:05] LABS: ALANINE AMINOTRANSFERASE 30 U/L (21-72); ALKALINE PHOSPHATASE 68 U/L (38-126); ANION GAP 14 (5-19); ASPARTATE AMINO TRANSFERASE 68 U/L (17-59); BILIRUBIN,DIRECT 0.4 mg/dL (0.0-0.4); BILIRUBIN,TOTAL 1.8 mg/dL (0.2-1.3); BLOOD UREA NITROGEN 71 mg/dL (7-20); CALCIUM 8.9 mg/dL (8.4-10.2); CARBON DIOXIDE 23 mmol/L (22-30); CHLORIDE 101 mmol/L (98-107); GLUCOSE 155 mg/dL (75-110); LIPASE 314.8 U/L (23-300); POTASSIUM 5.6 mmol/L (3.6-5.0); TOTAL PROTEIN 7.5 g/dL (6.3-8.2)
[2016-10-07 06:10] LABS: APPEARANCE,URINE CLEAR; BILIRUBIN,URINE NEGATIVE (NEGATIVE); GLUCOSE, URINE NEGATIVE (NEGATIVE); KETONES,URINE NEGATIVE (NEGATIVE); LEUKOCYTE ESTERASE,URINE NEGATIVE (NEGATIVE); NITRITE,URINE NEGATIVE (NEGATIVE); PROTEIN,URINE NEGATIVE (NEGATIVE); URINE SPECIFIC GRAVITY 1.012; UROBILINOGEN,URINE NEGATIVE mg/dL (<2.0)
[2016-10-07] MEDS ORDERED: IPRATROPIUM/ALBUTEROL 0.5-2.5 MG/3 ML AMPUL NEB PRN (08:14)
[2016-10-07] MEDS ORDERED: GLUCAGON,HUMAN RECOMB 1 MG INJ IM PRN (08:14)
[2016-10-07] MEDS ORDERED: DEXTROSE 50%-WATER 25 GM/50 ML DISP.SYRIN IV PRN (08:14)
[2016-10-07] MEDS ORDERED: DEXTROSE 40% GEL 15 GM TUBE PO PRN ×2 (08:14)
[2016-10-07] MEDS ORDERED: ONDANSETRON HCL INJ/PF 4 MG/2 ML SDV IV PRN (08:20)
[2016-10-07] MEDS ORDERED: INSULIN LISPRO 100 UNIT/ML 3 ML VIAL SUBCUT PRN (08:20)
[2016-10-07] MEDS ORDERED: ACETAMINOPHEN 325 MG TABLET PO PRN (08:20)
--- NOTE | 2016-10-07 08:59 | EKG REPORT ---
SEVERITY:- ABNORMAL ECG - ATRIAL FIBRILLATION LEFT AXIS DEVIATION BORDERLINE PROLONGED QT INTERVAL : Confirmed by: Tiago Day MD 07-Oct-2016 08:58:59
[2016-10-07] MEDS: DEXTROSE 5%-LACTATED RINGERS 1,000 ML IV PRN ×2 (10:00→16:57)
[2016-10-07] MEDS: PANTOPRAZOLE SODIUM 40 MG VIAL IV SCH (10:00)
--- NOTE | 2016-10-07 14:26 | PDOC H&P ---
History of Present Illness Admission Date/PCP: 10/07/16 08:14 Patient complains of: weakness, dizziness and falls History of Present Illness: DEBORAH WHARTON is a 61 year old male with multiple medical problems including diabetes who was just recently discharged from this hospital after a long bout of congestive heart failure now returns to the hospital via EMS with complaints of weakness upon arising this morning from bed resulting in a fall to his knees stating he was too weak to get back up into a standing position and had to crawl to the telephone to call for assistance. He complains of dizziness, diaphoresis, palpitations as well. He started feeling nauseous but did not vomit. He states when he went to bed last night he was in his usual state of health. He thought he was doing well for the last couple of days since arrival at home. On arrival EMS found his blood sugar to be in the 30s, he was given D50 and transported to the emergency department where his capillary blood glucoses remain low and refractory to glucose challenge. He is on a sulfonylurea chronically. We have been asked to admit him for further evaluation and management of his hypoglycemia. Past Medical History Cardiac Medical History: Reports: Atrial Fibrillation, Congestive Heart Failure , Coronary Artery Disease, Myocardial Infarction - pt unsure of this, Hypertension Pulmonary Medical History: Reports: Asthma - childhood Endocrine Medical History: Reports: Diabetes Mellitus Type 2 GI Medical History: Reports: Cirrhosis Musculoskeltal Medical History: Reports: Arthritis - RA, Fibromyalgia Psychiatric Medical History: Reports: Depression Hematology: Reports: Anemia Infectious Medical History: Reports: Clostridium Difficile Past Surgical History Past Surgical History: Reports: Appendectomy, Orthopedic Surgery - L hand, Tonsillectomy Social History Information Source: Patient Lives with: Family Smoking Status: Former Smoker Last Time Smoked: 2014 Frequency of Alcohol Use: Occasional Hx Recreational Drug Use: No Drugs: None Hx Prescription Drug Abuse: No - Advance Directive Resuscitation Status: Full Code Family History Family History: Reviewed & Not Pertinent Parental Family History Reviewed: Yes Children Family History Reviewed: Yes Sibling(s) Family History Reviewed.: Yes Medication/Allergy Home Medications: Fluoxetine HCl [Prozac 20 mg Capsule] 20 mg PO QAM 10/07/16 Furosemide [Lasix] 40 mg PO BID 10/07/16 Glimepiride [Amaryl] 1 mg PO QAM 10/07/16 Hydralazine HCl [Apresoline 25 mg Tablet] 25 mg PO Q12 10/07/16 Magnesium Oxide [Magnesium] 400 mg PO BID 10/07/16 Metoprolol Succinate [Toprol Xl 50 mg Tab.sr] 75 mg PO BID 10/07/16 Allergies/Adverse Reactions: diltiazem [From Cardizem] Allergy (Verified 08/26/16 12:51) Review of Systems Constitutional: PRESENT: fatigue, weakness. ABSENT: chills, fever(s), headache( s), weight gain, weight loss Eyes: ABSENT: visual disturbances Ears: ABSENT: hearing changes Cardiovascular: PRESENT: palpitations. ABSENT: chest pain, dyspnea on exertion , edema, orthropnea Respiratory: ABSENT: cough, dyspnea, hemoptysis Gastrointestinal: PRESENT: nausea. ABSENT: abdominal pain, constipation, diarrhea, hematemesis, hematochezia, vomiting Genitourinary: ABSENT: dysuria, hematuria Musculoskeletal: ABSENT: joint swelling Integumentary: ABSENT: rash, wounds Neurological: PRESENT: dizziness, weakness. ABSENT: abnormal gait, abnormal speech, confusion, focal weakness, syncope Psychiatric: ABSENT: anxiety, depression Endocrine: PRESENT: flushing. ABSENT: cold intolerance, heat intolerance, polydipsia, polyuria Hematologic/Lymphatic: ABSENT: easy bleeding, easy bruising Physical Exam Vital Signs: Temp Pulse Resp BP Pulse Ox 98.6 F 75 20 121/70 95 10/07/16 11:22 10/07/16 12:13 10/07/16 12:13 10/07/16 11:22 10/07/16 12:13 Intake & Output 10/06/16 10/07/16 10/08/16 06:59 06:59 06:59 Weight 125.6 kg PHYSICAL EXAM GENERAL: NAD; well developed, well nourished; moderately obese; alert and oriented to person, place, time, situation HEENT: normocephalic, atraumatic; EOMI, PERRLA, no conjunctival injection, no scleral icterus; oral mucosa moist, neck supple, no LAD, normal ROM RESPIRATORY: no accessory muscle use, no increased WOB, good air entry bilaterally; no wheezes, rales, rhonchi; no inspiratory crackles CARDIO: no JVD; irr irregular; no systolic murmur; no tachycardia VASCULAR: no pallor; 2+ radial, DP pulse; normal capillary refill GI: soft; nondistended; normal bowel sounds; no rebound, rigidity, guarding; diffuse tenderness to palpation across the abdomen, rotund, difficult to assess for fluid wave or shifting dullness given his bulk NEURO: normal patella reflexes; normal sensation; normal motor function; no dysarthria; no nystagmus; tongue protrudes midline; MSK: 4/5 strength BLEs; normal ROM hips; no tenderness EXTREMITIES: no calf tender; no palpable cords in calf; no clubbing, cyanosis ; 1+ lower ext & pedal edema PSYCH: normal affect, normal mood SKIN: warm; moist; no petechiae; no telengectasias; no jaundice; no rash Results Laboratory Results: 10/07/16 09:02 C-Reactive Protein 19.9 H Labs are reviewed, CBC shows improvement in his H&H are 10 and 30 up from 8.9 and 26 at discharge as well as improve platelets at 149 up from 83 at discharge just one week ago. WBCs are 6.7 the differential is unremarkable. His renal function is at baseline with a BUN/creatinine of 71/1.9, potassium elevated 5.6 , the rest of his electrolytes are unremarkable, LFTs showed chronic elevation of his total bilirubin of 1.8 and AST at 68 with low albumin at 3.0. His lipase is elevated at 315, with a C-reactive protein of 19.9. Capillary blood sugars have ranged from 68-141. Impressions: Abdomen/Pelvis CT 10/07/16 00:00 IMPRESSION: Significant interval change is development of diffuse ascites. Cirrhosis and varices. Chronic bony changes. Splenic cystic changes. Assessment & Plan - Diagnosis (1) Elevated lipase Is this a current diagnosis for this admission?: YesPlan: Unclear etiology, possibly pancreatitis or could be simply related to rapid redevelopment of ascites. We'll start with a full liquid diet and trend his C- reactive protein and lipase. CT scan without contrast shows no evidence of peripancreatic inflammation, fluid collection or pseudocyst, pancreatic edema. (2) Hypoglycemia Is this a current diagnosis for this admission?: YesPlan: Likely accounts for his presentation. Given the chronic kidney disease and low GFR, will discontinue sulfonylurea. His last hemoglobin A1c was 5.1 indicating he may get away with no oral regimen at this time. We will cover with D5 continuous, with intermittent D50 boluses, and sliding scale insulin for hyperglycemia should it occur. Blood sugar checks every 2 hours until 3 consecutive greater than 150 and he is tolerating a liquid diet. (3) Ascites Qualifiers: Ascites type: due to alcoholic cirrhosis Qualified Code(s): K70.31 - Alcoholic cirrhosis of liver with ascites Is this a current diagnosis for this admission?: YesPlan: Patient underwent large volume paracentesis on the 16th with rapid recurrence. Check an INR in the morning and schedule repeat paracentesis. (6) A-fib Qualifiers: Atrial fibrillation type: chronic Qualified Code(s): I48.2 - Chronic atrial fibrillation Is this a current diagnosis for this admission?: YesPlan: Continue usual home regimen. No routine anticoagulation due to history of chronic thrombocytopenia, large varices and increased risk of bleeding, chronic anemia. (7) Chronic kidney disease, stage III (moderate) Is this a current diagnosis for this admission?: YesPlan: [place] to be at his baseline but clearly cannot tolerate continued sulfonylurea use. Also on a candidate for metformin for same reason. For now we'll cover with a basal bolus regimen once the effects of the sulfonylurea have worn off. (8) Cirrhosis Qualifiers: Hepatic cirrhosis type: alcoholic cirrhosis Ascites presence: with ascites Qualified Code(s): K70.31 - Alcoholic cirrhosis of liver with ascites - Time Time Spent: 50 to 70 Minutes Medications reviewed and adjusted accordingly: Yes - Inpatient Certification Medical Necessity: Failure to Improve With Outpatient Therapy, Significant Comorbidiites Make Outpatient Treatment Too Risky, Need For IV Fluids, Risk of Complication if Not Cared For in Hospital - Plan Summary Plan Summary: Please see previous day care aide's notes for social and financial confounders affecting placement in assisted living as the patient wishes.
[2016-10-07 15:24] LABS: MAGNESIUM 2.2 mg/dL (1.6-2.3)
[2016-10-07 15:25] LABS: ALCOHOL < 10 mg/dL (NONE DETECTED)
[2016-10-07] MEDS ORDERED: LACTATED RINGERS IV ONE (15:34)
[2016-10-07] MEDS ORDERED: DEXTROSE 5% IV ONE (15:34)
[2016-10-07] MEDS ORDERED: NORMAL SALINE 1000 ML 500 ML IV ONE (16:00)
[2016-10-07] MEDS ORDERED: DEXTROSE 5%-LACTATED RINGERS 1,000 ML IV ONE (16:30)
[2016-10-07] MEDS: HEPARIN SOD (PORCINE) 5,000 UNIT/ML 1 ML SYRINGE SUBCUT SCH (16:42)
[2016-10-07] MEDS: DEXTROSE 50%-WATER 25 GM/50 ML DISP.SYRIN IV PRN (23:28)
[2016-10-08] MEDS: PANTOPRAZOLE SODIUM 40 MG VIAL IV SCH ×3 (00:12→21:17)
[2016-10-08] MEDS: DEXTROSE 50%-WATER 25 GM/50 ML DISP.SYRIN IV PRN ×3 (00:12→01:39)
[2016-10-08] MEDS: HEPARIN SOD (PORCINE) 5,000 UNIT/ML 1 ML SYRINGE SUBCUT SCH ×3 (00:12→14:39)
[2016-10-08] MEDS ORDERED: OCTREOTIDE ACETATE INJ/PF 100 MCG/1 ML SDV SUBCUT ONE (02:15)
[2016-10-08] MEDS ORDERED: OCTREOTIDE ACETATE INJ/PF 100 MCG/1 ML SDV ONE (02:26)
[2016-10-08 02:27] LABS: ANION GAP 11 (5-19); BLOOD UREA NITROGEN 76 mg/dL (7-20); CALCIUM 8.7 mg/dL (8.4-10.2); CARBON DIOXIDE 26 mmol/L (22-30); CHLORIDE 102 mmol/L (98-107); CREATININE RESULT 2.32 mg/dL (0.52-1.25); GLUCOSE 69 mg/dL (75-110); POTASSIUM 4.9 mmol/L (3.6-5.0); SODIUM 139.4 mmol/L (137-145)
[2016-10-08] MEDS: DEXTROSE 10%-WATER 1,000 ML IV PRN ×2 (02:42→13:55)
[2016-10-08 08:33] LABS: ABSOLUTE BASOPHILS # (AUTO) 0.1 10^3/uL (0.0-0.2); ABSOLUTE EOSINOPHILS # (AUTO) 0.1 10^3/uL (0.0-0.6); ABSOLUTE MONOCYTES (AUTO) 0.5 10^3/uL (0.1-1.4); ABSOLUTE NEUT (AUTO) 2.7 10^3/uL (1.7-8.2); BASOPHILS % (AUTO) 1.2 % (0-2); EOSINOPHILS % (AUTO) 1.7 % (0-6); HEMATOCRIT 23.5 % (37.9-51.0); HGB HCT DIFFERENCE 0.8; LYMPHOCYTES % (AUTO) 23.4 % (13-45); MEAN CORPUSCULAR HGB CONC 34.5 g/dL (32.0-36.0); MEAN CORPUSCULAR VOLUME 93 fl (80-97); RED BLOOD COUNT 2.53 10^6/uL (4.35-5.55); RED CELL DISTRIBUTION WIDTH 15.8 % (11.5-14.0); SEGMENTED NEUTROPHILS % (AUTO) 61.7 % (42-78); WHITE BLOOD COUNT 4.3 10^3/uL (4.0-10.5)
[2016-10-08 08:36] LABS: PROTHROMBIN TIME 18.1 SEC (11.4-15.4)
[2016-10-08 08:54] LABS: ANION GAP 10 (5-19); BLOOD UREA NITROGEN 75 mg/dL (7-20); C-REACTIVE PROTEIN 19.8 mg/L (<10.0); CALCIUM 8.9 mg/dL (8.4-10.2); CARBON DIOXIDE 26 mmol/L (22-30); CHLORIDE 101 mmol/L (98-107); CHOLESTEROL 135.34 mg/dL (0-200); CREATININE RESULT 2.45 mg/dL (0.52-1.25); Direct HDL 36 mg/dL (>40); GLUCOSE 98 mg/dL (75-110); MAGNESIUM 2.2 mg/dL (1.6-2.3); POTASSIUM 5.3 mmol/L (3.6-5.0); SODIUM 136.7 mmol/L (137-145); TRIGLYCERIDES 64 mg/dL (<150)
[2016-10-08 09:02] LABS: DIRECT LDL 45 mg/dL (<100)
[2016-10-08 09:09] LABS: HEMOGLOBIN 8.1 g/dL (13.5-17.0)
[2016-10-08 09:10] LABS: ANISOCYTOSIS SLIGHT; HYPOCHROMASIA 1+; POLYCHROMASIA SLIGHT; ROULEAUX 1+
[2016-10-08 16:19] LABS: FLUID TYPE PERITONEAL
[2016-10-08 16:21] LABS: FLUID APPEARANCE SLIGHTLY HAZY; FLUID RBC AVERAGE 184.5; FLUID RBC DILUENT USED NONE USED; FLUID RBC DILUTION FACTOR 1; FLUID RBC SIDE 1 191; FLUID RBC SIDE 2 178; TOTAL RBC SQUARES COUNTED FLD 50
[2016-10-08] MEDS: LACTULOSE SYRUP 20 GM/30 ML UDCUP PO SCH ×2 (16:54→21:17)
[2016-10-08] MEDS ORDERED: DEXTROSE 10%-WATER 1,000 ML IV PRN (16:58)
--- NOTE | 2016-10-08 17:02 | PDOC PROGRESS REPORT ---
Subjective Progress Note for:: 10/08/16 Subjective:: Reason for visit: Follow-up ascites, metabolic encephalopathy, hypoglycemia Hospital course: DEBORAH WHARTON is a 61 year old male with multiple medical problems including diabetes who was just recently discharged from this hospital after a long bout of congestive heart failure now returns to the hospital via EMS with complaints of weakness upon arising this morning from bed resulting in a fall to his knees stating he was too weak to get back up into a standing position and had to crawl to the telephone to call for assistance. He complains of dizziness, diaphoresis, palpitations as well. He started feeling nauseous but did not vomit. He states when he went to bed last night he was in his usual state of health. He thought he was doing well for the last couple of days since arrival at home. On arrival EMS found his blood sugar to be in the 30s, he was given D50 and transported to the emergency department where his capillary blood glucoses remain low and refractory to glucose challenge. He is on a sulfonylurea chronically. We have been asked to admit him for further evaluation and management of his hypoglycemia. His lab work also reveals elevated NH3 and his exam recurrent ascites. He now admits to "knocking back a few" with his son shortly arriving home from the hospital, mostly "just a little whiskey and beers". He doesn't remember which day that was or much of anything after that. subjective: Nursing report he remains intermittently confused. He reports increased abdominal girth but denies discomfort, complains of anorexia. He denies chest pain, palpitations, fever, chills, nausea, vomiting, diarrhea. ROS: per HPI plus a total of 10 systems reviewed, pertinent positives and negatives noted above, remaining systems negative. Physical Exam Vital Signs: Temp Pulse Resp BP Pulse Ox 97.3 F 66 22 H 135/83 H 97 10/08/16 11:15 10/08/16 14:00 10/08/16 11:15 10/08/16 11:15 10/08/16 11:15 Intake & Output 10/07/16 10/08/16 10/09/16 06:59 06:59 06:59 Intake Total 3535 330 Output Total 100 230 Balance 3435 100 Weight 114.4 kg PHYSICAL EXAM GENERAL: NAD; well developed, well nourished; moderately obese; alert and oriented to person and place only today HEENT: normocephalic, atraumatic; EOMI, PERRLA, no conjunctival injection, no scleral icterus; oral mucosa moist, neck supple, no LAD, normal ROM RESPIRATORY: no accessory muscle use, no increased WOB, good air entry bilaterally; no wheezes, rales, rhonchi; no inspiratory crackles CARDIO: no JVD; irr irregular; no systolic murmur; no tachycardia VASCULAR: no pallor; 2+ radial, DP pulse; normal capillary refill GI: soft; nondistended; normal bowel sounds; no rebound, rigidity, guarding; resolution of diffuse tenderness across the abdomen which remains rotund and difficult to assess for fluid wave or shifting dullness given its bulk NEURO: normal patella reflexes; normal sensation; normal motor function; no dysarthria; no nystagmus; tongue protrudes midline; mild ankle and wrist clonus evident MSK: 4/5 strength BLEs; normal ROM hips; no tenderness EXTREMITIES: no calf tender; no palpable cords in calf; no clubbing, cyanosis ; 1+ lower ext & pedal edema PSYCH: normal affect, normal mood SKIN: warm; moist; no petechiae; no telengectasias; no jaundice; no rash Results Laboratory Results: 10/08/16 08:08 10/08/16 08:08 10/08/16 10/08/16 10/08/16 02:08 08:08 08:08 WBC RBC Hgb Hct MCV MCH MCHC RDW Plt Count Seg Neutrophils % Lymphocytes % Monocytes % Eosinophils % Basophils % Absolute Neutrophils Absolute Lymphocytes Absolute Monocytes Absolute Eosinophils Absolute Basophils Sodium 139.4 136.7 L Potassium 4.9 5.3 H Chloride 102 101 Carbon Dioxide 26 26 Anion Gap 11 10 BUN 76 H 75 H Creatinine 2.32 H 2.45 H Est GFR ( Amer) 35 L 33 L Est GFR (Non-Af Amer) 29 L 27 L Glucose 69 L 98 Calcium 8.7 8.9 Magnesium 2.2 Ammonia 142.2 H C-Reactive Protein 19.8 H Triglycerides 64 Cholesterol 135.34 LDL Cholesterol Direct 45 VLDL Cholesterol 13.0 HDL Cholesterol 36 L Lipase 335.0 H 10/08/16 08:08 WBC 4.3 RBC 2.53 L Hgb 8.1 L D Hct 23.5 L MCV 93 MCH 32.0 MCHC 34.5 RDW 15.8 H Plt Count 82 L Seg Neutrophils % 61.7 Lymphocytes % 23.4 Monocytes % 12.0 Eosinophils % 1.7 Basophils % 1.2 Absolute Neutrophils 2.7 Absolute Lymphocytes 1.0 Absolute Monocytes 0.5 Absolute Eosinophils 0.1 Absolute Basophils 0.1 Sodium Potassium Chloride Carbon Dioxide Anion Gap BUN Creatinine Est GFR ( Amer) Est GFR (Non-Af Amer) Glucose Calcium Magnesium Ammonia C-Reactive Protein Triglycerides Cholesterol LDL Cholesterol Direct VLDL Cholesterol HDL Cholesterol Lipase Impressions: Abdomen/Pelvis CT 10/07/16 00:00 IMPRESSION: Significant interval change is development of diffuse ascites. Cirrhosis and varices. Chronic bony changes. Splenic cystic changes. Status: Imported from PACS Assessment & Plan - Diagnosis (1) Hypoglycemia Is this a current diagnosis for this admission?: YesPlan: Likely accounts for his presentation. Given the chronic kidney disease and low GFR, will discontinue sulfonylurea forever. His last hemoglobin A1c was 5.1 indicating he may get away with no oral regimen at this time. Continue D10 continuous but at a lower rate, with intermittent D50 boluses, and sliding scale insulin for hyperglycemia should it occur. Blood sugar checks every 2 hours until 3 consecutive greater than 150 and he is tolerating diet. (2) Elevated lipase Is this a current diagnosis for this admission?: YesPlan: Unclear etiology, possibly pancreatitis or could be simply related to rapid redevelopment of ascites. Ok to advance diet and trend his C-reactive protein and lipase. CT scan without contrast shows no evidence of peripancreatic inflammation, fluid collection or pseudocyst, pancreatic edema. (3) Ascites Qualifiers: Ascites type: due to alcoholic cirrhosis Qualified Code(s): K70.31 - Alcoholic cirrhosis of liver with ascites Is this a current diagnosis for this admission?: YesPlan: Patient underwent large volume paracentesis on the 09/27 and now with rapid recurrence. repeat paracentesis today . (4) Anemia of chronic disease Plan: Hg dropped this morning but no blood loss evident and his baseline appears to around 8.5 anyway. hold heparin and trend H/H. stool hemoccult on 09/27 was negative. (6) A-fib Qualifiers: Atrial fibrillation type: chronic Qualified Code(s): I48.2 - Chronic atrial fibrillation Is this a current diagnosis for this admission?: YesPlan: Continue usual home regimen as his hemodynamics will allow. No routine anticoagulation due to history of chronic thrombocytopenia, large varices and increased risk of bleeding, chronic anemia. (7) Chronic kidney disease, stage III (moderate) Is this a current diagnosis for this admission?: YesPlan: worse. presented close to baseline but clearly cannot tolerate continued sulfonylurea use. Also not a candidate for metformin for same reason. Scr worsened now in spite of cessation of home lasix. His intravascular volume is problematic as it is difficult to justify IVFs given his chronic stage2 diastolic heart failure and rapidly recurrent ascites. (8) Cirrhosis Qualifiers: Hepatic cirrhosis type: alcoholic cirrhosis Ascites presence: with ascites Qualified Code(s): K70.31 - Alcoholic cirrhosis of liver with ascites (10) Acute metabolic encephalopathy Is this a current diagnosis for this admission?: YesPlan: Waxing and waning course. Secondary to hypoglycemia, complicated by hepatic encephalopathy with elevated ammonia after revelation of a recent binge. Begin thiamine therapy. Monitor for withdrawal - Time Time Spent with patient: 35 or more minutes Medications reviewed and adjusted accordingly: Yes Anticipated discharge: Other - Needs placement but has no pain or source at present; awaiting Medicaid approval.
[2016-10-08] MEDS ORDERED: THIAMINE HCL 100 MG TABLET PO ONE (18:00)
[2016-10-08] MEDS: METOPROLOL TARTRATE 25 MG TABLET PO SCH (21:17)
[2016-10-09] MEDS: LACTULOSE SYRUP 20 GM/30 ML UDCUP PO SCH ×4 (06:10→22:03)
[2016-10-09 08:08] LABS: ALANINE AMINOTRANSFERASE 39 U/L (21-72); ALBUMIN 2.9 g/dL (3.5-5.0); ALKALINE PHOSPHATASE 68 U/L (38-126); ANION GAP 9 (5-19); ASPARTATE AMINO TRANSFERASE 79 U/L (17-59); BILIRUBIN,DIRECT 0.4 mg/dL (0.0-0.4); BILIRUBIN,TOTAL 1.4 mg/dL (0.2-1.3); BLOOD UREA NITROGEN 66 mg/dL (7-20); CALCIUM 8.9 mg/dL (8.4-10.2); CARBON DIOXIDE 27 mmol/L (22-30); CHLORIDE 102 mmol/L (98-107); CREATININE RESULT 2.36 mg/dL (0.52-1.25); GLUCOSE 106 mg/dL (75-110); MAGNESIUM 2.2 mg/dL (1.6-2.3); PHOSPHORUS 4.3 mg/dL (2.5-4.5); SODIUM 138.1 mmol/L (137-145); TOTAL PROTEIN 7.4 g/dL (6.3-8.2)
[2016-10-09 08:13] LABS: ABSOLUTE EOSINOPHILS # (AUTO) 0.1 10^3/uL (0.0-0.6); ABSOLUTE MONOCYTES (AUTO) 0.5 10^3/uL (0.1-1.4); ABSOLUTE NEUT (AUTO) 2.2 10^3/uL (1.7-8.2); BASOPHILS % (AUTO) 1.2 % (0-2); EOSINOPHILS % (AUTO) 2.5 % (0-6); HEMATOCRIT 24.8 % (37.9-51.0); HEMOGLOBIN 8.5 g/dL (13.5-17.0); HGB HCT DIFFERENCE 0.7; LYMPHOCYTES % (AUTO) 26.2 % (13-45); MEAN CORPUSCULAR HEMOGLOBIN 32.2 pg (27.0-33.4); MEAN CORPUSCULAR HGB CONC 34.4 g/dL (32.0-36.0); MEAN CORPUSCULAR VOLUME 94 fl (80-97); RED BLOOD COUNT 2.65 10^6/uL (4.35-5.55); RED CELL DISTRIBUTION WIDTH 15.4 % (11.5-14.0); SEGMENTED NEUTROPHILS % (AUTO) 56.1 % (42-78); WHITE BLOOD COUNT 3.9 10^3/uL (4.0-10.5)
[2016-10-09] MEDS: PANTOPRAZOLE SODIUM 40 MG VIAL IV SCH ×2 (10:24→22:03)
[2016-10-09] MEDS: THIAMINE HCL 100 MG TABLET PO SCH (10:25)
[2016-10-09] MEDS: METOPROLOL TARTRATE 25 MG TABLET PO SCH ×2 (10:25→22:03)
--- NOTE | 2016-10-09 14:36 | PDOC PROGRESS REPORT ---
Subjective Progress Note for:: 10/09/16 Subjective:: Patient is extremely lethargic arousable there with a pneumonia level of 100 He is not febrile hemodynamically stable Somehow his condition is worse Hypoglycemia has resolved Physical Exam Vital Signs: Temp Pulse Resp BP Pulse Ox 97.7 F 94 20 129/84 H 94 10/09/16 11:04 10/09/16 11:04 10/09/16 11:04 10/09/16 11:04 10/09/16 11:04 Intake & Output 10/08/16 10/09/16 10/10/16 00:59 00:59 00:59 Intake Total 2379 3126 1068 Output Total 330 400 Balance 2379 6186 668 Weight 125.6 kg 114.4 kg 114.4 kg General appearance: PRESENT: mild distress, morbidly obese Head exam: PRESENT: atraumatic, normocephalic Eye exam: PRESENT: conjunctiva pale, scleral icterus Neck exam: ABSENT: carotid bruit, JVD, lymphadenopathy, thyromegaly Respiratory exam: PRESENT: clear to auscultation aba. ABSENT: rales, rhonchi, wheezes Pulses: PRESENT: normal dorsalis pedis pul GI/Abdominal exam: PRESENT: ascites Extremities exam: PRESENT: +1 edema Neurological exam: PRESENT: altered, other - Difficult to evaluate as the patient is lethargic and not answering questions appropriately and not obeying commands, Results Laboratory Results: 10/09/16 07:32 10/09/16 07:32 10/08/16 10/09/16 10/09/16 14:52 07:32 07:32 WBC 3.9 L RBC 2.65 L Hgb 8.5 L Hct 24.8 L MCV 94 MCH 32.2 MCHC 34.4 RDW 15.4 H Plt Count 86 L Seg Neutrophils % 56.1 Lymphocytes % 26.2 Monocytes % 14.0 H Eosinophils % 2.5 Basophils % 1.2 Absolute Neutrophils 2.2 Absolute Lymphocytes 1.0 Absolute Monocytes 0.5 Absolute Eosinophils 0.1 Absolute Basophils 0.0 Sodium 138.1 Potassium 5.0 Chloride 102 Carbon Dioxide 27 Anion Gap 9 BUN 66 H Creatinine 2.36 H Est GFR ( Amer) 34 L Est GFR (Non-Af Amer) 28 L Glucose 106 Calcium 8.9 Phosphorus 4.3 Magnesium 2.2 Total Bilirubin 1.4 H AST 79 H ALT 39 Alkaline Phosphatase 68 Ammonia Total Protein 7.4 Albumin 2.9 L Fluid Type PERITONEAL Fluid Source ASCITES Fluid Color YELLOW Fluid Appearance SLIGHTLY HAZY Fluid Viscosity SLIGHTLY VISCOUS Fluid WBC 220 Fluid RBC 922 10/09/16 07:32 WBC RBC Hgb Hct MCV MCH MCHC RDW Plt Count Seg Neutrophils % Lymphocytes % Monocytes % Eosinophils % Basophils % Absolute Neutrophils Absolute Lymphocytes Absolute Monocytes Absolute Eosinophils Absolute Basophils Sodium Potassium Chloride Carbon Dioxide Anion Gap BUN Creatinine Est GFR ( Amer) Est GFR (Non-Af Amer) Glucose Calcium Phosphorus Magnesium Total Bilirubin AST ALT Alkaline Phosphatase Ammonia 105.7 H Total Protein Albumin Fluid Type Fluid Source Fluid Color Fluid Appearance Fluid Viscosity Fluid WBC Fluid RBC Impressions: Abdomen/Pelvis CT 10/07/16 00:00 IMPRESSION: Significant interval change is development of diffuse ascites. Cirrhosis and varices. Chronic bony changes. Splenic cystic changes. Paracentesis Ultrasound 10/08/16 08:00 IMPRESSION: Successful ultrasound-guided diagnostic and therapeutic paracentesis Assessment & Plan - Diagnosis (1) Acute metabolic encephalopathy Is this a current diagnosis for this admission?: Yes (2) Chronic kidney disease, stage III (moderate) Is this a current diagnosis for this admission?: Yes (3) Cirrhosis Qualifiers: Hepatic cirrhosis type: alcoholic cirrhosis Ascites presence: with ascites Qualified Code(s): K70.31 - Alcoholic cirrhosis of liver with ascites Is this a current diagnosis for this admission?: Yes - Time Time Spent with patient: Patient's condition is poor and his prognosis guarded We will speak with the son about CODE STATUS and discharged to a [facility]pc facility on palliative care In the meantime we will a treat the patient with ceftriaxone for possible spontaneous bacterial peritonitis Noted that the culture was negative but there were lots of white cells in the ascitic fluid And we will increase the lactulose Time Spent with patient: 25-34 minutes
[2016-10-09] MEDS: CEFTRIAXONE 1 GM/D5W RTU 1 GM/50 ML RTUPB IV SCH (14:59)
[2016-10-10] MEDS: LACTULOSE SYRUP 20 GM/30 ML UDCUP PO SCH ×6 (02:53→22:29)
[2016-10-10] MEDS: THIAMINE HCL 100 MG TABLET PO SCH (10:49)
[2016-10-10] MEDS: METOPROLOL TARTRATE 25 MG TABLET PO SCH ×2 (10:49→22:31)
[2016-10-10 13:49] LABS: ANION GAP 11 (5-19); BLOOD UREA NITROGEN 60 mg/dL (7-20); CALCIUM 9.1 mg/dL (8.4-10.2); CARBON DIOXIDE 25 mmol/L (22-30); CHLORIDE 106 mmol/L (98-107); CREATININE RESULT 2.11 mg/dL (0.52-1.25); GLUCOSE 134 mg/dL (75-110); POTASSIUM 4.8 mmol/L (3.6-5.0); SODIUM 141.9 mmol/L (137-145)
[2016-10-10] MEDS: CEFTRIAXONE 1 GM/D5W RTU 1 GM/50 ML RTUPB IV SCH (14:25)
--- NOTE | 2016-10-10 15:57 | PDOC PROGRESS REPORT ---
Subjective Progress Note for:: 10/10/16 Subjective:: Patient's mentation is a little improved today, as his ammonia level is down to 40 He is eating, answering some questions appropriately and is in no respiratory distress He appears depressed and withdrawn Prozac was resumed at half dose Physical Exam Vital Signs: Temp Pulse Resp BP Pulse Ox 98.3 F 81 20 140/82 H 99 10/10/16 11:18 10/10/16 11:18 10/10/16 11:18 10/10/16 11:18 10/10/16 11:18 Intake & Output 10/09/16 10/10/16 10/11/16 00:59 00:59 00:59 Intake Total 3126 1068 0 Output Total 330 700 Balance 2796 368 0 Weight 114.4 kg 114.4 kg 114.2 kg General appearance: PRESENT: morbidly obese Head exam: PRESENT: atraumatic, normocephalic Eye exam: PRESENT: conjunctiva pale, scleral icterus Respiratory exam: PRESENT: clear to auscultation aba. ABSENT: rales, rhonchi, wheezes Pulses: PRESENT: normal dorsalis pedis pul GI/Abdominal exam: PRESENT: ascites, distended, soft. ABSENT: tenderness Neurological exam: PRESENT: awake, CN II-XII grossly intact Results Laboratory Results: 10/09/16 07:32 10/10/16 12:55 10/10/16 10/10/16 12:55 12:55 Sodium 141.9 Potassium 4.8 Chloride 106 Carbon Dioxide 25 Anion Gap 11 BUN 60 H Creatinine 2.11 H Est GFR ( Amer) 39 L Est GFR (Non-Af Amer) 32 L Glucose 134 H Calcium 9.1 Ammonia 42.7 H Impressions: Abdomen/Pelvis CT 10/07/16 00:00 IMPRESSION: Significant interval change is development of diffuse ascites. Cirrhosis and varices. Chronic bony changes. Splenic cystic changes. Paracentesis Ultrasound 10/08/16 08:00 IMPRESSION: Successful ultrasound-guided diagnostic and therapeutic paracentesis Assessment & Plan - Diagnosis (1) Acute metabolic encephalopathy Is this a current diagnosis for this admission?: YesPlan: Secondary to hyperammonemia Patient's condition is improved somewhat We will continue the lactulose Initiate rifaximin Follow-up BMP and ammonia in the a.m. (2) Chronic kidney disease, stage III (moderate) Is this a current diagnosis for this admission?: YesPlan: stable improved somewhat 10/09/16 10/10/16 07:32 12:55 Potassium 4.8 BUN 66 H 60 H Creatinine 2.36 H 2.11 H (3) Cirrhosis Qualifiers: Hepatic cirrhosis type: alcoholic cirrhosis Ascites presence: with ascites Qualified Code(s): K70.31 - Alcoholic cirrhosis of liver with ascites Is this a current diagnosis for this admission?: YesPlan: Child Huynh Score Class C : 45% 1 year survival 35% 2 year survival continue present management will evaluate patient's nutritional status and vitamin levels (4) Liver cirrhosis Qualifiers: Hepatic cirrhosis type: alcoholic cirrhosis Ascites presence: with ascites Qualified Code(s): K70.31 - Alcoholic cirrhosis of liver with ascites Is this a current diagnosis for this admission?: YesPlan: continue present management vitamin levels and replacement - Time Time Spent with patient: 25-34 minutes
[2016-10-10] MEDS ORDERED: FUROSEMIDE INJ/PF 40 MG/4 ML SDV IV ONE (16:30)
[2016-10-10] MEDS: RIFAXIMIN 550 MG TABLET PO SCH (19:17)
[2016-10-11] MEDS: LACTULOSE SYRUP 20 GM/30 ML UDCUP PO SCH ×3 (03:06→09:53)
[2016-10-11 07:18] LABS: ANION GAP 10 (5-19); BLOOD UREA NITROGEN 54 mg/dL (7-20); CALCIUM 9.4 mg/dL (8.4-10.2); CARBON DIOXIDE 27 mmol/L (22-30); CHLORIDE 105 mmol/L (98-107); GLUCOSE 116 mg/dL (75-110); SODIUM 142.2 mmol/L (137-145)
[2016-10-11 07:27] LABS: POTASSIUM 4.5 mmol/L (3.6-5.0)
[2016-10-11] MEDS ORDERED: FLUOXETINE HCL 20 MG CAPSULE PO SCH (08:00)
[2016-10-11] MEDS: FUROSEMIDE INJ/PF 40 MG/4 ML SDV IV SCH (09:44)
[2016-10-11] MEDS: RIFAXIMIN 550 MG TABLET PO SCH ×2 (09:45→17:24)
[2016-10-11] MEDS: THIAMINE HCL 100 MG TABLET PO SCH (09:45)
[2016-10-11] MEDS: METOPROLOL TARTRATE 25 MG TABLET PO SCH ×2 (09:45→21:18)
[2016-10-11] MEDS: FLUOXETINE HCL 20 MG/5 ML UDCUP PO SCH (14:08)
[2016-10-11] MEDS: CEFTRIAXONE 1 GM/D5W RTU 1 GM/50 ML RTUPB IV SCH (14:10)
[2016-10-11] MEDS ORDERED: LACTULOSE SYRUP 20 GM/30 ML UDCUP PO SCH (18:00)
--- NOTE | 2016-10-11 18:41 | PDOC PROGRESS REPORT ---
Subjective Progress Note for:: 10/11/16 Subjective:: Patient is a lot better His mentation has improved as the ammonia is decreasing ; he is answering questions appropriately; he has no fever no chills No abdominal pain No shortness of breath or chest pain Physical Exam Vital Signs: Temp Pulse Resp BP Pulse Ox 99.2 F 80 20 136/68 H 98 10/11/16 15:22 10/11/16 15:22 10/11/16 15:22 10/11/16 15:22 10/11/16 15:22 Intake & Output 10/10/16 10/11/16 10/12/16 00:59 00:59 00:59 Intake Total 1068 920 535 Output Total 700 377 525 Balance 368 543 10 Weight 114.4 kg 114.2 kg 117.4 kg General appearance: PRESENT: no acute distress, morbidly obese Head exam: PRESENT: atraumatic, normocephalic Eye exam: PRESENT: conjunctiva pale, scleral icterus Respiratory exam: PRESENT: clear to auscultation aba. ABSENT: rales, rhonchi, wheezes Cardiovascular exam: PRESENT: irregular rhythm. ABSENT: diastolic murmur, rubs , systolic murmur GI/Abdominal exam: PRESENT: ascites, distended. ABSENT: guarding, tenderness - We will Neurological exam: PRESENT: alert, CN II-XII grossly intact Results Laboratory Results: 10/09/16 07:32 10/11/16 06:45 10/11/16 10/11/16 06:45 07:05 Sodium 142.2 Potassium 4.5 Chloride 105 Carbon Dioxide 27 Anion Gap 10 BUN 54 H Creatinine 2.10 H Est GFR ( Amer) 39 L Est GFR (Non-Af Amer) 32 L Glucose 116 H Calcium 9.4 Ammonia 12.3 Vitamin B12 917.0 Impressions: Abdomen/Pelvis CT 10/07/16 00:00 IMPRESSION: Significant interval change is development of diffuse ascites. Cirrhosis and varices. Chronic bony changes. Splenic cystic changes. Paracentesis Ultrasound 10/08/16 08:00 IMPRESSION: Successful ultrasound-guided diagnostic and therapeutic paracentesis Assessment & Plan - Diagnosis (1) Acute metabolic encephalopathy Is this a current diagnosis for this admission?: Yes (2) Chronic kidney disease, stage III (moderate) Is this a current diagnosis for this admission?: Yes (3) Cirrhosis Qualifiers: Hepatic cirrhosis type: alcoholic cirrhosis Ascites presence: with ascites Qualified Code(s): K70.31 - Alcoholic cirrhosis of liver with ascites Is this a current diagnosis for this admission?: Yes (4) Liver cirrhosis Qualifiers: Hepatic cirrhosis type: alcoholic cirrhosis Ascites presence: with ascites Qualified Code(s): K70.31 - Alcoholic cirrhosis of liver with ascites Is this a current diagnosis for this admission?: Yes - Time Time Spent with patient: We will decrease lactulose at this time to twice a day Continue the present management We have added rifaximin by mouth Continue diuresis with Lasix ; we will follow closely BMP Patient is awaiting Medicaid ; we will need to be placed in a penitentiary facility when coverage is available His son will return from a trip on Saturday Time Spent with patient: 25-34 minutes
--- NOTE | 2016-10-11 19:09 | Palliative Consultation Report ---
Consultation From:: MADELIN GU Consult Reason: Palliative care - HPI HPI: Palliative Care visit made 10/11/16 12:45-1:15 PM Appreciate consult request for this 61 year old patient who has apparently been admitted several times before. He is admitted this time with altered mental status due to high ammonia levels (105) secondary to his alcoholic cirrhosis. He did have paracentesis this admission to remove 1000 ml of fluid on 10/07. He has been treated effectively with lactulose bringing his ammonia level down to 40 with concurrent improvement in mental status. He has other comorbid conditions of CRF, stage 3, and effects of end stage liver disease with low platelets, low albumin and varices and liver enzyme changes. There is mention of previous diabetes in his records and blood sugar was very low in ER. Patient states he lives alone normally. However, according to discharge planners notes, his son helps with his care and son has gone to [place] to be this week. According to Dr. Wilson, Medicaid application was made on his admission to [facility] to help facilitate finding a rehab facility and later an [facility]M for him upon discharge. Mr. Brito was awake at the time of my visit and most of his conversation seemed appropriate. However, He asked if he could be moved to a private room, although he is in a private room. He said other things that demonstrated he is not as mentally clear as he appears at first conversation. No family or friends are at bedside. He denies any pain and denies nausea or respiratory distress. Onset: Other - Unknown, lives alone Onset/Duration: Gradual Quality of Pain: No pain Associated Symptoms: Weakness Past Medical History(Consults) - General Information Source: Patient, PENDING SALE TO [facility] Records Home Medications: Fluoxetine HCl [Prozac 20 mg Capsule] 20 mg PO QAM 10/07/16 Furosemide [Lasix] 40 mg PO BID 10/07/16 Glimepiride [Amaryl] 1 mg PO QAM 10/07/16 Hydralazine HCl [Apresoline 25 mg Tablet] 25 mg PO Q12 10/07/16 Magnesium Oxide [Magnesium] 400 mg PO BID 10/07/16 Metoprolol Succinate [Toprol Xl 50 mg Tab.sr] 75 mg PO BID 10/07/16 Allergies/Adverse Reactions: diltiazem [From Cardizem] Allergy (Verified 08/26/16 12:51) - Social History Lives with: Alone, Family Family History: Reviewed & Not Pertinent Parental Family History Reviewed: No Children Family History Reviewed: No Sibling(s) Family History Reviewed.: No Smoking Status: Former Smoker Last Time Smoked: 2014 Frequency of Alcohol Use: Occasional Last Alcohol Use: 10/05/16 Hx Recreational Drug Use: No Drugs: None Hx Prescription Drug Abuse: No - Past Medical History Cardiac Medical History: Reports: Hx Atrial Fibrillation, Hx Congestive Heart Failure, Hx Coronary Artery Disease, Hx Heart Attack - pt unsure of this, Hx Hypertension Pulmonary Medical History: Reports: Hx Asthma - childhood Endocrine Medical History: Reports: Hx Diabetes Mellitus Type 2 Renal/ Medical History: Denies: Hx Peritoneal Dialysis GI Medical History: Reports: Hx Cirrhosis Musculoskeltal Medical History: Reports Hx Arthritis - RA, Reports Hx Fibromyalgia Psychiatric Medical History: Reports: Hx Anxiety, Hx Depression Infectious Medical History: Reports: Hx C-Diff Hematology: Reports: Anemia - Surgical History Past Surgical History: Reports: Hx Appendectomy, Hx Orthopedic Surgery - L hand , Hx Tonsillectomy Ojective:Exam Vital Signs: Temp Pulse Resp BP Pulse Ox 99.2 F 80 20 136/68 H 98 10/11/16 15:22 10/11/16 15:22 10/11/16 15:22 10/11/16 15:22 10/11/16 15:22 Intake & Output 10/10/16 10/11/16 10/12/16 06:59 06:59 06:59 Intake Total 600 925 530 Output Total 500 577 325 Balance 100 348 205 Weight 114.2 kg 117.4 kg - General General Appearance: Lethargic In distress: None Note:: Awake, but appears sleepy. States he is in hospital, but doesn't know other questions when asked. Requests private room while he is in a private room. He says he lives alone and is going back home when he feels better. Denies pain, no respiratory distress and no nausea. He had eaten all of the food on his lunch tray, but had made a mess of it with containers overturned, etc. - HEENT Head: Normocephalic Conjunctiva: Normal Pupils: PERRLA Nasal: Normal Mucous membrane: Normal - Respiratory Respiratory Status: No respiratory distress Breath sounds: Clear - Cardiovascular Pulses: Normal: Radial - Abdominal Bowel Sounds: Hypoactive Tenderness: Nontender - Neurological Cognition: Other - Awake but not altoghter oriented Orientation: Oriented to person, Oriented to place - Psychological Associated symptoms: Flat affect - Skin Skin Temperature: Warm Skin Color: [place], Ecchymosis Objective-Diagnostic Laboratory: 10/09/16 07:32 10/11/16 06:45 10/11/16 10/11/16 06:45 07:05 Sodium 142.2 Potassium 4.5 Chloride 105 Carbon Dioxide 27 Anion Gap 10 BUN 54 H Creatinine 2.10 H Est GFR ( Amer) 39 L Est GFR (Non-Af Amer) 32 L Glucose 116 H Calcium 9.4 Ammonia 12.3 Vitamin B12 917.0 Plan and Recommendation Plan and Recommendation: Physician reports appreciated and spoke with Dr. Wilson about this patient. His son is OOT and hospital is awaiting Medicaid approval to begin search for placement. He is a full code at this time and with his uncertain mental status I did not feel that he is totally competent at this point to change his advance directives. He is much improved since admission. Hopefully when his son returns next week, we can talk with patient and son to determine his EOL wishes and advance directives appropriate for his needs. No symptoms noted to address at this time. Patient is improving well on current medical treatments and would expect to improve more as time continues. He is not appropriate for hospice care at this time, however, if he doesnt take care of himself, he may be soon. It is logical that if he can be placed somewhere where alcohol use is not allowed or at least limited and meals are prepared he should improve. If he goes home alone, the outcome probably will not be positive. Will follow next week when son returns. - Time Spent with Patient Time spent with patient: 15 to 30 Minutes - 15 min with patient, 30 min in chart review and consultation with physician.
[2016-10-12 06:12] LABS: ABSOLUTE BASOPHILS # (AUTO) 0.1 10^3/uL (0.0-0.2); ABSOLUTE EOSINOPHILS # (AUTO) 0.1 10^3/uL (0.0-0.6); ABSOLUTE MONOCYTES (AUTO) 0.6 10^3/uL (0.1-1.4); ABSOLUTE NEUT (AUTO) 3.7 10^3/uL (1.7-8.2); BASOPHILS % (AUTO) 1.4 % (0-2); EOSINOPHILS % (AUTO) 2.2 % (0-6); HEMATOCRIT 24.8 % (37.9-51.0); HEMOGLOBIN 8.4 g/dL (13.5-17.0); HGB HCT DIFFERENCE 0.4; LYMPHOCYTES % (AUTO) 17.6 % (13-45); MEAN CORPUSCULAR HEMOGLOBIN 31.9 pg (27.0-33.4); MEAN CORPUSCULAR VOLUME 94 fl (80-97); MONOCYTES % (AUTO) 11.1 % (3-13); RED BLOOD COUNT 2.64 10^6/uL (4.35-5.55); RED CELL DISTRIBUTION WIDTH 16.2 % (11.5-14.0); SEGMENTED NEUTROPHILS % (AUTO) 67.7 % (42-78); WHITE BLOOD COUNT 5.5 10^3/uL (4.0-10.5)
[2016-10-12 06:13] LABS: ALANINE AMINOTRANSFERASE 33 U/L (21-72); ALBUMIN 2.7 g/dL (3.5-5.0); ALKALINE PHOSPHATASE 66 U/L (38-126); ANION GAP 10 (5-19); ASPARTATE AMINO TRANSFERASE 45 U/L (17-59); BILIRUBIN,DIRECT 0.3 mg/dL (0.0-0.4); BILIRUBIN,TOTAL 1.6 mg/dL (0.2-1.3); BLOOD UREA NITROGEN 51 mg/dL (7-20); CALCIUM 8.8 mg/dL (8.4-10.2); CARBON DIOXIDE 25 mmol/L (22-30); CHLORIDE 104 mmol/L (98-107); CREATININE RESULT 1.99 mg/dL (0.52-1.25); GLUCOSE 102 mg/dL (75-110); POTASSIUM 4.7 mmol/L (3.6-5.0); SODIUM 138.5 mmol/L (137-145); TOTAL PROTEIN 6.7 g/dL (6.3-8.2)
--- NOTE | 2016-10-12 08:03 | PDOC PROGRESS REPORT ---
Subjective Progress Note for:: 10/12/16 Subjective:: Patient is doing extremely well His mentation has improved he is awake alert sitting up eating his breakfast He has no respiratory distress no abdominal pain no nausea or vomiting Remains a little tremulous He has had a large amount of diarrhea, his ammonia level is down to 16, and lactulose was discontinued Physical Exam Vital Signs: Temp Pulse Resp BP Pulse Ox 98.7 F 70 19 146/80 H 98 10/12/16 07:25 10/12/16 07:25 10/12/16 07:25 10/12/16 07:25 10/12/16 07:25 Intake & Output 10/11/16 10/12/16 10/13/16 00:59 00:59 00:59 Intake Total 920 535 905 Output Total 377 525 150 Balance 543 10 755 Weight 114.2 kg 117.4 kg 117.6 kg General appearance: PRESENT: no acute distress, morbidly obese Head exam: PRESENT: atraumatic Eye exam: PRESENT: conjunctiva pink, EOMI, PERRLA. ABSENT: scleral icterus Neck exam: ABSENT: carotid bruit, JVD, lymphadenopathy, thyromegaly Respiratory exam: PRESENT: clear to auscultation aba. ABSENT: rales, rhonchi, wheezes Cardiovascular exam: PRESENT: irregular rhythm Pulses: PRESENT: normal dorsalis pedis pul GI/Abdominal exam: PRESENT: ascites, normal bowel sounds, soft. ABSENT: distended, guarding, mass, organolmegaly, rebound, tenderness Neurological exam: PRESENT: alert, awake, CN II-XII grossly intact Results Laboratory Results: 10/12/16 05:08 10/12/16 05:08 10/11/16 10/12/16 10/12/16 06:45 05:08 05:08 WBC 5.5 RBC 2.64 L Hgb 8.4 L Hct 24.8 L MCV 94 MCH 31.9 MCHC 34.0 RDW 16.2 H Plt Count 98 L Seg Neutrophils % 67.7 Lymphocytes % 17.6 Monocytes % 11.1 Eosinophils % 2.2 Basophils % 1.4 Absolute Neutrophils 3.7 Absolute Lymphocytes 1.0 Absolute Monocytes 0.6 Absolute Eosinophils 0.1 Absolute Basophils 0.1 Sodium 142.2 138.5 Potassium 4.5 4.7 Chloride 105 104 Carbon Dioxide 27 25 Anion Gap 10 10 BUN 54 H 51 H Creatinine 2.10 H 1.99 H Est GFR ( Amer) 39 L 42 L Est GFR (Non-Af Amer) 32 L 34 L Glucose 116 H 102 Calcium 9.4 8.8 Total Bilirubin 1.6 H AST 45 ALT 33 Alkaline Phosphatase 66 Total Protein 6.7 Albumin 2.7 L Vitamin B12 917.0 Impressions: Abdomen/Pelvis CT 10/07/16 00:00 IMPRESSION: Significant interval change is development of diffuse ascites. Cirrhosis and varices. Chronic bony changes. Splenic cystic changes. Paracentesis Ultrasound 10/08/16 08:00 IMPRESSION: Successful ultrasound-guided diagnostic and therapeutic paracentesis Assessment & Plan - Diagnosis (1) Acute metabolic encephalopathy Is this a current diagnosis for this admission?: Yes (2) Chronic kidney disease, stage III (moderate) Is this a current diagnosis for this admission?: Yes (3) Cirrhosis Qualifiers: Hepatic cirrhosis type: alcoholic cirrhosis Ascites presence: with ascites Qualified Code(s): K70.31 - Alcoholic cirrhosis of liver with ascites Is this a current diagnosis for this admission?: Yes (4) Liver cirrhosis Qualifiers: Hepatic cirrhosis type: alcoholic cirrhosis Ascites presence: with ascites Qualified Code(s): K70.31 - Alcoholic cirrhosis of liver with ascites Is this a current diagnosis for this admission?: Yes (5) Atrial fibrillation Qualifiers: Atrial fibrillation type: chronic Qualified Code(s): I48.2 - Chronic atrial fibrillation Is this a current diagnosis for this admission?: YesPlan: Not anticoagulated rate controlled (6) Diabetes mellitus type 2 in obese Is this a current diagnosis for this admission?: Yes (7) Hypoglycemia Is this a current diagnosis for this admission?: YesPlan: Has resolved (8) Diastolic CHF Qualifiers: Congestive heart failure chronicity: chronic Qualified Code(s): I50.32 - Chronic diastolic (congestive) heart failure Is this a current diagnosis for this admission?: YesPlan: Well compensated at this time (9) SBP (spontaneous bacterial peritonitis) Is this a current diagnosis for this admission?: YesPlan: Likely was partially treated cultures were negative We will continue ceftriaxone at this time - Time Time Spent with patient: Overall patient's condition has improved dramatically We will continue present management Renal function has improved as well Discontinue lactulose ; continue rifaximin Patient states he will cooperate with physical therapy and "walk down the dowd" Medicaid application pending Time Spent with patient: 25-34 minutes
[2016-10-12] MEDS: FLUOXETINE HCL 20 MG/5 ML UDCUP PO SCH (09:12)
[2016-10-12] MEDS: METOPROLOL TARTRATE 25 MG TABLET PO SCH (09:13)
[2016-10-12] MEDS: THIAMINE HCL 100 MG TABLET PO SCH (09:13)
[2016-10-12] MEDS: RIFAXIMIN 550 MG TABLET PO SCH (09:13)
[2016-10-12] MEDS: FUROSEMIDE INJ/PF 40 MG/4 ML SDV IV SCH (09:14)
[2016-10-12 11:28] LABS: VITAMIN D 25-HYDROXY 20.7 ng/mL (30.0-100.0)
[2016-10-13] MEDS ORDERED: METOPROLOL TARTRATE 50 MG TABLET ONE
[2016-10-13] MEDS ORDERED: DEXTROSE 50%-WATER 25 GM/50 ML DISP.SYRIN IV PRN ×2 (09:01)
[2016-10-13] MEDS ORDERED: ACETAMINOPHEN 325 MG TABLET PO PRN (09:01)
[2016-10-13] MEDS ORDERED: DEXTROSE 40% GEL 15 GM TUBE PO PRN ×2 (09:01→09:02)
[2016-10-13] MEDS ORDERED: GLUCAGON,HUMAN RECOMB 1 MG INJ IM PRN (09:03)
[2016-10-13] MEDS ORDERED: INSULIN LISPRO 100 UNIT/ML 3 ML VIAL SUBCUT PRN (09:03)
[2016-10-13] MEDS ORDERED: IPRATROPIUM/ALBUTEROL 0.5-2.5 MG/3 ML AMPUL NEB PRN (09:05)
[2016-10-13] MEDS ORDERED: ONDANSETRON HCL INJ/PF 4 MG/2 ML SDV IV PRN (09:07)
[2016-10-13] MEDS: RIFAXIMIN 550 MG TABLET PO SCH ×2 (09:56→17:39)
[2016-10-13] MEDS: METOPROLOL TARTRATE 25 MG TABLET PO SCH ×2 (09:56→21:39)
[2016-10-13] MEDS: THIAMINE HCL 100 MG TABLET PO SCH (09:56)
[2016-10-13] MEDS: FUROSEMIDE INJ/PF 40 MG/4 ML SDV IV SCH (10:42)
[2016-10-13 10:53] LABS: VITAMIN D 1,25 DIHYDROXY 9.9 pg/mL (19.9-79.3)
--- NOTE | 2016-10-13 10:54 | PDOC PROGRESS REPORT ---
Subjective Progress Note for:: 10/13/16 Subjective:: Patient is doing very well He is very much improved with improved mentation; improved appetite Is able to ambulate some with a walker Labs showed vitamin D deficiency he had no fever no chills. His weight is stable his renal function has improved Ascites seems to have reaccumulated, Physical Exam Vital Signs: Temp Pulse Resp BP Pulse Ox 98.3 F 71 18 129/72 H 99 10/13/16 07:10 10/13/16 07:10 10/13/16 07:10 10/13/16 07:10 10/13/16 07:10 Intake & Output 10/12/16 10/13/16 10/14/16 00:59 00:59 00:59 Intake Total 535 1865 1260 Output Total 525 450 150 Balance 10 1415 1110 Weight 117.4 kg 117.6 kg 117.6 kg General appearance: PRESENT: no acute distress, morbidly obese Head exam: PRESENT: atraumatic, normocephalic Eye exam: PRESENT: conjunctiva pink, EOMI, PERRLA. ABSENT: scleral icterus Neck exam: ABSENT: carotid bruit, JVD, lymphadenopathy, thyromegaly Respiratory exam: PRESENT: clear to auscultation aba. ABSENT: rales, rhonchi, wheezes Cardiovascular exam: PRESENT: irregular rhythm. ABSENT: diastolic murmur, rubs , systolic murmur GI/Abdominal exam: PRESENT: ascites. ABSENT: guarding, rebound Extremities exam: PRESENT: full ROM. ABSENT: calf tenderness, clubbing, pedal edema Neurological exam: PRESENT: alert, awake, CN II-XII grossly intact Results Laboratory Results: 10/12/16 05:08 10/12/16 05:08 10/08/16 14:52 Peritoneal Gram Stain - Final 10/08/16 14:52 Peritoneal Body Fluid Culture - Final NO AEROBIC OR ANAEROBIC ORGANISMS RECOVERED Impressions: Abdomen/Pelvis CT 10/07/16 00:00 IMPRESSION: Significant interval change is development of diffuse ascites. Cirrhosis and varices. Chronic bony changes. Splenic cystic changes. Paracentesis Ultrasound 10/08/16 08:00 IMPRESSION: Successful ultrasound-guided diagnostic and therapeutic paracentesis Assessment & Plan - Diagnosis (1) Acute metabolic encephalopathy Is this a current diagnosis for this admission?: YesPlan: Secondary to hepatitic encephalopathy has resolved We have decreased lactulose daily at bedtime Continue rifaximin We will recheck ammonia in a.m. (2) Chronic kidney disease, stage III (moderate) Is this a current diagnosis for this admission?: Yes (3) Cirrhosis Qualifiers: Hepatic cirrhosis type: alcoholic cirrhosis Ascites presence: with ascites Qualified Code(s): K70.31 - Alcoholic cirrhosis of liver with ascites Is this a current diagnosis for this admission?: Yes (4) Liver cirrhosis Qualifiers: Hepatic cirrhosis type: alcoholic cirrhosis Ascites presence: with ascites Qualified Code(s): K70.31 - Alcoholic cirrhosis of liver with ascites Is this a current diagnosis for this admission?: Yes (5) Atrial fibrillation Qualifiers: Atrial fibrillation type: chronic Qualified Code(s): I48.2 - Chronic atrial fibrillation Is this a current diagnosis for this admission?: YesPlan: Not anticoagulated Rate controlled (6) Diabetes mellitus type 2 in obese Is this a current diagnosis for this admission?: Yes (7) Hypoglycemia Is this a current diagnosis for this admission?: YesPlan: has resolved (8) Diastolic CHF Qualifiers: Congestive heart failure chronicity: chronic Qualified Code(s): I50.32 - Chronic diastolic (congestive) heart failure Is this a current diagnosis for this admission?: YesPlan: Well compensated at this time (9) SBP (spontaneous bacterial peritonitis) Is this a current diagnosis for this admission?: YesPlan: resolving We will repeat paracentesis on Saturday (10) EARLE (acute kidney injury) Is this a current diagnosis for this admission?: YesPlan: Acute on chronic renal failure Is stable (11) Discharge planning issues Is this a current diagnosis for this admission?: YesPlan: Patient cannot go home ; he lives alone; he would be best not in assisted living situation his son is returning from a trip tomorrow We are still awaiting Medicaid application - Time Time Spent with patient: 35 or more minutes
[2016-10-13] MEDS ORDERED: CHOLECALCIFEROL (D3) 1,000 UNIT TABLET PO ONE (11:30)
[2016-10-13] MEDS: CEFTRIAXONE 1 GM/D5W RTU 1 GM/50 ML RTUPB IV SCH (14:34)
[2016-10-13] MEDS: LACTULOSE SYRUP 20 GM/30 ML UDCUP PO SCH (21:39)
[2016-10-14 05:29] LABS: ABSOLUTE BASOPHILS # (AUTO) 0.1 10^3/uL (0.0-0.2); ABSOLUTE EOSINOPHILS # (AUTO) 0.3 10^3/uL (0.0-0.6); ABSOLUTE LYMPHOCYTES (AUTO) 0.9 10^3/uL (0.5-4.7); ABSOLUTE MONOCYTES (AUTO) 0.5 10^3/uL (0.1-1.4); ABSOLUTE NEUT (AUTO) 2.5 10^3/uL (1.7-8.2); BASOPHILS % (AUTO) 1.6 % (0-2); EOSINOPHILS % (AUTO) 6.6 % (0-6); HEMATOCRIT 25.5 % (37.9-51.0); HEMOGLOBIN 8.7 g/dL (13.5-17.0); HGB HCT DIFFERENCE 0.6; LYMPHOCYTES % (AUTO) 21.6 % (13-45); MEAN CORPUSCULAR HGB CONC 34.1 g/dL (32.0-36.0); MEAN CORPUSCULAR VOLUME 94 fl (80-97); MONOCYTES % (AUTO) 11.6 % (3-13); RED BLOOD COUNT 2.71 10^6/uL (4.35-5.55); RED CELL DISTRIBUTION WIDTH 16.2 % (11.5-14.0); SEGMENTED NEUTROPHILS % (AUTO) 58.6 % (42-78); WHITE BLOOD COUNT 4.3 10^3/uL (4.0-10.5)
[2016-10-14 05:51] LABS: ANION GAP 10 (5-19); BLOOD UREA NITROGEN 46 mg/dL (7-20); CALCIUM 8.5 mg/dL (8.4-10.2); CARBON DIOXIDE 26 mmol/L (22-30); CHLORIDE 104 mmol/L (98-107); CREATININE RESULT 1.64 mg/dL (0.52-1.25); GLUCOSE 113 mg/dL (75-110); POTASSIUM 5.1 mmol/L (3.6-5.0); SODIUM 139.5 mmol/L (137-145)
[2016-10-14] MEDS: FLUOXETINE HCL 20 MG/5 ML UDCUP PO SCH (07:30)
[2016-10-14] MEDS: FUROSEMIDE INJ/PF 40 MG/4 ML SDV IV SCH (11:18)
[2016-10-14] MEDS: THIAMINE HCL 100 MG TABLET PO SCH (11:19)
[2016-10-14] MEDS: CHOLECALCIFEROL (D3) 1,000 UNIT TABLET PO SCH (11:19)
[2016-10-14] MEDS: RIFAXIMIN 550 MG TABLET PO SCH ×2 (11:20→17:02)
[2016-10-14] MEDS: METOPROLOL TARTRATE 25 MG TABLET PO SCH ×2 (11:21→21:58)
--- NOTE | 2016-10-14 13:01 | PDOC PROGRESS REPORT ---
Subjective Progress Note for:: 10/14/16 Subjective:: improved no SOB no abdominal pains had PT evaluation 2 days ago "Pt needs min assist with bed mobility and transfers. Pt ambulated 30ft with slow, mild unsteady gait noted with cues to increase step height and length in B LE and for sequencing of gait with FWW for safety. No loss of balance noted. Also performed B LE SLR, hip abd, add, heel slides, ankle pump, quads and gluteal sets x 10 reps each done active assisted. Will continue to follow for strengthening exercises, transfers and gait training to improve functional mobility. Recommend continued PT upon discharge" renal function is improving ammonia level down Physical Exam Vital Signs: Temp Pulse Resp BP Pulse Ox 97.9 F 64 19 137/89 H 98 10/14/16 11:15 10/14/16 11:15 10/14/16 11:15 10/14/16 11:15 10/14/16 11:15 Intake & Output 10/13/16 10/14/16 10/15/16 00:59 00:59 00:59 Intake Total 1865 2000 460 Output Total 450 150 Balance 1415 1850 460 Weight 117.6 kg 117.6 kg 118.2 kg General appearance: PRESENT: no acute distress, morbidly obese Head exam: PRESENT: atraumatic, normocephalic Eye exam: PRESENT: conjunctiva pink, EOMI, PERRLA. ABSENT: scleral icterus Respiratory exam: PRESENT: clear to auscultation aba. ABSENT: rales, rhonchi, wheezes Cardiovascular exam: PRESENT: irregular rhythm. ABSENT: diastolic murmur, rubs , systolic murmur GI/Abdominal exam: PRESENT: ascites. ABSENT: guarding, rebound Extremities exam: PRESENT: full ROM. ABSENT: calf tenderness, clubbing, pedal edema Neurological exam: PRESENT: alert, awake, oriented to person, oriented to place , oriented to time, oriented to situation, CN II-XII grossly intact. ABSENT: motor sensory deficit Results Laboratory Results: 10/14/16 05:18 10/14/16 05:18 10/11/16 10/14/16 10/14/16 06:45 05:18 05:18 WBC 4.3 RBC 2.71 L Hgb 8.7 L Hct 25.5 L MCV 94 MCH 32.0 MCHC 34.1 RDW 16.2 H Plt Count 109 L Seg Neutrophils % 58.6 Lymphocytes % 21.6 Monocytes % 11.6 Eosinophils % 6.6 H Basophils % 1.6 Absolute Neutrophils 2.5 Absolute Lymphocytes 0.9 Absolute Monocytes 0.5 Absolute Eosinophils 0.3 Absolute Basophils 0.1 Sodium 139.5 Potassium 5.1 H Chloride 104 Carbon Dioxide 26 Anion Gap 10 BUN 46 H Creatinine 1.64 H Est GFR ( Amer) 52 L Est GFR (Non-Af Amer) 43 L Glucose 113 H Calcium 8.5 Ammonia Vitamin A 13 L 10/14/16 05:18 WBC RBC Hgb Hct MCV MCH MCHC RDW Plt Count Seg Neutrophils % Lymphocytes % Monocytes % Eosinophils % Basophils % Absolute Neutrophils Absolute Lymphocytes Absolute Monocytes Absolute Eosinophils Absolute Basophils Sodium Potassium Chloride Carbon Dioxide Anion Gap BUN Creatinine Est GFR ( Amer) Est GFR (Non-Af Amer) Glucose Calcium Ammonia 11.1 Vitamin A Impressions: Abdomen/Pelvis CT 10/07/16 00:00 IMPRESSION: Significant interval change is development of diffuse ascites. Cirrhosis and varices. Chronic bony changes. Splenic cystic changes. Paracentesis Ultrasound 10/08/16 08:00 IMPRESSION: Successful ultrasound-guided diagnostic and therapeutic paracentesis Assessment & Plan - Diagnosis (1) Acute metabolic encephalopathy Is this a current diagnosis for this admission?: YesPlan: resolved (2) Chronic kidney disease, stage III (moderate) Is this a current diagnosis for this admission?: Yes (3) Cirrhosis Qualifiers: Hepatic cirrhosis type: alcoholic cirrhosis Ascites presence: with ascites Qualified Code(s): K70.31 - Alcoholic cirrhosis of liver with ascites Is this a current diagnosis for this admission?: YesPlan: chronic liver disease stable at this time (4) Liver cirrhosis Qualifiers: Hepatic cirrhosis type: alcoholic cirrhosis Ascites presence: with ascites Qualified Code(s): K70.31 - Alcoholic cirrhosis of liver with ascites Is this a current diagnosis for this admission?: Yes (5) Atrial fibrillation Qualifiers: Atrial fibrillation type: chronic Qualified Code(s): I48.2 - Chronic atrial fibrillation Is this a current diagnosis for this admission?: YesPlan: rate controlled not anticoagulated (6) Diabetes mellitus type 2 in obese Is this a current diagnosis for this admission?: Yes (7) Hypoglycemia Is this a current diagnosis for this admission?: YesPlan: resolved (8) Diastolic CHF Qualifiers: Congestive heart failure chronicity: chronic Qualified Code(s): I50.32 - Chronic diastolic (congestive) heart failure Is this a current diagnosis for this admission?: Yes (9) SBP (spontaneous bacterial peritonitis) Is this a current diagnosis for this admission?: YesPlan: resolving for repeat paracentesis in am (10) EARLE (acute kidney injury) Is this a current diagnosis for this admission?: YesPlan: improved decreased creatinine to 1.64 (11) Discharge planning issues Is this a current diagnosis for this admission?: YesPlan: discharge planning in am ? assisted living when medicaid coverage available son returning from trip today - Time Time Spent with patient: 25-34 minutes
[2016-10-14] MEDS: CEFTRIAXONE 1 GM/D5W RTU 1 GM/50 ML RTUPB IV SCH (14:29)
[2016-10-14] MEDS ORDERED: VITAMIN A 10,000 UNIT CAPSULE PO ONE (14:30)
[2016-10-14] MEDS: LACTULOSE SYRUP 20 GM/30 ML UDCUP PO SCH (21:41)
[2016-10-15 05:41] LABS: PARTIAL THROMBOPLASTIN TIME 23.2 SEC (23.5-35.8)
[2016-10-15 05:50] LABS: ANION GAP 8 (5-19); BLOOD UREA NITROGEN 44 mg/dL (7-20); CALCIUM 8.3 mg/dL (8.4-10.2); CARBON DIOXIDE 26 mmol/L (22-30); CHLORIDE 104 mmol/L (98-107); CREATININE RESULT 1.44 mg/dL (0.52-1.25); GLUCOSE 90 mg/dL (75-110); POTASSIUM 5.3 mmol/L (3.6-5.0); SODIUM 137.8 mmol/L (137-145)
[2016-10-15 06:48] LABS: ABSOLUTE EOSINOPHILS # (AUTO) 0.2 10^3/uL (0.0-0.6); ABSOLUTE LYMPHOCYTES (AUTO) 0.9 10^3/uL (0.5-4.7); ABSOLUTE MONOCYTES (AUTO) 0.5 10^3/uL (0.1-1.4); ABSOLUTE NEUT (AUTO) 1.9 10^3/uL (1.7-8.2); BASOPHILS % (AUTO) 1.3 % (0-2); EOSINOPHILS % (AUTO) 5.9 % (0-6); HEMATOCRIT 25.1 % (37.9-51.0); HEMOGLOBIN 8.4 g/dL (13.5-17.0); HGB HCT DIFFERENCE 0.1; LYMPHOCYTES % (AUTO) 24.7 % (13-45); MEAN CORPUSCULAR HEMOGLOBIN 31.6 pg (27.0-33.4); MEAN CORPUSCULAR HGB CONC 33.5 g/dL (32.0-36.0); MEAN CORPUSCULAR VOLUME 94 fl (80-97); MONOCYTES % (AUTO) 13.5 % (3-13); RED BLOOD COUNT 2.66 10^6/uL (4.35-5.55); RED CELL DISTRIBUTION WIDTH 16.3 % (11.5-14.0); SEGMENTED NEUTROPHILS % (AUTO) 54.6 % (42-78); WHITE BLOOD COUNT 3.5 10^3/uL (4.0-10.5)
[2016-10-15] MEDS: FLUOXETINE HCL 20 MG/5 ML UDCUP PO SCH (07:51)
[2016-10-15] MEDS: CHOLECALCIFEROL (D3) 1,000 UNIT TABLET PO SCH (11:00)
[2016-10-15] MEDS: METOPROLOL TARTRATE 25 MG TABLET PO SCH ×2 (11:01→21:10)
[2016-10-15] MEDS: RIFAXIMIN 550 MG TABLET PO SCH ×2 (11:01→17:06)
[2016-10-15] MEDS: FUROSEMIDE 40 MG TABLET PO SCH (11:02)
[2016-10-15] MEDS: THIAMINE HCL 100 MG TABLET PO SCH (11:02)
[2016-10-15] MEDS: VITAMIN A 10,000 UNIT CAPSULE PO SCH (11:02)
[2016-10-15 11:06] LABS: FLUID APPEARANCE CLEAR; FLUID RBC SIDE 1 120; FLUID RBC SIDE 2 130; FLUID TYPE PERITONEAL
[2016-10-15 11:07] LABS: FLUID RBC DILUENT USED NONE USED; FLUID RBC DILUTION FACTOR 1; TOTAL RBC SQUARES COUNTED FLD 50
[2016-10-15] MEDS: CEFTRIAXONE 1 GM/D5W RTU 1 GM/50 ML RTUPB IV SCH (14:29)
[2016-10-15] MEDS: ALBUMIN HUMAN 50 ML IV SCH ×3 (15:51→17:19)
--- NOTE | 2016-10-15 16:00 | Progress Note ---
Provider Note Provider Note: Palliaitve Care Note: Follow up visit for palliative care. Patient asleep. Son not here. Noted patient had paracentesis today to remove 5500 ml fluid. No repsonse yet from Medicaid or facilities for transfer after discharge. Unable to reach son on telephone, will leave my card and number with note in patients room asking him to call me when he arrives. Will try to discuss advance directives with son.
[2016-10-15] MEDS: LACTULOSE SYRUP 20 GM/30 ML UDCUP PO SCH (21:10)
[2016-10-16] MEDS: CHOLECALCIFEROL (D3) 1,000 UNIT TABLET PO SCH (09:09)
[2016-10-16] MEDS: FLUOXETINE HCL 20 MG/5 ML UDCUP PO SCH (09:09)
[2016-10-16] MEDS: RIFAXIMIN 550 MG TABLET PO SCH ×2 (09:09→17:08)
[2016-10-16] MEDS: METOPROLOL TARTRATE 25 MG TABLET PO SCH ×2 (09:10→21:32)
[2016-10-16] MEDS: VITAMIN A 10,000 UNIT CAPSULE PO SCH (09:10)
[2016-10-16] MEDS: FUROSEMIDE 40 MG TABLET PO SCH (09:10)
[2016-10-16] MEDS: THIAMINE HCL 100 MG TABLET PO SCH (09:10)
[2016-10-16] MEDS: CEFTRIAXONE 1 GM/D5W RTU 1 GM/50 ML RTUPB IV SCH (15:12)
--- NOTE | 2016-10-16 17:34 | PDOC PROGRESS REPORT ---
Subjective Progress Note for:: 10/16/16 Subjective:: Reason for follow-up visit: Alcoholic Cirrhosis with recurrent ascites and hepatic encephalopathy with resultant gait abnormality; hypoglycemia Hospital course: Patient was admitted over a week ago with acute encephalopathy that turned out to be multifactorial, he was found to be hypoglycemic after sulfonylurea use at home in the setting of decreased oral intake and acute renal failure related to alcohol consumption and acute alcoholic hepatitis. His mental state declined rapidly secondary to rising ammonia levels from his liver disease. He was treated appropriately and ultimately improved after paracentesis 2, ongoing lactulose therapy, antibiotics for presumed SBP, etc. His situation remains tenuous and I do not believe he is safe for discharge home under his own recognizance, proving his inability to care for himself and make appropriate decisions. His sinus meeting with medical case worker today to decide on outpatient disposition. Currently he denies chest pain, palpitations, nausea, vomiting, diarrhea, fever , chills. States he just very tired. ROS: per HPI plus a total of 10 systems reviewed, pertinent positives and negatives noted above, remaining systems negative. Physical Exam Vital Signs: Temp Pulse Resp BP Pulse Ox 98.2 F 66 22 H 108/58 L 100 10/16/16 15:21 10/16/16 15:21 10/16/16 15:21 10/16/16 15:21 10/16/16 15:21 Intake & Output 10/15/16 10/16/16 10/17/16 06:59 06:59 06:59 Intake Total 1300 1760 760 Output Total 200 Balance 1300 1760 560 Weight 119.7 kg 114.6 kg EXAM GENERAL: NAD; well developed, well nourished; obese; alert and oriented to person, place, situation HEENT: normocephalic, atraumatic; no conjunctival injection, no scleral icterus ; oral mucosa moist; RESPIRATORY: no accessory muscle use, no increased WOB, good air entry bilaterally; no wheezes, rales, rhonchi; no inspiratory crackles CARDIO: no JVD; irregularly irregular; no systolic murmur; no tachycardia GI: soft; nondistended; normal bowel sounds; no rebound, rigidity, guarding; nontender VASCULAR: no carotid bruit; no abdominal bruit; no pallor; 2+ radial, DP pulse ; normal capillary refill EXTREMITIES: no calf tender; no palpable cords in calf; no clubbing, cyanosis ; bilateral nonpitting pedal edema PSYCH: normal affect, normal mood SKIN: warm; moist; no petechiae; no telengectasias; no jaundice; no rash Assessment & Plan - Diagnosis (1) Hypoglycemia Is this a current diagnosis for this admission?: YesPlan: Resolved (2) Elevated lipase Is this a current diagnosis for this admission?: Yes (3) Ascites Qualifiers: Ascites type: due to alcoholic cirrhosis Qualified Code(s): K70.31 - Alcoholic cirrhosis of liver with ascites Is this a current diagnosis for this admission?: YesPlan: Improved. Cannot continue diuresis due to acute renal failure on presentation and underlying chronic kidney disease. (5) Diabetes mellitus type 2 in obese Is this a current diagnosis for this admission?: Yes (6) A-fib Qualifiers: Atrial fibrillation type: chronic Qualified Code(s): I48.2 - Chronic atrial fibrillation Is this a current diagnosis for this admission?: Yes (7) Chronic kidney disease, stage III (moderate) Is this a current diagnosis for this admission?: YesPlan: Improved and likely back to new normal. (8) Cirrhosis Qualifiers: Hepatic cirrhosis type: alcoholic cirrhosis Ascites presence: with ascites Qualified Code(s): K70.31 - Alcoholic cirrhosis of liver with ascites Is this a current diagnosis for this admission?: Yes (10) Acute metabolic encephalopathy Is this a current diagnosis for this admission?: YesPlan: Improved. - Time Time Spent with patient: 15-24 minutes Medications reviewed and adjusted accordingly: Yes Anticipated discharge: Other - Assisted-living if possible
[2016-10-16] MEDS: LACTULOSE SYRUP 20 GM/30 ML UDCUP PO SCH (21:32)
[2016-10-17 06:42] LABS: HEMOGLOBIN 8.2 g/dL (13.5-17.0); HGB HCT DIFFERENCE 0.6; MEAN CORPUSCULAR HGB CONC 34.1 g/dL (32.0-36.0); MEAN CORPUSCULAR VOLUME 94 fl (80-97); RED BLOOD COUNT 2.56 10^6/uL (4.35-5.55); RED CELL DISTRIBUTION WIDTH 16.1 % (11.5-14.0)
[2016-10-17 07:02] LABS: ALANINE AMINOTRANSFERASE 41 U/L (21-72); ALBUMIN 2.5 g/dL (3.5-5.0); ALKALINE PHOSPHATASE 81 U/L (38-126); ANION GAP 9 (5-19); ASPARTATE AMINO TRANSFERASE 59 U/L (17-59); BILIRUBIN,DIRECT 0.3 mg/dL (0.0-0.4); BILIRUBIN,TOTAL 1.1 mg/dL (0.2-1.3); BLOOD UREA NITROGEN 39 mg/dL (7-20); CALCIUM 8.5 mg/dL (8.4-10.2); CARBON DIOXIDE 25 mmol/L (22-30); CHLORIDE 105 mmol/L (98-107); CREATININE RESULT 1.33 mg/dL (0.52-1.25); GLUCOSE 91 mg/dL (75-110); SODIUM 138.5 mmol/L (137-145); TOTAL PROTEIN 6.5 g/dL (6.3-8.2)
[2016-10-17 07:04] LABS: POTASSIUM 5.2 mmol/L (3.6-5.0)
[2016-10-17] MEDS: FLUOXETINE HCL 20 MG/5 ML UDCUP PO SCH (07:24)
[2016-10-17] MEDS: CHOLECALCIFEROL (D3) 1,000 UNIT TABLET PO SCH (10:39)
[2016-10-17] MEDS: FUROSEMIDE 40 MG TABLET PO SCH (10:41)
[2016-10-17] MEDS: RIFAXIMIN 550 MG TABLET PO SCH ×2 (10:41→17:20)
[2016-10-17] MEDS: VITAMIN A 10,000 UNIT CAPSULE PO SCH (10:41)
[2016-10-17] MEDS: THIAMINE HCL 100 MG TABLET PO SCH (10:41)
[2016-10-17] MEDS: METOPROLOL TARTRATE 25 MG TABLET PO SCH ×2 (10:42→21:08)
--- NOTE | 2016-10-17 14:15 | PDOC PROGRESS REPORT ---
Subjective Progress Note for:: 10/17/16 Subjective:: Reason for follow-up visit: Alcoholic Cirrhosis with recurrent ascites and hepatic encephalopathy with resultant gait abnormality; hypoglycemia Hospital course: Patient was admitted over a week ago with acute encephalopathy that turned out to be multifactorial, he was found to be hypoglycemic after sulfonylurea use at home in the setting of decreased oral intake and acute renal failure related to alcohol consumption and acute alcoholic hepatitis. His mental state declined rapidly secondary to rising ammonia levels from his liver disease. He was treated appropriately and ultimately improved after paracentesis 2, ongoing lactulose therapy, antibiotics for presumed SBP, etc. he continues to report at least 3 bowel movements daily. His mental status has improved as his ammonia level returned to normal. His situation remains tenuous and I do not believe he is safe for discharge home under his own recognizance, proving his inability to care for himself and make appropriate decisions. His sinus meeting with mattress spring encaser today to decide on outpatient disposition. Currently he denies chest pain, palpitations, nausea, vomiting, diarrhea, fever , chills. He has no complaints for me this morning. ROS: per HPI plus a total of 10 systems reviewed, pertinent positives and negatives noted above, remaining systems negative. Physical Exam Vital Signs: Temp Pulse Resp BP Pulse Ox 98.2 F 65 20 110/59 L 99 10/17/16 11:09 10/17/16 11:09 10/17/16 11:09 10/17/16 11:09 10/17/16 11:09 Intake & Output 10/16/16 10/17/16 10/18/16 06:59 06:59 06:59 Intake Total 1760 1610 Output Total 350 Balance 1760 1260 Weight 114.6 kg 113.6 kg EXAM GENERAL: NAD; well developed, well nourished; obese; alert and oriented to person, place, situation, remembers me by name from yesterday; he is not oriented to time thinking it is 1977 HEENT: normocephalic, atraumatic; no conjunctival injection, no scleral icterus ; oral mucosa moist; RESPIRATORY: no accessory muscle use, no increased WOB, good air entry bilaterally; no wheezes, rales, rhonchi; no inspiratory crackles CARDIO: no JVD; irregularly irregular; no systolic murmur; no tachycardia GI: soft; mild distention; normal bowel sounds; no rebound, rigidity, guarding ; nontender; no appreciable fluid wave or shifting dullness VASCULAR: no pallor; 2+ radial, DP pulse; normal capillary refill EXTREMITIES: no calf tender; no palpable cords in calf; no clubbing, cyanosis ; bilateral nonpitting pedal edema PSYCH: normal affect, normal mood SKIN: warm; moist; no petechiae; no telengectasias; no jaundice; no rash Results Laboratory Results: 10/17/16 06:22 10/17/16 06:22 10/17/16 10/17/16 10/17/16 06:22 06:22 06:22 WBC 3.0 L RBC 2.56 L Hgb 8.2 L Hct 24.0 L MCV 94 MCH 32.0 MCHC 34.1 RDW 16.1 H Plt Count 115 L Sodium 138.5 Potassium 5.2 H Chloride 105 Carbon Dioxide 25 Anion Gap 9 BUN 39 H Creatinine 1.33 H Est GFR ( Amer) > 60 Est GFR (Non-Af Amer) 55 L Glucose 91 Calcium 8.5 Total Bilirubin 1.1 AST 59 ALT 41 Alkaline Phosphatase 81 Ammonia 13.5 Total Protein 6.5 Albumin 2.5 L Labs reviewed, renal function continues to improve. Assessment & Plan - Diagnosis (1) Hypoglycemia Is this a current diagnosis for this admission?: YesPlan: Resolved. Continue to hold sulfonylurea. Cover blood sugars with sliding scale insulin. (2) Elevated lipase Is this a current diagnosis for this admission?: Yes (3) Ascites Qualifiers: Ascites type: due to alcoholic cirrhosis Qualified Code(s): K70.31 - Alcoholic cirrhosis of liver with ascites Is this a current diagnosis for this admission?: YesPlan: Improved. Status post 6 L paracentesis 2 during this admission. Cannot continue diuresis due to acute renal failure on presentation and underlying chronic kidney disease. Gram stain and culture of the fluid 2 shows no growth and his symptoms have resolved, he shows no signs of ongoing SBP now status post 5 days of Rocephin; will discontinue. (4) Anemia of chronic disease Plan: H&H stable at baseline (5) Diabetes mellitus type 2 in obese Is this a current diagnosis for this admission?: Yes (6) A-fib Qualifiers: Atrial fibrillation type: chronic Qualified Code(s): I48.2 - Chronic atrial fibrillation Is this a current diagnosis for this admission?: Yes (7) Chronic kidney disease, stage III (moderate) Is this a current diagnosis for this admission?: Yes (8) Cirrhosis Qualifiers: Hepatic cirrhosis type: alcoholic cirrhosis Ascites presence: with ascites Qualified Code(s): K70.31 - Alcoholic cirrhosis of liver with ascites Is this a current diagnosis for this admission?: Yes (10) Acute metabolic encephalopathy Is this a current diagnosis for this admission?: YesPlan: Improved. Only disoriented to time but continues to improve day by day. Continue empiric thiamine therapy. - Time Time Spent with patient: 15-24 minutes Anticipated discharge: Other - Assisted-living Within: within 24 hours - Plan Summary Plan Summary: Awaiting resolution of his financial and social stressors and confirmation of pain or source. Awaiting placement.
[2016-10-17] MEDS: LACTULOSE SYRUP 20 GM/30 ML UDCUP PO SCH (21:08)
[2016-10-18] MEDS ORDERED: TUBERCULIN,PURIF.PROT.DERIV. 5 TU/0.1 ML TEST 1 ML VIAL ID ONE (09:00)
[2016-10-18] MEDS: FLUOXETINE HCL 20 MG/5 ML UDCUP PO SCH (09:28)
[2016-10-18] MEDS: FUROSEMIDE 40 MG TABLET PO SCH (09:28)
[2016-10-18] MEDS: RIFAXIMIN 550 MG TABLET PO SCH ×2 (09:29→17:04)
[2016-10-18] MEDS: METOPROLOL TARTRATE 25 MG TABLET PO SCH ×2 (09:29→21:32)
[2016-10-18] MEDS: VITAMIN A 10,000 UNIT CAPSULE PO SCH (09:29)
[2016-10-18] MEDS: CHOLECALCIFEROL (D3) 1,000 UNIT TABLET PO SCH (09:29)
[2016-10-18] MEDS: THIAMINE HCL 100 MG TABLET PO SCH (09:32)
--- NOTE | 2016-10-18 12:11 | Progress Note ---
Provider Note Provider Note: Palliative Care visit to follow up. Mr. Brito is awake and far more oriented than on my previous visits. His son is back in town, but not here at hospital at the present time. Mr. Brito denies and pain or other symptoms today and is alert enough to call and place his lunch order. I was able to discuss his illness and condition on admission this time to [facility], and he states much of it he does not remember. He knows he was not able to to make decisions for himself on admission. He states he leaves all of his medical decisions to his son, Peter. I asked him if he has preferences about end of life care such as options for CPR, Ventilator use, etc. He said that he would not want to have his life prolonged and he would not want to have CPR, but that he would leave the decision to his son. I discussed with him that his son may not be available at the time of arrest and that it would be good for him to have this discussion with Peter now, while he is feeling good and is alert. He agreed. I did tell patient that if he does not want CPR or other resuscitation efforts done, that he and his son need to notify his doctor now so it nothing will be done to him in an emergence situation that he doesn't want done. He was able to understand that concept and agreed. I left my card and pamphlet with my cell phone number on his bedside table and asked him to have Peter call me when he came in so we could discuss and do his advance directives if desired. He states Peter is now out looking for a facility for his care. I also left balnk copy of MOST form for son to look at and start conversation with his father. I will be available for them today or tomorrow but will be out of town next week. Appreciate excellent care this patient has received to help him recover to this state. He is grateful also. Approximately 20 min spent in direct discussion with patient and 10 min in chart review today.
--- NOTE | 2016-10-18 15:35 | PDOC PROGRESS REPORT ---
Subjective Progress Note for:: 10/18/16 Subjective:: Reason for follow-up visit: Alcoholic Cirrhosis with recurrent ascites and hepatic encephalopathy with resultant gait abnormality; hypoglycemia Hospital course: Patient was admitted over a week ago with acute encephalopathy that turned out to be multifactorial, he was found to be hypoglycemic after sulfonylurea use at home in the setting of decreased oral intake and acute renal failure related to alcohol consumption and acute alcoholic hepatitis. His mental state declined rapidly secondary to rising ammonia levels from his liver disease. He was treated appropriately and ultimately improved after paracentesis 2, ongoing lactulose therapy, antibiotics for presumed SBP, etc. he continues to report at least 3 bowel movements daily. His mental status has improved as his ammonia level returned to normal. His situation remains tenuous and I do not believe he is safe for discharge home under his own recognizance, proving his inability to care for himself and make appropriate decisions. His sinus meeting with supervisor case loading today to decide on outpatient disposition. Currently he denies chest pain, palpitations, nausea, vomiting, diarrhea, fever , chills. He has no complaints for me this morning. ROS: per HPI plus a total of 10 systems reviewed, pertinent positives and negatives noted above, remaining systems negative. Physical Exam Vital Signs: Temp Pulse Resp BP Pulse Ox 97.7 F 60 19 117/75 99 10/18/16 12:00 10/18/16 12:00 10/18/16 12:00 10/18/16 12:00 10/18/16 12:00 Intake & Output 10/17/16 10/18/16 10/19/16 06:59 06:59 06:59 Intake Total 1610 1181 Output Total 350 825 Balance 1260 356 Weight 113.6 kg 113.8 kg EXAM GENERAL: NAD; well developed, well nourished; obese; alert and oriented to person, place, situation, remembers me by name from yesterday; he is not oriented to time thinking it is 1977 HEENT: normocephalic, atraumatic; no conjunctival injection, no scleral icterus ; oral mucosa moist; RESPIRATORY: no accessory muscle use, no increased WOB, good air entry bilaterally; no wheezes, rales, rhonchi; no inspiratory crackles CARDIO: no JVD; irregularly irregular; no systolic murmur; no tachycardia GI: soft; mild distention; normal bowel sounds; no rebound, rigidity, guarding ; nontender; no appreciable fluid wave or shifting dullness VASCULAR: no pallor; 2+ radial, DP pulse; normal capillary refill EXTREMITIES: no calf tender; no palpable cords in calf; no clubbing, cyanosis ; bilateral nonpitting pedal edema PSYCH: normal affect, normal mood SKIN: warm; moist; no petechiae; no telengectasias; no jaundice; no rash Assessment & Plan - Diagnosis (1) Hypoglycemia Is this a current diagnosis for this admission?: Yes (2) Elevated lipase Is this a current diagnosis for this admission?: Yes (3) Ascites Qualifiers: Ascites type: due to alcoholic cirrhosis Qualified Code(s): K70.31 - Alcoholic cirrhosis of liver with ascites Is this a current diagnosis for this admission?: Yes (5) Diabetes mellitus type 2 in obese Is this a current diagnosis for this admission?: Yes (6) A-fib Qualifiers: Atrial fibrillation type: chronic Qualified Code(s): I48.2 - Chronic atrial fibrillation Is this a current diagnosis for this admission?: Yes (7) Chronic kidney disease, stage III (moderate) Is this a current diagnosis for this admission?: Yes (8) Cirrhosis Qualifiers: Hepatic cirrhosis type: alcoholic cirrhosis Ascites presence: with ascites Qualified Code(s): K70.31 - Alcoholic cirrhosis of liver with ascites Is this a current diagnosis for this admission?: Yes (10) Acute metabolic encephalopathy Is this a current diagnosis for this admission?: Yes - Time Time Spent with patient: Less than 15 minutes Medications reviewed and adjusted accordingly: Yes Anticipated discharge: Other - hoping for assisted living
[2016-10-18] MEDS: LACTULOSE SYRUP 20 GM/30 ML UDCUP PO SCH (21:38)
[2016-10-19] MEDS: METOPROLOL TARTRATE 25 MG TABLET PO SCH ×2 (10:34→22:26)
[2016-10-19] MEDS: FUROSEMIDE 40 MG TABLET PO SCH (10:42)
[2016-10-19] MEDS: VITAMIN A 10,000 UNIT CAPSULE PO SCH (10:42)
[2016-10-19] MEDS: FLUOXETINE HCL 20 MG/5 ML UDCUP PO SCH (10:42)
[2016-10-19] MEDS: CHOLECALCIFEROL (D3) 1,000 UNIT TABLET PO SCH (10:42)
[2016-10-19] MEDS: RIFAXIMIN 550 MG TABLET PO SCH ×2 (10:42→17:58)
[2016-10-19] MEDS: THIAMINE HCL 100 MG TABLET PO SCH (11:15)
--- NOTE | 2016-10-19 15:47 | PDOC PROGRESS REPORT ---
Subjective Progress Note for:: 10/19/16 Subjective:: Reason for follow-up visit: Alcoholic Cirrhosis with recurrent ascites and hepatic encephalopathy with resultant gait abnormality; hypoglycemia Hospital course: Patient was admitted over a week ago with acute encephalopathy that turned out to be multifactorial, he was found to be hypoglycemic after sulfonylurea use at home in the setting of decreased oral intake and acute renal failure related to alcohol consumption and acute alcoholic hepatitis. His mental state declined rapidly secondary to rising ammonia levels from his liver disease. He was treated appropriately and ultimately improved after paracentesis 2, ongoing lactulose therapy, antibiotics for presumed SBP, etc. he continues to report at least 3 bowel movements daily. His mental status has improved as his ammonia level returned to normal. His situation remains tenuous and I do not believe he is safe for discharge home under his own recognizance, proving his inability to care for himself and make appropriate decisions. Hismeeting with case management manager and he has few outpatient options for disposition as his medicaid application is still pending. Currently he denies chest pain, palpitations, nausea, vomiting, diarrhea, fever , chills. He has no complaints for me this morning. ROS: per HPI plus a total of 10 systems reviewed, pertinent positives and negatives noted above, remaining systems negative. Physical Exam Vital Signs: Temp Pulse Resp BP Pulse Ox 98.4 F 69 20 136/78 H 100 10/19/16 11:17 10/19/16 11:17 10/19/16 11:17 10/19/16 11:17 10/19/16 11:17 Intake & Output 10/18/16 10/19/16 10/20/16 06:59 06:59 06:59 Intake Total 1181 1312 706 Output Total 825 350 500 Balance 356 962 206 Weight 113.8 kg 113.7 kg EXAM GENERAL: NAD; well developed, well nourished; obese; HEENT: normocephalic, atraumatic; no conjunctival injection, no scleral icterus ; oral mucosa moist; RESPIRATORY: no accessory muscle use, no increased WOB, good air entry bilaterally; no wheezes, rales, rhonchi; no inspiratory crackles CARDIO: no JVD; irregularly irregular; no systolic murmur; no tachycardia GI: soft; mild distention; normal bowel sounds; no rebound, rigidity, guarding ; nontender; no appreciable fluid wave or shifting dullness VASCULAR: no pallor; 2+ radial, DP pulse; normal capillary refill EXTREMITIES: no calf tender; no palpable cords in calf; no clubbing, cyanosis ; bilateral nonpitting pedal edema PSYCH: normal affect, normal mood SKIN: warm; moist; no petechiae; no telengectasias; no jaundice; no rash Results Laboratory Results: Assessment & Plan - Diagnosis (1) Hypoglycemia Is this a current diagnosis for this admission?: Yes (2) Elevated lipase Is this a current diagnosis for this admission?: Yes (3) Ascites Qualifiers: Ascites type: due to alcoholic cirrhosis Qualified Code(s): K70.31 - Alcoholic cirrhosis of liver with ascites Is this a current diagnosis for this admission?: Yes (5) Diabetes mellitus type 2 in obese Is this a current diagnosis for this admission?: Yes (6) A-fib Qualifiers: Atrial fibrillation type: chronic Qualified Code(s): I48.2 - Chronic atrial fibrillation Is this a current diagnosis for this admission?: Yes (7) Chronic kidney disease, stage III (moderate) Is this a current diagnosis for this admission?: Yes (8) Cirrhosis Qualifiers: Hepatic cirrhosis type: alcoholic cirrhosis Ascites presence: with ascites Qualified Code(s): K70.31 - Alcoholic cirrhosis of liver with ascites Is this a current diagnosis for this admission?: Yes (10) Acute metabolic encephalopathy Is this a current diagnosis for this admission?: Yes - Time Time Spent with patient: Less than 15 minutes Anticipated discharge: Home Within: within 24 hours - Anticipated discharge in the morning [place] Defer to his PCP and family regarding placement as an outpatient.
[2016-10-19] MEDS: LACTULOSE SYRUP 20 GM/30 ML UDCUP PO SCH (22:24)
[2016-10-20] MEDS: FLUOXETINE HCL 20 MG/5 ML UDCUP PO SCH (08:48)
[2016-10-20] MEDS ORDERED: PHARMACY COMMUNICATION ORDER MC SCH (10:00)
[2016-10-20] MEDS: METOPROLOL TARTRATE 25 MG TABLET PO SCH (10:07)
[2016-10-20] MEDS: VITAMIN A 10,000 UNIT CAPSULE PO SCH (10:09)
[2016-10-20] MEDS: CHOLECALCIFEROL (D3) 1,000 UNIT TABLET PO SCH (10:09)
[2016-10-20] MEDS: FUROSEMIDE 40 MG TABLET PO SCH (10:09)
[2016-10-20] MEDS: THIAMINE HCL 100 MG TABLET PO SCH (10:09)
[2016-10-20 14:29] VITALS: BP 144/90
--- NOTE | 2016-10-20 16:36 | PDOC DISCHARGE SUMMARY ---
General - Admit/Disc Date/PCP Admission Date/Primary Care Provider: 10/07/16 08:14 Discharge Date: 10/20/16 - Discharge Diagnosis (1) Hypoglycemia Is this a current diagnosis for this admission?: Yes (2) Elevated lipase Is this a current diagnosis for this admission?: Yes (3) Ascites Is this a current diagnosis for this admission?: Yes (5) Diabetes mellitus type 2 in obese Is this a current diagnosis for this admission?: Yes (6) A-fib Is this a current diagnosis for this admission?: Yes (7) Chronic kidney disease, stage III (moderate) Is this a current diagnosis for this admission?: Yes (8) Cirrhosis Is this a current diagnosis for this admission?: Yes (10) Acute metabolic encephalopathy Is this a current diagnosis for this admission?: Yes - Additional Information Resuscitation Status: Full Code Discharge Diet: Diabetic Discharge Activity: Activity As Tolerated, Balance Activity w/Rest, Weigh Daily Home Medications: Cholecalciferol (Vitamin D3) [Vitamin D3 1000 Unit Tablet] 2,000 unit PO DAILY # 60 tablet 10/20/16 Fluoxetine HCl [Prozac 20 mg Capsule] 20 mg PO QAM #30 capsule 10/20/16 Furosemide [Lasix] 40 mg PO BID #30 tablet 10/20/16 Lactulose [Cephulac Syrup 20 gm/30 ml Udcup] 20 gm PO QHS #30 udc 10/20/16 Magnesium Oxide [Magnesium] 400 mg PO BID #60 tablet 10/20/16 Metoprolol Tartrate [Lopressor 25 mg Tablet] 25 mg PO Q12 #60 tablet 10/20/16 Thiamine HCl [Thiamine 100 mg Tablet] 100 mg PO DAILY #30 tablet 10/20/16 Vitamin A [Vitamin A 10,000 Unit Capsule] 10,000 unit PO DAILY #30 capsule 10/20 History of Present Illness Patient complains of: confusion, hypoglycemia History of Present Illness: Patient was admitted over a week ago with acute encephalopathy that turned out to be multifactorial, he was found to be hypoglycemic after sulfonylurea use at home in the setting of decreased oral intake and acute renal failure related to alcohol consumption and acute alcoholic hepatitis Hospital Course Hospital Course: His mental state declined rapidly secondary to rising ammonia levels from his liver disease. He was treated appropriately and ultimately improved after paracentesis 2, ongoing lactulose therapy, antibiotics for presumed SBP, etc. he continues to report at least 3 bowel movements daily. His mental status has improved as his ammonia level returned to normal. His situation remains tenuous and I still do not believe he is safe for discharge home under his own recognizance, proving his inability to care for himself and make appropriate decisions the last time I try to do that. His met with case worker on several occasions, they have exhausted all options and he has few outpatient options for disposition as his medicaid application is still pending. We had a bed for him at one of the local assisted living facilities but the son turned it down stating "it wasn't good enough for his dad" and insists he will only allow him to be placed at [facility]. Unfortunately they will not make about all of her without a payor source. The son indicates the family is unwilling to flip the bill. His medical conditions are stable as they're ever going to be and I can no longer justify keeping him in the hospital while we await the family to sort out his social situation. He is discharged home in stable condition. He is encouraged to avoid alcohol but I am not convinced he will comply. In fact, it wouldn't surprise me at all if he is back in the hospital within a few days given his prior behaviors and lack of self control. There are family members who enable his pain appears further increasing his risk. Physical Exam Vital Signs: Temp Pulse Resp BP Pulse Ox 98.1 F 55 L 20 144/90 H 97 10/20/16 14:22 10/20/16 14:22 10/20/16 14:22 10/20/16 14:22 10/20/16 14:22 Intake & Output 10/19/16 10/20/16 10/21/16 06:59 06:59 06:59 Intake Total 1312 1906 Output Total 350 2600 Balance 962 -694 Weight 113.7 kg 113.8 kg EXAM GENERAL: NAD; well developed, well nourished; obese; alert and oriented to person place and time HEENT: normocephalic, atraumatic; no conjunctival injection, no scleral icterus ; oral mucosa moist; RESPIRATORY: no accessory muscle use, no increased WOB, good air entry bilaterally; no wheezes, rales, rhonchi; no inspiratory crackles CARDIO: no JVD; irregularly irregular; no systolic murmur; no tachycardia GI: soft; mild distention; normal bowel sounds; no rebound, rigidity, guarding ; nontender; no appreciable fluid wave or shifting dullness VASCULAR: no pallor; 2+ radial, DP pulse; normal capillary refill EXTREMITIES: no calf tender; no palpable cords in calf; no clubbing, cyanosis ; bilateral nonpitting pedal edema PSYCH: normal affect, normal mood SKIN: warm; moist; no petechiae; no telengectasias; no jaundice; no rash Results Laboratory Results: 10/17/16 06:22 10/17/16 06:22 Impressions: Abdomen/Pelvis CT 10/07/16 00:00 IMPRESSION: Significant interval change is development of diffuse ascites. Cirrhosis and varices. Chronic bony changes. Splenic cystic changes. Paracentesis Ultrasound 10/15/16 08:00 IMPRESSION: Successful ultrasound-guided paracentesis Qualifiers PATEINT BEING DISCHARGED WITH ANY OF THE FOLLOWING DIAGNOSIS?: No VTE patient discharged on overlapping Therapy?: No Reason(s) for not prescribing Overlap Therapy:: Not indicated Plan Discharge Plan: Discharge in the care of his family, disposition decisions are their responsibility. He should follow-up with his primary care provider in one week. Prescriptions were provided for all the medications with a 30 day supply. Time Spent: Greater than 30 Minutes
== END 2016-10-20 16:20 | disposition home or self-care (01) | DRG 637 ==
LOC: ER 02:22 → EH 07:50 → UNDOADMIN 07:50 → EH 08:14 → 4W 10:45 → EH 10:45 → UNDODISIN 10-12 11:19 → 4W 10-12 11:37 → 4N 10-19 13:17
PROVIDERS: ADMIT Internal Medicine; ATTEND Internal Medicine
PROC: 0W9G3ZX Drainage of Peritoneal Cavity, Percutaneous Approach, Diagnostic (ICD-10-PCS; principal; 2016-10-08)
PROC: 0W9G3ZZ Drainage of Peritoneal Cavity, Percutaneous Approach (ICD-10-PCS; 2016-10-15)
DX: E11.649 Type 2 diabetes mellitus with hypoglycemia without coma (principal); K65.2 Spontaneous bacterial peritonitis; I13.0 Hypertensive heart and chronic kidney disease with heart failure and stage 1 through stage 4 chronic kidney disease, or unspecified chronic kidney disease; I50.32 Chronic diastolic (congestive) heart failure; K70.31 Alcoholic cirrhosis of liver with ascites; K70.40 Alcoholic hepatic failure without coma; E11.22 Type 2 diabetes mellitus with diabetic chronic kidney disease; N18.3 Chronic kidney disease, stage 3 (moderate); D63.8 Anemia in other chronic diseases classified elsewhere; N17.9 Acute kidney failure, unspecified; I25.10 Atherosclerotic heart disease of native coronary artery without angina pectoris; I48.2 Chronic atrial fibrillation; F41.8 Other specified anxiety disorders; M06.9 Rheumatoid arthritis, unspecified; M79.7 Fibromyalgia; Z60.2 Problems related to living alone; Z87.891 Personal history of nicotine dependence; Z79.84 Long term (current) use of oral hypoglycemic drugs; Z79.899 Other long term (current) drug therapy
CPT/HCPCS: 36415; 49083; 74176; 80048; 80053; 80061; 80307; 81001; 82140; 82306; 82607; 82652; 82962; 83690; 83735; 84100; 84446; 84590; 85025; 85027; 85610; 85730; 86140; 87070; 87075; 87205; 89050; 93005; 93010; 96361; 96374; 99285; A9270-GY; J0696; J1644; J1940; J2354; J3490; P9047; S0119; S0164

== ENCOUNTER 2016-12-18 19:49 | Emergency (ER) | payer MEDICAID, MEDICARE, OTHER ==
--- NOTE | 2016-12-18 20:55 | RADIOLOGY REPORT (SQ) ---
EXAM DESCRIPTION: CHEST SINGLE VIEW COMPLETED DATE/TIME: 12/18/2016 8:41 pm REASON FOR STUDY: SOB COMPARISON: 09/26/2016 EXAM PARAMETERS: NUMBER OF VIEWS: One view. TECHNIQUE: Single frontal radiographic view of the chest acquired. RADIATION DOSE: NA LIMITATIONS: None. FINDINGS: LUNGS AND PLEURA: There is a small amount of fluid in the right minor fissure possibly ate lectasis. There is blunting of the right costophrenic angle consistent with pleural thickening and/o r small effusion. No consolidation. No pneumothorax. MEDIASTINUM AND HILAR STRUCTURES: No masses. Contour normal. HEART AND VASCULAR STRUCTURES: Heart is enlarged. No failure. BONES: No acute findings. HARDWARE: None in the chest. OTHER: No other significant finding. IMPRESSION: Cardiomegaly. Minimal fluid in the right minor fissure versus atelectasis. There is bl unting of the right costophrenic angle which appears to represent pleural thickening. TECHNICAL DOCUMENTATION: JOB ID: [id number]
[2016-12-18 22:40] LABS: ABSOLUTE EOSINOPHILS # (AUTO) 0.2 10^3/uL (0.0-0.6); ABSOLUTE MONOCYTES (AUTO) 0.5 10^3/uL (0.1-1.4); ABSOLUTE NEUT (AUTO) 2.4 10^3/uL (1.7-8.2); BASOPHILS % (AUTO) 1.1 % (0-2); EOSINOPHILS % (AUTO) 3.9 % (0-6); HEMATOCRIT 31.2 % (37.9-51.0); HEMOGLOBIN 10.4 g/dL (13.5-17.0); LYMPHOCYTES % (AUTO) 24.5 % (13-45); MEAN CORPUSCULAR HEMOGLOBIN 32.3 pg (27.0-33.4); MEAN CORPUSCULAR HGB CONC 33.3 g/dL (32.0-36.0); MEAN CORPUSCULAR VOLUME 97 fl (80-97); MONOCYTES % (AUTO) 13.1 % (3-13); RED BLOOD COUNT 3.21 10^6/uL (4.35-5.55); RED CELL DISTRIBUTION WIDTH 16.1 % (11.5-14.0); SEGMENTED NEUTROPHILS % (AUTO) 57.4 % (42-78); WHITE BLOOD COUNT 4.2 10^3/uL (4.0-10.5)
[2016-12-18 22:58] LABS: ALANINE AMINOTRANSFERASE 31 U/L (21-72); ALBUMIN 3.2 g/dL (3.5-5.0); ALKALINE PHOSPHATASE 120 U/L (38-126); ANION GAP 10 (5-19); ASPARTATE AMINO TRANSFERASE 62 U/L (17-59); BILIRUBIN,DIRECT 0.5 mg/dL (0.0-0.4); BILIRUBIN,TOTAL 1.5 mg/dL (0.2-1.3); BLOOD UREA NITROGEN 39 mg/dL (7-20); CALCIUM 9.2 mg/dL (8.4-10.2); CARBON DIOXIDE 25 mmol/L (22-30); CHLORIDE 105 mmol/L (98-107); CREATINE KINASE 136 U/L (55-170); CREATININE RESULT 1.45 mg/dL (0.52-1.25); GLUCOSE 91 mg/dL (75-110); POTASSIUM 4.7 mmol/L (3.6-5.0); SODIUM 140.1 mmol/L (137-145); TOTAL PROTEIN 8.5 g/dL (6.3-8.2)
[2016-12-18 23:10] LABS: CREATINE KINASE MB 2.14 ng/mL (<4.55)
[2016-12-18 23:14] LABS: TROPONIN I < 0.012 ng/mL
[2016-12-19] MEDS ORDERED: FUROSEMIDE INJ/PF 40 MG/4 ML SDV IV ONE (00:40)
--- NOTE | 2016-12-19 00:44 | ER Document Report ---
ED General - General Chief Complaint: Shortness Of Breath Stated Complaint: ABDOMINAL PAIN Time Seen by Provider: 12/19/16 00:34 Notes: Patient is a 61-year-old male who presents with complaint of some leaking of fluid from his abdomen. He also feels more swollen than normal. He has a history of congestive heart failure and has been admitted several times for congestive heart failure. Denies any chest pain. In triage she mention shortness of breath. Patient says the only real shortness of breath he has sometimes he wakes up and twitches quickly and feels short of breath. He says his symptoms then resolved. No fevers. No infections. No vomiting. No diarrhea. No other complaints at this time. He is on Lasix 40 mg twice a day. He says this is not recently changed. TRAVEL OUTSIDE OF THE [place] IN LAST 30 DAYS: No - Related Data Allergies/Adverse Reactions: diltiazem [From Cardizem] Allergy (Verified 08/26/16 12:51) Past Medical History - Social History Smoking Status: Unknown if Ever Smoked Frequency of alcohol use: None Drug Abuse: None Family History: Reviewed & Not Pertinent Patient has suicidal ideation: No Patient has homicidal ideation: No - Past Medical History Cardiac Medical History: Reports: Hx Atrial Fibrillation, Hx Congestive Heart Failure, Hx Coronary Artery Disease, Hx Heart Attack - pt unsure of this, Hx Hypertension Pulmonary Medical History: Reports: Hx Asthma - childhood Endocrine Medical History: Reports: Hx Diabetes Mellitus Type 2 Renal/ Medical History: Denies: Hx Peritoneal Dialysis GI Medical History: Reports: Hx Cirrhosis Musculoskeltal Medical History: Reports Hx Arthritis - RA, Reports Hx Fibromyalgia Psychiatric Medical History: Reports: Hx Anxiety, Hx Depression Infectious Medical History: Reports: Hx C-Diff Past Surgical History: Reports: Hx Appendectomy, Hx Orthopedic Surgery - L hand , Hx Tonsillectomy - Immunizations Hx Diphtheria, Pertussis, Tetanus Vaccination: Yes Review of Systems - Review of Systems Notes: My Normal Review Basic REVIEW OF SYSTEMS: CONSTITUTIONAL : Denies fever, chills, or sweats. Denies recent illness. EENT: Denies eye, ear, throat, or mouth pain or symptoms. Denies nasal or sinus congestion. CARDIOVASCULAR: Denies chest pain. RESPIRATORY: Denies cough, cold, or chest congestion. Denies shortness of breath, difficulty breathing, or wheezing. GASTROINTESTINAL: Denies abdominal pain. Denies nausea, vomiting, or diarrhea. Denies constipation. Last BM: MUSCULOSKELETAL: Denies neck or back pain or joint pain or swelling. SKIN: Denies rash or skin lesions. NEUROLOGICAL: Denies altered mental status or loss of consciousness. Denies headache. Denies weakness or paralysis or loss of use of either side. Denies problems with gait or speech. Denies sensory or motor loss. ALL OTHER SYSTEMS REVIEWED AND NEGATIVE. Physical Exam - Vital signs Vitals: Temp Pulse Resp BP Pulse Ox 98.0 F 55 L 16 163/94 H 97 12/18/16 20:21 12/18/16 20:21 12/18/16 20:21 12/18/16 20:21 12/18/16 20:21 - Notes Notes: General Appearance: Well nourished, alert, cooperative, no acute distress, no obvious discomfort. Well appearing. Vitals: reviewed, See vital signs table. Head: no swelling or tenderness to the head Eyes: PERRL, EOMI, Conjuctiva clear Mouth: No decreasd moisture Throat: No tonsillar inflammation, No airway obstruction, No lymphadenopathy Neck: Supple, no neck tenderness, No thyromegaly Lungs: No wheezing, left basilar rales, No rhonci, No accessory muscle use, good air exchange bilaterally. Heart: Normal rate, Regular rythm, No murmur, no rub Abdomen: Normal BS, soft, No rigidity, No reproducible abdominal tenderness to palpation, patient has obvious edema in the subcutaneous tissue involving the abdomen. Some clear fluid drainage. Some clear fluid drainage from skin. No guarding, no rebound, no abdominal masses, no organomegaly Extremities: strength 5/5 in all extremities, good pulses in all extremities, no swelling or tenderness in the extremities, 2+ bilateral lower extremity edema. Skin: warm, dry, appropriate color, no rash Neuro: speech clear, oriented x 3, normal affect, responds appropriately to questions. Course - Vital Signs Vital signs: Temp Pulse Resp BP Pulse Ox 98.0 F 55 L 16 182/99 H 100 12/18/16 20:21 12/18/16 20:21 12/18/16 20:21 12/19/16 00:44 12/19/16 01:00 - Laboratory Result Diagrams: 12/18/16 21:45 12/18/16 21:45 Laboratory results interpreted by me: 12/18/16 12/18/16 12/18/16 21:45 21:45 21:45 RBC 3.21 L Hgb 10.4 L Hct 31.2 L RDW 16.1 H Plt Count 125 L Monocytes % 13.1 H BUN 39 H Creatinine 1.45 H Est GFR (Non-Af Amer) 49 L Total Bilirubin 1.5 H Direct Bilirubin 0.5 H AST 62 H NT-Pro-B Natriuret Pep 8040 H Total Protein 8.5 H Albumin 3.2 L - Transfer of Care Notes: 12/19/16 02:43 Patient is continued look very well. Has some mild basilar rales on the left side but he has no difficulty breathing. He is actually lying flat in bed with normal oxygen saturation and no tachypnea or sensation of difficulty breathing. His edema is mostly in his abdominal wall and lower extremities. I have given him a dose of IV Lasix. He has been urinating quite a bit. He says he is feeling improved. I will increase his morning Lasix dose to 60 mg. I will have him continue to take 40 mg at night. I informed him is extremely important he follows up with this week for reevaluation and also have his kidney function rechecked to make sure the increased dose of Lasix is not affecting his kidneys in a negative way. I strongly encouraged him to return to ER immediately if he has any signs of difficulty breathing, any increased breathing, or if he feels unwell. Patient agrees with plan and will be discharged home. Dictation of this chart was performed using voice recognition software; therefore, there may be some unintended grammatical errors. Discharge - Discharge Clinical Impression: Edema Qualifiers: Edema type: unspecified Qualified Code(s): R60.9 - Edema, unspecified CHF (congestive heart failure) Qualifiers: Congestive heart failure type: unspecified congestive heart failure type Congestive heart failure chronicity: acute on chronic Qualified Code(s): I50.9 - Heart failure, unspecified Condition: Good Disposition: HOME, SELF-CARE Additional Instructions: I have written a prescription for 20mg lasix tablets. Please take the 20mg tablet in conjunction with your 40mg tablet in the morning. This will increase your morning dose of Lasix to 60mg. Continue to take your 40mg at night. Please call your doctor in the morning to make a close follow up appointment this week to be reevaluated and to have your kidney function rechecked since we increased your Lasix. Please return to the ER immediately if you have increased swelling of your abdomen or legs, any difficulty breathing, or if you feel unwell. Please avoid any additional salt intake in your diet. Prescriptions: Furosemide [Lasix 20 mg Tablet] 20 mg PO QAM #14 tablet
[2016-12-19 03:14] VITALS: BP 172/90
== END 2016-12-19 03:15 | disposition home or self-care (01) ==
LOC: ER 19:49
DX: I50.9 Heart failure, unspecified (principal); R60.9 Edema, unspecified; R06.02 Shortness of breath; R10.9 Unspecified abdominal pain
CPT/HCPCS: 99285; 96374; 36415; 82553; 82550; 85025; 80053; 84484; 83880; 71010; J1940

== ENCOUNTER 2016-12-28 11:36 | Emergency (ER) | payer MEDICAID ==
--- NOTE | 2016-12-28 12:15 | ER Document Report ---
ED Medical Screen (RME) - General Chief Complaint: Edema Stated Complaint: TROUBLE BREATHING/BACK PAIN Time Seen by Provider: 12/28/16 12:00 Mode of Arrival: Wheelchair Information source: Patient TRAVEL OUTSIDE OF THE [place] IN LAST 30 DAYS: No - HPI Patient complains to provider of: Abdominal fluid leakage Onset: Yesterday Associated Symptoms: Abdominal pain Notes: 12/28/16 12:15 Patient is a 61-year-old male who presents to the emergency room complaining of abdominal distention with fluid leakage from his umbilicus, has a history of a paracentesis in October of this year, states he took 6 L off, he has been having intermittent fluid leakage over the past 6 months, he does report some mild diffuse abdominal pain but no fevers or chills, he reports that he occasionally has shortness of breath while lying flat at night denies any pain at present - Related Data Allergies/Adverse Reactions: diltiazem [From Cardizem] Allergy (Verified 12/28/16 11:51) Past Medical History - Past Medical History Cardiac Medical History: Reports: Hx Atrial Fibrillation, Hx Congestive Heart Failure, Hx Coronary Artery Disease, Hx Heart Attack - pt unsure of this, Hx Hypertension Pulmonary Medical History: Reports: Hx Asthma - childhood Endocrine Medical History: Reports: Hx Diabetes Mellitus Type 2 Renal/ Medical History: Denies: Hx Peritoneal Dialysis GI Medical History: Reports: Hx Cirrhosis Musculoskeltal Medical History: Reports Hx Arthritis - RA, Reports Hx Fibromyalgia Psychiatric Medical History: Reports: Hx Anxiety, Hx Depression Infectious Medical History: Reports: Hx C-Diff Past Surgical History: Reports: Hx Appendectomy, Hx Orthopedic Surgery - L hand , Hx Tonsillectomy - Immunizations Hx Diphtheria, Pertussis, Tetanus Vaccination: Yes Physical Exam - Vital signs Vitals: Temp Pulse Resp BP Pulse Ox 98.3 F 70 20 159/92 H 98 12/28/16 11:51 12/28/16 11:51 12/28/16 11:51 12/28/16 11:51 12/28/16 11:51 Course - Vital Signs Vital signs: Temp Pulse Resp BP Pulse Ox 98.3 F 70 20 159/92 H 98 12/28/16 11:51 12/28/16 11:51 12/28/16 11:51 12/28/16 11:51 12/28/16 11:51
[2016-12-28 12:41] LABS: ABSOLUTE EOSINOPHILS # (AUTO) 0.1 10^3/uL (0.0-0.6); ABSOLUTE LYMPHOCYTES (AUTO) 0.9 10^3/uL (0.5-4.7); ABSOLUTE MONOCYTES (AUTO) 0.5 10^3/uL (0.1-1.4); ABSOLUTE NEUT (AUTO) 2.3 10^3/uL (1.7-8.2); BASOPHILS % (AUTO) 1.1 % (0-2); EOSINOPHILS % (AUTO) 3.2 % (0-6); HEMOGLOBIN 9.4 g/dL (13.5-17.0); HGB HCT DIFFERENCE -0.8; LYMPHOCYTES % (AUTO) 24.1 % (13-45); MEAN CORPUSCULAR HEMOGLOBIN 31.6 pg (27.0-33.4); MEAN CORPUSCULAR HGB CONC 32.5 g/dL (32.0-36.0); MEAN CORPUSCULAR VOLUME 97 fl (80-97); RED BLOOD COUNT 2.99 10^6/uL (4.35-5.55); RED CELL DISTRIBUTION WIDTH 15.7 % (11.5-14.0); SEGMENTED NEUTROPHILS % (AUTO) 59.6 % (42-78); WHITE BLOOD COUNT 3.9 10^3/uL (4.0-10.5)
[2016-12-28 12:48] LABS: PROTHROMBIN TIME 17.5 SEC (11.4-15.4)
[2016-12-28 12:49] LABS: PARTIAL THROMBOPLASTIN TIME 37.6 SEC (23.5-35.8)
[2016-12-28 13:03] LABS: ALANINE AMINOTRANSFERASE 24 U/L (21-72); ALBUMIN 2.8 g/dL (3.5-5.0); ALKALINE PHOSPHATASE 89 U/L (38-126); ANION GAP 7 (5-19); ASPARTATE AMINO TRANSFERASE 51 U/L (17-59); BILIRUBIN,DIRECT 0.4 mg/dL (0.0-0.4); BILIRUBIN,TOTAL 1.4 mg/dL (0.2-1.3); BLOOD UREA NITROGEN 35 mg/dL (7-20); CALCIUM 8.6 mg/dL (8.4-10.2); CARBON DIOXIDE 24 mmol/L (22-30); CHLORIDE 106 mmol/L (98-107); CREATININE RESULT 1.51 mg/dL (0.52-1.25); GLUCOSE 83 mg/dL (75-110); POTASSIUM 4.5 mmol/L (3.6-5.0); SODIUM 136.9 mmol/L (137-145); TOTAL PROTEIN 7.5 g/dL (6.3-8.2)
[2016-12-28] MEDS ORDERED: FUROSEMIDE INJ/PF 40 MG/4 ML SDV IV ONE (13:49)
--- NOTE | 2016-12-28 13:51 | ER Document Report ---
ED General - General Mode of Arrival: Wheelchair Information source: Patient TRAVEL OUTSIDE OF THE [place] IN LAST 30 DAYS: No - HPI Patient complains to provider of: Fluid Leak from Abdomen Onset: Other - Intermittent for the past 6 months Onset/Duration: Intermittent <MOHINDER LOPEZ - Last Filed: 12/28/16 13:53> <ANGELA BECKWITH - Last Filed: 12/28/16 17:37> - General Chief Complaint: Edema Stated Complaint: TROUBLE BREATHING/BACK PAIN Time Seen by Provider: 12/28/16 12:00 Notes: Patient is a 61-year-old male, with history of CHF and cirrhosis, who presents to emergency department today with complaint of fluid leaking from his distended abdomen. Patient was seen here on December 18 for the same reason, and was put on an additional 20 mg of Lasix daily. Patient states that he has not been to his primary care physician, Dr. Moncada at the [facility], since he was seen here. Patient does state that symptoms are no worse than the last time he was seen here in the emergency department. Patient has a history of a paracentesis in October of this year, states liters of fluid were removed. Patient states that he was told he would probably have to do this every 6 months. Patient does not know what the plan is for continuing to keep the fluid off of his abdomen. (MOHINDER LOPEZ) The patient was seen here on 12/18/2016 with the same complaints of shortness of breath and fluid draining from his infraumbilical midline abdominal wall. At that time he was given IV Lasix, diuresed, and was discharged with a prescription to take an additional Lasix 20 mg daily. He was also instructed to follow-up with his primary care provider to recheck his serum chemistry renal function. He states he did fill the prescription, he did not follow-up where he is seen at the [facility]. (ANGELA BECKWITH) - Related Data Allergies/Adverse Reactions: diltiazem [From Cardizem] Allergy (Verified 12/28/16 11:51) Past Medical History - General Information source: Patient - Social History Smoking Status: Unknown if Ever Smoked Family History: Reviewed & Not Pertinent Patient has suicidal ideation: No Patient has homicidal ideation: No - Past Medical History Cardiac Medical History: Reports: Hx Atrial Fibrillation, Hx Congestive Heart Failure, Hx Coronary Artery Disease, Hx Heart Attack - pt unsure of this, Hx Hypertension Pulmonary Medical History: Reports: Hx Asthma - childhood Endocrine Medical History: Reports: Hx Diabetes Mellitus Type 2 GI Medical History: Reports: Hx Cirrhosis Musculoskeltal Medical History: Reports Hx Arthritis - RA, Reports Hx Fibromyalgia Psychiatric Medical History: Reports: Hx Anxiety, Hx Depression Infectious Medical History: Reports: Hx C-Diff Past Surgical History: Reports: Hx Appendectomy, Hx Orthopedic Surgery - L hand , Hx Tonsillectomy - Immunizations Hx Diphtheria, Pertussis, Tetanus Vaccination: Yes <MOHINDER LOPEZ - Last Filed: 12/28/16 13:53> Review of Systems - Review of Systems Constitutional: No symptoms reported EENT: No symptoms reported Cardiovascular: No symptoms reported Respiratory: No symptoms reported Gastrointestinal: See HPI, Abdomen distended - Fluid leakage under umbilicus Genitourinary: No symptoms reported Male Genitourinary: No symptoms reported Musculoskeletal: No symptoms reported Skin: No symptoms reported Hematologic/Lymphatic: No symptoms reported Neurological/Psychological: No symptoms reported <MOHINDER LOPEZ - Last Filed: 12/28/16 13:53> Physical Exam - General General appearance: Alert - HEENT Head: Normocephalic, Atraumatic Eyes: Normal Pupils: PERRL - Respiratory Respiratory status: No respiratory distress Chest status: Nontender Breath sounds: Normal Chest palpation: Normal - Cardiovascular Rhythm: Regular Heart sounds: Normal auscultation Murmur: No - Abdominal Inspection: Obese Distension: Distended - Single drop of fluid at area just under the umbilicus, when palpated, the drop did not fall, and there was no more fluid drainage. Edema in the skin tissue in the same area. Bowel sounds: Normal Tenderness: Nontender Organomegaly: No organomegaly - Back Back: Normal, Nontender - Extremities General upper extremity: Normal inspection, Nontender. No: Edema General lower extremity: Normal inspection, Nontender. No: Edema - Neurological Neuro grossly intact: Yes Cognition: Normal Orientation: AAOx4 [place] Coma Scale Eye Opening: Spontaneous Joan Coma Scale Verbal: Oriented [place] Coma Scale Motor: Obeys Commands Joan Coma Scale Total: 15 Speech: Normal - Psychological Associated symptoms: Normal affect, Normal mood - Skin Skin Temperature: Warm Skin Moisture: Dry Skin Color: Other Location of irregularity: Other - See abdomen exam <MOHINDER LOPEZ - Last Filed: 12/28/16 13:53> Course - Laboratory Result Diagrams: 12/28/16 12:20 12/28/16 12:20 <MOHINDER LOPEZ - Last Filed: 12/28/16 13:53> - Laboratory Result Diagrams: 12/28/16 12:20 12/28/16 12:20 - Diagnostic Test Radiology reviewed: Image reviewed, Reports reviewed - Chest x-ray shows cardiomegaly without failure. There is some thickening of the major and minor fissures which was noted on 12/18/2016. <ANGELA BECKWITH - Last Filed: 12/28/16 17:37> - Re-evaluation Re-evalutation: 12/28/16 17:03 The patient's BNP was 8040 on 12/18/2016, it is 7840 today. Chest x-ray on 12/18/2016 cardiomegaly without failure. Today the chest x-ray shows 12/28/16 17:29 He is presently diuresing after the IM Lasix dose. The patient reports he has an appointment with the [facility] on . I will give him another prescription for Lasix 20 mg to take daily in addition to his regular Lasix dose so he does not run out before he is seen. I have asked him to request they set him up for an outpatient paracentesis, if needed when he is seen on 01/02/2017. (ANGELA BECKWITH) - Vital Signs Vital signs: Temp Pulse Resp BP Pulse Ox 98.3 F 70 20 159/92 H 98 12/28/16 11:51 12/28/16 11:51 12/28/16 11:51 12/28/16 11:51 12/28/16 11:51 - Laboratory Laboratory results interpreted by nv: 12/28/16 12/28/16 12/28/16 12:20 12:20 12:20 WBC 3.9 L RBC 2.99 L Hgb 9.4 L Hct 29.0 L RDW 15.7 H Plt Count 134 L PT 17.5 H APTT 37.6 H Sodium 136.9 L BUN 35 H Creatinine 1.51 H Est GFR ( Amer) 57 L Est GFR (Non-Af Amer) 47 L Total Bilirubin 1.4 H NT-Pro-B Natriuret Pep Albumin 2.8 L 12/28/16 12:20 WBC RBC Hgb Hct RDW Plt Count PT APTT Sodium BUN Creatinine Est GFR ( Amer) Est GFR (Non-Af Amer) Total Bilirubin NT-Pro-B Natriuret Pep 7840 H Albumin Discharge <MOHINDER LOPEZ - Last Filed: 12/28/16 13:53> <ANGELA BECKWITH - Last Filed: 12/28/16 17:37> - Discharge Clinical Impression: Ascites due to alcoholic cirrhosis, Anasarca Condition: Stable Disposition: HOME, SELF-CARE Additional Instructions: Continue taking the additional Lasix 20 mg daily. Elevate your feet. Follow-up with your doctor on Saturday as scheduled. Be sure to ask about getting an outpatient paracentesis done. RETURN TO THE EMERGENCY ROOM IF ANY NEW OR WORSENING SYMPTOMS. Prescriptions: Furosemide [Lasix 20 mg Tablet] 20 mg PO QAM #14 tablet Scribe Attestation: 12/28/16 17:37 I personally performed the services described in the documentation, reviewed and edited the documentation which was dictated to the scribe in my presence, and it accurately records my words and actions. (ANGELA BECKWITH) Scribe Documentation - Scribe Written by Kaye:: Kaye Hernandez, 12/28/2016 1347 acting as scribe for :: Es <MOHINDER LOPEZ - Last Filed: 12/28/16 13:53>
[2016-12-28] MEDS ORDERED: FUROSEMIDE 40 MG TABLET PO ONE (15:25)
--- NOTE | 2016-12-28 17:17 | RADIOLOGY REPORT (SQ) ---
EXAM DESCRIPTION: CHEST PA/LAT COMPLETED DATE/TIME: 12/28/2016 4:54 pm REASON FOR STUDY: SOB, edema COMPARISON: August 2016 EXAM PARAMETERS: NUMBER OF VIEWS: two views TECHNIQUE: Digital Frontal and Lateral radiographic views of the chest acquired. RADIATION DOSE: NA LIMITATIONS: none FINDINGS: LUNGS AND PLEURA: No opacities, masses or pneumothorax. There is some thickening of the m ajor and minor fissures on the right which I cannot exclude as pleural fluid. MEDIASTINUM AND HILAR STRUCTURES: No masses or contour abnormalities. HEART AND VASCULAR STRUCTURES: Cardiac silhouette remains enlarged and is unchanged in configuration. BONES: No acute findings. HARDWARE: None in the chest. OTHER: No other significant finding. IMPRESSION: There is some thickening of the major and minor fissures on the right which I cannot exc lude is pleural fluid. Cardiomegaly. Other findings as noted above TECHNICAL DOCUMENTATION: JOB ID: [id number] [employer]- All Rights Reserved
[2016-12-28 17:53] VITALS: BP 182/116
== END 2016-12-28 17:53 | disposition home or self-care (01) ==
LOC: ER 11:36
DX: K70.31 Alcoholic cirrhosis of liver with ascites (principal); R60.1 Generalized edema; R06.00 Dyspnea, unspecified; M54.9 Dorsalgia, unspecified; I48.91 Unspecified atrial fibrillation; I50.9 Heart failure, unspecified; I25.2 Old myocardial infarction; I11.0 Hypertensive heart disease with heart failure; E11.9 Type 2 diabetes mellitus without complications
CPT/HCPCS: 99283; 36415; 85025; 85610; 85730; 80053; 83880; 71020; J3490

== ENCOUNTER 2017-01-03 06:13 | Emergency (ER) | payer MEDICAID ==
--- NOTE | 2017-01-03 06:50 | ER Document Report ---
ED General - General Mode of Arrival: Medic Information source: Patient TRAVEL OUTSIDE OF THE [place] IN LAST 30 DAYS: No - HPI Onset: Yesterday - Refer to HPI notes Similar symptoms previously: No Recently seen / treated by doctor: Yes <JUAN MIGUEL LEDEZMA - Last Filed: 01/03/17 08:09> <ANGELA BECKWITH - Last Filed: 01/03/17 11:17> - General Chief Complaint: Abdominal Pain Stated Complaint: UPPER ABDOMINAL PAIN Time Seen by Provider: 01/03/17 06:39 Notes: Patient is a 61-year old male presenting to the emergency department for an injury related to a fall. Patient states he tripped over this coffee table and fell into the side of his refrigerator. This occurred last night at 18:00. Patient complains of generalized abdominal pain from the injury. Patient has ascites and he saw the [facility] yesterday. Patient was given more prescriptions of lasix 80 mg x2 per day, propranolol 20 mg x3 per day, and spironolactone 50 mg x2 per day. Patient states he is unsure when he is supposed to have his ascites drained again. Patient also has a history of type II diabetes mellitus, hypertension, CAD, A-fib, and CHF. (JUAN MIGUEL LEDEZMA) - Related Data Allergies/Adverse Reactions: diltiazem [From Cardizem] Allergy (Verified 12/28/16 11:51) Past Medical History - General Information source: Patient - Social History Smoking Status: Never Smoker Family History: None - Past Medical History Cardiac Medical History: Reports: Hx Atrial Fibrillation, Hx Congestive Heart Failure, Hx Coronary Artery Disease, Hx Hypertension Pulmonary Medical History: Reports: Hx Asthma - childhood Endocrine Medical History: Reports: Hx Diabetes Mellitus Type 2 GI Medical History: Reports: Hx Cirrhosis Musculoskeltal Medical History: Reports Hx Arthritis - RA, Reports Hx Fibromyalgia Psychiatric Medical History: Reports: Hx Anxiety, Hx Depression Infectious Medical History: Reports: Hx C-Diff Past Surgical History: Reports: Hx Appendectomy, Hx Orthopedic Surgery - L hand , Hx Tonsillectomy - Immunizations Hx Diphtheria, Pertussis, Tetanus Vaccination: Yes <JUAN MIGUEL LEDEZMA - Last Filed: 01/03/17 08:09> Review of Systems - Review of Systems Constitutional: No symptoms reported EENT: No symptoms reported Cardiovascular: No symptoms reported Respiratory: No symptoms reported Gastrointestinal: See HPI, Abdominal pain Genitourinary: No symptoms reported Male Genitourinary: No symptoms reported Musculoskeletal: See HPI Skin: No symptoms reported Hematologic/Lymphatic: No symptoms reported Neurological/Psychological: No symptoms reported -: Yes All other systems reviewed and negative <BRISAJUAN MIGUEL - Last Filed: 01/03/17 08:09> Physical Exam - Vital signs Interpretation: Normal - General General appearance: Appears well, Alert In distress: Mild - HEENT Head: Normocephalic, Atraumatic Eyes: Normal Pupils: PERRL Mucous membranes: Moist - Respiratory Respiratory status: No respiratory distress Chest status: Nontender Breath sounds: Normal Chest palpation: Normal - Cardiovascular Rhythm: Regular Heart sounds: Normal auscultation Murmur: No - Abdominal Inspection: Obese, Other - Some edema Distension: Distended - Single drop of fluid at area just under the umbilicus, when palpated, the drop did not fall, and there was no more fluid drainage. Bowel sounds: Normal Tenderness: Tender - diffuse generalized abominal pain with palpation Organomegaly: No organomegaly - Back Back: Normal, Nontender - Extremities General upper extremity: Normal inspection, Normal ROM, Normal strength General lower extremity: Normal ROM, Normal strength, Other - several skin wounds in various stages of healing to the lower extremities bilaterally - Neurological Neuro grossly intact: Yes Cognition: Normal Orientation: AAOx4 [place] Coma Scale Eye Opening: Spontaneous Joan Coma Scale Verbal: Oriented [place] Coma Scale Motor: Obeys Commands [place] Coma Scale Total: 15 Speech: Normal - Psychological Associated symptoms: Normal affect, Normal mood - Skin Skin Temperature: Warm Skin Moisture: Dry <JUAN MIGUEL LEDEZMA - Last Filed: 01/03/17 08:09> <ANGELA BECKWITH - Last Filed: 01/03/17 11:17> - Vital signs Vitals: Temp Pulse Resp BP Pulse Ox 97.8 F 72 18 154/89 H 98 01/03/17 06:24 01/03/17 06:24 01/03/17 06:24 01/03/17 06:24 01/03/17 06:24 Course - Laboratory Result Diagrams: 01/03/17 07:03 01/03/17 07:03 <JUAN MIGUEL LEDEZMA - Last Filed: 01/03/17 08:09> - Laboratory Result Diagrams: 01/03/17 07:03 01/03/17 07:03 - Diagnostic Test Radiology reviewed: Image reviewed, Reports reviewed - CT scan does not show an acute process. It does show a large amount of ascites. <ANGELA BECKWITH - Last Filed: 01/03/17 11:17> - Vital Signs Vital signs: Temp Pulse Resp BP Pulse Ox 97.8 F 72 18 154/89 H 98 01/03/17 06:24 01/03/17 06:24 01/03/17 06:24 01/03/17 06:24 01/03/17 06:24 - Laboratory Laboratory results interpreted by me: 01/03/17 01/03/17 01/03/17 07:03 07:03 07:03 RBC 2.99 L Hgb 9.4 L Hct 29.2 L MCV 98 H RDW 15.8 H Plt Count 144 L PT 18.1 H Carbon Dioxide 21 L BUN 43 H Creatinine 1.34 H Est GFR (Non-Af Amer) 54 L Total Bilirubin 1.7 H Albumin 2.8 L Urine Protein Urine Blood Ur Leukocyte Esterase 01/03/17 07:03 RBC Hgb Hct MCV RDW Plt Count PT Carbon Dioxide BUN Creatinine Est GFR (Non-Af Amer) Total Bilirubin Albumin Urine Protein 100 H Urine Blood LARGE H Ur Leukocyte Esterase SMALL H Discharge <JUAN MIGUEL LEDEZMA - Last Filed: 01/03/17 08:09> <ANGELA BECKWITH - Last Filed: 01/03/17 11:17> - Discharge Clinical Impression: Ascites due to alcoholic cirrhosis Fall Qualifiers: Encounter type: initial encounter Qualified Code(s): W19.XXXA - Unspecified fall, initial encounter Abdominal pain Qualifiers: Abdominal location: left upper quadrant Qualified Code(s): R10.12 - Left upper quadrant pain Condition: Stable Disposition: ADMITTED INPATIENT Additional Instructions: CT scan of your abdomen did not show any injury from the fall you suffered yesterday. Should rest today. Take the new medications you have prescribed by your doctor yesterday. Follow-up with your doctor if not improving. RETURN TO THE EMERGENCY ROOM IF ANY NEW OR WORSENING SYMPTOMS. Scribe Attestation: 01/03/17 11:14 I personally performed the services described in the documentation, reviewed and edited the documentation which was dictated to the scribe in my presence, and it accurately records my words and actions. (ANGELA BECKWITH) Scribe Documentation - Scribe Written by Scribe:: Kaye Fletcher 01/03/17 7:30 acting as scribe for :: Es <JUAN MIGUEL LEDEZMA - Last Filed: 01/03/17 08:09>
[2017-01-03 07:14] LABS: ABSOLUTE EOSINOPHILS # (AUTO) 0.1 10^3/uL (0.0-0.6); ABSOLUTE LYMPHOCYTES (AUTO) 0.8 10^3/uL (0.5-4.7); ABSOLUTE MONOCYTES (AUTO) 0.6 10^3/uL (0.1-1.4); ABSOLUTE NEUT (AUTO) 3.8 10^3/uL (1.7-8.2); BASOPHILS % (AUTO) 0.7 % (0-2); EOSINOPHILS % (AUTO) 2.3 % (0-6); HEMATOCRIT 29.2 % (37.9-51.0); HEMOGLOBIN 9.4 g/dL (13.5-17.0); LYMPHOCYTES % (AUTO) 15.7 % (13-45); MEAN CORPUSCULAR HEMOGLOBIN 31.5 pg (27.0-33.4); MEAN CORPUSCULAR HGB CONC 32.3 g/dL (32.0-36.0); MEAN CORPUSCULAR VOLUME 98 fl (80-97); MONOCYTES % (AUTO) 10.4 % (3-13); RED BLOOD COUNT 2.99 10^6/uL (4.35-5.55); RED CELL DISTRIBUTION WIDTH 15.8 % (11.5-14.0); SEGMENTED NEUTROPHILS % (AUTO) 70.9 % (42-78); WHITE BLOOD COUNT 5.3 10^3/uL (4.0-10.5)
[2017-01-03 07:21] LABS: PROTHROMBIN TIME 18.1 SEC (11.4-15.4)
[2017-01-03 07:31] LABS: ALANINE AMINOTRANSFERASE 28 U/L (21-72); ALBUMIN 2.8 g/dL (3.5-5.0); ALKALINE PHOSPHATASE 92 U/L (38-126); ANION GAP 9 (5-19); ASPARTATE AMINO TRANSFERASE 53 U/L (17-59); BILIRUBIN,DIRECT 0.4 mg/dL (0.0-0.4); BILIRUBIN,TOTAL 1.7 mg/dL (0.2-1.3); BLOOD UREA NITROGEN 43 mg/dL (7-20); CALCIUM 8.9 mg/dL (8.4-10.2); CARBON DIOXIDE 21 mmol/L (22-30); CHLORIDE 107 mmol/L (98-107); CREATININE RESULT 1.34 mg/dL (0.52-1.25); GLUCOSE 86 mg/dL (75-110); POTASSIUM 4.6 mmol/L (3.6-5.0); TOTAL PROTEIN 7.9 g/dL (6.3-8.2)
[2017-01-03 07:32] LABS: APPEARANCE,URINE SLIGHTLY-CLOUDY; BILIRUBIN,URINE NEGATIVE (NEGATIVE); GLUCOSE, URINE NEGATIVE (NEGATIVE); KETONES,URINE NEGATIVE (NEGATIVE); LEUKOCYTE ESTERASE,URINE SMALL (NEGATIVE); NITRITE,URINE NEGATIVE (NEGATIVE); PROTEIN,URINE 100 mg/dL (NEGATIVE); URINE SPECIFIC GRAVITY 1.009; UROBILINOGEN,URINE NEGATIVE mg/dL (<2.0)
--- NOTE | 2017-01-03 10:32 | RADIOLOGY REPORT (SQ) ---
EXAM DESCRIPTION: CT ABD/PELVIS WITH IV ONLY COMPLETED DATE/TIME: 01/03/2017 10:04 am REASON FOR STUDY: fall, LUQ pain, elevated INR, cirrhosis, ascites COMPARISON: 10/07/2016 TECHNIQUE: CT scan of the abdomen and pelvis performed using helical scanning technique with dynamic intravenous contrast injection. No oral contrast. Images reviewed with lung, soft tissue, and bone windows. Reconstructed coronal and sagittal MPR images reviewed. Delayed images for evaluation of the urinary system also acquired. All images stored on PACS. All CT scanners at this facility use dose modulation, iterative reconstruction, and/or weight based d osing when appropriate to reduce radiation dose to as low as reasonably achievable (ALARA). [facility]: Dose Right [facility]: CareDose [facility]: Dose Right [facility]: Teradose 4D [facility]: Anne Fogarty CONTRAST TYPE AND DOSE: contrast/concentration: Isovue 370.00 mg/ml; Total Contrast Delivered: 100.0 ml; Total Saline Delivered: 67.0 ml RENAL FUNCTION: Creatinine 1.3 BUN 43 RADIATION DOSE: 56.58. LIMITATIONS: None. FINDINGS: LOWER CHEST: Cardiomegaly. LIVER: The liver is small and the margins are scalloped. SPLEEN: The spleen is prominent. There are couple prominent cysts in the spleen. PANCREAS: No masses. No significant calcifications. No adjacent inflammation or peripancreatic fluid collections. Pancreatic duct not dilated. GALLBLADDER: A couple gallstones are present. ADRENAL GLANDS: No significant masses or asymmetry. RIGHT KIDNEY AND URETER: No solid masses. No significant calcifications. No hydronephrosis or hyd roureter. LEFT KIDNEY AND URETER: No solid masses. No significant calcifications. No hydronephrosis or hydr oureter. AORTA AND VESSELS: No aneurysm. No dissection. Renal arteries, SMA, celiac without stenosis. Varices are present. RETROPERITONEUM: No retroperitoneal adenopathy, hemorrhage or masses. BOWEL AND PERITONEAL CAVITY: Sigmoid diverticula are present with no acute inflammatory changes. The re is considerable ascites. APPENDIX: Surgically absent. PELVIS: The urinary bladder is normal. The prostate gland and seminal vesicles are unremarkable. ABDOMINAL WALL: No masses, no hernias. There is edema in the subcutaneous fat. BONES: No significant or acute findings. OTHER: No other significant finding. IMPRESSION: 1. There is no abdominal hemorrhage. There is no injury to the spleen. 2. Cirrhosis with a prominent spleen with stable cysts. 3. There is large amount of ascites. 4. There is diverticulosis coli. 5. Other findings as described. TECHNICAL DOCUMENTATION: JOB ID: [id number] Quality ID # [id number]: Final reports with documentation of one or more dose reduction techniques (e.g., Au tomated exposure control, adjustment of the mA and/or kV according to patient size, use of iterative reconstruction technique) 2010 [employer]- All Rights Reserved
[2017-01-03 11:30] VITALS: BP 166/93
== END 2017-01-03 11:30 | disposition other institution (70) ==
LOC: ER 06:13
DX: R10.84 Generalized abdominal pain (principal); W01.198A Fall on same level from slipping, tripping and stumbling with subsequent striking against other object, initial encounter; K70.31 Alcoholic cirrhosis of liver with ascites; E11.9 Type 2 diabetes mellitus without complications; I10 Essential (primary) hypertension; I25.10 Atherosclerotic heart disease of native coronary artery without angina pectoris; Z88.8 Allergy status to other drugs, medicaments and biological substances
CPT/HCPCS: 36415; 74177; 80053; 81001; 85025; 85610; 87086; 87088; 87186; 99284

== ENCOUNTER 2017-01-05 12:46 | Observation (INO) | payer MEDICAID ==
--- NOTE | 2017-01-05 13:28 | ER Document Report ---
ED Blood Sugar Problem - General Chief Complaint: Low Blood Sugar Stated Complaint: SHORT OF BREATH Time Seen by Provider: 01/05/17 13:27 Mode of Arrival: Medic Information source: Patient, Emergency Med Personnel TRAVEL OUTSIDE OF THE [place] IN LAST 30 DAYS: No - HPI Onset: This morning Onset/Duration: Gradual Severity: Moderate Associated symptoms: Other - FATIGUE, LOW BLOOD SUGAR Similar symptoms previously: Yes Recently seen / treated by doctor: No - Related Data Allergies/Adverse Reactions: diltiazem [From Cardizem] Allergy (Verified 01/05/17 13:13) Past Medical History - Social History Smoking Status: Never Smoker Chew tobacco use (# tins/day): No Frequency of alcohol use: Occasional Drug Abuse: None Family History: None - Past Medical History Cardiac Medical History: Reports: Hx Atrial Fibrillation, Hx Congestive Heart Failure, Hx Coronary Artery Disease, Hx Heart Attack - pt unsure of this, Hx Hypertension Pulmonary Medical History: Reports: Hx Asthma - childhood Endocrine Medical History: Reports: Hx Diabetes Mellitus Type 2 Renal/ Medical History: Denies: Hx Peritoneal Dialysis GI Medical History: Reports: Hx Cirrhosis Musculoskeltal Medical History: Reports Hx Arthritis - RA, Reports Hx Fibromyalgia Psychiatric Medical History: Reports: Hx Anxiety, Hx Depression Infectious Medical History: Reports: Hx C-Diff Past Surgical History: Reports: Hx Appendectomy, Hx Orthopedic Surgery - L hand , Hx Tonsillectomy - Immunizations Hx Diphtheria, Pertussis, Tetanus Vaccination: Yes Review of Systems - Review of Systems Constitutional: Chills, Weakness EENT: No symptoms reported Cardiovascular: No symptoms reported, Dyspnea Respiratory: Short of breath Gastrointestinal: No symptoms reported Genitourinary: No symptoms reported Musculoskeletal: No symptoms reported Skin: No symptoms reported Neurological/Psychological: No symptoms reported Physical Exam - Vital signs Vitals: Temp Pulse Resp BP Pulse Ox 97.5 F 72 18 166/104 H 96 01/05/17 13:05 01/05/17 13:05 01/05/17 13:05 01/05/17 13:05 01/05/17 13:05 Interpretation: Hypertensive. No: Tachycardic, Tachypneic - General General appearance: Appears well, Alert In distress: None - HEENT Head: Normocephalic Eyes: Normal Ears: Normal Nasal: Normal Mouth/Lips: Normal Mucous membranes: Normal Pharynx: Normal Neck: Normal - Respiratory Respiratory status: No respiratory distress Breath sounds: Rales - BIBASILAR. No: Wheezing - Cardiovascular Rhythm: Irregularly irregular Heart sounds: Normal auscultation Murmur: No - Abdominal Inspection: Obese Bowel sounds: Normal - Back Back: Normal - Extremities General upper extremity: Normal inspection General lower extremity: Edema - 1+ BILAT. - Neurological Neuro grossly intact: Yes Cognition: Normal Orientation: AAOx4 - Skin Skin Temperature: Warm Skin Moisture: Dry Skin Color: Normal Skin Turgor: Elastic Course - Vital Signs Vital signs: Temp Pulse Resp BP Pulse Ox 97.5 F 72 18 166/104 H 96 01/05/17 13:05 01/05/17 13:05 01/05/17 13:05 01/05/17 13:05 01/05/17 13:05 - Laboratory Result Diagrams: 01/05/17 13:45 01/05/17 13:45 Laboratory results interpreted by me: 01/05/17 01/05/17 13:45 13:45 RBC 3.29 L Hgb 10.5 L Hct 31.7 L RDW 15.4 H Seg Neutrophils % 85.8 H Lymphocytes % 6.6 L Absolute Lymphocytes 0.4 L Sodium 134.8 L BUN 34 H Creatinine 1.34 H Est GFR (Non-Af Amer) 54 L Glucose 55 L Total Bilirubin 1.4 H Direct Bilirubin 0.5 H AST 65 H Creatine Kinase 566 H Total Protein 8.7 H Albumin 3.2 L - Diagnostic Test Radiology reviewed: Image reviewed, Reports reviewed - EKG Interpretation by Me EKG shows normal: [place], QRS Complexes, ST-T Waves. abnormal: Sinus rhythm, Intervals - BORDERLINE LONG QT Rate: Normal Rhythm: A.Fib [place]/QRS: Left axis deviation When compared to previous EKG there are: No significant change - Consults DR. PATTEN Time consulted: 16:35 Consulted provider: will come to ER Discharge - Discharge Clinical Impression: Hypoglycemia associated with type 2 diabetes mellitus, Diabetes mellitus type 2 in obese, CKD (chronic kidney disease), stage IV, Atrial fibrillation Admitting Provider: Hospitalist Unit Admitted: Medical Floor
[2017-01-05 14:11] LABS: ABSOLUTE LYMPHOCYTES (AUTO) 0.4 10^3/uL (0.5-4.7); ABSOLUTE MONOCYTES (AUTO) 0.4 10^3/uL (0.1-1.4); ABSOLUTE NEUT (AUTO) 5.5 10^3/uL (1.7-8.2); BASOPHILS % (AUTO) 0.4 % (0-2); EOSINOPHILS % (AUTO) 0.4 % (0-6); HEMATOCRIT 31.7 % (37.9-51.0); HEMOGLOBIN 10.5 g/dL (13.5-17.0); HGB HCT DIFFERENCE -0.2; LYMPHOCYTES % (AUTO) 6.6 % (13-45); MEAN CORPUSCULAR HGB CONC 33.2 g/dL (32.0-36.0); MEAN CORPUSCULAR VOLUME 96 fl (80-97); MONOCYTES % (AUTO) 6.8 % (3-13); RED BLOOD COUNT 3.29 10^6/uL (4.35-5.55); RED CELL DISTRIBUTION WIDTH 15.4 % (11.5-14.0); SEGMENTED NEUTROPHILS % (AUTO) 85.8 % (42-78); WHITE BLOOD COUNT 6.4 10^3/uL (4.0-10.5)
--- NOTE | 2017-01-05 14:12 | RADIOLOGY REPORT (SQ) ---
EXAM DESCRIPTION: CHEST SINGLE VIEW COMPLETED DATE/TIME: 01/05/2017 2:04 pm REASON FOR STUDY: DYSPNEA COMPARISON: None. 12/28/2016 NUMBER OF VIEWS: One view. TECHNIQUE: Single frontal radiographic view of the chest acquired. LIMITATIONS: None. FINDINGS: LUNGS AND PLEURA: No opacities, masses or pneumothorax. No pleural effusion. MEDIASTINUM AND HILAR STRUCTURES: No masses or contour abnormality. HEART AND VASCULATURE: Cardiac enlargement. Vascular congestion. BONES: No acute findings. HARDWARE: None in the chest. OTHER: No other significant finding. IMPRESSION: CARDIAC ENLARGEMENT. VASCULAR CONGESTION. Slightly improved TECHNICAL DOCUMENTATION: JOB ID: [id number] [employer]- All Rights Reserved
[2017-01-05 14:26] LABS: ALANINE AMINOTRANSFERASE 25 U/L (21-72); ALBUMIN 3.2 g/dL (3.5-5.0); ALKALINE PHOSPHATASE 109 U/L (38-126); ANION GAP 8 (5-19); ASPARTATE AMINO TRANSFERASE 65 U/L (17-59); BILIRUBIN,DIRECT 0.5 mg/dL (0.0-0.4); BILIRUBIN,TOTAL 1.4 mg/dL (0.2-1.3); BLOOD UREA NITROGEN 34 mg/dL (7-20); CALCIUM 8.8 mg/dL (8.4-10.2); CARBON DIOXIDE 24 mmol/L (22-30); CHLORIDE 103 mmol/L (98-107); CREATINE KINASE 566 U/L (55-170); CREATININE RESULT 1.34 mg/dL (0.52-1.25); GLUCOSE 55 mg/dL (75-110); POTASSIUM 4.6 mmol/L (3.6-5.0); SODIUM 134.8 mmol/L (137-145); TOTAL PROTEIN 8.7 g/dL (6.3-8.2)
[2017-01-05] MEDS ORDERED: DEXTROSE 5%-1/2 NORMAL SALINE 1,000 ML IV ONE (14:26)
[2017-01-05 14:37] LABS: CREATINE KINASE MB 3.79 ng/mL (<4.55)
[2017-01-05 14:45] LABS: TROPONIN I < 0.012 ng/mL
[2017-01-05] MEDS ORDERED: ACETAMINOPHEN 325 MG TABLET PO PRN (17:02)
[2017-01-05] MEDS ORDERED: ONDANSETRON 4 MG TAB.RAPDIS PO PRN (17:02)
[2017-01-05] MEDS ORDERED: ONDANSETRON HCL INJ/PF 4 MG/2 ML SDV IV PRN (17:02)
--- NOTE | 2017-01-05 17:24 | PDOC H&P ---
History of Present Illness Patient complains of: Low blood sugar History of Present Illness: DEBORAH WHARTON is a 61 year old male with a history of diabetes mellitus who presents with confusion and altered mental status secondary to a blood sugar of 30. The patient reports that he was feeling poorly and called EMS. When they found him he was found to have a blood sugar of 30. Patient has been getting glucose and is alert and oriented. He reports he has been eating as usual and is not taking any extra medications. The patient is on Amaryl chronically as an outpatient. He does report a nonproductive cough. He denies any fevers or chills. Denies any chest pain. He has a history of ascites and cirrhosis but denies any confusion of his blood sugars on the normal range. Past Medical History Cardiac Medical History: Reports: Atrial Fibrillation, Congestive Heart Failure , Coronary Artery Disease, Myocardial Infarction - pt unsure of this, Hypertension Pulmonary Medical History: Reports: Asthma - childhood Endocrine Medical History: Reports: Diabetes Mellitus Type 2 Renal/ Medical History: Reports: Chronic Kidney Disease Malignancy Medical History: Reports: None GI Medical History: Reports: Cirrhosis Musculoskeltal Medical History: Reports: Arthritis - RA, Fibromyalgia Psychiatric Medical History: Reports: Depression Hematology: Reports: Anemia Infectious Medical History: Reports: Clostridium Difficile Past Surgical History Past Surgical History: Reports: Appendectomy, Orthopedic Surgery - L hand, Tonsillectomy Social History Information Source: Patient Lives with: Alone Smoking Status: Former Smoker Frequency of Alcohol Use: Occasional Hx Recreational Drug Use: No Drugs: None Hx Prescription Drug Abuse: No - Advance Directive Resuscitation Status: Full Code Surrogate healthcare decision maker:: Son Peter Wharton Family History Family History: None Family History: He is adopted and his family history is unknown. Parental Family History Reviewed: No - Adopted and it is unknown Children Family History Reviewed: No Sibling(s) Family History Reviewed.: No Medication/Allergy Home Medications: Cholecalciferol (Vitamin D3) [Vitamin D3 1000 Unit Tablet] 2,000 unit PO DAILY # 60 tablet 10/20/16 Fluoxetine HCl [Prozac 20 mg Capsule] 20 mg PO QAM #30 capsule 10/20/16 Furosemide [Lasix] 40 mg PO BID #30 tablet 10/20/16 Lactulose [Cephulac Syrup 20 gm/30 ml Udcup] 20 gm PO QHS #30 udc 04/08/17 Magnesium Oxide [Magnesium] 400 mg PO BID #60 tablet 10/20/16 Metoprolol Tartrate [Lopressor 25 mg Tablet] 25 mg PO Q12 #60 tablet 10/20/16 Thiamine HCl [Thiamine 100 mg Tablet] 100 mg PO DAILY #30 tablet 10/20/16 Vitamin A [Vitamin A 10,000 Unit Capsule] 10,000 unit PO DAILY #30 capsule 10/20 Furosemide [Lasix 20 mg Tablet] 20 mg PO QAM #14 tablet 12/19/16 Furosemide [Lasix 20 mg Tablet] 20 mg PO QAM #14 tablet 12/28/16 Allergies/Adverse Reactions: diltiazem [From Cardizem] Allergy (Verified 01/05/17 13:13) Review of Systems Constitutional: ABSENT: chills, fever(s), headache(s), weight gain, weight loss Eyes: ABSENT: visual disturbances Ears: ABSENT: hearing changes Cardiovascular: ABSENT: chest pain, dyspnea on exertion, edema, orthropnea, palpitations Respiratory: PRESENT: cough. ABSENT: hemoptysis, sputum Gastrointestinal: ABSENT: abdominal pain, constipation, diarrhea, hematemesis, hematochezia, nausea, vomiting Genitourinary: ABSENT: dysuria, hematuria Musculoskeletal: ABSENT: joint swelling Integumentary: ABSENT: rash, wounds Neurological: PRESENT: confusion Psychiatric: ABSENT: anxiety, depression, homidical ideation, suicidal ideation Endocrine: ABSENT: cold intolerance, heat intolerance, polydipsia, polyuria Hematologic/Lymphatic: ABSENT: easy bleeding, easy bruising Physical Exam Vital Signs: Temp Pulse Resp BP Pulse Ox 97.5 F 72 18 166/104 H 96 01/05/17 13:05 01/05/17 13:05 01/05/17 13:05 01/05/17 13:05 01/05/17 13:05 Intake & Output 01/04/17 01/05/17 01/06/17 06:59 06:59 06:59 Weight 71.668 kg General appearance: PRESENT: no acute distress, obese Head exam: PRESENT: atraumatic, normocephalic Eye exam: PRESENT: conjunctiva pink, EOMI, PERRLA. ABSENT: scleral icterus Ear exam: PRESENT: normal external ear exam Mouth exam: PRESENT: moist, tongue midline Neck exam: ABSENT: JVD Respiratory exam: PRESENT: clear to auscultation aba. ABSENT: rales, rhonchi, wheezes Cardiovascular exam: PRESENT: RRR. ABSENT: diastolic murmur, rubs, systolic murmur GI/Abdominal exam: PRESENT: ascites, normal bowel sounds, soft. ABSENT: distended, guarding, mass, organolmegaly, rebound, tenderness Rectal exam: PRESENT: deferred Extremities exam: ABSENT: calf tenderness, clubbing, pedal edema Neurological exam: PRESENT: alert, awake, oriented to person, oriented to place , oriented to time, oriented to situation, CN II-XII grossly intact. ABSENT: motor sensory deficit Psychiatric exam: PRESENT: appropriate affect Skin exam: PRESENT: dry, intact, warm. ABSENT: cyanosis, rash Results Laboratory Results: 01/05/17 13:45 01/05/17 13:45 01/05/17 01/05/17 13:45 13:45 WBC 6.4 RBC 3.29 L Hgb 10.5 L Hct 31.7 L MCV 96 MCH 32.0 MCHC 33.2 RDW 15.4 H Plt Count 165 Seg Neutrophils % 85.8 H Lymphocytes % 6.6 L Monocytes % 6.8 Eosinophils % 0.4 Basophils % 0.4 Absolute Neutrophils 5.5 Absolute Lymphocytes 0.4 L Absolute Monocytes 0.4 Absolute Eosinophils 0.0 Absolute Basophils 0.0 Sodium 134.8 L Potassium 4.6 Chloride 103 Carbon Dioxide 24 Anion Gap 8 BUN 34 H Creatinine 1.34 H Est GFR ( Amer) > 60 Est GFR (Non-Af Amer) 54 L Glucose 55 L Calcium 8.8 Total Bilirubin 1.4 H AST 65 H ALT 25 Alkaline Phosphatase 109 Total Protein 8.7 H Albumin 3.2 L 01/05/17 01/05/17 13:45 13:45 Creatine Kinase 566 H CK-MB (CK-2) 3.79 Troponin I < 0.012 Impressions: Chest X-Ray 01/05/17 13:36 IMPRESSION: CARDIAC ENLARGEMENT. VASCULAR CONGESTION. Slightly improved Assessment & Plan - Diagnosis (1) Hypoglycemia Is this a current diagnosis for this admission?: YesPlan: The patient is on a sulfonyureal long-term. Because of this we will monitor overnight on D5 half-normal saline drip. (2) Anemia of chronic disease Is this a current diagnosis for this admission?: YesPlan: Asymptomatic (3) Atrial fibrillation Is this a current diagnosis for this admission?: YesPlan: Currently in a normal sinus rhythm (4) Diabetes mellitus type 2 in obese Is this a current diagnosis for this admission?: YesPlan: We will hold his oral agent (5) Pulmonary hypertension Is this a current diagnosis for this admission?: Yes (6) Diastolic CHF Qualifiers: Congestive heart failure chronicity: chronic Qualified Code(s): I50.32 - Chronic diastolic (congestive) heart failure Is this a current diagnosis for this admission?: YesPlan: Patient currently euvolemic. (7) Ascites due to alcoholic cirrhosis Is this a current diagnosis for this admission?: YesPlan: He has ascites on exam and has no evidence for encephalopathy at this time (8) CAD (coronary artery disease) Qualifiers: Coronary Disease-Associated Artery/Lesion type: [place] artery [place] vs. transplanted heart: [place] heart Associated angina: without angina Qualified Code(s): I25.10 - Atherosclerotic heart disease of [place] coronary artery without angina pectoris Is this a current diagnosis for this admission?: YesPlan: Denies any chest pain. (9) Chronic kidney disease, stage III (moderate) Is this a current diagnosis for this admission?: YesPlan: Patient is euvolemic (10) Controlled depression Is this a current diagnosis for this admission?: Yes (11) Hypertension Qualifiers: Hypertension type: essential hypertension Qualified Code(s): I10 - Essential (primary) hypertension Is this a current diagnosis for this admission?: Yes (12) Depression Qualifiers: Depression Type: major depressive disorder Major depression recurrence : recurrent Major depression episode severity: moderate Is this a current diagnosis for this admission?: Yes - Time Time Spent: 50 to 70 Minutes - Inpatient Certification Medical Necessity: Need Close Monitoring Due to Risk of Patient Decompensation - Plan Summary Plan Summary: We will admit as an observation as I anticipate this will require less than a 2 midnight hospital stay.
[2017-01-05 17:27] LABS: APPEARANCE,URINE SLIGHTLY-CLOUDY; BILIRUBIN,URINE NEGATIVE (NEGATIVE); GLUCOSE, URINE NEGATIVE (NEGATIVE); KETONES,URINE NEGATIVE (NEGATIVE); LEUKOCYTE ESTERASE,URINE LARGE (NEGATIVE); NITRITE,URINE NEGATIVE (NEGATIVE); PROTEIN,URINE 100 mg/dL (NEGATIVE); UROBILINOGEN,URINE NEGATIVE mg/dL (<2.0)
[2017-01-05 17:32] LABS: BACTERIA,URINE 2+ /HPF
--- NOTE | 2017-01-05 17:39 | EKG REPORT ---
SEVERITY:- ABNORMAL ECG - ATRIAL FIBRILLATION LEFT AXIS DEVIATION BORDERLINE PROLONGED QT INTERVAL : Confirmed by: Magen Dubose 05-Jan-2017 17:38:37
[2017-01-05] MEDS ORDERED: HYDRALAZINE HCL INJ/PF 20 MG/1 ML SDV IV PRN (18:51)
[2017-01-05] MEDS: MAGNESIUM OXIDE 400 MG TABLET PO SCH (18:52)
[2017-01-05] MEDS: ALBUTEROL SULFATE 0.083% NEB 2.5 MG/3 ML AMPUL NEB PRN (20:22)
[2017-01-05] MEDS: FAMOTIDINE 20 MG TABLET PO SCH (21:19)
[2017-01-05] MEDS: DEXTROSE 5%-1/2 NORMAL SALINE 1,000 ML IV PRN (21:20)
[2017-01-05] MEDS: METOPROLOL TARTRATE 25 MG TABLET PO SCH (21:20)
[2017-01-05] MEDS ORDERED: LACTULOSE SYRUP 20 GM/30 ML UDCUP PO SCH (22:00)
[2017-01-06] MEDS: ALBUTEROL SULFATE 0.083% NEB 2.5 MG/3 ML AMPUL NEB PRN ×3 (02:40→15:22)
[2017-01-06 04:54] LABS: HEMATOCRIT 26.8 % (37.9-51.0); HGB HCT DIFFERENCE 0.2; MEAN CORPUSCULAR HEMOGLOBIN 32.2 pg (27.0-33.4); MEAN CORPUSCULAR HGB CONC 33.7 g/dL (32.0-36.0); MEAN CORPUSCULAR VOLUME 95 fl (80-97); RED BLOOD COUNT 2.81 10^6/uL (4.35-5.55); RED CELL DISTRIBUTION WIDTH 15.3 % (11.5-14.0); WHITE BLOOD COUNT 5.7 10^3/uL (4.0-10.5)
[2017-01-06 05:16] LABS: ANION GAP 8 (5-19); BLOOD UREA NITROGEN 32 mg/dL (7-20); CALCIUM 8.4 mg/dL (8.4-10.2); CARBON DIOXIDE 21 mmol/L (22-30); CHLORIDE 105 mmol/L (98-107); CREATININE RESULT 1.32 mg/dL (0.52-1.25); GLUCOSE 90 mg/dL (75-110); MAGNESIUM 1.9 mg/dL (1.6-2.3); POTASSIUM 4.5 mmol/L (3.6-5.0); SODIUM 133.7 mmol/L (137-145)
[2017-01-06] MEDS ORDERED: FLUOXETINE HCL 20 MG CAPSULE PO SCH (08:00)
[2017-01-06] MEDS ORDERED: CHOLECALCIFEROL (D3) 1,000 UNIT TABLET PO SCH (10:00)
[2017-01-06] MEDS ORDERED: THIAMINE HCL 100 MG TABLET PO SCH (10:00)
[2017-01-06] MEDS: FAMOTIDINE 20 MG TABLET PO SCH (11:25)
[2017-01-06] MEDS: MAGNESIUM OXIDE 400 MG TABLET PO SCH (11:25)
[2017-01-06] MEDS: METOCLOPRAMIDE HCL 10 MG TABLET PO SCH ×2 (11:25→16:19)
[2017-01-06] MEDS: METOPROLOL TARTRATE 25 MG TABLET PO SCH (11:26)
[2017-01-06 11:53] VITALS: BP 132/75
[2017-01-06] MEDS: DEXTROSE 5%-1/2 NORMAL SALINE 1,000 ML IV PRN (13:10)
--- NOTE | 2017-01-06 15:51 | PDOC DISCHARGE SUMMARY ---
General - Admit/Disc Date/PCP Admission Date/Primary Care Provider: 01/05/17 17:02 Discharge Date: 01/06/17 - Discharge Diagnosis (1) Hypoglycemia Is this a current diagnosis for this admission?: YesSummary: Secondary to Amaryl. Patient instructed to cut his dose in half starting tomorrow (2) Anemia of chronic disease Is this a current diagnosis for this admission?: Yes (3) Atrial fibrillation Is this a current diagnosis for this admission?: Yes (4) Diabetes mellitus type 2 in obese Is this a current diagnosis for this admission?: Yes (5) Pulmonary hypertension Is this a current diagnosis for this admission?: Yes (6) Diastolic CHF Is this a current diagnosis for this admission?: Yes (7) Ascites due to alcoholic cirrhosis Is this a current diagnosis for this admission?: Yes (8) CAD (coronary artery disease) Is this a current diagnosis for this admission?: Yes (9) Chronic kidney disease, stage III (moderate) Is this a current diagnosis for this admission?: Yes (10) Controlled depression Is this a current diagnosis for this admission?: Yes (11) Hypertension Is this a current diagnosis for this admission?: Yes (12) Depression Is this a current diagnosis for this admission?: Yes - Additional Information Resuscitation Status: Full Code Discharge Diet: Diabetic Discharge Activity: Activity As Tolerated Home Medications: Cholecalciferol (Vitamin D3) [Vitamin D3 1000 Unit Tablet] 1,000 unit PO DAILY 01/06/17 Fluoxetine HCl [Prozac 20 mg Capsule] 20 mg PO QAM 01/06/17 Furosemide [Lasix] 40 mg PO Q12 01/06/17 Glimepiride [Amaryl 1 mg Tablet] 0.5 mg PO DAILY #0 01/06/17 Magnesium Oxide [Mag-Ox 400 mg Tablet] 400 mg PO BID 01/06/17 Metoprolol Tartrate [Lopressor 25 mg Tablet] 25 mg PO Q12 01/06/17 Thiamine HCl [Thiamine 100 mg Tablet] 100 mg PO DAILY 01/06/17 Vitamin A [Vitamin A 10,000 Unit Capsule] 10,000 unit PO DAILY 01/06/17 History of Present Illness History of Present Illness: DEBORAH WHARTON is a 61 year old male with a history of diabetes mellitus who presents with confusion and altered mental status secondary to a blood sugar of 30. The patient reports that he was feeling poorly and called EMS. When they found him he was found to have a blood sugar of 30. Patient has been getting glucose and is alert and oriented. He reports he has been eating as usual and is not taking any extra medications. The patient is on Amaryl chronically as an outpatient. He does report a nonproductive cough. He denies any fevers or chills. Denies any chest pain. He has a history of ascites and cirrhosis but denies any confusion of his blood sugars on the normal range. Hospital Course Hospital Course: 61-year-old male admitted with hypoglycemia secondary to Amaryl. Patient was admitted overnight and given D5 half-normal saline. He had resolution of his hypoglycemia. The patient is instructed to cut his dose in half starting tomorrow. The rest of his medical problems were stable during this hospitalization. Will follow up with his primary care doctor in 1 week. Physical Exam Vital Signs: Temp Pulse Resp BP Pulse Ox 97.8 F 62 18 132/75 H 95 01/06/17 15:41 01/06/17 15:41 01/06/17 15:41 01/06/17 15:41 01/06/17 15:41 Intake & Output 01/05/17 01/06/17 01/07/17 06:59 06:59 06:59 Intake Total 1679 Balance 1679 Weight 127.9 kg General appearance: PRESENT: no acute distress Eye exam: PRESENT: conjunctiva pink. ABSENT: scleral icterus Mouth exam: PRESENT: moist, tongue midline Neck exam: ABSENT: JVD Respiratory exam: PRESENT: clear to auscultation aba. ABSENT: rales, rhonchi, wheezes Cardiovascular exam: PRESENT: RRR. ABSENT: diastolic murmur, rubs, systolic murmur GI/Abdominal exam: PRESENT: normal bowel sounds, soft. ABSENT: distended, guarding, mass, organolmegaly, rebound, tenderness Extremities exam: ABSENT: calf tenderness, clubbing, pedal edema Neurological exam: PRESENT: alert, awake, oriented to person, oriented to place , oriented to time, oriented to situation, CN II-XII grossly intact. ABSENT: motor sensory deficit Psychiatric exam: PRESENT: appropriate affect Skin exam: PRESENT: dry, intact, warm. ABSENT: cyanosis, rash Results Laboratory Results: 01/06/17 04:15 01/06/17 04:15 01/06/17 01/06/17 04:15 04:15 WBC 5.7 RBC 2.81 L Hgb 9.0 L Hct 26.8 L MCV 95 MCH 32.2 MCHC 33.7 RDW 15.3 H Plt Count 126 L Sodium 133.7 L Potassium 4.5 Chloride 105 Carbon Dioxide 21 L Anion Gap 8 BUN 32 H Creatinine 1.32 H Est GFR ( Amer) > 60 Est GFR (Non-Af Amer) 55 L Glucose 90 Calcium 8.4 Magnesium 1.9 Impressions: Chest X-Ray 01/05/17 13:36 IMPRESSION: CARDIAC ENLARGEMENT. VASCULAR CONGESTION. Slightly improved Qualifiers PATEINT BEING DISCHARGED WITH ANY OF THE FOLLOWING DIAGNOSIS?: No Plan Discharge Plan: Discharged home in stable condition. Will follow up with primary care doctor in 1-2 weeks. Time Spent: Less than 30 Minutes
== END 2017-01-06 16:45 | disposition home or self-care (01) ==
LOC: ER 12:46 → EH 17:02 → UNDOADMOB 17:35 → 4W 18:33 → EH 18:33
PROVIDERS: ADMIT Internal Medicine; ATTEND Internal Medicine
DX: E11.649 Type 2 diabetes mellitus with hypoglycemia without coma (principal); T38.3X5A Adverse effect of insulin and oral hypoglycemic [antidiabetic] drugs, initial encounter; Z79.84 Long term (current) use of oral hypoglycemic drugs; D63.8 Anemia in other chronic diseases classified elsewhere; I48.91 Unspecified atrial fibrillation; I27.2 Other secondary pulmonary hypertension; I13.0 Hypertensive heart and chronic kidney disease with heart failure and stage 1 through stage 4 chronic kidney disease, or unspecified chronic kidney disease; I50.32 Chronic diastolic (congestive) heart failure; N18.3 Chronic kidney disease, stage 3 (moderate); E11.22 Type 2 diabetes mellitus with diabetic chronic kidney disease; K70.31 Alcoholic cirrhosis of liver with ascites; I25.10 Atherosclerotic heart disease of native coronary artery without angina pectoris; F33.1 Major depressive disorder, recurrent, moderate; R05 Cough; E66.9 Obesity, unspecified; Z79.899 Other long term (current) drug therapy; Z90.49 Acquired absence of other specified parts of digestive tract; Z87.891 Personal history of nicotine dependence
CPT/HCPCS: 93005; 99285; 96365; 96366; 36415 ×2; 87040; 82553; 82962 ×2; 82550; 83735; 85025; 85027; 80048; 80053; 81001; 84484; 71010; 93010; 94640 ×2; J3490 ×11; J2405; G0378

== ENCOUNTER 2017-01-07 22:33 | Emergency (ER) | payer MEDICAID ==
[~2017-01-07 22:33] MED LIST: EPINEPHRINE INJ 1 MG/10 ML DISP.SYRIN ONE; LIDOCAINE RTU 2 GM/D5W 250 ML (8 MG/ML) PREMIX IV ONE; SODIUM BICARBONATE 8.4% INJ 50 MEQ/50 ML DISP.SYRIN ONE
[2017-01-07] MEDS ORDERED: EPINEPHRINE INJ/PF 1 MG/1 ML AMPULE ONE ×2 (22:41→23:44)
--- NOTE | 2017-01-07 22:58 | ER Document Report ---
ED General - General Stated Complaint: UNRESPONSIVE Time Seen by Provider: 01/07/17 22:54 Notes: Patient is a 61-year-old male chronically ill at baseline who presents with a cardiac arrest. No history can be obtained other than what is report from EMS. They report that patient was apparently found down by a family member. Bystander CPR was initiated by the police. Patient initially had asystole with transition to a ventricular fibrillation with ACLS protocols. He arrived to the emergency department intubated, GCS 3 T. Of note he was discharged from the hospital yesterday after being hospitalized for hypoglycemia secondary to Amaryl. TRAVEL OUTSIDE OF THE [place] IN LAST 30 DAYS: No - Related Data Allergies/Adverse Reactions: diltiazem [From Cardizem] Allergy (Verified 01/05/17 17:40) Past Medical History - General Information source: Emergency Med Personnel Cannot obtain history due to: Intubated, Unstable vital signs - Social History Smoking Status: Unknown if Ever Smoked Family History: Reviewed & Not Pertinent - Past Medical History Cardiac Medical History: Reports: Hx Atrial Fibrillation, Hx Congestive Heart Failure, Hx Coronary Artery Disease, Hx Heart Attack - pt unsure of this, Hx Hypertension Pulmonary Medical History: Reports: Hx Asthma - childhood Endocrine Medical History: Reports: Hx Diabetes Mellitus Type 2 Renal/ Medical History: Denies: Hx Peritoneal Dialysis GI Medical History: Reports: Hx Cirrhosis Musculoskeltal Medical History: Reports Hx Arthritis - RA, Reports Hx Fibromyalgia Psychiatric Medical History: Reports: Hx Anxiety, Hx Depression Infectious Medical History: Reports: Hx C-Diff Past Surgical History: Reports: Hx Appendectomy, Hx Orthopedic Surgery - L hand , Hx Tonsillectomy - Immunizations Hx Diphtheria, Pertussis, Tetanus Vaccination: Yes Review of Systems - Review of Systems -: Yes ROS unobtainable due to patient's medical condition Physical Exam - Vital signs Vitals: Pulse Ox 100 01/07/17 23:15 Interpretation: Hypotensive, Bradycardic Notes: PHYSICAL EXAMINATION: GENERAL: Sedated, unresponsive HEAD: Atraumatic, normocephalic. EYES: Pupils are 6 mm, fixed and dilated. No corneal response. ENT: Intubated. Dry mucous membranes. NECK: No lymphadenopathy LUNGS: Expiratory wheezing in all lung anders with prolonged expiratory phase with bagging. HEART: Regular rate and rhythm without murmurs ABDOMEN: Obese, protuberant abdomen EXTREMITIES: 1+ pitting edema in the bilateral lower extremities no cyanosis. NEUROLOGICAL: GCS 3 T. PSYCH: Unresponsive SKIN: Warm, Dry, poor turgor Course - Re-evaluation Re-evalutation: 01/07/17 22:45 Patient arrives after having an asystolic arrest followed by ventricular fibrillation shocked 3 total times prior to arrival who arrives in normal sinus rhythm with hypotension. Immediately upon arrival, IV access was established in the right external jugular vein as patient is morbidly obese and had no really alternative site. A humeral intraosseous line was also placed. A bedside echocardiogram was performed that showed very poor contractility with diffuse ventricular dilation and hypertrophy. No evidence of pericardial effusion or tamponade. An epinephrine infusion was made at the bedside and begun. Patient unfortunately did re-arrest requiring a total of 5 additional minutes of ACLS protocols. An additional 1 mg of epinephrine was administered along with a gram of calcium gluconate and an amp of bicarb. Unfortunately, immediately at time of arrival patient does have an exam consistent with clinical brain . Pupils are 6 mm, fixed and dilated. No corneal response. No cough, no gag. No doll's eyes. Patient has no response to noxious stimuli in any extremity. He has no spontaneous respirations. No paralytics, sedative or analgesic drugs were administered prior to arrival. I discussed the radiology states he did not have a CT perfusion ability at this facility. Patient continues at this time on an epinephrine infusion. Repeat bedside echocardiogram after initiation of the bedside epinephrine infusion does show somewhat improved contractility. Critically ill at this time, awaiting arrival with family to discuss care plan. 01/07/17 23:03 Patient's blood pressure has now improved to 160s 170 systolic. The epinephrine drip has been held at this point. He remains without bradycardia. Neuro exam remains unchanged. 01/07/17 23:26 Patient only lasted off the epinephrine drip for approximately 2-3 minutes before again having a bradycardic event, becoming severely hypotensive requiring reinitiation of the epinephrine infusion. He is having some intermittent agonal respirations at this time otherwise the remainder of the neuro exam remains very poor. 01/07/17 23:41 Patient does continue to have intermittent agonal respirations. Pupils are 4 mm although remain unreactive. No corneal cough or gag. Remains nonresponsive to noxious stimuli. After infusion at 20 mcg/min to maintain normal blood pressures and prevent severe bradycardia. Arterial blood gases returned with a pH of 6.9. 2 additional amps of bicarbonate will be administered. Will place a central line 01/08/17 00:08 Patient is now having intermittent runs of ventricular tachycardia. This is responsive to lidocaine before so we will begin the lidocaine infusion. A central line has been placed in the right femoral vein without difficulty. Patient will be started on a bicarb infusion lidocaine infusion. Recheck of the glucose demonstrates 58 so will initiate an amp of d50. 01/08/17 00:56 Patient's hemodynamics have improved despite downward titration of his epinephrine infusion. Now on 5 mcg/min. 01/08/17 01:30 Will titrate epinephrine drip down to 2.5 mcg/min. Labs have returned showing signs consistent with hepatic congestion likely in the setting of poor perfusion during the cardiac arrest. 01/08/17 02:14 Patient now sounds much tighter on auscultation the lungs, taking short breaths over the ventilator. Patient is dyssynchronous with the ventilator at this time and not effectively ventilating. Will paralyzed with vecuronium, provide fentanyl for sedation. Will resume continuous albuterol in-line nebs 01/08/17 02:43 Patient had to be pulled off the ventilator and bagged as he was starting to desaturate on the ventilator due to resistance in the setting of COPD and repeat chest x-ray is also been obtained. This demonstrates increased pulmonary edema. 40 mg of IV Lasix will be administered. I have discussed this case with Dr. Jiménez and the automation technologist at [facility] who has accepted the patient for transfer. 01/08/17 03:58 Patient is manifesting signs and symptoms consistent with DIC. Oozing around central line, IV puncture sites and having profuse bloody diarrhea. Patient is also required an increase in his FiO2 to maintain oxygen saturations despite continuous in-line albuterol nebulizers and adjustments to the PEEP. Transport has arrived to transfer the patient to [facility]. Patient remains in critical condition but will be transported at this time. - Vital Signs Vital signs: Temp Pulse Resp BP Pulse Ox 95.8 F L 18 105/72 91 L 01/08/17 03:20 01/08/17 03:20 01/08/17 03:20 01/08/17 03:20 - Laboratory Result Diagrams: 01/08/17 00:15 01/08/17 00:15 Laboratory results interpreted by me: 01/07/17 01/08/17 01/08/17 23:15 00:08 00:15 RBC Hgb Hct MCV MCHC RDW Plt Count Seg Neutrophils % Lymphocytes % Monocytes % Absolute Neutrophils Carbonic Acid 1.80 H ABG pH 6.91 L* ABG pCO2 59.9 H ABG pO2 318.4 H ABG HCO3 11.8 L ABG Total CO2 13.6 L ABG O2 Saturation 99.4 H Sodium Potassium Carbon Dioxide BUN Creatinine Est GFR ( Amer) Est GFR (Non-Af Amer) Glucose POC Glucose 53 L Calcium Magnesium Direct Bilirubin AST ALT Alkaline Phosphatase Creatine Kinase CK-MB (CK-2) 6.93 H Albumin 01/08/17 01/08/17 01/08/17 00:15 00:15 01:40 RBC 2.95 L Hgb 9.4 L Hct 29.7 L MCV 101 H D MCHC 31.6 L RDW 15.8 H Plt Count 129 L Seg Neutrophils % 88.9 H Lymphocytes % 8.6 L Monocytes % 0.8 L Absolute Neutrophils 9.1 H Carbonic Acid ABG pH 7.25 L ABG pCO2 ABG pO2 163.8 H ABG HCO3 15.6 L ABG Total CO2 16.7 L ABG O2 Saturation 98.8 H Sodium 132.0 L Potassium 5.2 H Carbon Dioxide 13 L BUN 32 H Creatinine 1.71 H Est GFR ( Amer) 49 L Est GFR (Non-Af Amer) 41 L Glucose 213 H POC Glucose Calcium 7.1 L Magnesium 2.4 H Direct Bilirubin 0.6 H AST 1355 H ALT 534 H Alkaline Phosphatase 133 H Creatine Kinase 712 H CK-MB (CK-2) Albumin 2.3 L - Diagnostic Test Radiology reviewed: Image reviewed, Reports reviewed Radiology results interpreted by me: 01/08/17 02:01 Chest x-ray: ET tube 2 cm above appropriate position and will be advanced - EKG Interpretation by Me Additional EKG results interpreted by me: 01/08/17 02:02 Normal sinus rhythm. Rate 62. First-degree AV block. No ST elevations or depressions. QTC is 491. Procedures - Central Line Right Femoral Consent obtained: No - emergent Central line pre-insertion: Sterile PPE donned, Chloraprep applied Central line lumen type: Triple Ultrasound guided: Yes CM at insertion site: 30 Line secured with sutures: Yes Central line post-insertion: Blood return from lumens, Biopatch applied, Sutured , Sterile dressing applied Number of attempts: 1 Complications: No Critical Care Note - Critical Care Note Total time excluding time spent on procedures (mins): 145 Comments: Critical care time spent obtaining history from patient or surrogate, discussions with consultants, development of treatment plan with patient or surrogate, evaluation of patient's response to treatment, examination of patient , ordering and performing treatments and interventions, ordering and review of laboratory studies, re-evaluation of patient's condition, ordering and review of radiographic studies and review of old charts Discharge - Discharge Clinical Impression: Cardiac arrest, Mixed acidosis, Cardiogenic shock, Ventricular tachycardia Condition: Critical
[2017-01-07] MEDS ORDERED: ALBUTEROL SULFATE 0.083% NEB 2.5 MG/3 ML AMPUL NEB ONE (23:19)
--- NOTE | 2017-01-07 23:23 | RADIOLOGY REPORT (SQ) ---
EXAM DESCRIPTION: CHEST SINGLE VIEW COMPLETED DATE/TIME: 01/07/2017 11:14 pm REASON FOR STUDY: post arrest COMPARISON: 01/05/2017. NUMBER OF VIEWS: One view. TECHNIQUE: Single frontal radiographic view of the chest acquired. LIMITATIONS: None. FINDINGS: LUNGS AND PLEURA: No opacities, masses or pneumothorax. No pleural effusion. MEDIASTINUM AND HILAR STRUCTURES: No masses or contour abnormality. HEART AND VASCULATURE: Cardiac enlargement. Mild vascular congestion. BONES: No acute findings. HARDWARE: Endotracheal tube with the tip located 4 cm proximal to the [place]. OTHER: No other significant finding. IMPRESSION: ENDOTRACHEAL TUBE DESCRIBED. CARDIOMEGALY WITH MILD VASCULAR CONGESTION P TECHNICAL DOCUMENTATION: JOB ID: [id number] [employer]- All Rights Reserved
[2017-01-07] MEDS ORDERED: DEXTROSE 5%-WATER 250 ML with EPINEPHRINE/PF 1 MG IV PRN ×2 (23:27)
[2017-01-07 23:28] LABS: ARTERIAL BLOOD O2 SATURATION 99.4 % (94-98)
[2017-01-07 23:32] LABS: ARTERIAL BLOOD BASE EXCESS -20.5 mmol/L
[2017-01-08] MEDS ORDERED: SODIUM BICARBONATE 8.4% INJ 50 MEQ/50 ML DISP.SYRIN ONE ×5 (00:08→01:12)
[2017-01-08] MEDS ORDERED: DEXTROSE IV PRN (00:09)
[2017-01-08] MEDS ORDERED: LIDOCAINE IV PRN (00:09)
[2017-01-08] MEDS ORDERED: DEXTROSE 5%-WATER 1000 ML 1,000 ML with SODIUM BICARBONATE 150 MEQ IV PRN ×2 (00:09)
[2017-01-08] MEDS ORDERED: DEXTROSE 50%-WATER 25 GM/50 ML DISP.SYRIN IV ONE ×2 (00:10→00:12)
[2017-01-08] MEDS ORDERED: METHYLPREDNISOLONE INJ 125 MG/2 ML SDV IV ONE (00:24)
[2017-01-08 00:51] LABS: ALANINE AMINOTRANSFERASE 534 U/L (21-72); ALBUMIN 2.3 g/dL (3.5-5.0); ALKALINE PHOSPHATASE 133 U/L (38-126); ANION GAP 15 (5-19); BILIRUBIN,DIRECT 0.6 mg/dL (0.0-0.4); BLOOD UREA NITROGEN 32 mg/dL (7-20); CALCIUM 7.1 mg/dL (8.4-10.2); CARBON DIOXIDE 13 mmol/L (22-30); CHLORIDE 104 mmol/L (98-107); CREATINE KINASE 712 U/L (55-170); CREATININE RESULT 1.71 mg/dL (0.52-1.25); GLUCOSE 213 mg/dL (75-110); MAGNESIUM 2.4 mg/dL (1.6-2.3); POTASSIUM 5.2 mmol/L (3.6-5.0); TOTAL PROTEIN 6.6 g/dL (6.3-8.2)
[2017-01-08 00:52] LABS: CREATINE KINASE MB 6.93 ng/mL (<4.55)
[2017-01-08 01:02] LABS: TROPONIN I 0.035 ng/mL
[2017-01-08 01:06] LABS: ABSOLUTE BASOPHILS # (AUTO) 0.1 10^3/uL (0.0-0.2); ABSOLUTE EOSINOPHILS # (AUTO) 0.1 10^3/uL (0.0-0.6); ABSOLUTE LYMPHOCYTES (AUTO) 0.9 10^3/uL (0.5-4.7); ABSOLUTE MONOCYTES (AUTO) 0.1 10^3/uL (0.1-1.4); ABSOLUTE NEUT (AUTO) 9.1 10^3/uL (1.7-8.2); ASPARTATE AMINO TRANSFERASE 1355 U/L (17-59); BASOPHILS % (AUTO) 0.6 % (0-2); EOSINOPHILS % (AUTO) 1.1 % (0-6); HEMATOCRIT 29.7 % (37.9-51.0); HEMOGLOBIN 9.4 g/dL (13.5-17.0); HGB HCT DIFFERENCE -1.5; LYMPHOCYTES % (AUTO) 8.6 % (13-45); MEAN CORPUSCULAR HEMOGLOBIN 31.8 pg (27.0-33.4); MEAN CORPUSCULAR HGB CONC 31.6 g/dL (32.0-36.0); MONOCYTES % (AUTO) 0.8 % (3-13); RED BLOOD COUNT 2.95 10^6/uL (4.35-5.55); RED CELL DISTRIBUTION WIDTH 15.8 % (11.5-14.0); SEGMENTED NEUTROPHILS % (AUTO) 88.9 % (42-78); WHITE BLOOD COUNT 10.2 10^3/uL (4.0-10.5)
[2017-01-08 01:07] LABS: MEAN CORPUSCULAR VOLUME 101 fl (80-97)
[2017-01-08] MEDS: MAGNESIUM SULFATE/D5W 100 ML IV SCH ×2 (01:07→02:44)
[2017-01-08 02:04] LABS: ARTERIAL BLOOD BASE EXCESS -10.7 mmol/L; ARTERIAL BLOOD O2 SATURATION 98.8 % (94-98)
[2017-01-08] MEDS ORDERED: VECURONIUM BROMIDE INJ 10 MG VIAL IV ONE (02:14)
[2017-01-08] MEDS ORDERED: FENTANYL CITRATE INJ/PF 100 MCG/2 ML AMPUL IV ONE (02:14)
[2017-01-08] MEDS ORDERED: ALBUTEROL SULFATE 0.083% NEB 2.5 MG/3 ML AMPUL NEB ONE (02:14)
[2017-01-08] MEDS ORDERED: FUROSEMIDE INJ/PF 40 MG/4 ML SDV IV ONE (02:42)
[2017-01-08] MEDS ORDERED: FUROSEMIDE INJ/PF 40 MG/4 ML SDV ONE (02:46)
--- NOTE | 2017-01-08 02:59 | RADIOLOGY REPORT (SQ) ---
EXAM DESCRIPTION: CHEST SINGLE VIEW COMPLETED DATE/TIME: 01/08/2017 2:48 am REASON FOR STUDY: repeat COMPARISON: 01/07/2017. EXAM PARAMETERS: NUMBER OF VIEWS: One view. TECHNIQUE: Single frontal radiographic view of the chest acquired. RADIATION DOSE: NA LIMITATIONS: Overlying transducer pad and leads. FINDINGS: LUNGS AND PLEURA: Moderate lung volumes. Mild mixed interstitial markings and airspace pa tchiness. Obscured right costophrenic angle. MEDIASTINUM AND HILAR STRUCTURES: No masses. Contour normal. HEART AND VASCULAR STRUCTURES: Moderate enlargement of the cardiac silhouette. BONES: No acute findings. HARDWARE: Adequate appearing endotracheal tube. OTHER: No other significant finding. IMPRESSION: No significant interval change. TECHNICAL DOCUMENTATION: JOB ID: [id number]
[2017-01-08 04:21] VITALS: BP 125/80
--- NOTE | 2017-01-08 07:53 | EKG REPORT ---
SEVERITY:- ABNORMAL ECG - SINUS RHYTHM FIRST DEGREE AV BLOCK LEFT ANTERIOR FASCICULAR BLOCK : Confirmed by: Magen Dubose 08-Jan-2017 07:52:18
== END 2017-01-08 04:01 | disposition short-term general hospital (02) ==
LOC: ER 22:33
DX: I46.9 Cardiac arrest, cause unspecified (principal); E87.4 Mixed disorder of acid-base balance; R00.0 Tachycardia, unspecified; I51.7 Cardiomegaly; I95.9 Hypotension, unspecified; K92.1 Melena; R19.7 Diarrhea, unspecified; J44.9 Chronic obstructive pulmonary disease, unspecified; E66.01 Morbid (severe) obesity due to excess calories; R60.9 Edema, unspecified; I25.10 Atherosclerotic heart disease of native coronary artery without angina pectoris; I10 Essential (primary) hypertension; E11.9 Type 2 diabetes mellitus without complications; Z88.8 Allergy status to other drugs, medicaments and biological substances
CPT/HCPCS: 36680; 36556; 93005; 94640; 99291; 99292; 51702; 96375; 96365; 96366; 36415; 82553; 82962; 82803; 82550; 83735; 85025; 80053; 84484; 71010 ×2; 93010; C1751; J0171; J3010; J1940; J2001; J3490 ×2; J2930; J3475; 94002; 94003